=== PATIENT | female | born 1965 | race Caucasian/White ===

== ENCOUNTER → 2017-06-04 | Outpatient (POV) | payer OTHER, SELFPAY | PROVIDERS: Family Provider Internal Medicine; PCP Internal Medicine; Visit Provider Specialist | DX: R25.2 Cramp and spasm (principal) | CPT/HCPCS: 95886; 95909 ==

== ENCOUNTER → 2017-12-21 09:44 | Outpatient (CLI) | payer OTHER, SELFPAY ==
[2017-12-21 11:08] LABS: Alanine Aminotransferase 121 U/L (12-78); Albumin Level 3.6 gm/dL (3.4-5.0); Albumin/Globulin Ratio 0.9 (1.1-1.8); Alkaline Phosphatase 97 U/L (46-116); Anion Gap 15.5 mEq/L (5-15); Aspartate Amino Transferase 64 U/L (15-37); Bilirubin,Total 0.4 mg/dL (0.2-1.0); Blood Urea Nitrogen 17 mg/dL (7-18); Calcium 9.4 mg/dL (8.5-10.1); Carbon Dioxide 28 mmol/L (21.0-32.0); Chloride 102 mmol/L (98-107); Chol/HDL Ratio 4.1 (1-3.5); Cholesterol 203 mg/dL (140-200); Creatinine,Serum 0.91 mg/dL (0.55-1.02); Estimated Glomerular Filt Rate 65 ml/min (>60); GFR (African American) 79 ML/MIN (>60); Globulin 4.1 gm/dl (1.3-3.2); Glucose 107 mg/dL (74-106); HDL Cholesterol 50 mg/dL (29-89); LDL Cholesterol 108 mg/dL (0-130); Potassium 4.5 mmoL/L (3.5-5.1); Sodium 141 mmol/L (136-145); Total Protein,Serum 7.7 gm/dL (6.4-8.2); Triglycerides 227 mg/dL (30-200); VLDL Cholesterol 45 mg/dL (0-40)
[2017-12-22 19:40] LABS: Hep B Core Ab, Total Positive (Negative); Hep B Surface Ab, Qual Non Reactive (.); Hepatitis C Antibody <0.1 s/co ratio (0.0-0.9)
[2017-12-22 19:42] LABS: Microalbumin, Urine 99.4 ug/mL (Not Estab.)
== END ==
PROVIDERS: Visit Provider Internal Medicine
DX: E78.5 Hyperlipidemia, unspecified (principal); I10 Essential (primary) hypertension; R76.8 Other specified abnormal immunological findings in serum
CPT/HCPCS: 36415; 80053; 80061; 82043; 86704; 86706; 87380

== ENCOUNTER → 2018-01-14 10:58 | Outpatient (POV) | payer OTHER, SELFPAY ==
[2018-01-14 12:21] LABS: Basophils # 0.1 K/mm3 (0-0.2); Basophils % 0.7 % (0.1-2.0); Eosinophils # 0.2 K/mm3 (0.0-0.4); Eosinophils % 2.9 % (0.1-12.0); Hematocrit 45.6 % (37.0-47.0); Hemoglobin 14.9 g/dL (12.2-16.2); Lymphocytes # 3.2 K/mm3 (0.7-4.5); Lymphocytes % 40.1 K/mm3 (10-50); Mean Corpuscular HGB Conc 32.8 g/dL (31.8-35.4); Mean Corpuscular Hemoglobin 31.3 pg (27.0-31.2); Mean Corpuscular Volume 95.4 fl (81-99); Mean Platelet Volume 7.8 fl (7.4-10.4); Monocytes # 0.3 K/mm3 (0.1-1.0); Monocytes % 3.1 % (1.7-9.3); Neutrophils # 4.2 K/mm3 (1.8-7.8); Neutrophils % 53.1 % (37.0-80.0); Platelet Count 233 K/mm3 (142-424); Red Blood Count 4.77 M/mm3 (4.20-5.40); Red Cell Distribution Width 13.2 % (11.5-17.5)
[2018-01-14 12:22] LABS: INR 0.93 (0.9-1.1); Prothrombin Time 9.6 seconds (9.4-11.8)
[2018-01-14 17:23] LABS: Alanine Aminotransferase 147 U/L (12-78); Albumin Level 3.5 gm/dL (3.4-5.0); Albumin/Globulin Ratio 0.9 (1.1-1.8); Alkaline Phosphatase 94 U/L (46-116); Anion Gap 14.7 mEq/L (5-15); Aspartate Amino Transferase 97 U/L (15-37); Bilirubin,Total 0.4 mg/dL (0.2-1.0); Blood Urea Nitrogen 14 mg/dL (7-18); Calcium 9.4 mg/dL (8.5-10.1); Carbon Dioxide 28 mmol/L (21.0-32.0); Chloride 104 mmol/L (98-107); Creatinine,Serum 0.81 mg/dL (0.55-1.02); Estimated Glomerular Filt Rate 75 ml/min (>60); GFR (African American) 91 ML/MIN (>60); Globulin 4.1 gm/dl (1.3-3.2); Glucose 104 mg/dL (74-106); Potassium 4.7 mmoL/L (3.5-5.1); Sodium 142 mmol/L (136-145); Total Protein,Serum 7.6 gm/dL (6.4-8.2)
[2018-01-14 17:47] LABS: Ferritin 261 ng/mL (8-388)
[2018-01-15 09:27] LABS: Iron 72 ug/dL (27-159); UIBC 252 ug/dL (131-425)
[2018-01-15 10:14] LABS: Alpha-1-Antitrypsin 141 mg/dL (90-200); Immunoglobulin A, Qn 230 mg/dL (87-352); Immunoglobulin G, Qn 1031 mg/dL (700-1600)
[2018-01-15 11:19] LABS: Hep Be Ag Negative (Negative); Hepatitis B Surface Antigen Negative (Negative)
[2018-01-15 12:50] LABS: Hep B Core Ab, Total Positive (Negative); Hep B Surface Ab, Qual Non Reactive (.); Hepatitis B Core Antibody IgM Negative (Negative); Immunoglobulin M, Qn 383 mg/dL (26-217); Iron Saturation 22 % (15-55)
[2018-01-15 14:15] LABS: Angiotensin Converting Enzyme 42 U/L (14-82); Endomysial IgA Antibody Negative (Negative)
[2018-01-16 06:53] LABS: Deamidated Gliadin Abs, IgA 4 units (0-19); Tissue Transglutaminase IgA Ab <2 U/mL (0-3); Tissue Transglutaminase IgG Ab <2 U/mL (0-5)
[2018-01-16 06:54] LABS: Actin (Smooth Muscle) Antibody 29 Units (0-19); Deamidated Gliadin Abs, IgG 2 units (0-19); Mitochondrial (M2) Antibody <20.0 Units (0.0-20.0)
[2018-01-17 06:13] LABS: Liver-Kidney Microsomal Ab <1.0 Units (0.0-20.0)
[2018-01-17 06:16] LABS: Antinuclear Antibodies, IFA Positive (.)
[2018-01-22 09:32] LABS: Reticulin IgA Antibody Negative
[2018-01-22 09:34] LABS: Fibrosis Stage NO FIBROSIS
[2018-01-22 09:35] LABS: Necroinflammat Activity Score 0.59
[2018-01-22 10:07] LABS: HBV IU/mL HBV DNA NOT DETECTED
[2018-01-22 10:09] LABS: Fibrosis Score 0.06
[2018-01-22 10:10] LABS: Alpha 2-Macroglobulins, Qn 197
[2018-01-22 10:11] LABS: Apolipoprotein A-1 161; Bilirubin, Total 0.2; Haptoglobin 247
[2018-01-22 10:12] LABS: ALT (SGPT) P5P 132; GGT 30
== END ==
PROVIDERS: Visit Provider Nurse Practitioner Acute Care
DX: R94.5 Abnormal results of liver function studies (principal)
CPT/HCPCS: 36415; 80053; 82104; 82164; 82728; 82784; 83516; 83550; 85025; 85610; 86038; 86255; 86256; 86376; 86704; 86706; 87340; 87350; 87517

== ENCOUNTER → 2018-01-17 07:51 | Outpatient (CLI) | payer OTHER, SELFPAY ==
--- NOTE | 2018-01-17 07:54 | US_ITS ---
US abdomen limited Ordering Physician: Suyapa Muse Patient Age: 52 years: Female HISTORY: ITS.REASON: ELEVATED LIVER ENZYMES TECHNIQUE: Ultrasound abdomen right upper quadrant COMPARISON :CT abdomen and pelvis March 2015 FINDINGS Liver. Diffuse fatty changes of the liver. Increased echogenicity throughout. No focal lesion... Portal vein appears normal direction flow. . Common duct appears normal diameter measuring less than 2.5 mm at hilum of liver. No intrahepatic ductal dilatation. Pancreas. Suspect diffuse fatty changes. Not optimally seen with ultrasound but grossly unremarkable. Gallbladder. No echogenic stone. No significant sludge with scant debris. Barely evident. Gallbladder wall appears normal to upper normal thickness. The gallbladder normal size. Right kidney. Cortex well-maintained. No hydronephrosis nor mass. Right kidney measured 15 cm in length. The small stone lower pole seen on previous 2014 CT is not evident with ultrasound but may not be appreciated given its small size IMPRESSION: . Liver. Diffuse fatty changes with upper normal size liver. No focal liver lesions. No biliary ductal dilatation.. Gallbladder. No gallstones. No significant findings gallbladder.
== END ==
PROVIDERS: Family Provider Internal Medicine; PCP Internal Medicine; Visit Provider Nurse Practitioner Acute Care
DX: R94.5 Abnormal results of liver function studies (principal)
CPT/HCPCS: 76705

== ENCOUNTER → 2018-02-14 07:23 | Outpatient (CLI) | payer OTHER, SELFPAY ==
[2018-02-14 08:34] LABS: Basophils # 0.1 K/mm3 (0-0.2); Basophils % 0.6 % (0.1-2.0); Eosinophils # 0.2 K/mm3 (0.0-0.4); Eosinophils % 1.8 % (0.1-12.0); Hematocrit 44.7 % (37.0-47.0); Hemoglobin 14.5 g/dL (12.2-16.2); Lymphocytes # 3.1 K/mm3 (0.7-4.5); Lymphocytes % 35.2 K/mm3 (10-50); Mean Corpuscular HGB Conc 32.5 g/dL (31.8-35.4); Mean Corpuscular Hemoglobin 31.1 pg (27.0-31.2); Mean Corpuscular Volume 95.6 fl (81-99); Mean Platelet Volume 8.2 fl (7.4-10.4); Monocytes # 0.3 K/mm3 (0.1-1.0); Monocytes % 2.9 % (1.7-9.3); Neutrophils # 5.3 K/mm3 (1.8-7.8); Neutrophils % 59.7 % (37.0-80.0); Platelet Count 274 K/mm3 (142-424); Red Blood Count 4.68 M/mm3 (4.20-5.40); Red Cell Distribution Width 12.7 % (11.5-17.5); White Blood Count 8.9 K/mm3 (4.8-10.8)
[2018-02-14 09:40] LABS: Alanine Aminotransferase 92 U/L (12-78); Albumin Level 3.5 gm/dL (3.4-5.0); Albumin/Globulin Ratio 0.9 (1.1-1.8); Alkaline Phosphatase 84 U/L (46-116); Anion Gap 9.3 mEq/L (5-15); Aspartate Amino Transferase 33 U/L (15-37); Bilirubin,Total 0.3 mg/dL (0.2-1.0); Blood Urea Nitrogen 18 mg/dL (7-18); Calcium 9.4 mg/dL (8.5-10.1); Carbon Dioxide 30 mmol/L (21.0-32.0); Chloride 105 mmol/L (98-107); Creatinine,Serum 0.85 mg/dL (0.55-1.02); Estimated Glomerular Filt Rate 71 ml/min (>60); GFR (African American) 86 ML/MIN (>60); Globulin 3.9 gm/dl (1.3-3.2); Glucose 101 mg/dL (74-106); Potassium 4.3 mmoL/L (3.5-5.1); Sodium 140 mmol/L (136-145); Total Protein,Serum 7.4 gm/dL (6.4-8.2)
== END ==
PROVIDERS: Visit Provider Nurse Practitioner Acute Care
DX: R94.5 Abnormal results of liver function studies (principal)
CPT/HCPCS: 36415; 80053; 85025

== ENCOUNTER → 2018-02-18 09:04 | Outpatient (POV) | payer OTHER, SELFPAY | PROVIDERS: Family Provider Internal Medicine; PCP Internal Medicine; Visit Provider Nurse Practitioner Acute Care | DX: Z00.00 Encounter for general adult medical examination without abnormal findings (principal) ==

== ENCOUNTER → 2018-03-01 09:19 | Outpatient (CLI) | payer OTHER, SELFPAY ==
--- NOTE | 2018-03-01 09:22 | NM_ITS ---
NM hepatobiliary w pharm HISTORY: Right upper quadrant pain ITS.REASON: RUQ PAIN ORDERING PHYSICIAN: Suyapa Muse PATIENT AGE: 52 years COMPARISON: None DOSE: 8.15 MCI TC Choletec Fatty Meal: Ensure. No pain reported with fatty meal FINDINGS: Homogeneous activity is present within the hepatic parenchyma. Activity is present in the gallbladder by 10 minutes. Activity is present in the small bowel by 15 minutes. The gallbladder ejection fraction is calculated to be 68% The patient did not report pain or other symptoms with the fatty meal. IMPRESSION: Unremarkable hepatobiliary scan and gallbladder ejection fraction. No evidence of common or cystic duct obstruction with normal gallbladder ejection fraction
== END ==
PROVIDERS: Family Provider Internal Medicine; PCP Internal Medicine; Visit Provider Nurse Practitioner Acute Care
DX: R10.11 Right upper quadrant pain (principal)
CPT/HCPCS: 78227; A9537

== ENCOUNTER → 2018-04-05 15:30 | Outpatient (CLI) | payer OTHER, SELFPAY ==
[2018-04-05 17:12] LABS: Basophils # 0.1 K/mm3 (0-0.2); Basophils % 0.7 % (0.1-2.0); Eosinophils # 0.2 K/mm3 (0.0-0.4); Eosinophils % 1.5 % (0.1-12.0); Hematocrit 47.6 % (37.0-47.0); Hemoglobin 15.5 g/dL (12.2-16.2); Lymphocytes # 3.5 K/mm3 (0.7-4.5); Lymphocytes % 27.9 K/mm3 (10-50); Mean Corpuscular HGB Conc 32.5 g/dL (31.8-35.4); Mean Corpuscular Hemoglobin 31.2 pg (27.0-31.2); Mean Platelet Volume 7.7 fl (7.4-10.4); Monocytes # 0.4 K/mm3 (0.1-1.0); Neutrophils # 8.3 K/mm3 (1.8-7.8); Neutrophils % 66.9 % (37.0-80.0); Platelet Count 303 K/mm3 (142-424); Red Blood Count 4.96 M/mm3 (4.20-5.40); Red Cell Distribution Width 13.1 % (11.5-17.5); White Blood Count 12.4 K/mm3 (4.8-10.8)
[2018-04-05 18:30] LABS: Alanine Aminotransferase 64 U/L (12-78); Albumin Level 3.9 gm/dL (3.4-5.0); Albumin/Globulin Ratio 0.9 (1.1-1.8); Alkaline Phosphatase 96 U/L (46-116); Anion Gap 12.8 mEq/L (5-15); Aspartate Amino Transferase 27 U/L (15-37); Bilirubin,Total 0.4 mg/dL (0.2-1.0); Blood Urea Nitrogen 14 mg/dL (7-18); Calcium 9.2 mg/dL (8.5-10.1); Carbon Dioxide 28 mmol/L (21.0-32.0); Chloride 101 mmol/L (98-107); Creatinine,Serum 0.86 mg/dL (0.55-1.02); Estimated Glomerular Filt Rate 70 ml/min (>60); GFR (African American) 84 ML/MIN (>60); Globulin 4.3 gm/dl (1.3-3.2); Glucose 98 mg/dL (74-106); Potassium 4.8 mmoL/L (3.5-5.1); Sodium 137 mmol/L (136-145); Total Protein,Serum 8.2 gm/dL (6.4-8.2)
== END ==
PROVIDERS: PCP Internal Medicine; Visit Provider Nurse Practitioner Acute Care
DX: R94.5 Abnormal results of liver function studies (principal)
CPT/HCPCS: 36415; 80053; 85025

== ENCOUNTER → 2018-04-08 15:14 | Outpatient (POV) | payer OTHER, SELFPAY | PROVIDERS: Family Provider Internal Medicine; PCP Internal Medicine; Visit Provider Nurse Practitioner Acute Care | DX: Z00.00 Encounter for general adult medical examination without abnormal findings (principal) ==

== ENCOUNTER → 2018-05-03 11:53 | Outpatient (CLI) | payer OTHER, SELFPAY ==
[2018-05-03 12:19] LABS: Basophils # 0.1 K/mm3 (0-0.2); Basophils % 0.5 % (0.1-2.0); Eosinophils # 0.1 K/mm3 (0.0-0.4); Eosinophils % 1.3 % (0.1-12.0); Hematocrit 45.6 % (37.0-47.0); Hemoglobin 14.5 g/dL (12.2-16.2); Lymphocytes # 2.7 K/mm3 (0.7-4.5); Lymphocytes % 25.8 K/mm3 (10-50); Mean Corpuscular HGB Conc 31.8 g/dL (31.8-35.4); Mean Corpuscular Hemoglobin 30.2 pg (27.0-31.2); Mean Platelet Volume 7.4 fl (7.4-10.4); Monocytes # 0.4 K/mm3 (0.1-1.0); Monocytes % 3.8 % (1.7-9.3); Neutrophils # 7.2 K/mm3 (1.8-7.8); Neutrophils % 68.7 % (37.0-80.0); Platelet Count 292 K/mm3 (142-424); Red Cell Distribution Width 13.6 % (11.5-17.5); White Blood Count 10.5 K/mm3 (4.8-10.8)
[2018-05-03 15:56] LABS: Alanine Aminotransferase 47 U/L (12-78); Albumin Level 3.5 gm/dL (3.4-5.0); Albumin/Globulin Ratio 0.9 (1.1-1.8); Alkaline Phosphatase 72 U/L (46-116); Anion Gap 14.5 mEq/L (5-15); Aspartate Amino Transferase 15 U/L (15-37); Bilirubin,Total 0.3 mg/dL (0.2-1.0); Blood Urea Nitrogen 15 mg/dL (7-18); Calcium 9.2 mg/dL (8.5-10.1); Carbon Dioxide 30 mmol/L (21.0-32.0); Chloride 104 mmol/L (98-107); Creatinine,Serum 0.66 mg/dL (0.55-1.02); Estimated Glomerular Filt Rate 94 ml/min (>60); GFR (African American) 114 ML/MIN (>60); Globulin 3.7 gm/dl (1.3-3.2); Potassium 4.5 mmoL/L (3.5-5.1); Sodium 144 mmol/L (136-145); Total Protein,Serum 7.2 gm/dL (6.4-8.2)
[2018-05-03 16:15] LABS: Glucose 75 mg/dL (74-106)
== END ==
PROVIDERS: PCP Internal Medicine; Visit Provider Internal Medicine
DX: R94.5 Abnormal results of liver function studies (principal)
CPT/HCPCS: 36415; 80053; 85025

== ENCOUNTER → 2018-05-20 14:23 | Outpatient (POV) | payer OTHER, SELFPAY | PROVIDERS: Family Provider Internal Medicine; PCP Internal Medicine; Visit Provider Nurse Practitioner Acute Care | DX: Z00.00 Encounter for general adult medical examination without abnormal findings (principal) ==

== ENCOUNTER → 2018-06-18 10:29 | Outpatient (CLI) | payer OTHER, SELFPAY ==
[2018-06-18 12:53] LABS: Alanine Aminotransferase 43 U/L (12-78); Albumin Level 3.5 gm/dL (3.4-5.0); Albumin/Globulin Ratio 0.9 (1.1-1.8); Alkaline Phosphatase 81 U/L (46-116); Anion Gap 17.2 mEq/L (5-15); Aspartate Amino Transferase 17 U/L (15-37); Bilirubin,Total 0.4 mg/dL (0.2-1.0); Blood Urea Nitrogen 17 mg/dL (7-18); Calcium 9.3 mg/dL (8.5-10.1); Carbon Dioxide 28 mmol/L (21.0-32.0); Chloride 102 mmol/L (98-107); Cholesterol 202 mg/dL (140-200); Creatinine,Serum 0.77 mg/dL (0.55-1.02); Estimated Glomerular Filt Rate 79 ml/min (>60); GFR (African American) 96 ML/MIN (>60); Glucose 101 mg/dL (74-106); HDL Cholesterol 68 mg/dL (29-89); LDL Cholesterol 110 mg/dL (0-130); Potassium 5.2 mmoL/L (3.5-5.1); Sodium 142 mmol/L (136-145); Total Protein,Serum 7.5 gm/dL (6.4-8.2); Triglycerides 121 mg/dL (30-200); VLDL Cholesterol 24 mg/dL (0-40)
== END ==
PROVIDERS: Visit Provider Internal Medicine
DX: E11.9 Type 2 diabetes mellitus without complications (principal); I10 Essential (primary) hypertension; E78.5 Hyperlipidemia, unspecified; E66.01 Morbid (severe) obesity due to excess calories; K21.0 Gastro-esophageal reflux disease with esophagitis; G47.33 Obstructive sleep apnea (adult) (pediatric)
CPT/HCPCS: 80053; 80061; 83036

== ENCOUNTER → 2018-06-28 17:18 | Outpatient (CLI) | payer OTHER, SELFPAY ==
[2018-06-28 18:03] LABS: Eosinophils % 2.1 % (0.1-12.0); Hematocrit 43.6 % (37.0-47.0); Hemoglobin 14.3 g/dL (12.2-16.2); Lymphocytes % 33.1 % (10-50); Mean Corpuscular HGB Conc 32.7 g/dL (31.8-35.4); Mean Corpuscular Hemoglobin 31.1 pg (27.0-31.2); Mean Corpuscular Volume 95.1 fl (81-99); Mean Platelet Volume 7.7 fl (7.4-10.4); Monocytes % 2.8 % (1.7-9.3); Neutrophils % 61.4 % (37.0-80.0); Platelet Count 267 K/mm3 (142-424); Red Blood Count 4.59 M/mm3 (4.20-5.40)
[2018-06-28 18:04] LABS: Basophils # 0.1 K/mm3 (0-0.2); Basophils % 0.7 % (0.1-2.0); Eosinophils # 0.2 K/mm3 (0.0-0.4); Lymphocytes # 3.7 K/mm3 (0.7-4.5); Monocytes # 0.3 K/mm3 (0.1-1.0); Neutrophils # 6.8 K/mm3 (1.8-7.8)
[2018-06-28 20:34] LABS: Alanine Aminotransferase 40 U/L (12-78); Albumin Level 3.5 gm/dL (3.4-5.0); Albumin/Globulin Ratio 0.9 (1.1-1.8); Alkaline Phosphatase 82 U/L (46-116); Anion Gap 16.5 mEq/L (5-15); Aspartate Amino Transferase 18 U/L (15-37); Bilirubin,Total 0.2 mg/dL (0.2-1.0); Blood Urea Nitrogen 12 mg/dL (7-18); Calcium 9.5 mg/dL (8.5-10.1); Carbon Dioxide 29 mmol/L (21.0-32.0); Chloride 102 mmol/L (98-107); Creatinine,Serum 0.82 mg/dL (0.55-1.02); Estimated Glomerular Filt Rate 73 ml/min (>60); GFR (African American) 89 ML/MIN (>60); Potassium 4.5 mmoL/L (3.5-5.1); Sodium 143 mmol/L (136-145); Total Protein,Serum 7.5 gm/dL (6.4-8.2)
[2018-06-28 20:56] LABS: Glucose 118 mg/dL (74-106)
[2018-07-02 10:28] LABS: H. pylori Breath Test Negative (Negative)
== END ==
PROVIDERS: Visit Provider Nurse Practitioner Acute Care
DX: R10.11 Right upper quadrant pain (principal); R94.5 Abnormal results of liver function studies
CPT/HCPCS: 36415; 80053; 83013; 85025

== ENCOUNTER → 2018-08-26 13:31 | Outpatient (POV) | payer OTHER, SELFPAY | PROVIDERS: Visit Provider Nurse Practitioner Acute Care | DX: Z00.00 Encounter for general adult medical examination without abnormal findings (principal) ==

== ENCOUNTER → 2019-01-20 10:18 | Outpatient (POV) | payer OTHER, SELFPAY | PROVIDERS: PCP Internal Medicine; Visit Provider Nurse Practitioner Family | DX: Z00.00 Encounter for general adult medical examination without abnormal findings (principal) ==

== ENCOUNTER → 2019-02-05 14:54 | Outpatient (CLI) | payer OTHER, SELFPAY | PROVIDERS: PCP Internal Medicine; Visit Provider Nurse Practitioner Family | DX: Z71.3 Dietary counseling and surveillance (principal); K75.4 Autoimmune hepatitis; K76.0 Fatty (change of) liver, not elsewhere classified; K30 Functional dyspepsia; R10.11 Right upper quadrant pain | CPT/HCPCS: 97802 ==

== ENCOUNTER → 2019-02-28 10:49 | Outpatient (CLI) | payer OTHER, SELFPAY ==
[2019-02-28 11:21] LABS: Basophils # 0.1 K/mm3 (0-0.2); Basophils % 0.6 % (0.1-2.0); Eosinophils # 0.2 K/mm3 (0.0-0.4); Eosinophils % 2.4 % (0.1-12.0); Hemoglobin 15.3 g/dL (12.2-16.2); Lymphocytes # 2.7 K/mm3 (0.7-4.5); Lymphocytes % 33.7 % (10-50); Mean Corpuscular HGB Conc 31.1 g/dL (31.8-35.4); Mean Corpuscular Hemoglobin 30.5 pg (27.0-31.2); Mean Corpuscular Volume 97.8 fl (81-99); Mean Platelet Volume 8.2 fl (7.4-10.4); Monocytes # 0.2 K/mm3 (0.1-1.0); Monocytes % 2.6 % (1.7-9.3); Neutrophils # 4.9 K/mm3 (1.8-7.8); Neutrophils % 60.7 % (37.0-80.0); Platelet Count 281 K/mm3 (142-424); Red Cell Distribution Width 13.1 % (11.5-17.5); White Blood Count 8.1 K/mm3 (4.8-10.8)
[2019-02-28 15:45] LABS: Alanine Aminotransferase 65 U/L (12-78); Albumin Level 3.5 gm/dL (3.4-5.0); Albumin/Globulin Ratio 0.8 (1.1-1.8); Alkaline Phosphatase 89 U/L (46-116); Anion Gap 13.4 mEq/L (5-15); Aspartate Amino Transferase 30 U/L (15-37); Bilirubin,Total 0.4 mg/dL (0.2-1.0); Blood Urea Nitrogen 14 mg/dL (7-18); Calcium 9.6 mg/dL (8.5-10.1); Carbon Dioxide 30 mmol/L (21.0-32.0); Chloride 101 mmol/L (98-107); Creatinine,Serum 0.79 mg/dL (0.55-1.02); Estimated Glomerular Filt Rate 77 ml/min (>60); GFR (African American) 93 ML/MIN (>60); Globulin 4.2 gm/dl (1.3-3.2); Glucose 94 mg/dL (74-106); Potassium 4.4 mmoL/L (3.5-5.1); Sodium 140 mmol/L (136-145); Total Protein,Serum 7.7 gm/dL (6.4-8.2)
== END ==
PROVIDERS: Visit Provider Nurse Practitioner Family
DX: K75.4 Autoimmune hepatitis (principal)
CPT/HCPCS: 36415; 80053; 85025

== ENCOUNTER → 2019-03-03 08:52 | Outpatient (POV) | payer OTHER, SELFPAY | PROVIDERS: PCP Nurse Practitioner Family; Visit Provider Nurse Practitioner Family | DX: Z00.00 Encounter for general adult medical examination without abnormal findings (principal) ==

== ENCOUNTER → 2019-10-06 16:54 | Outpatient (CLI) | payer BC, SELFPAY ==
[2019-10-06 17:29] LABS: Basophils # 0.1 K/mm3 (0-0.2); Basophils % 0.5 % (0.1-2.0); Eosinophils # 0.5 K/mm3 (0.0-0.4); Eosinophils % 5.3 % (0.1-12.0); Hematocrit 45.1 % (37.0-47.0); Lymphocytes # 3.5 K/mm3 (0.7-4.5); Lymphocytes % 40.9 % (10-50); Mean Corpuscular HGB Conc 33.2 g/dL (31.8-35.4); Mean Corpuscular Hemoglobin 31.3 pg (27.0-31.2); Mean Corpuscular Volume 94.2 fl (81-99); Mean Platelet Volume 8.1 fl (7.4-10.4); Monocytes # 0.3 K/mm3 (0.1-1.0); Monocytes % 3.1 % (1.7-9.3); Neutrophils # 4.2 K/mm3 (1.8-7.8); Neutrophils % 50.1 % (37.0-80.0); Platelet Count 275 K/mm3 (142-424); Red Blood Count 4.79 M/mm3 (4.20-5.40); Red Cell Distribution Width 13.1 % (11.5-17.5); White Blood Count 8.4 K/mm3 (4.8-10.8)
[2019-10-06 17:47] LABS: Chloride 99 mmol/L (98-107); Potassium 4.6 mmoL/L (3.5-5.1); Sodium 140 mmol/L (136-145)
[2019-10-06 17:50] LABS: Alanine Aminotransferase 139 U/L (12-78); Albumin Level 4.6 g/dl (3.5-5.0); Albumin/Globulin Ratio 1.4 (1.1-1.8); Alkaline Phosphatase 91 U/L (38-126); Anion Gap 17.6 mEq/L (5-15); Aspartate Amino Transferase 120 U/L (14-36); Bilirubin,Total 0.4 mg/dl (0.2-1.3); Blood Urea Nitrogen 13 mg/dl (7-17); Carbon Dioxide 28 mmol/L (22.0-30.0); Estimated Glomerular Filt Rate 88 ml/min (>60); GFR (African American) 106 ML/MIN (>60); Globulin 3.3 g/dL (1.3-3.2); Glucose 122 mg/dl (74-100); Total Protein,Serum 7.9 g/dl (6.3-8.2)
== END ==
PROVIDERS: Visit Provider Nurse Practitioner Family
DX: R10.11 Right upper quadrant pain (principal); R94.5 Abnormal results of liver function studies; K75.4 Autoimmune hepatitis; K76.0 Fatty (change of) liver, not elsewhere classified
CPT/HCPCS: 36415; 80053; 85025

== ENCOUNTER → 2019-11-11 17:22 | Outpatient (CLI) | payer BC, SELFPAY ==
[2019-11-11 17:48] LABS: Basophils # 0.1 K/mm3 (0-0.2); Basophils % 0.9 % (0.1-2.0); Eosinophils # 0.2 K/mm3 (0.0-0.4); Eosinophils % 2.2 % (0.1-12.0); Hematocrit 44.6 % (37.0-47.0); Hemoglobin 14.5 g/dL (12.2-16.2); Lymphocytes # 3.2 K/mm3 (0.7-4.5); Mean Corpuscular HGB Conc 32.4 g/dL (31.8-35.4); Mean Corpuscular Hemoglobin 30.8 pg (27.0-31.2); Mean Corpuscular Volume 94.9 fl (81-99); Mean Platelet Volume 8.1 fl (7.4-10.4); Monocytes # 0.2 K/mm3 (0.1-1.0); Neutrophils # 3.9 K/mm3 (1.8-7.8); Neutrophils % 51.9 % (37.0-80.0); Platelet Count 262 K/mm3 (142-424); Red Cell Distribution Width 12.9 % (11.5-17.5); White Blood Count 7.5 K/mm3 (4.8-10.8)
[2019-11-11 20:27] LABS: Chloride 102 mmol/L (98-107); Sodium 139 mmol/L (136-145)
[2019-11-11 20:28] LABS: Potassium 4.9 mmoL/L (3.5-5.1)
[2019-11-11 20:30] LABS: Alanine Aminotransferase 105 U/L (12-78); Alkaline Phosphatase 82 U/L (38-126); Anion Gap 12.9 mEq/L (5-15); Aspartate Amino Transferase 61 U/L (14-36); Bilirubin,Total 0.3 mg/dl (0.2-1.3); Blood Urea Nitrogen 15 mg/dl (7-17); Carbon Dioxide 29 mmol/L (22.0-30.0); Estimated Glomerular Filt Rate 88 ml/min (>60); GFR (African American) 106 ML/MIN (>60)
[2019-11-11 20:31] LABS: Albumin Level 4.4 g/dl (3.5-5.0); Albumin/Globulin Ratio 1.5 (1.1-1.8); Glucose 148 mg/dl (74-100); Total Protein,Serum 7.4 g/dl (6.3-8.2)
== END ==
PROVIDERS: Visit Provider Nurse Practitioner Family
DX: K75.4 Autoimmune hepatitis (principal); K76.0 Fatty (change of) liver, not elsewhere classified; R94.5 Abnormal results of liver function studies
CPT/HCPCS: 36415; 80053; 85025

== ENCOUNTER → 2019-12-19 08:19 | Outpatient (CLI) | payer BC, SELFPAY ==
--- NOTE | 2019-12-19 08:30 | MM_ITS ---
PROCEDURE: MM DIG MAMM BI DX W/CAD Digital Breast Tomosynthesis Included CLINICAL INDICATION: LT BREAST LUMP COMPARISON: MM MOBILE MAMMO DIGITAL SCREEN W CAD KVNG from 09/18/2012 DMDXUAVL DIG MAMM-DX UNI ADD VIEWS-LT from 10/08/2012 TECHNIQUE: Standard CC and MLO images and 3D Tomosynthesis was obtained. R2 CAD reviewed. FINDINGS: Moderate diffuse fibroglandular densities are seen in both breast. There is an asymmetric density with irregular borders upper-outer quadrant left breast. There is a markedly enlarged lobulated abnormal appearing node or conglomeration of nodes left axilla. Janusz images confirm markedly irregular border of the breast lesion. There are few scattered benign-appearing microcalcifications in each breast. Ultrasound exam was performed prior to the mammogram showing a suspicious solid lesion corresponding to the asymmetric irregular density on the mammogram and confirming a markedly enlarged abnormal appearing node or nodes left axilla. IMPRESSION: Suspicious asymmetric density left breast with markedly enlarged axillary nodes BI-RAD Category: 5 Highly Suggestive Of Malignancy FOLLOW-UP: BIO Biopsy Recommended (A letter has been sent to the patient regarding results of the study.) Dictated by: Dr. Rene Persaud MD 12/19/2019 11:[address] Rene Persaud MD in [place] 12/19/2019 11:08
--- NOTE | 2019-12-19 08:30 | US_ITS ---
PROCEDURE: US BREAST LT COMPLETE CLINICAL INDICATION: LT BREAST LUMP COMPARISON: BL US BREAST-LT from 10/08/2012 FINDINGS: There is a markedly suspicious hypoechoic lobulated lesion 1 o'clock position outer breast measuring 1.5 x 1.4 by 1.8 cm. Is a tiny benign-appearing cystic lesion at the 2 o'clock position measuring 0.4 x 0.4 cm. There is another hypoechoic cystic-appearing lesion at the 6 o'clock position outer breast measuring 0.9 x 0.5 by 0.6 cm. Scanning in the axilla shows a markedly enlarged solid abnormal appearing node measuring 4.1 by 3.1 x 2.6 cm. IMPRESSION: Markedly suspicious solid lesion upper outer quadrant with lobulated borders and markedly abnormal appearing axillary adenopathy and this is carcinoma until proven otherwise. Dictated by: Dr. Rene Persaud MD 12/19/2019 11:[address] Rene Persaud MD in [place] 12/19/2019 11:11
== END ==
PROVIDERS: PCP Internal Medicine; Visit Provider Internal Medicine
DX: R92.8 Other abnormal and inconclusive findings on diagnostic imaging of breast (principal)
CPT/HCPCS: 76641; 77062; 77066; G0279

== ENCOUNTER → 2019-12-25 17:34 | Outpatient (CLI) | payer BC, SELFPAY ==
[2019-12-25 17:55] LABS: Basophils # 0.2 K/mm3 (0-0.2); Basophils % 1.8 % (0.1-2.0); Eosinophils # 0.2 K/mm3 (0.0-0.4); Eosinophils % 1.8 % (0.1-12.0); Hematocrit 43.9 % (37.0-47.0); Hemoglobin 14.7 g/dL (12.2-16.2); Lymphocytes # 3.8 K/mm3 (0.7-4.5); Lymphocytes % 43.4 % (10-50); Mean Corpuscular HGB Conc 33.4 g/dL (31.8-35.4); Mean Corpuscular Hemoglobin 31.8 pg (27.0-31.2); Mean Corpuscular Volume 95.3 fl (81-99); Mean Platelet Volume 8.3 fl (7.4-10.4); Monocytes # 0.3 K/mm3 (0.1-1.0); Monocytes % 3.6 % (1.7-9.3); Neutrophils # 4.4 K/mm3 (1.8-7.8); Neutrophils % 49.3 % (37.0-80.0); Platelet Count 267 K/mm3 (142-424); Red Blood Count 4.61 M/mm3 (4.20-5.40); Red Cell Distribution Width 12.9 % (11.5-17.5); White Blood Count 8.8 K/mm3 (4.8-10.8)
[2019-12-25 20:06] LABS: Chloride 103 mmol/L (98-107); Sodium 141 mmol/L (136-145)
[2019-12-25 20:07] LABS: Potassium 3.7 mmoL/L (3.5-5.1)
[2019-12-25 20:09] LABS: Albumin Level 3.9 g/dl (3.5-5.0); Albumin/Globulin Ratio 1.3 (1.1-1.8); Alkaline Phosphatase 88 U/L (38-126); Anion Gap 10.7 mEq/L (5-15); Bilirubin,Total 0.4 mg/dl (0.2-1.3); Blood Urea Nitrogen 11 mg/dl (7-17); Calcium 9.2 mg/dl (8.4-10.2); Carbon Dioxide 31 mmol/L (22.0-30.0); Estimated Glomerular Filt Rate 75 ml/min (>60); GFR (African American) 91 ML/MIN (>60); Glucose 129 mg/dl (74-100); Total Protein,Serum 6.9 g/dl (6.3-8.2)
[2019-12-25 20:10] LABS: Alanine Aminotransferase 71 U/L (12-78); Aspartate Amino Transferase 39 U/L (14-36)
== END ==
PROVIDERS: Visit Provider Internal Medicine Gastroenterology
DX: K75.4 Autoimmune hepatitis (principal); R94.5 Abnormal results of liver function studies; R10.11 Right upper quadrant pain; R14.0 Abdominal distension (gaseous); R11.0 Nausea; K58.9 Irritable bowel syndrome, unspecified; K83.8 Other specified diseases of biliary tract; K76.0 Fatty (change of) liver, not elsewhere classified
CPT/HCPCS: 36415; 80053; 85025

== ENCOUNTER → 2020-01-08 09:45 | Outpatient (CLI) | payer BC, MEDICAID, SELFPAY ==
--- NOTE | 2020-01-08 | MM_ITS ---
PROCEDURE: US MAMMOTOME BX LT CLINICAL INDICATION: breast mass, suspicious left breast mass COMPARISON: MM MOBILE MAMMO DIGITAL SCREEN W CAD KVNG from 09/18/2012 DMDXUAVL DIG MAMM-DX UNI ADD VIEWS-LT from 10/08/2012 US BREAST LT COMPLETE from 12/19/2019 MM DIG MAMM BI DX W/CAD from 12/19/2019 MM CLIP PLACEMENT LT from 01/08/2020 FINDINGS: Technique: Following obtaining informed consent and time-out procedure under aseptic conditions and local anesthesia with 1 percent buffered lidocaine fine needle aspiration was performed of enlarged lymph node in the left axillary region. The patient tolerated procedure well without evidence of immediate complication. Cytology: Malignant adenocarcinoma. In the same setting, mammotome biopsy was performed of a suspicious nodule in the 1 o'clock region of the left breast. Under aseptic conditions and local anesthesia with 1 percent buffered lidocaine and deeper anesthesia with lidocaine mixed with epinephrine, mammotome needle was inserted and multiple mammotome biopsies were obtained. The patient tolerated the procedure well and left radiology suite in stable condition. There were no immediate complications. Pathology is pending Left mammogram, clip placement colon post biopsy changes and mammotome clip noted along the anterior aspect of the ill-defined lesion in the upper outer left breast. A benign-appearing nodular opacity is noted in the central aspect of the left breast at approximately 6 mm. Suggest continued follow-up of this nodule. A 6 mm cyst is noted on the ultrasound 12/19/2019 and may correspond to this nodular density. IMPRESSION: Fine needle aspiration of the left axillary region shows malignant adenocarcinoma. Uneventful mammotome biopsy of the left breast. Pathology is pending. Dictated by: Evin Castro MD 01/14/2020 15:16 Electronically signed by Evin Castro MD in [place] 01/14/2020 15:16
== END ==
PROVIDERS: PCP Internal Medicine; Visit Provider Surgery
DX: N63.21 Unspecified lump in the left breast, upper outer quadrant (principal)
CPT/HCPCS: 19083; 76942; 77065; C2618

== ENCOUNTER → 2020-01-19 14:31 | Outpatient (CLI) | payer BC, MEDICAID, SELFPAY ==
--- NOTE | 2020-01-19 14:38 | CA_ITS ---
APPROVED REPORT EXAM: Comprehensive 2D, Doppler, and color-flow Echocardiogram Construction Accountant: Mandi Candelaria RDCS Ht: 5 ft 5 in Wt: 205lbs BSA: 2.00 BP: 178/88 mmHg Indications: BREAST CA PRE CHEMO LV FXN 2D Dimensions LVOT 2.09 cm (M/F) 1.5-2.5 M-Mode Dimensions RVDd 3.14 cm (0.9-2.6) LVDd 5.13 cm (3.5-5.7) LVDs 3.77 cm (3.5-5.7) IVSd 0.76 cm (0.6-1.1) PWd 0.81 cm (0.6-1.1) EF (Teich) 51.60% FS 26.50% EDV (Teich) 125.50 mL ESV (Teich) 60.80 mL LV Diastology E/A Ratio 1.03 Mitral Valve MV A Velocity 81.00 (40-130 cm/s) Left Ventricle Left atrium is normal size, left ventricle is normal size, there is no concentric left ventricular hypertrophy, visually estimated ejection fraction of 55% with no regional wall motion abnormalities. Diastolic parameters are within normal range. Right Ventricle Right atrium is normal size, right ventricle is mildly enlarged with normal contractility. Aortic Valve Aortic valve is minimally thickened and fibrosed. There is no aortic stenosis or aortic insufficiency. Mitral Valve Mitral valve is grossly normal, there is mild mitral regurgitation. Tricuspid Valve Tricuspid valve is grossly normal, there is mild tricuspid regurgitation. Tricuspid regurgitation jet velocity is inadequate for calculation of the right ventricular systolic pressure. Pulmonic Valve Pulmonic valve is poorly visualized. Great Vessels Aortic root is normal size. Pericardium No significant pericardial effusion noted. Conclusion 1. Normal left ventricular size, visually estimated ejection fraction 55% with no regional wall motion abnormality, diastolic parameters are within normal range. 2. Mildly enlarged right ventricle with normal contractility. 3. Mild mitral and tricuspid regurgitation. 4. No significant pericardial effusion noted. Electronically signed by : Moe Hernández, 01/19/2020 19:07:18
== END ==
PROVIDERS: PCP Internal Medicine; Visit Provider Internal Medicine Medical Oncology
DX: C50.912 Malignant neoplasm of unspecified site of left female breast (principal); D48.61 Neoplasm of uncertain behavior of right breast
CPT/HCPCS: 93306

== ENCOUNTER 2020-01-22 16:49 | Outpatient (CLI) | payer BC, MEDICAID, SELFPAY ==
--- NOTE | 2020-01-22 12:45 | PC.NURSE ---
Addendum entered by Alejandra Stringer RN 01/26/20 14:59: PT WAS TAKEN INTO ROOM AT 1250. CONSENT SIGNED THEN. PT LAYING ON STRETCHER. PROCEDURE START TIME WAS AT 1255 AND COMPLETE TIME WAS 1311. I CONTINUED TO MONITOR PT IN THE ROOM FOR ADDITIONAL 15 MINS AND NO ISSUES NOTED MD NOTIFIED AND OK FOR PT TO BE SENT HOME AT THE TIME. PT LEFT AT 1330. Original Note: PT CAME INTO TO SEE MD TODAY TO FOLLOW UP FOR BREAST CANCER AND GET RESULTS OF PET SCAN AND MRI. ON THE PET REPORT THERE WAS A CONCERN FOR BONE MARROW METASTASIS. MD WANTED TO HAVE PATEINT HAVE A BONE MARROW BIOPSY NOW. CALLED LAB AND VERIFIED THEY COULD DO IT. PT WAS THEN BROUGHT TO OUTPT AND INTO THE PROCEEDURE ROOM AND THE BONE MARROW WAS DONE. MD WAS AT THE BEDSIDE TO PREFORM THE PROCEEDURE. BIOPSY WAS DONE UNDER STERILE CONDITIONS. MARROW AND BX WAS OBTAINED. NO COMPLICATIONS WERE NOTED.
[2020-01-22 12:55] VITALS: BP 123/74; PULSE 68; RESP 20
[2020-01-22 13:30] VITALS: BP 122/74; PULSE 68; RESP 20; TEMP 36.9; O2SAT 95
--- NOTE | 2020-01-22 16:57 | PC.NURSE ---
Addendum entered by Alejandra Stringer RN 01/22/20 17:04: Original Note: PT WAS SEEN IN THE CLINIC DAY TO DISCUSS THE RESULTS OF THE RECENT MRI AND PET SCAN. ON THE PET SCAN THERE WAS SOME CONCERN ABOUT THE MARROW IN THE INVOLVEMENT SO WANTED TO DO BONE MARROW NOW. LAB WAS CALLED AND PATIENT WAS TAKEN UP TO PROCEEDURE ROOM. NO ISSUES TO REPORT.
== END 2020-01-22 17:07 | disposition home or self-care (01) ==
LOC: INF 16:49
PROVIDERS: PCP Internal Medicine; Visit Provider Internal Medicine Medical Oncology
DX: C50.412 Malignant neoplasm of upper-outer quadrant of left female breast; Z17.0 Estrogen receptor positive status [ER+]
CPT/HCPCS: 38221

== ENCOUNTER → 2020-02-03 07:58 | Outpatient (CLI) | payer BC, MEDICAID, SELFPAY ==
[2020-02-03 09:25] LABS: Coronavirus 19 IgG Antibody Negative (Negative); Coronavirus 19 IgM Antibody Negative (Negative)
== END ==
PROVIDERS: Visit Provider Surgery
DX: Z01.818 Encounter for other preprocedural examination (principal)
CPT/HCPCS: 36415; 86328

== ENCOUNTER 2020-02-04 11:20 | Day surgery (SDC) | payer BC, MEDICAID, SELFPAY ==
[2020-02-03 11:00] VITALS: BMI 33.3
[2020-02-04] VITALS (12 sets, daily range): BP systolic 112–148; BP diastolic 67–87; PULSE 60–94; RESP 12–18; TEMP 36.3–36.7; O2SAT 92–96
[2020-02-04 12:03] LABS: POC Glucose,Bedside 91 (70-110)
--- NOTE | 2020-02-04 12:15 | FL_ITS ---
PROCEDURE: FL GUIDED CENTRAL LINE PLACEMT CLINICAL INDICATION: PORTACATH COMPARISON: No exams were available for comparison FINDINGS: Fluoroscopy time: 8.2 seconds Right subclavian MediPort catheter was placed with tip in the region the SVC with fluoro guidance. IMPRESSION: Port-A-Cath placement with fluoro guidance Dictated by: Evin Castro MD 02/05/2020 10:54 Electronically signed by Evin Castro MD in [place] 02/05/2020 10:54
--- NOTE | 2020-02-04 12:54 | P.PN_ITS ---
[facility] Anesthesia Checklist - Structural Data Admitted From: Home Planned Operative Procedure/s: portacath Consent for Planned Operative Procedure(s) Verified: Yes - Additional verifications Anesthesia Reactions: No Hx Blood Transfusions: No Blood Transfusion Reaction: No - Airway Assessment C-Spine Mobility Assessed: Yes TMJ Mobility Assessed: Yes Dentition: Good Dentition - Neurological Assessment Level of Consciousness: Alert, Appropriate - Anesthesia Plan Anesthesia Risk discussed: Yes Anesthesia Plan: Verified ASA Class: III Anesthesia Type: General [facility] History I have reviewed the patient's past medical history: Yes Medical History: Reports:: Anxiety, Cancer (breast), Diabetes Mellitus Type 2, Gastroesophageal Reflux Disease(GERD), Hepatitis (autoimmune), Hyperlipidemia, Hypertension, Lung Disease (sleep apnea) Denies:: Diabetes Mellitus Type 1, Internal Pacemaker, MRSA, Seizures *Have you ever received a pneumonia vaccine?: Yes *Have you received a flu vaccine this season?: Yes Other Medical History: Reports: Other (obesity, MELVIN). Denies: Blood Transfusion Reaction Anesthesia experience/problems:: none Laterality Cases: Bilateral: Tonsillectomy Other Surgeries: Yes: Colonoscopy, , Hysterectomy-Total, Hysterectomy- Partial. No: Pacemaker Amputation: No Fractures: No - *Social History Smoking Status: Never smoker Alcohol Intake: never Substance Use Type: denies use *Occupational Status:: employed Housing: house Household Members: spouse *Travel in the last 8 weeks: None - Psychiatric History Pschychiatric History:: Reports:: Anxiety Family Hx:: No significant family history
--- NOTE | 2020-02-04 13:19 | HMH.OPNOTE ---
Date of procedure: 02/04/20 Pre-op Diagnosis:: Breast cancer Post-op Diagnosis:: Same Procedure performed:: Placement of venous access device in right subclavian vein with tunneled subcutaneous reservoir port (PowerPort) Surgeon:: Noah Hill MD MANAGER ENVIRONMENTAL HEALTH AND SAFETY:: Gilberto Michael Anesthesia: GETA Estimated blood loss (mL): 10 Clinical Note:: Patient presents for port placement. She has known node positive biopsy-proven left breast cancer. She did see Dr. Arellano. She had PET CT scan which revealed possible bone marrow disease. She did undergo bone marrow biopsy. She underwent recent breast MRI. She had seen Dr. Arellano and plan is for neoadjuvant therapy. Operative findings:: Normal vascular anatomy Operative note:: Patient was taken to the operating room. She was given preoperative intravenous antibiotics. In the operating room she was placed in a supine position. General anesthesia was induced. Right neck and upper chest were prepped and draped in the standard surgical fashion. Patient was positioned in Trendelenburg position. Local anesthetic was infiltrated near the right deltopectoral groove and the plane near the clavicle. 18-gauge needle was inserted manipulating the needle posterior to the clavicle. Right subclavian vein was cannulated with good return of blood flow. Guidewire was inserted. Fluoroscopy was used to confirm appropriate placement of the guidewire. Small incision was made at the guidewire insertion site. Subcutaneous tissues were dilated with the dilator and breakaway sheath. Guidewire and dilator were removed. Single-lumen catheter was placed through the breakaway sheath which was then removed. Fluoroscopy was used once again to confirm appropriate positioning of the catheter with the tip near the atrial caval junction. Skin was marked with a skin marker for planned subcutaneous titling and for subcutaneous pocket. Incision was made for subcutaneous pocket and electrocautery was used to create subcutaneous pocket inferiorly. Catheter was tunneled subcutaneously and cut to the appropriate length. The subcutaneous reservoir port was then secured to the catheter. Catheter was secured into the subcutaneous pocket with 2-0 Vicryl suture. Catheter aspirated and flushed without difficulty with saline. Fluoroscopy was used to confirm appropriate positioning once again without obvious pneumothorax. The subdermal tissues were closed with running 2-0 Vicryl. Skin incisions were closed with 4-0 Monocryl in a subcuticular fashion. Dressings were applied. At the completion of the procedure the port was accessed with the Centeno needle infusion tubing. It flushed and aspirated without difficulty with saline and then was flushed with heparinized saline. Dressing was applied over the access tubing. Condition: stable Disposition: PACU Complications:: None immediately apparent
--- NOTE | 2020-02-04 13:27 | XR_ITS ---
PROCEDURE: XR CHEST PORTABLE CLINICAL HISTORY: port-a-cath placement, right side COMPARISON: CXR CHEST(2 VIEWS-NOT PORTABLE) from 06/27/2016 FINDINGS: Mild cardiomegaly without failure. Right subclavian MediPort catheter is present. Tip is in the region of the SVC. No evidence of pneumothorax. No acute bony abnormalities. IMPRESSION: Right subclavian MediPort catheter tip in good position without evidence of pneumothorax Dictated by: Evin Castro MD 02/04/2020 13:46 Electronically signed by Evin Castro MD in [place] 02/04/2020 13:46
--- NOTE | 2020-02-04 14:26 | SUR.PHASEII ---
Care of patient passed to Lopez Armenta RN, report given.
--- NOTE | 2020-02-04 15:43 | HMH.ANESI ---
[facility] Anesthesia Record Part I Intake, IV Amount: 1,315 Estimated blood loss (mL): 5 Urine output (mL): 0 Blood Pressure: 121/70 SaO2: 96 Pulse Rate: 94 Respiratory Rate: 16 Temperature: 97.9 F Patient is:: Drowsy, Stable Stable to PACU at:: 13:15
--- NOTE | 2020-02-04 15:45 | P.PN_ITS ---
[facility] Anesthesia Record Part II Discharge Time: 14:03 Destination: Surgical Day Care (OP Surgery) PACU nurse assessment reviewed?: Yes Patient Condition:: Good Anesthesia Complications:: None Swallowing reflex intact?: Yes Cyanosis?: No Blood Pressure: 119/71 Pulse Rate: 61 Temperature: 98 F Mental Status: Alert & Oriented Pain level:: 3 Nausea and/or vomitting:: None Intake, IV Amount: 0
== END 2020-02-04 14:34 | disposition home or self-care (01) ==
LOC: OR 11:21
PROVIDERS: PCP Internal Medicine; Visit Provider Surgery
PROC: (CPT 36561; principal; 2020-02-04 12:45)
DX: C50.912 Malignant neoplasm of unspecified site of left female breast (principal); F41.9 Anxiety disorder, unspecified; E11.9 Type 2 diabetes mellitus without complications; K21.9 Gastro-esophageal reflux disease without esophagitis; K75.4 Autoimmune hepatitis; E78.5 Hyperlipidemia, unspecified; I10 Essential (primary) hypertension; G47.33 Obstructive sleep apnea (adult) (pediatric); E66.9 Obesity, unspecified; Z79.84 Long term (current) use of oral hypoglycemic drugs; Z79.899 Other long term (current) drug therapy; Z88.0 Allergy status to penicillin; Z88.1 Allergy status to other antibiotic agents
CPT/HCPCS: 36561; 71045; 77001; 82962; 96374; C1788; J1642; J2405

== ENCOUNTER 2020-02-05 11:06 | Outpatient (CLI) | payer BC, MEDICAID, SELFPAY ==
[2020-02-05 11:10] VITALS: BMI 33.7
[2020-02-05 11:29] LABS: Basophils # 0.1 K/mm3 (0-0.2); Basophils % 0.7 % (0.1-2.0); Eosinophils # 0.1 K/mm3 (0.0-0.4); Eosinophils % 0.8 % (0.1-12.0); Hemoglobin 14.1 g/dL (12.2-16.2); Lymphocytes # 3.2 K/mm3 (0.7-4.5); Mean Corpuscular HGB Conc 33.5 g/dL (31.8-35.4); Mean Corpuscular Hemoglobin 32.5 pg (27.0-31.2); Mean Corpuscular Volume 96.9 fl (81-99); Mean Platelet Volume 8.7 fl (7.4-10.4); Monocytes # 0.5 K/mm3 (0.1-1.0); Monocytes % 3.2 % (1.7-9.3); Neutrophils # 10.1 K/mm3 (1.8-7.8); Neutrophils % 72.3 % (37.0-80.0); Platelet Count 259 K/mm3 (142-424); Red Blood Count 4.33 M/mm3 (4.20-5.40); Red Cell Distribution Width 13.7 % (11.5-17.5)
[2020-02-05 12:45] VITALS: BP 144/79; PULSE 77; RESP 18; TEMP 36.5; O2SAT 96
[2020-02-05 13:00] VITALS: BP 120/68; PULSE 70; RESP 18
[2020-02-05 13:15] VITALS: BP 120/84; PULSE 81; RESP 18
[2020-02-05 13:30] VITALS: BP 111/57; PULSE 67; RESP 18
[2020-02-05 13:40] VITALS: BP 113/60; PULSE 60; RESP 20
--- NOTE | 2020-02-05 16:39 | PC.NURSE ---
1400 - NEULASTA ONPRO DEVICE CONTAINING 6MG NEULASTA APPLIED TO RIGHT UPPER ARM AT THIS TIME. EXPLAINED HOW IT WORKS AND HOW TO REMOVE DEVICE ONCE MED DOSE DELIVERED.
== END 2020-02-05 14:10 | disposition home or self-care (01) ==
LOC: INF 11:06
PROVIDERS: Visit Provider Internal Medicine Medical Oncology
DX: Z51.11 Encounter for antineoplastic chemotherapy (principal); C50.412 Malignant neoplasm of upper-outer quadrant of left female breast; Z17.0 Estrogen receptor positive status [ER+]
CPT/HCPCS: 85025; 96411; 96413; J1642; J2505; J8501; J9000; J9070; Q0166

== ENCOUNTER → 2020-02-17 17:08 | Outpatient (CLI) | payer BC, MEDICAID, SELFPAY ==
[2020-02-17 17:38] LABS: Basophils # 0.1 K/mm3 (0-0.2); Basophils % 0.4 % (0.1-2.0); Eosinophils # 0.1 K/mm3 (0.0-0.4); Eosinophils % 0.5 % (0.1-12.0); Hematocrit 41.7 % (37.0-47.0); Lymphocytes # 2.6 K/mm3 (0.7-4.5); Lymphocytes % 16.6 % (10-50); Mean Corpuscular HGB Conc 33.7 g/dL (31.8-35.4); Mean Corpuscular Hemoglobin 31.9 pg (27.0-31.2); Mean Corpuscular Volume 94.8 fl (81-99); Mean Platelet Volume 8.5 fl (7.4-10.4); Monocytes # 0.6 K/mm3 (0.1-1.0); Monocytes % 3.6 % (1.7-9.3); Neutrophils # 12.3 K/mm3 (1.8-7.8); Platelet Count 236 K/mm3 (142-424); Red Cell Distribution Width 13.5 % (11.5-17.5); White Blood Count 15.6 K/mm3 (4.8-10.8)
[2020-02-17 17:42] LABS: MANUAL DIFFERENTIAL MANUAL DIFFERENTIAL (MANUAL DIFF)
[2020-02-17 18:11] LABS: Chloride 98 mmol/L (98-107)
[2020-02-17 18:12] LABS: Potassium 3.7 mmoL/L (3.5-5.1); Sodium 140 mmol/L (136-145)
[2020-02-17 18:14] LABS: Alanine Aminotransferase 51 U/L (12-78); Alkaline Phosphatase 127 U/L (38-126); Aspartate Amino Transferase 36 U/L (14-36); Bilirubin,Total 0.4 mg/dl (0.2-1.3); Blood Urea Nitrogen 11 mg/dl (7-17); Estimated Glomerular Filt Rate 105 ml/min (>60); GFR (African American) 127 ML/MIN (>60)
[2020-02-17 18:15] LABS: Albumin Level 4.1 g/dl (3.5-5.0); Albumin/Globulin Ratio 1.4 (1.1-1.8); Anion Gap 13.7 mEq/L (5-15); Calcium 9.4 mg/dl (8.4-10.2); Carbon Dioxide 32 mmol/L (22.0-30.0); Globulin 2.9 g/dL (1.3-3.2); Glucose 108 mg/dl (74-100)
[2020-02-17 20:13] LABS: Lymphocytes % 17 % (10-50); Monocytes % 4 % (2-9); Neutrophils % 79 % (42-76); Platelet Estimate Normal; RBC Morphology Normal; Total Cells Counted 100
== END ==
PROVIDERS: Visit Provider Internal Medicine Gastroenterology
DX: K75.4 Autoimmune hepatitis (principal); R94.5 Abnormal results of liver function studies; R10.11 Right upper quadrant pain; R14.0 Abdominal distension (gaseous); R11.0 Nausea; K58.9 Irritable bowel syndrome, unspecified; K83.8 Other specified diseases of biliary tract; K76.0 Fatty (change of) liver, not elsewhere classified
CPT/HCPCS: 36415; 80053; 85007; 85025

== ENCOUNTER 2020-02-19 08:34 | Outpatient (CLI) | payer BC, MEDICAID, SELFPAY ==
[2020-02-19 08:35] VITALS: BMI 33.3
[2020-02-19 08:52] LABS: Chloride 99 mmol/L (98-107); Potassium 3.3 mmoL/L (3.5-5.1); Sodium 139 mmol/L (136-145)
[2020-02-19 08:55] LABS: Alanine Aminotransferase 47 U/L (12-78); Albumin Level 3.8 g/dl (3.5-5.0); Albumin/Globulin Ratio 1.1 (1.1-1.8); Alkaline Phosphatase 120 U/L (38-126); Anion Gap 14.3 mEq/L (5-15); Aspartate Amino Transferase 32 U/L (14-36); Bilirubin,Total 0.5 mg/dl (0.2-1.3); Blood Urea Nitrogen 7 mg/dl (7-17); Carbon Dioxide 29 mmol/L (22.0-30.0); Creatinine Clearance Estimated 157 mL/min (50-200); Estimated Glomerular Filt Rate 105 ml/min (>60); GFR (African American) 127 ML/MIN (>60); Globulin 3.4 g/dL (1.3-3.2); Total Protein,Serum 7.2 g/dl (6.3-8.2)
[2020-02-19 08:56] LABS: Calcium 8.9 mg/dl (8.4-10.2); Glucose 128 mg/dl (74-100)
[2020-02-19 09:04] LABS: Basophils % 0.2 % (0.1-2.0); Eosinophils # 0.1 K/mm3 (0.0-0.4); Eosinophils % 0.5 % (0.1-12.0); Hematocrit 38.8 % (37.0-47.0); Hemoglobin 13.3 g/dL (12.2-16.2); Lymphocytes # 1.9 K/mm3 (0.7-4.5); Lymphocytes % 13.4 % (10-50); Mean Corpuscular HGB Conc 34.2 g/dL (31.8-35.4); Mean Corpuscular Hemoglobin 32.4 pg (27.0-31.2); Mean Corpuscular Volume 94.8 fl (81-99); Mean Platelet Volume 8.4 fl (7.4-10.4); Monocytes # 0.6 K/mm3 (0.1-1.0); Monocytes % 4.3 % (1.7-9.3); Neutrophils # 11.4 K/mm3 (1.8-7.8); Neutrophils % 81.5 % (37.0-80.0); Platelet Count 268 K/mm3 (142-424); Red Blood Count 4.09 M/mm3 (4.20-5.40); Red Cell Distribution Width 13.5 % (11.5-17.5)
[2020-02-19 09:45] VITALS: BP 135/58; PULSE 81; RESP 18; TEMP 36.6; O2SAT 99
[2020-02-19 10:18] VITALS: BP 114/58; PULSE 81; RESP 18; O2SAT 98
[2020-02-19 10:53] VITALS: BP 124/56; PULSE 80; RESP 18; O2SAT 98
[2020-02-19 11:25] VITALS: BP 121/59; PULSE 78; RESP 18; O2SAT 98
== END 2020-02-19 11:35 | disposition home or self-care (01) ==
LOC: INF 08:34
PROVIDERS: Visit Provider Internal Medicine Medical Oncology
DX: Z51.11 Encounter for antineoplastic chemotherapy (principal); C50.912 Malignant neoplasm of unspecified site of left female breast
CPT/HCPCS: 80053; 85025; 96372; 96411; 96413; J1642; J2505; J8501; J9000; J9070; Q0166

== ENCOUNTER → 2020-02-23 08:24 | Outpatient (POV) | payer BC, MEDICAID, SELFPAY | PROVIDERS: PCP Internal Medicine; Visit Provider Nurse Practitioner Family | DX: Z00.00 Encounter for general adult medical examination without abnormal findings (principal) ==

== ENCOUNTER 2020-03-04 08:36 | Outpatient (CLI) | payer BC, MEDICAID, SELFPAY ==
[2020-03-04] VITALS (7 sets, daily range): BP systolic 106–129; BP diastolic 60–74; PULSE 71–95; RESP 18; TEMP 36.6; BMI 32.3
[2020-03-04 08:54] LABS: Basophils % 0.2 % (0.1-2.0); Eosinophils # 0.1 K/mm3 (0.0-0.4); Eosinophils % 0.3 % (0.1-12.0); Hematocrit 36.1 % (37.0-47.0); Hemoglobin 12.3 g/dL (12.2-16.2); Lymphocytes # 1.6 K/mm3 (0.7-4.5); Mean Corpuscular HGB Conc 34.2 g/dL (31.8-35.4); Mean Corpuscular Hemoglobin 32.5 pg (27.0-31.2); Mean Corpuscular Volume 94.9 fl (81-99); Mean Platelet Volume 8.7 fl (7.4-10.4); Monocytes # 0.6 K/mm3 (0.1-1.0); Monocytes % 3.4 % (1.7-9.3); Neutrophils # 15.7 K/mm3 (1.8-7.8); Platelet Count 213 K/mm3 (142-424); Red Cell Distribution Width 14.2 % (11.5-17.5); White Blood Count 18.1 K/mm3 (4.8-10.8)
[2020-03-04 08:59] LABS: Alanine Aminotransferase 42 U/L (12-78); Albumin Level 3.9 g/dl (3.5-5.0); Albumin/Globulin Ratio 1.2 (1.1-1.8); Alkaline Phosphatase 136 U/L (38-126); Anion Gap 14.4 mEq/L (5-15); Aspartate Amino Transferase 28 U/L (14-36); Bilirubin,Total 0.5 mg/dl (0.2-1.3); Blood Urea Nitrogen 11 mg/dl (7-17); Calcium 9.1 mg/dl (8.4-10.2); Carbon Dioxide 29 mmol/L (22.0-30.0); Chloride 98 mmol/L (98-107); Creatinine Clearance Estimated 183 mL/min (50-200); Estimated Glomerular Filt Rate 130 ml/min (>60); GFR (African American) 157 ML/MIN (>60); Globulin 3.2 g/dL (1.3-3.2); Glucose 138 mg/dl (74-100); Potassium 3.4 mmoL/L (3.5-5.1); Sodium 138 mmol/L (136-145); Total Protein,Serum 7.1 g/dl (6.3-8.2)
[2020-03-04 09:00] LABS: MANUAL DIFFERENTIAL MANUAL DIFFERENTIAL (MANUAL DIFF)
[2020-03-04 09:09] LABS: Lymphocytes % 17 % (10-50); Monocytes % 1 % (2-9); Neutrophils % 82 % (42-76); Platelet Estimate Normal; RBC Morphology Normal; Total Cells Counted 100
--- NOTE | 2020-03-04 12:08 | PC.NURSE ---
1208- neulasta on pro applied to right upper arm sq.
== END 2020-03-04 12:12 | disposition home or self-care (01) ==
LOC: INF 08:37
PROVIDERS: Visit Provider Internal Medicine Medical Oncology
DX: C50.912 Malignant neoplasm of unspecified site of left female breast (principal)
CPT/HCPCS: 80053; 85007; 85025; 96413; 96417; J1642; J2505; J8501; J9000; Q0166

== ENCOUNTER 2020-03-18 08:46 | Outpatient (CLI) | payer BC, MEDICAID, SELFPAY ==
[2020-03-18 08:50] VITALS: BMI 30.8
[2020-03-18 09:08] LABS: Basophils # 0.1 K/mm3 (0-0.2); Basophils % 0.4 % (0.1-2.0); Chloride 102 mmol/L (98-107); Eosinophils # 0.1 K/mm3 (0.0-0.4); Eosinophils % 0.4 % (0.1-12.0); Hematocrit 33.2 % (37.0-47.0); Hemoglobin 11.4 g/dL (12.2-16.2); Lymphocytes # 2.2 K/mm3 (0.7-4.5); Lymphocytes % 15.4 % (10-50); Mean Corpuscular HGB Conc 34.3 g/dL (31.8-35.4); Mean Corpuscular Hemoglobin 32.8 pg (27.0-31.2); Mean Corpuscular Volume 95.6 fl (81-99); Mean Platelet Volume 8.7 fl (7.4-10.4); Monocytes # 0.6 K/mm3 (0.1-1.0); Monocytes % 4.3 % (1.7-9.3); Neutrophils # 11.4 K/mm3 (1.8-7.8); Neutrophils % 79.5 % (37.0-80.0); Platelet Count 319 K/mm3 (142-424); Red Blood Count 3.48 M/mm3 (4.20-5.40); Red Cell Distribution Width 16.2 % (11.5-17.5); White Blood Count 14.3 K/mm3 (4.8-10.8)
[2020-03-18 09:09] LABS: Potassium 3.9 mmoL/L (3.5-5.1); Sodium 138 mmol/L (136-145)
[2020-03-18 09:11] LABS: Alanine Aminotransferase 29 U/L (12-78); Albumin Level 3.8 g/dl (3.5-5.0); Albumin/Globulin Ratio 1.2 (1.1-1.8); Alkaline Phosphatase 97 U/L (38-126); Anion Gap 10.9 mEq/L (5-15); Aspartate Amino Transferase 24 U/L (14-36); Bilirubin,Total 0.5 mg/dl (0.2-1.3); Blood Urea Nitrogen 10 mg/dl (7-17); Carbon Dioxide 29 mmol/L (22.0-30.0); Creatinine Clearance Estimated 144 mL/min (50-200); Estimated Glomerular Filt Rate 105 ml/min (>60); GFR (African American) 127 ML/MIN (>60); Globulin 3.3 g/dL (1.3-3.2); Total Protein,Serum 7.1 g/dl (6.3-8.2)
[2020-03-18 09:12] LABS: Calcium 9.5 mg/dl (8.4-10.2); Glucose 121 mg/dl (74-100)
[2020-03-18 09:44] VITALS: BP 121/65; PULSE 84; RESP 20; TEMP 36.7; O2SAT 98
[2020-03-18 10:14] VITALS: BP 120/61; PULSE 81; RESP 20; O2SAT 97
[2020-03-18 10:45] VITALS: BP 127/61; PULSE 83; RESP 20; O2SAT 98
== END 2020-03-18 10:50 | disposition home or self-care (01) ==
LOC: INF 08:46
PROVIDERS: Visit Provider Internal Medicine Medical Oncology
DX: C50.912 Malignant neoplasm of unspecified site of left female breast (principal)
CPT/HCPCS: 80053; 85025; 96360; 96375; J1642; J2405

== ENCOUNTER 2020-03-25 09:38 | Outpatient (CLI) | payer BC, MEDICAID, SELFPAY ==
[2020-03-25 09:41] VITALS: BMI 30.4
[2020-03-25 10:00] LABS: Basophils # 0.1 K/mm3 (0-0.2); Basophils % 0.8 % (0.1-2.0); Eosinophils # 0.1 K/mm3 (0.0-0.4); Eosinophils % 1.3 % (0.1-12.0); Hematocrit 36.6 % (37.0-47.0); Hemoglobin 12.4 g/dL (12.2-16.2); Lymphocytes # 1.5 K/mm3 (0.7-4.5); Lymphocytes % 21.4 % (10-50); Mean Corpuscular HGB Conc 33.9 g/dL (31.8-35.4); Mean Corpuscular Hemoglobin 33.1 pg (27.0-31.2); Mean Corpuscular Volume 97.6 fl (81-99); Mean Platelet Volume 8.1 fl (7.4-10.4); Monocytes # 0.4 K/mm3 (0.1-1.0); Monocytes % 4.9 % (1.7-9.3); Neutrophils # 5.2 K/mm3 (1.8-7.8); Neutrophils % 71.7 % (37.0-80.0); Platelet Count 442 K/mm3 (142-424); Red Blood Count 3.75 M/mm3 (4.20-5.40); Red Cell Distribution Width 16.4 % (11.5-17.5); White Blood Count 7.2 K/mm3 (4.8-10.8)
[2020-03-25 10:07] LABS: Alanine Aminotransferase 50 U/L (12-78); Albumin Level 4.1 g/dl (3.5-5.0); Albumin/Globulin Ratio 1.2 (1.1-1.8); Alkaline Phosphatase 84 U/L (38-126); Anion Gap 14.8 mEq/L (5-15); Aspartate Amino Transferase 42 U/L (14-36); Bilirubin,Total 0.4 mg/dl (0.2-1.3); Blood Urea Nitrogen 11 mg/dl (7-17); Calcium 9.4 mg/dl (8.4-10.2); Carbon Dioxide 28 mmol/L (22.0-30.0); Chloride 99 mmol/L (98-107); Creatinine Clearance Estimated 171 mL/min (50-200); Estimated Glomerular Filt Rate 129 ml/min (>60); GFR (African American) 156 ML/MIN (>60); Globulin 3.3 g/dL (1.3-3.2); Glucose 164 mg/dl (74-100); Potassium 3.8 mmoL/L (3.5-5.1); Sodium 138 mmol/L (136-145); Total Protein,Serum 7.4 g/dl (6.3-8.2)
[2020-03-25 11:30] VITALS: BP 132/77; PULSE 93; RESP 18; O2SAT 95
[2020-03-25 11:45] VITALS: BP 135/76; PULSE 85; RESP 18; O2SAT 97
[2020-03-25 12:00] VITALS: BP 135/80; PULSE 93; RESP 18; O2SAT 97
[2020-03-25 12:15] VITALS: BP 134/73; PULSE 86; RESP 18
--- NOTE | 2020-03-25 12:45 | PC.NURSE ---
1245-applied neulasta on pro 6mg sq to right upper arm;pt will remove after 27 hours and medication has been instilled into arm
[2020-03-25 12:52] VITALS: BP 122/77; PULSE 72; RESP 18; O2SAT 97
== END 2020-03-25 12:52 | disposition home or self-care (01) ==
LOC: INF 09:39
PROVIDERS: Visit Provider Internal Medicine Medical Oncology
DX: Z51.11 Encounter for antineoplastic chemotherapy (principal); C50.912 Malignant neoplasm of unspecified site of left female breast
CPT/HCPCS: 80053; 85025; 96413; 96417; J1642; J2505; J8501; J9000; J9070; Q0166

== ENCOUNTER 2020-04-08 08:22 | Outpatient (CLI) | payer BC, MEDICAID, SELFPAY ==
[2020-04-08 08:24] VITALS: BMI 30.7
[2020-04-08 08:42] LABS: Basophils # 0.1 K/mm3 (0-0.2); Basophils % 0.6 % (0.1-2.0); Eosinophils # 0.2 K/mm3 (0.0-0.4); Eosinophils % 1.5 % (0.1-12.0); Hematocrit 33.6 % (37.0-47.0); Hemoglobin 11.5 g/dL (12.2-16.2); Lymphocytes # 1.7 K/mm3 (0.7-4.5); Lymphocytes % 16.9 % (10-50); Mean Corpuscular HGB Conc 34.2 g/dL (31.8-35.4); Mean Corpuscular Hemoglobin 33.5 pg (27.0-31.2); Mean Platelet Volume 9.7 fl (7.4-10.4); Monocytes # 0.4 K/mm3 (0.1-1.0); Monocytes % 3.8 % (1.7-9.3); Neutrophils # 7.6 K/mm3 (1.8-7.8); Neutrophils % 77.1 % (37.0-80.0); Platelet Count 254 K/mm3 (142-424); Red Blood Count 3.43 M/mm3 (4.20-5.40); Red Cell Distribution Width 17.7 % (11.5-17.5); White Blood Count 9.9 K/mm3 (4.8-10.8)
[2020-04-08 09:00] LABS: Alanine Aminotransferase 37 U/L (12-78); Albumin Level 4.1 g/dl (3.5-5.0); Albumin/Globulin Ratio 1.4 (1.1-1.8); Alkaline Phosphatase 84 U/L (38-126); Anion Gap 16.6 mEq/L (5-15); Aspartate Amino Transferase 28 U/L (14-36); Bilirubin,Total 0.3 mg/dl (0.2-1.3); Blood Urea Nitrogen 11 mg/dl (7-17); Calcium 9.6 mg/dl (8.4-10.2); Carbon Dioxide 27 mmol/L (22.0-30.0); Chloride 100 mmol/L (98-107); Creatinine Clearance Estimated 172 mL/min (50-200); Estimated Glomerular Filt Rate 129 ml/min (>60); GFR (African American) 156 ML/MIN (>60); Globulin 2.9 g/dL (1.3-3.2); Glucose 152 mg/dl (74-100); Potassium 3.6 mmoL/L (3.5-5.1); Sodium 140 mmol/L (136-145)
[2020-04-08 09:50] VITALS: BP 135/72; PULSE 79; RESP 18; TEMP 36.4; O2SAT 98
[2020-04-08 09:57] LABS: Microscopic, Urine URINE MICROSCOPIC (MICROSCOPIC)
[2020-04-08 10:00] LABS: Appearance,Urine SL CLOUDY (Clear); Bilirubin,Urine Negative (Negative); Blood, Urine Negative (Negative); Color,Urine YELLOW (Yellow); Glucose,Urine (UA) 3+ (Negative); Ketones,Urine Negative (Negative); Leukocyte Esterase,Urine Negative (Negative); Nitrate,Urine Negative (Negative); PH,Urine 5.5 (5.0-8.5); Protein,Urine Negative (Negative); Specific Gravity, Urine 1.025 (1.005-1.030); Urobilinogen,Urine 0.2 EU/dl (0.2)
[2020-04-08 10:17] LABS: Bacteria,Urine 1+ /lpf; Mucus,Urine Trace /lpf; RBC,Urine Occasional #/hpf (0-3); WBC,Urine 20-50 #/hpf (0-3)
[2020-04-08 10:47] VITALS: BP 118/71; PULSE 75; RESP 18; O2SAT 99
[2020-04-08 11:17] VITALS: BP 128/76; PULSE 81; RESP 18; O2SAT 98
[2020-04-08 11:55] VITALS: BP 124/73; PULSE 77; RESP 18; O2SAT 99
== END 2020-04-08 12:05 | disposition home or self-care (01) ==
LOC: INF 08:22
PROVIDERS: Visit Provider Internal Medicine Medical Oncology
DX: Z51.11 Encounter for antineoplastic chemotherapy (principal); C50.912 Malignant neoplasm of unspecified site of left female breast
CPT/HCPCS: 80053; 81001; 85025; 87086; 87088; 87186; 96413; J1642; J9267; Q0166

== ENCOUNTER → 2020-04-13 11:06 | Outpatient (CLI) | payer BC, MEDICAID, SELFPAY ==
[2020-04-14 15:29] LABS: Covid-19 Nasal PCR Sendout Lex Not Detected
== END ==
PROVIDERS: PCP Internal Medicine; Visit Provider Internal Medicine
DX: Z03.818 Encounter for observation for suspected exposure to other biological agents ruled out (principal)
CPT/HCPCS: U0004

== ENCOUNTER 2020-04-15 11:25 | Outpatient (CLI) | payer BC, MEDICAID, SELFPAY ==
[2020-04-15 11:35] VITALS: BMI 30.7
[2020-04-15 12:02] LABS: Basophils # 0.1 K/mm3 (0-0.2); Basophils % 0.9 % (0.1-2.0); Eosinophils # 0.1 K/mm3 (0.0-0.4); Eosinophils % 1.2 % (0.1-12.0); Hemoglobin 11.4 g/dL (12.2-16.2); Lymphocytes # 1.8 K/mm3 (0.7-4.5); Lymphocytes % 24.2 % (10-50); Mean Corpuscular HGB Conc 33.6 g/dL (31.8-35.4); Mean Corpuscular Hemoglobin 33.3 pg (27.0-31.2); Mean Corpuscular Volume 99.1 fl (81-99); Mean Platelet Volume 7.7 fl (7.4-10.4); Monocytes # 0.4 K/mm3 (0.1-1.0); Monocytes % 5.2 % (1.7-9.3); Neutrophils % 68.5 % (37.0-80.0); Platelet Count 383 K/mm3 (142-424); Red Blood Count 3.43 M/mm3 (4.20-5.40); Red Cell Distribution Width 17.7 % (11.5-17.5); White Blood Count 7.3 K/mm3 (4.8-10.8)
[2020-04-15 12:12] LABS: Chloride 104 mmol/L (98-107); Sodium 140 mmol/L (136-145)
[2020-04-15 12:13] LABS: Potassium 3.8 mmoL/L (3.5-5.1)
[2020-04-15 12:15] LABS: Alanine Aminotransferase 35 U/L (12-78); Albumin Level 3.8 g/dl (3.5-5.0); Albumin/Globulin Ratio 1.3 (1.1-1.8); Alkaline Phosphatase 70 U/L (38-126); Anion Gap 13.8 mEq/L (5-15); Aspartate Amino Transferase 30 U/L (14-36); Bilirubin,Total 0.4 mg/dl (0.2-1.3); Blood Urea Nitrogen 12 mg/dl (7-17); Carbon Dioxide 26 mmol/L (22.0-30.0); Creatinine Clearance Estimated 172 mL/min (50-200); Estimated Glomerular Filt Rate 129 ml/min (>60); GFR (African American) 156 ML/MIN (>60); Globulin 2.9 g/dL (1.3-3.2); Total Protein,Serum 6.7 g/dl (6.3-8.2)
[2020-04-15 12:16] LABS: Calcium 9.5 mg/dl (8.4-10.2); Glucose 115 mg/dl (74-100)
[2020-04-15 13:45] VITALS: BP 107/63; PULSE 89; RESP 18; TEMP 36.3
[2020-04-15 14:00] VITALS: BP 128/76; PULSE 81; RESP 18
[2020-04-15 14:15] VITALS: BP 121/62; PULSE 72; RESP 18
[2020-04-15 14:30] VITALS: BP 116/59; PULSE 68; RESP 18
[2020-04-15 14:45] VITALS: BP 130/75; PULSE 84; RESP 18
== END 2020-04-15 15:00 | disposition home or self-care (01) ==
LOC: INF 11:31
PROVIDERS: Visit Provider Internal Medicine Medical Oncology
DX: Z51.11 Encounter for antineoplastic chemotherapy (principal); C50.912 Malignant neoplasm of unspecified site of left female breast
CPT/HCPCS: 80053; 85025; 96413; J1642; J9267; Q0166

== ENCOUNTER 2020-04-21 10:30 | Outpatient (CLI) | payer BC, MEDICAID, SELFPAY ==
[2020-04-21 10:30] VITALS: BMI 30.6
[2020-04-21 10:49] LABS: Basophils % 0.7 % (0.1-2.0); Eosinophils # 0.1 K/mm3 (0.0-0.4); Eosinophils % 1.9 % (0.1-12.0); Hematocrit 33.8 % (37.0-47.0); Hemoglobin 11.3 g/dL (12.2-16.2); Lymphocytes # 1.4 K/mm3 (0.7-4.5); Lymphocytes % 22.9 % (10-50); Mean Corpuscular HGB Conc 33.6 g/dL (31.8-35.4); Mean Corpuscular Hemoglobin 34.4 pg (27.0-31.2); Mean Corpuscular Volume 102.3 fl (81-99); Mean Platelet Volume 7.8 fl (7.4-10.4); Monocytes # 0.2 K/mm3 (0.1-1.0); Monocytes % 3.2 % (1.7-9.3); Neutrophils # 4.4 K/mm3 (1.8-7.8); Neutrophils % 71.3 % (37.0-80.0); Platelet Count 289 K/mm3 (142-424); Red Cell Distribution Width 17.5 % (11.5-17.5); White Blood Count 6.2 K/mm3 (4.8-10.8)
[2020-04-21 10:53] LABS: Chloride 102 mmol/L (98-107); Sodium 138 mmol/L (136-145)
[2020-04-21 10:56] LABS: Alanine Aminotransferase 41 U/L (12-78); Albumin Level 3.9 g/dl (3.5-5.0); Albumin/Globulin Ratio 1.3 (1.1-1.8); Alkaline Phosphatase 61 U/L (38-126); Aspartate Amino Transferase 31 U/L (14-36); Bilirubin,Total 0.5 mg/dl (0.2-1.3); Blood Urea Nitrogen 10 mg/dl (7-17); Calcium 9.7 mg/dl (8.4-10.2); Carbon Dioxide 26 mmol/L (22.0-30.0); Creatinine Clearance Estimated 171 mL/min (50-200); Estimated Glomerular Filt Rate 129 ml/min (>60); GFR (African American) 156 ML/MIN (>60); Globulin 2.9 g/dL (1.3-3.2); Glucose 114 mg/dl (74-100); Total Protein,Serum 6.8 g/dl (6.3-8.2)
[2020-04-21 11:45] VITALS: BP 145/85; PULSE 81; RESP 18
[2020-04-21 12:00] VITALS: BP 142/81; PULSE 84; RESP 18
[2020-04-21 12:20] VITALS: BP 165/66; PULSE 75; RESP 18
[2020-04-21 12:40] VITALS: BP 134/66; PULSE 79; RESP 18
[2020-04-21 13:05] VITALS: BP 141/75; PULSE 75; RESP 18; O2SAT 96
== END 2020-04-21 13:05 | disposition home or self-care (01) ==
LOC: INF 10:30
PROVIDERS: PCP Internal Medicine; Visit Provider Internal Medicine Medical Oncology
DX: Z51.11 Encounter for antineoplastic chemotherapy (principal); C50.912 Malignant neoplasm of unspecified site of left female breast
CPT/HCPCS: 80053; 85025; 96413; J1642; J9267; Q0166

== ENCOUNTER 2020-04-29 11:20 | Outpatient (CLI) | payer BC, MEDICAID, SELFPAY ==
[2020-04-29 11:28] VITALS: BMI 29.9
[2020-04-29 11:47] LABS: Basophils # 0.1 K/mm3 (0-0.2); Basophils % 0.7 % (0.1-2.0); Eosinophils # 0.1 K/mm3 (0.0-0.4); Eosinophils % 1.8 % (0.1-12.0); Hemoglobin 11.1 g/dL (12.2-16.2); Lymphocytes # 1.6 K/mm3 (0.7-4.5); Lymphocytes % 23.9 % (10-50); Mean Corpuscular HGB Conc 34.8 g/dL (31.8-35.4); Mean Corpuscular Hemoglobin 34.7 pg (27.0-31.2); Mean Corpuscular Volume 99.7 fl (81-99); Monocytes # 0.3 K/mm3 (0.1-1.0); Neutrophils # 4.5 K/mm3 (1.8-7.8); Neutrophils % 69.5 % (37.0-80.0); Platelet Count 285 K/mm3 (142-424); Red Blood Count 3.21 M/mm3 (4.20-5.40); Red Cell Distribution Width 17.8 % (11.5-17.5); White Blood Count 6.5 K/mm3 (4.8-10.8)
[2020-04-29 11:59] LABS: Chloride 104 mmol/L (98-107); Potassium 3.3 mmoL/L (3.5-5.1); Sodium 141 mmol/L (136-145)
[2020-04-29 12:02] LABS: Alanine Aminotransferase 38 U/L (12-78); Albumin Level 3.8 g/dl (3.5-5.0); Albumin/Globulin Ratio 1.3 (1.1-1.8); Alkaline Phosphatase 59 U/L (38-126); Anion Gap 14.3 mEq/L (5-15); Aspartate Amino Transferase 29 U/L (14-36); Bilirubin,Total 0.5 mg/dl (0.2-1.3); Blood Urea Nitrogen 8 mg/dl (7-17); Calcium 9.5 mg/dl (8.4-10.2); Carbon Dioxide 26 mmol/L (22.0-30.0); Creatinine Clearance Estimated 140 mL/min (50-200); Estimated Glomerular Filt Rate 105 ml/min (>60); GFR (African American) 127 ML/MIN (>60); Glucose 109 mg/dl (74-100); Total Protein,Serum 6.8 g/dl (6.3-8.2)
[2020-04-29 13:30] VITALS: BP 139/77; PULSE 79; RESP 18; TEMP 37.2
[2020-04-29 13:45] VITALS: BP 145/87; PULSE 78; RESP 18
[2020-04-29 14:00] VITALS: BP 138/86; PULSE 80; RESP 18
[2020-04-29 14:15] VITALS: BP 137/78; PULSE 80; RESP 18
[2020-04-29 14:45] VITALS: BP 141/76; PULSE 83; RESP 18
[2020-04-29 15:31] VITALS: RESP 18
== END 2020-04-29 14:45 | disposition home or self-care (01) ==
LOC: INF 11:25
PROVIDERS: Visit Provider Internal Medicine Medical Oncology
DX: Z51.11 Encounter for antineoplastic chemotherapy (principal); C50.912 Malignant neoplasm of unspecified site of left female breast
CPT/HCPCS: 80053; 85025; 96413; J1642; J9267; Q0166

== ENCOUNTER 2020-05-06 11:01 | Outpatient (CLI) | payer BC, MEDICAID, SELFPAY ==
[2020-05-06 11:04] VITALS: BMI 30.6
[2020-05-06 11:21] LABS: Basophils # 0.1 K/mm3 (0-0.2); Basophils % 0.8 % (0.1-2.0); Eosinophils # 0.3 K/mm3 (0.0-0.4); Eosinophils % 3.9 % (0.1-12.0); Hematocrit 33.4 % (37.0-47.0); Hemoglobin 10.6 g/dL (12.2-16.2); Lymphocytes # 1.6 K/mm3 (0.7-4.5); Lymphocytes % 25.1 % (10-50); Mean Corpuscular HGB Conc 31.7 g/dL (31.8-35.4); Mean Corpuscular Hemoglobin 32.8 pg (27.0-31.2); Mean Corpuscular Volume 103.5 fl (81-99); Monocytes # 0.2 K/mm3 (0.1-1.0); Monocytes % 3.3 % (1.7-9.3); Neutrophils # 4.2 K/mm3 (1.8-7.8); Neutrophils % 66.9 % (37.0-80.0); Platelet Count 304 K/mm3 (142-424); Red Blood Count 3.23 M/mm3 (4.20-5.40); Red Cell Distribution Width 16.9 % (11.5-17.5); White Blood Count 6.3 K/mm3 (4.8-10.8)
[2020-05-06 11:26] LABS: Chloride 105 mmol/L (98-107); Potassium 3.5 mmoL/L (3.5-5.1); Sodium 140 mmol/L (136-145)
[2020-05-06 11:29] LABS: Alanine Aminotransferase 33 U/L (12-78); Albumin Level 3.7 g/dl (3.5-5.0); Albumin/Globulin Ratio 1.3 (1.1-1.8); Alkaline Phosphatase 54 U/L (38-126); Anion Gap 9.5 mEq/L (5-15); Aspartate Amino Transferase 28 U/L (14-36); Bilirubin,Total 0.3 mg/dl (0.2-1.3); Blood Urea Nitrogen 13 mg/dl (7-17); Carbon Dioxide 29 mmol/L (22.0-30.0); Creatinine Clearance Estimated 171 mL/min (50-200); Estimated Glomerular Filt Rate 129 ml/min (>60); GFR (African American) 156 ML/MIN (>60); Globulin 2.9 g/dL (1.3-3.2); Total Protein,Serum 6.6 g/dl (6.3-8.2)
[2020-05-06 11:30] LABS: Calcium 9.4 mg/dl (8.4-10.2); Glucose 98 mg/dl (74-100)
[2020-05-06 12:15] VITALS: BP 160/92; PULSE 84; RESP 18; TEMP 36.4; O2SAT 96
[2020-05-06 12:30] VITALS: BP 120/64; PULSE 72; RESP 18
[2020-05-06 13:00] VITALS: BP 127/74; PULSE 85; RESP 18
[2020-05-06 13:25] VITALS: BP 110/71; PULSE 83; RESP 18
== END 2020-05-06 13:25 | disposition home or self-care (01) ==
LOC: INF 11:01
PROVIDERS: PCP Internal Medicine; Visit Provider Internal Medicine Medical Oncology
DX: Z51.11 Encounter for antineoplastic chemotherapy (principal); C50.912 Malignant neoplasm of unspecified site of left female breast
CPT/HCPCS: 80053; 85025; 96413; J1642; J9267; Q0166

== ENCOUNTER 2020-05-13 10:43 | Outpatient (CLI) | payer BC, MEDICAID, SELFPAY ==
[2020-05-13 10:44] VITALS: BMI 30.6
[2020-05-13 10:58] LABS: Basophils % 0.7 % (0.1-2.0); Eosinophils # 0.2 K/mm3 (0.0-0.4); Eosinophils % 3.6 % (0.1-12.0); Hematocrit 34.1 % (37.0-47.0); Hemoglobin 10.8 g/dL (12.2-16.2); Lymphocytes # 1.9 K/mm3 (0.7-4.5); Lymphocytes % 38.8 % (10-50); Mean Corpuscular HGB Conc 31.7 g/dL (31.8-35.4); Mean Corpuscular Hemoglobin 33.6 pg (27.0-31.2); Mean Corpuscular Volume 105.9 fl (81-99); Mean Platelet Volume 9.1 fl (7.4-10.4); Monocytes # 0.2 K/mm3 (0.1-1.0); Monocytes % 4.7 % (1.7-9.3); Neutrophils # 2.5 K/mm3 (1.8-7.8); Neutrophils % 52.2 % (37.0-80.0); Platelet Count 322 K/mm3 (142-424); Red Blood Count 3.22 M/mm3 (4.20-5.40); Red Cell Distribution Width 16.9 % (11.5-17.5); White Blood Count 4.8 K/mm3 (4.8-10.8)
[2020-05-13 11:06] LABS: Alanine Aminotransferase 33 U/L (12-78); Albumin/Globulin Ratio 1.4 (1.1-1.8); Alkaline Phosphatase 58 U/L (38-126); Anion Gap 11.5 mEq/L (5-15); Aspartate Amino Transferase 28 U/L (14-36); Bilirubin,Total 0.4 mg/dl (0.2-1.3); Blood Urea Nitrogen 10 mg/dl (7-17); Calcium 9.6 mg/dl (8.4-10.2); Carbon Dioxide 29 mmol/L (22.0-30.0); Chloride 104 mmol/L (98-107); Creatinine Clearance Estimated 171 mL/min (50-200); Estimated Glomerular Filt Rate 129 ml/min (>60); GFR (African American) 156 ML/MIN (>60); Globulin 2.8 g/dL (1.3-3.2); Glucose 109 mg/dl (74-100); Potassium 3.5 mmoL/L (3.5-5.1); Sodium 141 mmol/L (136-145); Total Protein,Serum 6.8 g/dl (6.3-8.2)
[2020-05-13 12:20] VITALS: BP 123/84; PULSE 83; RESP 18; TEMP 36.4; O2SAT 96
[2020-05-13 12:40] VITALS: BP 134/75; PULSE 76; RESP 18
[2020-05-13 12:55] VITALS: BP 122/66; PULSE 79; RESP 18
[2020-05-13 13:10] VITALS: BP 119/67; PULSE 80; RESP 18
[2020-05-13 13:25] VITALS: BP 136/55; PULSE 81; RESP 18
[2020-05-13 13:40] VITALS: BP 127/72; PULSE 87; RESP 18
== END 2020-05-13 13:40 | disposition home or self-care (01) ==
LOC: INF 10:43
PROVIDERS: Visit Provider Internal Medicine Medical Oncology
DX: Z51.11 Encounter for antineoplastic chemotherapy (principal); C50.912 Malignant neoplasm of unspecified site of left female breast
CPT/HCPCS: 80053; 85025; 96413; J1642; J9267; Q0166

== ENCOUNTER 2020-05-21 09:20 | Outpatient (CLI) | payer BC, MEDICAID, SELFPAY ==
[2020-05-21 09:25] VITALS: BMI 29.9
[2020-05-21 09:41] LABS: Basophils % 0.6 % (0.1-2.0); Eosinophils # 0.2 K/mm3 (0.0-0.4); Eosinophils % 2.6 % (0.1-12.0); Hematocrit 37.1 % (37.0-47.0); Hemoglobin 11.5 g/dL (12.2-16.2); Lymphocytes # 1.8 K/mm3 (0.7-4.5); Lymphocytes % 30.8 % (10-50); Mean Corpuscular Hemoglobin 33.6 pg (27.0-31.2); Mean Corpuscular Volume 108.3 fl (81-99); Mean Platelet Volume 7.9 fl (7.4-10.4); Monocytes # 0.3 K/mm3 (0.1-1.0); Monocytes % 4.3 % (1.7-9.3); Neutrophils # 3.6 K/mm3 (1.8-7.8); Neutrophils % 61.7 % (37.0-80.0); Platelet Count 329 K/mm3 (142-424); Red Blood Count 3.43 M/mm3 (4.20-5.40); Red Cell Distribution Width 17.4 % (11.5-17.5); White Blood Count 5.8 K/mm3 (4.8-10.8)
[2020-05-21 09:48] LABS: Chloride 103 mmol/L (98-107)
[2020-05-21 09:49] LABS: Potassium 3.4 mmoL/L (3.5-5.1); Sodium 140 mmol/L (136-145)
[2020-05-21 09:51] LABS: Alanine Aminotransferase 32 U/L (12-78); Alkaline Phosphatase 55 U/L (38-126); Aspartate Amino Transferase 27 U/L (14-36); Bilirubin,Total 0.4 mg/dl (0.2-1.3); Blood Urea Nitrogen 11 mg/dl (7-17); Creatinine Clearance Estimated 168 mL/min (50-200); Estimated Glomerular Filt Rate 129 ml/min (>60); GFR (African American) 156 ML/MIN (>60)
[2020-05-21 09:52] LABS: Albumin Level 4.1 g/dl (3.5-5.0); Albumin/Globulin Ratio 1.5 (1.1-1.8); Anion Gap 14.4 mEq/L (5-15); Calcium 9.5 mg/dl (8.4-10.2); Carbon Dioxide 26 mmol/L (22.0-30.0); Globulin 2.8 g/dL (1.3-3.2); Glucose 100 mg/dl (74-100); Total Protein,Serum 6.9 g/dl (6.3-8.2)
[2020-05-21 11:40] VITALS: BP 118/67; PULSE 83; RESP 18; TEMP 36.1
[2020-05-21 11:55] VITALS: BP 113/69; PULSE 86; RESP 18
[2020-05-21 12:10] VITALS: BP 108/64; PULSE 81; RESP 18
[2020-05-21 12:25] VITALS: BP 105/60; PULSE 92; RESP 18
[2020-05-21 12:40] VITALS: BP 122/53; PULSE 101; RESP 18
== END 2020-05-21 13:00 | disposition home or self-care (01) ==
LOC: INF 09:23
PROVIDERS: Visit Provider Internal Medicine Medical Oncology
DX: Z51.11 Encounter for antineoplastic chemotherapy (principal); C50.912 Malignant neoplasm of unspecified site of left female breast
CPT/HCPCS: 80053; 85025; 96413; J1642; J9267; Q0166

== ENCOUNTER → 2020-05-24 09:10 | Outpatient (POV) | payer SELFPAY | PROVIDERS: Visit Provider Nurse Practitioner Family | DX: Z00.00 Encounter for general adult medical examination without abnormal findings (principal) ==

== ENCOUNTER 2020-05-27 10:11 | Outpatient (CLI) | payer BC, MEDICAID, SELFPAY ==
[2020-05-27 10:13] VITALS: BMI 29.9
[2020-05-27 10:34] LABS: Basophils % 0.4 % (0.1-2.0); Eosinophils # 0.1 K/mm3 (0.0-0.4); Eosinophils % 1.6 % (0.1-12.0); Hematocrit 35.7 % (37.0-47.0); Lymphocytes # 1.5 K/mm3 (0.7-4.5); Mean Corpuscular HGB Conc 33.5 g/dL (31.8-35.4); Mean Corpuscular Hemoglobin 34.6 pg (27.0-31.2); Mean Corpuscular Volume 103.5 fl (81-99); Mean Platelet Volume 8.6 fl (7.4-10.4); Monocytes # 0.2 K/mm3 (0.1-1.0); Monocytes % 4.5 % (1.7-9.3); Neutrophils # 2.3 K/mm3 (1.8-7.8); Neutrophils % 56.5 % (37.0-80.0); Platelet Count 289 K/mm3 (142-424); Red Blood Count 3.45 M/mm3 (4.20-5.40); Red Cell Distribution Width 16.2 % (11.5-17.5); White Blood Count 4.1 K/mm3 (4.8-10.8)
[2020-05-27 10:44] LABS: Chloride 100 mmol/L (98-107); Potassium 3.3 mmoL/L (3.5-5.1); Sodium 137 mmol/L (136-145)
[2020-05-27 10:47] VITALS: BP 141/79; PULSE 87; RESP 18; TEMP 36.7; O2SAT 100
[2020-05-27 10:47] LABS: Alanine Aminotransferase 28 U/L (12-78); Albumin Level 3.9 g/dl (3.5-5.0); Albumin/Globulin Ratio 1.3 (1.1-1.8); Alkaline Phosphatase 52 U/L (38-126); Anion Gap 11.3 mEq/L (5-15); Aspartate Amino Transferase 29 U/L (14-36); Bilirubin,Total 0.5 mg/dl (0.2-1.3); Blood Urea Nitrogen 8 mg/dl (7-17); Carbon Dioxide 29 mmol/L (22.0-30.0); Creatinine Clearance Estimated 168 mL/min (50-200); Estimated Glomerular Filt Rate 129 ml/min (>60); GFR (African American) 156 ML/MIN (>60); Globulin 2.9 g/dL (1.3-3.2); Total Protein,Serum 6.8 g/dl (6.3-8.2)
[2020-05-27 10:48] LABS: Calcium 9.3 mg/dl (8.4-10.2); Glucose 124 mg/dl (74-100)
[2020-05-27 14:07] VITALS: BP 122/73; PULSE 97; RESP 18; O2SAT 99
[2020-05-27 14:37] VITALS: BP 127/79; PULSE 92; RESP 18; O2SAT 99
[2020-05-27 15:07] VITALS: BP 142/75; PULSE 89; RESP 18; O2SAT 99
[2020-05-27 15:31] VITALS: BP 153/79; PULSE 92; RESP 18; O2SAT 98
== END 2020-05-27 15:32 | disposition home or self-care (01) ==
LOC: INF 10:11
PROVIDERS: Visit Provider Internal Medicine Medical Oncology
DX: Z51.11 Encounter for antineoplastic chemotherapy (principal); C50.912 Malignant neoplasm of unspecified site of left female breast
CPT/HCPCS: 80053; 85025; 96413; J1642; J9267; Q0166

== ENCOUNTER 2020-06-03 08:30 | Outpatient (CLI) | payer BC, MEDICAID, SELFPAY ==
[2020-06-03 08:39] VITALS: BMI 29.9
[2020-06-03 09:20] LABS: Chloride 104 mmol/L (98-107); Potassium 3.7 mmoL/L (3.5-5.1); Sodium 138 mmol/L (136-145)
[2020-06-03 09:23] LABS: Alanine Aminotransferase 30 U/L (12-78); Albumin/Globulin Ratio 1.5 (1.1-1.8); Alkaline Phosphatase 52 U/L (38-126); Anion Gap 10.7 mEq/L (5-15); Aspartate Amino Transferase 29 U/L (14-36); Bilirubin,Total 0.4 mg/dl (0.2-1.3); Blood Urea Nitrogen 9 mg/dl (7-17); Carbon Dioxide 27 mmol/L (22.0-30.0); Creatinine Clearance Estimated 168 mL/min (50-200); Estimated Glomerular Filt Rate 129 ml/min (>60); GFR (African American) 156 ML/MIN (>60); Globulin 2.6 g/dL (1.3-3.2); Total Protein,Serum 6.6 g/dl (6.3-8.2)
[2020-06-03 09:24] LABS: Calcium 9.3 mg/dl (8.4-10.2); Glucose 120 mg/dl (74-100)
[2020-06-03 09:29] LABS: Eosinophils # 0.1 K/mm3 (0.0-0.4); Eosinophils % 2.1 % (0.1-12.0); Hematocrit 34.8 % (37.0-47.0); Hemoglobin 10.9 g/dL (12.2-16.2); Lymphocytes # 1.1 K/mm3 (0.7-4.5); Lymphocytes % 27.4 % (10-50); Mean Corpuscular HGB Conc 31.3 g/dL (31.8-35.4); Mean Corpuscular Hemoglobin 33.5 pg (27.0-31.2); Mean Corpuscular Volume 107.2 fl (81-99); Mean Platelet Volume 7.8 fl (7.4-10.4); Monocytes # 0.1 K/mm3 (0.1-1.0); Monocytes % 2.7 % (1.7-9.3); Neutrophils # 2.6 K/mm3 (1.8-7.8); Neutrophils % 66.9 % (37.0-80.0); Platelet Count 309 K/mm3 (142-424); Red Blood Count 3.25 M/mm3 (4.20-5.40); Red Cell Distribution Width 15.7 % (11.5-17.5); White Blood Count 3.9 K/mm3 (4.8-10.8)
[2020-06-03 10:42] VITALS: BP 161/80; PULSE 91; RESP 18; TEMP 36.6; O2SAT 98
[2020-06-03 11:00] VITALS: BP 152/86; PULSE 77; RESP 18
[2020-06-03 11:15] VITALS: BP 140/90; PULSE 86; RESP 18
[2020-06-03 11:40] VITALS: BP 135/76; PULSE 74; RESP 18
[2020-06-03 12:03] VITALS: BP 137/79; PULSE 86; RESP 18
== END 2020-06-03 12:03 | disposition home or self-care (01) ==
LOC: INF 08:37
PROVIDERS: Visit Provider Internal Medicine Medical Oncology
DX: Z51.11 Encounter for antineoplastic chemotherapy (principal); C50.912 Malignant neoplasm of unspecified site of left female breast
CPT/HCPCS: 80053; 85025; 96413; J1642; J9267; Q0166

== ENCOUNTER 2020-06-11 10:00 | Outpatient (CLI) | payer BC, MEDICAID, SELFPAY ==
[2020-06-11 10:10] VITALS: BMI 30.3
[2020-06-11 10:31] LABS: Basophils % 0.7 % (0.1-2.0); Eosinophils # 0.1 K/mm3 (0.0-0.4); Hematocrit 36.1 % (37.0-47.0); Hemoglobin 11.9 g/dL (12.2-16.2); Lymphocytes # 1.2 K/mm3 (0.7-4.5); Mean Corpuscular HGB Conc 32.9 g/dL (31.8-35.4); Mean Corpuscular Hemoglobin 34.9 pg (27.0-31.2); Mean Corpuscular Volume 106.1 fl (81-99); Mean Platelet Volume 8.9 fl (7.4-10.4); Monocytes # 0.2 K/mm3 (0.1-1.0); Monocytes % 3.8 % (1.7-9.3); Neutrophils # 3.6 K/mm3 (1.8-7.8); Neutrophils % 70.3 % (37.0-80.0); Platelet Count 336 K/mm3 (142-424); White Blood Count 5.2 K/mm3 (4.8-10.8)
[2020-06-11 10:35] LABS: Chloride 103 mmol/L (98-107); Sodium 138 mmol/L (136-145)
[2020-06-11 10:36] LABS: Potassium 3.6 mmoL/L (3.5-5.1)
[2020-06-11 10:38] LABS: Alanine Aminotransferase 32 U/L (12-78); Albumin Level 3.9 g/dl (3.5-5.0); Albumin/Globulin Ratio 1.4 (1.1-1.8); Alkaline Phosphatase 55 U/L (38-126); Anion Gap 12.6 mEq/L (5-15); Aspartate Amino Transferase 27 U/L (14-36); Bilirubin,Total 0.5 mg/dl (0.2-1.3); Blood Urea Nitrogen 10 mg/dl (7-17); Carbon Dioxide 26 mmol/L (22.0-30.0); Creatinine Clearance Estimated 142 mL/min (50-200); Estimated Glomerular Filt Rate 105 ml/min (>60); GFR (African American) 127 ML/MIN (>60); Globulin 2.8 g/dL (1.3-3.2); Total Protein,Serum 6.7 g/dl (6.3-8.2)
[2020-06-11 10:39] LABS: Calcium 9.4 mg/dl (8.4-10.2); Glucose 137 mg/dl (74-100)
[2020-06-11 11:50] VITALS: BP 136/72; PULSE 86; RESP 18; TEMP 36.7
[2020-06-11 12:05] VITALS: BP 151/81; PULSE 83; RESP 18
[2020-06-11 12:20] VITALS: BP 121/66; PULSE 86; RESP 18
[2020-06-11 12:35] VITALS: BP 112/69; PULSE 81; RESP 18
[2020-06-11 12:50] VITALS: BP 126/71; PULSE 89; RESP 18
== END 2020-06-11 13:15 | disposition home or self-care (01) ==
LOC: INF 10:08
PROVIDERS: Visit Provider Internal Medicine Medical Oncology
DX: Z51.11 Encounter for antineoplastic chemotherapy (principal); C50.912 Malignant neoplasm of unspecified site of left female breast
CPT/HCPCS: 80053; 85025; 96413; J1642; J9267; Q0166

== ENCOUNTER 2020-06-17 09:33 | Outpatient (CLI) | payer BC, MEDICAID, SELFPAY ==
[2020-06-17 09:35] VITALS: BMI 30.6
[2020-06-17 10:03] LABS: Basophils % 0.6 % (0.1-2.0); Eosinophils # 0.1 K/mm3 (0.0-0.4); Eosinophils % 1.6 % (0.1-12.0); Hematocrit 38.1 % (37.0-47.0); Lymphocytes # 1.4 K/mm3 (0.7-4.5); Lymphocytes % 31.2 % (10-50); Mean Corpuscular HGB Conc 31.6 g/dL (31.8-35.4); Mean Corpuscular Hemoglobin 34.4 pg (27.0-31.2); Mean Corpuscular Volume 108.9 fl (81-99); Mean Platelet Volume 8.1 fl (7.4-10.4); Monocytes # 0.1 K/mm3 (0.1-1.0); Monocytes % 2.6 % (1.7-9.3); Neutrophils # 2.9 K/mm3 (1.8-7.8); Neutrophils % 63.9 % (37.0-80.0); Platelet Count 323 K/mm3 (142-424); Red Blood Count 3.49 M/mm3 (4.20-5.40); Red Cell Distribution Width 15.5 % (11.5-17.5); White Blood Count 4.6 K/mm3 (4.8-10.8)
[2020-06-17 10:10] LABS: Chloride 100 mmol/L (98-107); Potassium 3.7 mmoL/L (3.5-5.1); Sodium 139 mmol/L (136-145)
[2020-06-17 10:12] LABS: Blood Urea Nitrogen 10 mg/dl (7-17); Creatinine Clearance Estimated 143 mL/min (50-200); Estimated Glomerular Filt Rate 105 ml/min (>60); GFR (African American) 127 ML/MIN (>60)
[2020-06-17 10:13] LABS: Alanine Aminotransferase 30 U/L (12-78); Albumin Level 4.1 g/dl (3.5-5.0); Albumin/Globulin Ratio 1.5 (1.1-1.8); Alkaline Phosphatase 54 U/L (38-126); Anion Gap 14.7 mEq/L (5-15); Aspartate Amino Transferase 25 U/L (14-36); Bilirubin,Total 0.4 mg/dl (0.2-1.3); Calcium 9.3 mg/dl (8.4-10.2); Carbon Dioxide 28 mmol/L (22.0-30.0); Globulin 2.8 g/dL (1.3-3.2); Glucose 123 mg/dl (74-100); Total Protein,Serum 6.9 g/dl (6.3-8.2)
[2020-06-17 11:40] VITALS: BP 127/97; PULSE 99; RESP 18; TEMP 36; O2SAT 97
[2020-06-17 11:55] VITALS: BP 139/77; PULSE 90; RESP 18
[2020-06-17 12:10] VITALS: BP 131/79; PULSE 83; RESP 18
[2020-06-17 12:25] VITALS: BP 115/72; PULSE 86; RESP 18
[2020-06-17 12:55] VITALS: BP 119/80; PULSE 91; RESP 18
== END 2020-06-17 12:55 | disposition home or self-care (01) ==
LOC: INF 09:33
PROVIDERS: Visit Provider Internal Medicine Medical Oncology
DX: Z51.11 Encounter for antineoplastic chemotherapy (principal); C50.912 Malignant neoplasm of unspecified site of left female breast; Z17.0 Estrogen receptor positive status [ER+]
CPT/HCPCS: 80053; 85025; 96413; J1642; J9267; Q0166

== ENCOUNTER 2020-06-23 10:15 | Outpatient (CLI) | payer BC, MEDICAID, SELFPAY ==
[2020-06-23] VITALS (8 sets, daily range): BP systolic 103–126; BP diastolic 53–78; PULSE 77–101; RESP 18; TEMP 36.2; O2SAT 96; BMI 30.2
[2020-06-23 10:59] LABS: Basophils # 0.1 K/mm3 (0-0.2); Basophils % 1.1 % (0.1-2.0); Eosinophils # 0.1 K/mm3 (0.0-0.4); Hematocrit 35.6 % (37.0-47.0); Hemoglobin 11.8 g/dL (12.2-16.2); Lymphocytes # 1.3 K/mm3 (0.7-4.5); Lymphocytes % 27.2 % (10-50); Mean Corpuscular HGB Conc 33.1 g/dL (31.8-35.4); Mean Corpuscular Hemoglobin 34.8 pg (27.0-31.2); Mean Corpuscular Volume 105.2 fl (81-99); Mean Platelet Volume 9.9 fl (7.4-10.4); Monocytes # 0.2 K/mm3 (0.1-1.0); Monocytes % 3.6 % (1.7-9.3); Neutrophils # 3.2 K/mm3 (1.8-7.8); Neutrophils % 67.2 % (37.0-80.0); Platelet Count 317 K/mm3 (142-424); Red Blood Count 3.38 M/mm3 (4.20-5.40); Red Cell Distribution Width 16.8 % (11.5-17.5); White Blood Count 4.7 K/mm3 (4.8-10.8)
[2020-06-23 11:01] LABS: Chloride 101 mmol/L (98-107); Potassium 3.5 mmoL/L (3.5-5.1); Sodium 138 mmol/L (136-145)
[2020-06-23 11:03] LABS: Blood Urea Nitrogen 13 mg/dl (7-17); Creatinine Clearance Estimated 141 mL/min (50-200); Estimated Glomerular Filt Rate 105 ml/min (>60); GFR (African American) 127 ML/MIN (>60)
[2020-06-23 11:04] LABS: Alanine Aminotransferase 34 U/L (12-78); Albumin Level 4.2 g/dl (3.5-5.0); Albumin/Globulin Ratio 1.4 (1.1-1.8); Alkaline Phosphatase 56 U/L (38-126); Anion Gap 14.5 mEq/L (5-15); Aspartate Amino Transferase 29 U/L (14-36); Bilirubin,Total 0.5 mg/dl (0.2-1.3); Calcium 9.8 mg/dl (8.4-10.2); Carbon Dioxide 26 mmol/L (22.0-30.0); Globulin 2.9 g/dL (1.3-3.2); Glucose 118 mg/dl (74-100); Total Protein,Serum 7.1 g/dl (6.3-8.2)
== END 2020-06-23 14:10 | disposition home or self-care (01) ==
LOC: INF 10:22
PROVIDERS: Visit Provider Internal Medicine Medical Oncology
DX: Z51.11 Encounter for antineoplastic chemotherapy (principal); C50.912 Malignant neoplasm of unspecified site of left female breast
CPT/HCPCS: 80053; 85025; 96360; 96415; J1642; J9267; Q0166

== ENCOUNTER 2020-07-08 08:47 | Outpatient (CLI) | payer BC, MEDICAID, SELFPAY ==
[2020-07-08 08:48] VITALS: BMI 30.2
[2020-07-08 09:12] LABS: Basophils % 0.4 % (0.1-2.0); Eosinophils # 0.2 K/mm3 (0.0-0.4); Eosinophils % 2.3 % (0.1-12.0); Hematocrit 45.3 % (37.0-47.0); Lymphocytes # 1.9 K/mm3 (0.7-4.5); Lymphocytes % 23.3 % (10-50); Mean Corpuscular HGB Conc 28.6 g/dL (31.8-35.4); Mean Corpuscular Hemoglobin 34.5 pg (27.0-31.2); Mean Corpuscular Volume 120.6 fl (81-99); Mean Platelet Volume 13.3 fl (7.4-10.4); Monocytes # 0.3 K/mm3 (0.1-1.0); Neutrophils # 5.6 K/mm3 (1.8-7.8); Platelet Count 310 K/mm3 (142-424); Red Blood Count 3.75 M/mm3 (4.20-5.40); Red Cell Distribution Width 16.8 % (11.5-17.5)
[2020-07-08 09:28] LABS: Chloride 102 mmol/L (98-107); Potassium 3.7 mmoL/L (3.5-5.1); Sodium 139 mmol/L (136-145)
[2020-07-08 09:31] LABS: Alanine Aminotransferase 29 U/L (12-78); Albumin Level 3.9 g/dl (3.5-5.0); Albumin/Globulin Ratio 1.3 (1.1-1.8); Alkaline Phosphatase 63 U/L (38-126); Anion Gap 12.7 mEq/L (5-15); Aspartate Amino Transferase 37 U/L (14-36); Bilirubin,Total 0.4 mg/dl (0.2-1.3); Blood Urea Nitrogen 13 mg/dl (7-17); Calcium 9.6 mg/dl (8.4-10.2); Carbon Dioxide 28 mmol/L (22.0-30.0); Creatinine Clearance Estimated 141 mL/min (50-200); Estimated Glomerular Filt Rate 105 ml/min (>60); GFR (African American) 127 ML/MIN (>60); Globulin 2.9 g/dL (1.3-3.2); Glucose 102 mg/dl (74-100); Total Protein,Serum 6.8 g/dl (6.3-8.2)
== END 2020-07-08 09:20 | disposition home or self-care (01) ==
LOC: INF 08:47
PROVIDERS: Visit Provider Internal Medicine Medical Oncology
DX: C50.912 Malignant neoplasm of unspecified site of left female breast (principal)
CPT/HCPCS: 80053; 85025; J1642

== ENCOUNTER 2020-07-12 10:19 | Outpatient (CLI) | payer BC, MEDICAID, SELFPAY ==
[2020-07-12 10:24] VITALS: BMI 29.9
[2020-07-12 11:12] LABS: Coronavirus 19 IgG Antibody Negative (Negative); Coronavirus 19 IgM Antibody Negative (Negative)
== END 2020-07-12 10:31 | disposition home or self-care (01) ==
LOC: INF 10:19
PROVIDERS: Visit Provider Surgery
DX: Z01.818 Encounter for other preprocedural examination (principal); Z03.818 Encounter for observation for suspected exposure to other biological agents ruled out
CPT/HCPCS: 86328; J1642

== ENCOUNTER 2020-07-14 09:23 | Observation (INO) | payer BC, MEDICAID, SELFPAY ==
[2020-07-12 14:44] VITALS: BMI 29.9
[2020-07-13 20:35] VITALS: BP 106/70; PULSE 96; RESP 18; TEMP 36.8; O2SAT 95
[2020-07-14] VITALS (24 sets, daily range): BP systolic 92–131; BP diastolic 47–80; PULSE 80–111; RESP 16–20; TEMP 36.3–38; O2SAT 90–98; BMI 29.9
[2020-07-14 09:12] LABS: POC Glucose,Bedside 91 (70-110)
--- NOTE | 2020-07-14 10:06 | P.PN_ITS ---
[facility] Anesthesia Checklist - Patient Identification Patient Identification: Arm Band, Verbal (Name & ) - Structural Data Admitted From: Home Planned Operative Procedure/s: mastectomy Consent for Planned Operative Procedure(s) Verified: Yes Verified Documents: History and Physical - NPO Status Verified Time NPO: 00:00 - Chart Verification Results Verified: CBC, BMP - Additional verifications Patient : No Anesthesia Reactions: No Hx Blood Transfusions: No Blood Transfusion Reaction: No Cephalosporin Allergy: No Previous Colonoscopy: No - Cardiovascular Assessment Heart Sounds: S1 & S2 Pulse Strength: Baseline Pulse Rhythm: Regular Peripheral Edema: No - Airway Assessment C-Spine Mobility Assessed: Yes TMJ Mobility Assessed: Yes Dentition: Good Dentition - Neurological Assessment Level of Consciousness: Awake, Alert, Appropriate Hx Seizures: No Numbness or tingling in extremities: No - Anesthesia Plan Anesthesia Risk discussed: Yes ASA Class: III Anesthesia Type: General w/block [facility] History I have reviewed the patient's past medical history: Yes Medical History: Reports:: Anxiety, Cancer, Diabetes Mellitus Type 2, Gastroesophageal Reflux Disease(GERD), Hepatitis (autoimmune), Hyperlipidemia, Hypertension, Lung Disease (sleep apnea) Denies:: Diabetes Mellitus Type 1, Internal Pacemaker, MRSA, Seizures *Have you ever received a pneumonia vaccine?: No *Have you received a flu vaccine this season?: No Other Medical History: Reports: Chemotherapy, Hormone Therapy, Hypothyroidism, Liver Disease, Other (obesity, MELVIN). Denies: Blood Transfusion Reaction Anesthesia experience/problems:: none Laterality Cases: Left: Breast Biopsy, Bilateral: Tonsillectomy Other Surgeries: Yes: Cancer Surgery, Colonoscopy, , EGD, Hysterectomy- Total, Hysterectomy-Partial, Plastic Surgery (facial), Tubal Ligation, Other (bone marrow bx). No: Pacemaker Amputation: No Fractures: No - *Social History Last grade of school completed: High school graduate Smoking Status: Never smoker Alcohol Intake: never Alcohol Intake Frequency:: holidays/special occasions only Substance Use Type: denies use *Occupational Status:: employed Housing: house Household Members: spouse *Travel in the last 8 weeks: None - Psychiatric History Pschychiatric History:: Reports:: Anxiety Family Hx:: No significant family history
--- NOTE | 2020-07-14 10:17 | HMH.PHAINT ---
Medication reconciliation completed using pharmacy claims data.
--- NOTE | 2020-07-14 11:32 | HMH.PHAVTE ---
[facility] Pharmacy VTE Monitoring - Patient Demographics Admission date: 07/14/20 Report Date: 07/14/20 Time: 11:32 Allergies/Adverse Reactions: Patient Allergies Penicillins Allergy (Severe, Verified 07/12/20 14:50) ANAPHYLACTIC REACTION cephalexin [From Keflex] Allergy (Intermediate, Verified 07/12/20 14:50) I-HIVES amoxicillin [AMOXICILLIN] Allergy (Unknown, Verified 07/12/20 14:50) ANAPHYLAXIS ampicillin [AMPICILLIN] Allergy (Unknown, Verified 07/12/20 14:50) ANAPHYLAXIS Height: 1.65 m Weight: 81.647 kg - VTE Risk Clinical Trial Participant: No - Prophylaxis VTE Prophylaxis Ordered?: Yes Types of VTE Prophylaxis: TEDS Knee High Location of Applied Device: Bilateral Lower Extremeties
--- NOTE | 2020-07-14 13:56 | P.PN_ITS ---
[facility] Anesthesia Record Part I Intake, IV Amount: 1,450 Estimated blood loss (mL): 10 Urine output (mL): 0 Blood Products used (#): none Blood Pressure: 96/58 SaO2: 95 Pulse Rate: 106 Respiratory Rate: 18 Temperature: 97.8 F Patient is:: Drowsy, Stable Stable to PACU at:: 13:50
--- NOTE | 2020-07-14 14:09 | HMH.OPNOTE ---
Date of procedure: 07/14/20 Pre-op Diagnosis:: Left breast cancer Post-op Diagnosis:: Same Procedure performed:: Left modified radical mastectomy Surgeon:: Noah Hill MD NURSING OFFICER:: Rhett Mukherjee Anesthesia: GETFelipe Estimated blood loss (mL): 50 Clinical Note:: Patient presents for surgery for her left breast cancer. 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 She is under the care of Dr. Ricardo Rodriguez. She underwent traditional breast imaging including ultrasound as well as tomosynthesis mammogram. This revealed a asymmetric density in the left upper outer breast at the 1 o'clock position. She also has enlarged axillary lymph nodes including a lymph node as much as 4.1 cm. This is given a BI-RADS 5 classification. She had vacuum-assisted core biopsy of breast lesion which revealed invasive poorly differentiated ductal adenocarcinoma, grade 3. Biopsy of axillary lymph node reveals malignant adenocarcinoma cells. She had PowerPort placed she underwent neoadjuvant therapy with Dr. Arellano. Patient has done extensive research and contemplation and is quite adamant that she would prefer modified radical mastectomy as she strongly does not wish to undergo radiation therapy. She has been doing some research as well as about reconstructive surgery and at this time likely will not plan for breast reconstruction. Plan was made to proceed with traditional modified radical mastectomy. Operative findings:: She has some palpable fullness in the left axillary tail. Operative note:: Patient was taken to the operating room. She was given preoperative intravenous antibiotics. In the operating room she was placed in a supine position. General anesthesia was induced. Left upper extremity and left breast and chest were prepped and draped in the standard surgical fashion. Skin was marked with a skin marker for planned elliptical incision excising the nipple areolar complex with extension of the ellipse to the axilla. Skin incision was performed. Attention was first turned to raising superior skin flap. Electrocautery was used for dissection dissecting the subcutaneous tissues free from the underlying breast tissue. This was carried out down to the region of the clavicle. Dissection was carried out medially down to the sternal border incising the pectoralis fascia. Please note that it when raising the superior skin flap there was some palpable fullness near the axillary tail. For adequate resection of this dissection was carried out very close to the skin requiring counterincision approximately 2 cm in length. Next inferior skin flap was raised with dissection down to the inferior border of the breast. Dissection was carried out laterally and the clavicopectoral fascia was incised entering the axilla. Careful dissection was carried out in the axilla identifying the axillary vein. The axillary contents were swept inferiorly. Branching vessels and lymphatic vessels were clipped with hemoclips as needed. Dissection was carried out isolating and identifying the thoracodorsal and long thoracic nerves which were isolated, encircled with vessel loop, and preserved. Axillary contents were then dissected free and swept inferiorly. Remaining attachments of left breast tissue and axillary contents were dissected free from the region of the serratus anterior chest wall using electrocautery. The left breast with axillary contents was then sent off as a specimen. Upon inspection of the mastectomy bed there was some very thickened residual tissue at the inferior skin flap. Therefore electrocautery was used to dissected this free from the overlying subcutaneous tissues down to the chest wall. This was sent as extended inferior margin . There was some redundant skin and this was excised sharply with remainder of the attachments excised using electrocautery. This was sent from the original mast
--- NOTE | 2020-07-14 14:17 | PC.NURSE ---
RECEIVED REPORT FROM Keyur RAM RN. HR 107, BP 99/63, 95% ON 2L, 97.6 ORAL TEMP
--- NOTE | 2020-07-14 15:11 | P.PN_ITS ---
[facility] Anesthesia Record Part II Discharge Time: 14:20 Destination: Medical Surgical Department PACU nurse assessment reviewed?: Yes Patient Condition:: Good Anesthesia Complications:: None Swallowing reflex intact?: Yes Cyanosis?: No Blood Pressure: 123/58 Pulse Rate: 105 Temperature: 97.9 F Mental Status: Alert & Oriented Pain level:: 0 Nausea and/or vomitting:: None Intake, IV Amount: 50
--- NOTE | 2020-07-14 18:49 | PC.NURSE ---
PT AWARE OF VISITATION HOURS CHANGING TOMORROW.
[2020-07-15 03:31] VITALS: BP 92/54; PULSE 91; RESP 18; TEMP 36.8; O2SAT 93
--- NOTE | 2020-07-15 03:55 | PC.NURSE ---
L mastectomy site dsgs c/d/i with sanguineous drainage to both jamir drains. Pt. c/o pain at site x1, tx with norco per mar, effectiveness reported. No c/o n/v/d, soa, or dizziness. Pt. ambulates with standby assist; tolerates well.
[2020-07-15 05:01] VITALS: BMI 29.3
[2020-07-15 07:20] LABS: Basophils % 0.5 % (0.1-2.0); Eosinophils # 0.2 K/mm3 (0.0-0.4); Eosinophils % 2.5 % (0.1-12.0); Hematocrit 32.3 % (37.0-47.0); Hemoglobin 10.5 g/dL (12.2-16.2); Lymphocytes # 2.5 K/mm3 (0.7-4.5); Lymphocytes % 35.2 % (10-50); Mean Corpuscular HGB Conc 32.6 g/dL (31.8-35.4); Mean Corpuscular Hemoglobin 34.5 pg (27.0-31.2); Mean Corpuscular Volume 105.8 fl (81-99); Monocytes # 0.4 K/mm3 (0.1-1.0); Monocytes % 5.9 % (1.7-9.3); Neutrophils # 3.9 K/mm3 (1.8-7.8); Neutrophils % 55.8 % (37.0-80.0); Platelet Count 228 K/mm3 (142-424); Red Blood Count 3.06 M/mm3 (4.20-5.40); Red Cell Distribution Width 15.4 % (11.5-17.5); White Blood Count 7.1 K/mm3 (4.8-10.8)
[2020-07-15 07:27] LABS: Chloride 102 mmol/L (98-107); Potassium 3.7 mmoL/L (3.5-5.1); Sodium 136 mmol/L (136-145)
[2020-07-15 07:30] LABS: Anion Gap 6.7 mEq/L (5-15); Blood Urea Nitrogen 13 mg/dl (7-17); Carbon Dioxide 31 mmol/L (22.0-30.0); Creatinine Clearance Estimated 137 mL/min (50-200); Estimated Glomerular Filt Rate 105 ml/min (>60); GFR (African American) 127 ML/MIN (>60)
[2020-07-15 07:31] LABS: Calcium 9.1 mg/dl (8.4-10.2); Glucose 104 mg/dl (74-100)
[2020-07-15 08:00] VITALS: BP 90/70; PULSE 85; RESP 16; TEMP 36.6; O2SAT 95
--- NOTE | 2020-07-15 08:07 | P.PN_ITS ---
Subjective Narrative: Some soreness Progress Note: A&P Assessment and Plan for All Diagnoses:: Discharge. Exam Vital signs and Labs for Last 24 Hours: Temp Pulse Resp BP Pulse Ox 98.2 F 91 H 18 92/54 L 93 L 07/15/20 03:31 07/15/20 03:31 07/15/20 03:31 07/15/20 03:31 07/15/20 03:31 Laboratory Results - last 24 hr 07/14/20 09:06: POC Glucose 91 07/15/20 07:00: WBC 7.1, RBC 3.06 L, Hgb 10.5 L, Hct 32.3 L, MCV 105.8 H, MCH 34.5 H, MCHC 32.6, RDW 15.4, Plt Count 228, MPV 8.0, Neut % (Auto) 55.8, Lymph % (Auto) 35.2, [place] % (Auto) 5.9, Eos % (Auto) 2.5, Baso % (Auto) 0.5, Neut # (Auto) 3.9, Lymph # (Auto) 2.5, [place] # (Auto) 0.4, Eos # (Auto) 0.2, Baso # (Auto) 0.0 07/15/20 07:00: Sodium 136, Potassium 3.7, Chloride 102, Carbon Dioxide 31 H, Anion Gap 6.7, BUN 13, Creatinine 0.60, Estimated Creat Clear 137, Estimated GFR 105, Est GFR ( Amer) 127, Glucose 104 H, Calcium 9.1 I & O for Last 24 hours: Intake & Output 07/12/20 07/13/20 07/14/20 07/15/20 11:59 11:59 11:59 11:59 Intake Total 2612 / 2612 Output Total 1210 / 1210 Balance 1402 / 1402 Weight 180 lb 179 lb 9 oz 176 lb 6 oz - Routine Chest/Breast/Axilla Exam Comments: Some minor bruising.
--- NOTE | 2020-07-15 08:43 | HMH.DCSUM ---
General - General Admission date:: 07/14/20 Discharge date: 07/15/20 HPI HPI: Patient presents for surgery for her left breast cancer. 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 She is under the care of Dr. Ricardo Rodriguez. She underwent traditional breast imaging including ultrasound as well as tomosynthesis mammogram. This revealed a asymmetric density in the left upper outer breast at the 1 o'clock position. She also has enlarged axillary lymph nodes including a lymph node as much as 4.1 cm. This is given a BI-RADS 5 classification. She had vacuum-assisted core biopsy of breast lesion which revealed invasive poorly differentiated ductal adenocarcinoma, grade 3. Biopsy of axillary lymph node reveals malignant adenocarcinoma cells. She had PowerPort placed she underwent neoadjuvant therapy with Dr. Arellano. Patient has done extensive research and contemplation and is quite adamant that she would prefer modified radical mastectomy as she strongly does not wish to undergo radiation therapy. She has been doing some research as well as about reconstructive surgery and at this time likely will not plan for breast reconstruction. Plan was made to proceed with traditional modified radical mastectomy. Hospital Course Hospital Course: She was taken to the operating room at which time she underwent modified radical mastectomy. Please see operative dictation for complete details. She was admitted postoperatively for continuation of perioperative antibiotics and recovery. She was continued on clindamycin. Overnight she did well. The following morning she was feeling well. She had some soreness but no significant complaints. On examination there was some bruising but no definite ischemia near the upper outer flap. There is serosanguineous drainage from the drains. Arrangements were made for discharge home. Objective Vital signs: Temp Pulse Resp BP Pulse Ox 97.9 F 85 16 90/70 L 95 07/15/20 08:00 07/15/20 08:00 07/15/20 08:00 07/15/20 08:00 07/15/20 08:00 Results Labs on day of discharge: Labs from last 24 hours 07/15/20 07/15/20 07/14/20 07:00 07:00 09:06 WBC 7.1 RBC 3.06 L Hgb 10.5 L Hct 32.3 L MCV 105.8 H MCH 34.5 H MCHC 32.6 RDW 15.4 Plt Count 228 MPV 8.0 Neut % (Auto) 55.8 Lymph % (Auto) 35.2 [place] % (Auto) 5.9 Eos % (Auto) 2.5 Baso % (Auto) 0.5 Neut # (Auto) 3.9 Lymph # (Auto) 2.5 [place] # (Auto) 0.4 Eos # (Auto) 0.2 Baso # (Auto) 0.0 Sodium 136 Potassium 3.7 Chloride 102 Carbon Dioxide 31 H Anion Gap 6.7 BUN 13 Creatinine 0.60 Estimated Creat Clear 137 Estimated GFR 105 Est GFR ( Amer) 127 Glucose 104 H POC Glucose 91 Calcium 9.1 Discharge Plan - Patient Discharge Instructions ACTIVITY: Continue current activity DIET: advance to your usual diet Patient Instructions: Breast Cancer in Women, Mastectomy, DI for Surgical Site Infection - Follow up Plan Follow up with: Noah Hill MD [Staff Physician] - 07/21/20 1:00 pm Disposition: Home, Self-Retirement Medications: Home Medications Medication Instructions Recorded Confirmed Type Empagliflozin/Linagliptin 1 each PO DAILY 04/12/18 07/14/20 History [Glyxambi 25 mg-5 mg Tablet] Gabapentin [Gabapentin 300mg Cap] 300 mg PO BID 04/12/18 07/14/20 History Omeprazole [Omeprazole 40mg 40 mg PO DAILY 04/12/18 07/14/20 History Capsule] buspirone 10 mg tablet 10 mg PO BID 12/29/19 07/14/20 History valsartan 80 mg tablet 80 mg PO DAILY 01/22/20 07/14/20 History Vitamin E 400 unit PO DAILY 02/05/20 07/14/20 History Budesonide [Budesonide EC] 9 mg PO DAILY 07/14/20 07/14/20 History LORazepam [Lorazepam 0.5mg Tablet] 0.25 mg PO TID PRN 07/14/20 07/14/20 History Magnesium 250 mg PO DAILY 07/14/20 07/14/20 History Metformin HCl [Glucoph
== END 2020-07-15 12:11 | disposition home or self-care (01) ==
LOC: 2ND 09:24
PROVIDERS: Admitting Provider Surgery; PCP Internal Medicine; Visit Provider Surgery
PROC: (CPT 19307; principal; 2020-07-14 10:00)
DX: C50.412 Malignant neoplasm of upper-outer quadrant of left female breast (principal); C77.3 Secondary and unspecified malignant neoplasm of axilla and upper limb lymph nodes; E11.9 Type 2 diabetes mellitus without complications; E03.9 Hypothyroidism, unspecified; I10 Essential (primary) hypertension; Z79.899 Other long term (current) drug therapy; Z88.0 Allergy status to penicillin; Z88.1 Allergy status to other antibiotic agents; Z79.84 Long term (current) use of oral hypoglycemic drugs; Z17.0 Estrogen receptor positive status [ER+]
CPT/HCPCS: 19307; 80048; 82962; 85025; 96374; G0378; J1642; J2405

== ENCOUNTER 2020-08-19 09:10 | Outpatient (CLI) | payer BC, OTHER, SELFPAY ==
[2020-08-19 09:15] VITALS: BMI 29.1
[2020-08-19 09:41] LABS: Basophils # 0.1 K/mm3 (0-0.2); Basophils % 0.8 % (0.1-2.0); Eosinophils # 0.2 K/mm3 (0.0-0.4); Eosinophils % 2.8 % (0.1-12.0); Hematocrit 41.8 % (37.0-47.0); Hemoglobin 13.8 g/dL (12.2-16.2); Lymphocytes # 2.4 K/mm3 (0.7-4.5); Lymphocytes % 27.4 % (10-50); Mean Platelet Volume 7.9 fl (7.4-10.4); Monocytes # 0.3 K/mm3 (0.1-1.0); Monocytes % 3.6 % (1.7-9.3); Neutrophils # 5.7 K/mm3 (1.8-7.8); Neutrophils % 65.5 % (37.0-80.0); Platelet Count 284 K/mm3 (142-424); Red Blood Count 4.18 M/mm3 (4.20-5.40); Red Cell Distribution Width 14.2 % (11.5-17.5); White Blood Count 8.7 K/mm3 (4.8-10.8)
[2020-08-19 09:54] LABS: Chloride 101 mmol/L (98-107); Potassium 3.9 mmoL/L (3.5-5.1); Sodium 138 mmol/L (136-145)
[2020-08-19 09:57] LABS: Alanine Aminotransferase 21 U/L (12-78); Albumin Level 4.3 g/dl (3.5-5.0); Albumin/Globulin Ratio 1.3 (1.1-1.8); Alkaline Phosphatase 73 U/L (38-126); Anion Gap 14.9 mEq/L (5-15); Aspartate Amino Transferase 24 U/L (14-36); Bilirubin,Total 0.5 mg/dl (0.2-1.3); Blood Urea Nitrogen 15 mg/dl (7-17); Calcium 10.2 mg/dl (8.4-10.2); Carbon Dioxide 26 mmol/L (22.0-30.0); Creatinine Clearance Estimated 136 mL/min (50-200); Estimated Glomerular Filt Rate 105 ml/min (>60); GFR (African American) 127 ML/MIN (>60); Globulin 3.3 g/dL (1.3-3.2); Glucose 102 mg/dl (74-100); Total Protein,Serum 7.6 g/dl (6.3-8.2)
== END 2020-08-19 09:25 | disposition home or self-care (01) ==
LOC: INF 09:11
PROVIDERS: Visit Provider Internal Medicine Medical Oncology
DX: C50.912 Malignant neoplasm of unspecified site of left female breast (principal); Z45.2 Encounter for adjustment and management of vascular access device
CPT/HCPCS: 80053; 85025; J1642

== ENCOUNTER 2020-09-17 11:50 | Outpatient (CLI) | payer BC, OTHER, SELFPAY | END 2020-09-17 12:30 | disposition home or self-care (01) | LOC: INF 11:52 | PROVIDERS: Visit Provider Internal Medicine Medical Oncology | DX: Z45.2 Encounter for adjustment and management of vascular access device (principal) | CPT/HCPCS: 96523; J1642 ==

== ENCOUNTER → 2020-09-20 09:52 | Outpatient (CLI) | payer BC, OTHER, SELFPAY ==
--- NOTE | 2020-09-20 09:52 | US_ITS ---
PROCEDURE: US FNA BREAST CLINICAL INDICATION: Seroma post mastectomy COMPARISON: 12/19/2019 FINDINGS: Pre aspiration images demonstrates a 4 x 3 cm fluid collection in the left axilla. Following time-out procedure and obtaining informed consent under aseptic conditions with local anesthesia with 1 percent buffered lidocaine, 20 gauge needle was inserted into the fluid collection with sonographic guidance. 20 mL of serous fluid was aspirated. The cavity nearly completely resolved. The fluid was sent for cytology and negative for malignant cells. There is no immediate complication. IMPRESSION: Successful and uneventful sonographic guided aspiration of left axillary seroma as described above Dictated by: Evin Castro MD 10/05/2020 09:01 Evin Castro MD in [place] 10/05/2020 09:01
== END ==
PROVIDERS: PCP Internal Medicine; Visit Provider Surgery
DX: L76.34 Postprocedural seroma of skin and subcutaneous tissue following other procedure (principal)
CPT/HCPCS: 10005; 87070; 87205

== ENCOUNTER 2020-10-14 11:07 | Outpatient (CLI) | payer BC, OTHER, SELFPAY ==
[2020-10-14 11:08] VITALS: BMI 33.3
[2020-10-14 11:47] LABS: Alanine Aminotransferase 19 U/L (12-78); Albumin Level 4.2 g/dl (3.5-5.0); Albumin/Globulin Ratio 1.2 (1.1-1.8); Alkaline Phosphatase 77 U/L (38-126); Anion Gap 14.1 mEq/L (5-15); Aspartate Amino Transferase 21 U/L (14-36); Bilirubin,Total 0.3 mg/dl (0.2-1.3); Blood Urea Nitrogen 10 mg/dl (7-17); Calcium 9.8 mg/dl (8.4-10.2); Carbon Dioxide 27 mmol/L (22.0-30.0); Chloride 102 mmol/L (98-107); Creatinine Clearance Estimated 133 mL/min (50-200); Estimated Glomerular Filt Rate 88 ml/min (>60); GFR (African American) 106 ML/MIN (>60); Globulin 3.4 g/dL (1.3-3.2); Glucose 143 mg/dl (74-100); Potassium 4.1 mmoL/L (3.5-5.1); Sodium 139 mmol/L (136-145); Total Protein,Serum 7.6 g/dl (6.3-8.2)
[2020-10-14 12:14] LABS: Basophils # 0.1 K/mm3 (0-0.2); Basophils % 1.1 % (0.1-2.0); Eosinophils # 0.1 K/mm3 (0.0-0.4); Hematocrit 43.3 % (37.0-47.0); Hemoglobin 14.2 g/dL (12.2-16.2); Lymphocytes # 2.4 K/mm3 (0.7-4.5); Lymphocytes % 33.9 % (10-50); Mean Corpuscular HGB Conc 32.8 g/dL (31.8-35.4); Mean Corpuscular Hemoglobin 30.3 pg (27.0-31.2); Mean Corpuscular Volume 92.5 fl (81-99); Mean Platelet Volume 7.9 fl (7.4-10.4); Monocytes # 0.3 K/mm3 (0.1-1.0); Monocytes % 4.4 % (1.7-9.3); Neutrophils # 4.1 K/mm3 (1.8-7.8); Neutrophils % 58.6 % (37.0-80.0); Platelet Count 279 K/mm3 (142-424); Red Blood Count 4.68 M/mm3 (4.20-5.40); Red Cell Distribution Width 13.7 % (11.5-17.5)
== END 2020-10-14 11:30 | disposition home or self-care (01) ==
LOC: INF 11:07
PROVIDERS: Visit Provider Internal Medicine Medical Oncology
DX: C50.912 Malignant neoplasm of unspecified site of left female breast (principal); Z45.2 Encounter for adjustment and management of vascular access device
CPT/HCPCS: 80053; 85025; J1642

== ENCOUNTER 2020-11-10 11:59 | Outpatient (CLI) | payer BC, OTHER, SELFPAY | END 2020-11-10 12:10 | disposition home or self-care (01) | LOC: INF 12:04 | PROVIDERS: Visit Provider Internal Medicine Medical Oncology | DX: Z45.2 Encounter for adjustment and management of vascular access device (principal) | CPT/HCPCS: 96523; J1642 ==

== ENCOUNTER → 2020-11-22 09:16 | Outpatient (POV) | payer SELFPAY | PROVIDERS: Visit Provider Nurse Practitioner Family | DX: Z00.00 Encounter for general adult medical examination without abnormal findings (principal) ==

== ENCOUNTER 2020-12-16 10:58 | Outpatient (CLI) | payer BC, OTHER, SELFPAY ==
[2020-12-16 11:00] VITALS: BMI 30.7
[2020-12-16 11:10] VITALS: BP 165/70; PULSE 78; RESP 18; TEMP 36.4; O2SAT 97
[2020-12-16 11:15] VITALS: BP 165/70; PULSE 78; RESP 18; TEMP 36.4; O2SAT 97
[2020-12-16 11:24] LABS: Basophils # 0.1 K/mm3 (0-0.2); Basophils % 0.9 % (0.1-2.0); Eosinophils # 0.1 K/mm3 (0.0-0.4); Hematocrit 39.9 % (37.0-47.0); Hemoglobin 13.1 g/dL (12.2-16.2); Lymphocytes # 1.8 K/mm3 (0.7-4.5); Lymphocytes % 28.8 % (10-50); Mean Corpuscular HGB Conc 32.7 g/dL (31.8-35.4); Mean Corpuscular Hemoglobin 30.9 pg (27.0-31.2); Mean Corpuscular Volume 94.4 fl (81-99); Mean Platelet Volume 7.7 fl (7.4-10.4); Monocytes # 0.3 K/mm3 (0.1-1.0); Monocytes % 4.6 % (1.7-9.3); Neutrophils # 3.9 K/mm3 (1.8-7.8); Neutrophils % 63.7 % (37.0-80.0); Platelet Count 232 K/mm3 (142-424); Red Blood Count 4.23 M/mm3 (4.20-5.40); Red Cell Distribution Width 14.6 % (11.5-17.5); White Blood Count 6.1 K/mm3 (4.8-10.8)
[2020-12-16 11:33] LABS: Chloride 104 mmol/L (98-107)
[2020-12-16 11:34] LABS: Potassium 3.9 mmoL/L (3.5-5.1); Sodium 139 mmol/L (136-145)
[2020-12-16 11:36] LABS: Alanine Aminotransferase 25 U/L (12-78); Aspartate Amino Transferase 25 U/L (14-36); Blood Urea Nitrogen 11 mg/dl (7-17); Creatinine Clearance Estimated 144 mL/min (50-200); Estimated Glomerular Filt Rate 105 ml/min (>60); GFR (African American) 127 ML/MIN (>60)
[2020-12-16 11:37] LABS: Albumin Level 4.1 g/dl (3.5-5.0); Albumin/Globulin Ratio 1.5 (1.1-1.8); Alkaline Phosphatase 77 U/L (38-126); Anion Gap 13.9 mEq/L (5-15); Bilirubin,Total 0.4 mg/dl (0.2-1.3); Calcium 9.6 mg/dl (8.4-10.2); Carbon Dioxide 25 mmol/L (22.0-30.0); Globulin 2.8 g/dL (1.3-3.2); Glucose 106 mg/dl (74-100); Total Protein,Serum 6.9 g/dl (6.3-8.2)
== END 2020-12-16 11:17 | disposition home or self-care (01) ==
LOC: INF 10:58
PROVIDERS: Visit Provider Internal Medicine Medical Oncology
DX: Z45.2 Encounter for adjustment and management of vascular access device (principal); C50.912 Malignant neoplasm of unspecified site of left female breast
CPT/HCPCS: 80053; 85025; J1642

== ENCOUNTER 2021-01-20 10:21 | Outpatient (CLI) | payer OTHER, SELFPAY | END 2021-01-20 11:08 | disposition home or self-care (01) | LOC: INF 10:21 | PROVIDERS: PCP Internal Medicine; Visit Provider Internal Medicine Medical Oncology | DX: Z45.2 Encounter for adjustment and management of vascular access device (principal); C50.912 Malignant neoplasm of unspecified site of left female breast | CPT/HCPCS: 96523; J1642 ==

== ENCOUNTER 2021-02-21 10:00 | Outpatient (RCR) | payer BC, OTHER, SELFPAY ==
--- NOTE | 2020-08-23 14:14 | HMH.PTOPWND ---
Rehab Outpt Wound Evaluation Rehab OP Wound Evaluation Start: 08/23/20 13:14 Freq: Status: Active Protocol: Document 08/23/20 14:06 RENETTA (Rec: 08/23/20 14:14 PHORDYLAN [id number]) Electronically Signed By Tani Downey, PT 08/23/20 14:06 Subjective/History History History Pt is 55 yowf who presents ~ 1 mo S/P L modified radical mastectomy due to breast cancer. She reports 9 lymph nodes were removedand she has already undergone 16 chemo treatments. She is scheduled to begin radiation treatments this week. She reports No pain at rest, but pain with reaching or lifting her L UE. She also reports sensation of numbness, but also hypersensitivity along the anterior L upper arm. She reports hx of DM-II, HTN, and autoimmune hepatitis. Subjective Subjective Pain 5/10 at worse with raising the L UE. Lymphedema Eval Classification of Lymphedema Secondary Lymphedema Yes Post-Surgical Lymphedema Yes Stemmer's sign Stemmer's Sign no Stage of Lymphedema Lymphedema stages Stage I (Pitting edema, reduces w/ elevation, no fibrosis) Skin Changes Dry Skin Yes Redness Yes Other Changes Yes Pain Scale Pain Scale (0-10) 5 Radiation Therapy Has received radiation therapy no Chemo Therapy Has received chemo therapy yes Affected Extremities Areas Affected by Lymphedema/Edema Left Upper Extremity,Left Breast,Left Axilla Manual Lymphatic Drainage Treatment Area MLD Treatment Area Left Upper Extremity,Abdomen, Left Breast,Left Axilla,Sub Axiallary Region Wound Problems/Impairments Impairments Problems/Impairmments Palpation Tenderness,Impaired Range of Motion,Impaired Strength,Impaired Lifting, Impaired Household Care, Impaired Recreational Activities,Increased Edema, Lymphedema Present,Subjective C/O Pain,Impaired Self Care/ Self Management Prognosis R
--- NOTE | 2020-09-22 11:33 | HMH.RHREAS ---
Rehab Reassessment Rehab OP Re-assessment Start: 09/22/20 11:28 Freq: Status: Active Protocol: Document 09/22/20 11:30 RENETTA (Rec: 09/22/20 11:33 PHOAUBRIE [id number]) Electronically Signed By Tani Downey, PT 09/22/20 11:30 Rehab Re-assessment Subjective Subjective Pt reports she feels somewhat tired this date, but overall better with movement of her L UE. Sh reports she had 25 mL of fluid drained from a L axillary lymph node yesterday. Objective Objective Notes Circumferential measurements: L UE total = 209.8 cm which is -2.6 since initial eval. Assessment Progress Assessment Progressing as Expected Assessment Notes Pt has shown improvements in L shld AROM and pain with therapeutic exercise. She also has decreased edema overall in the L UE. 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 Patient goals met ST,2,3,4,5 Goals Not Met LT,2,3,4,5,6,7 Revised Goals none Plan Plan Continue per initial POC. Frequency of Therapy 2-3 days/wk Duration of therapy 8 wks Time and Billing Re-Eval Time 15 Re-Eval Billing Units 1 PHYSICIAN CERTIFICATION: I certify the specified therapy services for Jewell Salmeron are required, authorized, and reviewed every 30 days.
--- NOTE | 2020-10-22 10:48 | HMH.RHREAS ---
Rehab Reassessment Rehab OP Re-assessment Start: 09/22/20 11:28 Freq: Status: Active Protocol: Document 10/22/20 10:43 RENETTA (Rec: 10/22/20 10:48 RENETTA [id number]) Electronically Signed By Tani Downey, PT 10/22/20 10:43 Rehab Re-assessment Subjective Subjective Pt reports L axilla and L chest area feels almost like its bruised, but I know that's from the radiation treatments . Objective Objective Notes Circumferential measurements: L UE total 213.4 cm which is + 1.0 cm since initial eval. L UE shld AROM: Flex= 0-135 deg, ABD= 0-131 deg. PROM is WFL throughout. Assessment Progress Assessment Progressing as Expected Assessment Notes Pt with increased edema throughout the L UE, axilla, and breast over the past 2-3 treatments most assuredly related to undergoing radiation therapy at this time . She has undergone 8 radiation treatments with 17 remaining per her report. She is improving her ROM steadily and once radiation treatments are concluded, will likely make further improvements again. Patient goals met ST,2,3,4,5 Goals Not Met LT,2,3,4,5,6,7 Revised Goals none Plan Plan Continue per initial POC. Frequency of Therapy 2-3 days/wk Duration of therapy 8 wks Time and Billing Re-Eval Time 15 Re-Eval Billing Units 1 PHYSICIAN CERTIFICATION: I certify the specified therapy services for Jewell Salmeron are required, authorized, and reviewed every 30 days.
--- NOTE | 2020-11-18 08:10 | HMH.RHREAS ---
Rehab Reassessment Rehab OP Re-assessment Start: 09/22/20 11:28 Freq: Status: Active Protocol: Document 11/17/20 11:37 RENETTA (Rec: 11/17/20 11:42 RENETTA [id number]) Electronically Signed By Tani Downey, PT 11/17/20 11:37 Rehab Re-assessment Subjective Subjective Pt reports she feels some tenderness throughout the L upper arm, but she is finished with radiation treatments now . Objective Objective Notes Circumferential measurements: L UE total 217.4 cm which is + 5.0 cm since initial eval. Assessment Progress Assessment Progressing as Expected Assessment Notes Improving ROM in the L shld overall. Some tenderness to palpation and increased edema, but this is expected due to radiation treatments. Patient goals met ST,2,3,4,5 Goals Not Met LT,2,3,4,5,6,7 Revised Goals none Plan Plan Continue per initial POC. Frequency of Therapy 2-3 days/wk Duration of therapy 8 wks Time and Billing Re-Eval Time 15 Re-Eval Billing Units 1 PHYSICIAN CERTIFICATION: I certify the specified therapy services for Jewell Salmeron are required, authorized, and reviewed every 30 days.
--- NOTE | 2020-12-23 10:38 | HMH.RHREAS ---
Rehab Reassessment Rehab OP Re-assessment Start: 09/22/20 11:28 Freq: Status: Active Protocol: Document 12/23/20 10:31 RENETTA (Rec: 12/23/20 10:38 RENETTA [id number]) Electronically Signed By Tani Downey, PT 12/23/20 10:31 Rehab Re-assessment Subjective Subjective Pt reports she feels some brain fog from the chemo and is starting speech therapy to help with this. Mild pain in the L UE with activity. Objective Objective Notes L UE edema: Less fibrotic tissue quality in the L upper arm. Pt with mild to moderate symptoms of axillary web syndrome throughout the L UE. Assessment Progress Assessment Progressing as Expected Assessment Notes PROM this date is full ROM. Patient still limited with AROM tightness still noted in pecs. Less tightness form the axillary web syndrome with stretching. Increasing endurance overall. Patient goals met ST,2,3,4,5 Goals Not Met LT,2,3,4,5,6,7 Revised Goals none Plan Plan Continue per initial POC. Frequency of Therapy 2-3 days/wk Duration of therapy 8 wks Time and Billing Re-Eval Time 15 Re-Eval Billing Units 1 PHYSICIAN CERTIFICATION: I certify the specified therapy services for Jewell Salmeron are required, authorized, and reviewed every 30 days.
--- NOTE | 2021-01-25 09:38 | HMH.RHREAS ---
Rehab Reassessment Rehab OP Re-assessment Start: 09/22/20 11:28 Freq: Status: Active Protocol: Document 01/25/21 09:18 RENETTA (Rec: 01/25/21 09:38 PHORDYLAN [id number]) Electronically Signed By Tani Downey, PT 01/25/21 09:18 Rehab Re-assessment Subjective Subjective Pt recently had a full set of implants for teeth placed at the same time which has resulted in some heqad and neck edema and bruising. Objective Objective Notes Circumferential Measurements: L UE +11.5 cm since initial eval. Assessment Progress Assessment Slower Than Expected Assessment Notes Pt had carolyn steadily improving edema, but has shown less improvement this reassessment due to multiple extenuating circumstances. She reports no c/o pain in the L UE, but some increased edema noted in the wrist and hand. Patient goals met ST,2,3,4,5 Goals Not Met LT,2,3,4,5,6,7 Revised Goals none Plan Plan Continue per initial POC. Frequency of Therapy 2-3 days/wk Duration of therapy 8 wks Time and Billing Re-Eval Time 15 Re-Eval Billing Units 1 PHYSICIAN CERTIFICATION: I certify the specified therapy services for Jewell Salmeron are required, authorized, and reviewed every 30 days.
== END 2021-02-21 10:05 | disposition home or self-care (01) ==
LOC: PT 10:00
PROVIDERS: PCP Internal Medicine; Visit Provider Internal Medicine Medical Oncology
DX: C50.912 Malignant neoplasm of unspecified site of left female breast (principal); R60.0 Localized edema; M79.602 Pain in left arm
CPT/HCPCS: 97110; 97140; 97162; 97164; 97760

== ENCOUNTER 2021-02-24 10:51 | Outpatient (CLI) | payer OTHER, SELFPAY ==
[2021-02-24 10:55] VITALS: BMI 29.9
[2021-02-24 11:11] LABS: Basophils % 0.7 % (0.1-2.0); Eosinophils # 0.2 K/mm3 (0.0-0.4); Eosinophils % 2.6 % (0.1-12.0); Hematocrit 40.9 % (37.0-47.0); Hemoglobin 13.4 g/dL (12.2-16.2); Lymphocytes # 1.9 K/mm3 (0.7-4.5); Mean Corpuscular HGB Conc 32.9 g/dL (31.8-35.4); Mean Corpuscular Hemoglobin 31.2 pg (27.0-31.2); Mean Corpuscular Volume 94.9 fl (81-99); Mean Platelet Volume 8.3 fl (7.4-10.4); Monocytes # 0.3 K/mm3 (0.1-1.0); Monocytes % 4.6 % (1.7-9.3); Neutrophils # 3.3 K/mm3 (1.8-7.8); Neutrophils % 59.2 % (37.0-80.0); Platelet Count 237 K/mm3 (142-424); Red Blood Count 4.31 M/mm3 (4.20-5.40); White Blood Count 5.6 K/mm3 (4.8-10.8)
[2021-02-24 11:19] LABS: Alanine Aminotransferase 17 U/L (12-78); Albumin/Globulin Ratio 1.3 (1.1-1.8); Alkaline Phosphatase 85 U/L (38-126); Aspartate Amino Transferase 20 U/L (14-36); Bilirubin,Total 0.5 mg/dl (0.2-1.3); Blood Urea Nitrogen 10 mg/dl (7-17); Calcium 9.2 mg/dl (8.4-10.2); Carbon Dioxide 30 mmol/L (22.0-30.0); Chloride 103 mmol/L (98-107); Creatinine Clearance Estimated 168 mL/min (50-200); Estimated Glomerular Filt Rate 129 ml/min (>60); GFR (African American) 156 ML/MIN (>60); Globulin 3.1 g/dL (1.3-3.2); Glucose 92 mg/dl (74-100); Sodium 141 mmol/L (136-145); Total Protein,Serum 7.1 g/dl (6.3-8.2)
== END 2021-02-24 10:57 | disposition home or self-care (01) ==
LOC: INF 10:51
PROVIDERS: Visit Provider Internal Medicine Medical Oncology
DX: Z45.2 Encounter for adjustment and management of vascular access device (principal); C50.912 Malignant neoplasm of unspecified site of left female breast
CPT/HCPCS: 80053; 85025; 96523; J1642

== ENCOUNTER → 2021-03-01 10:04 | Outpatient (CLI) | payer OTHER, SELFPAY ==
--- NOTE | 2021-03-01 10:13 | MM_ITS ---
PROCEDURE INFORMATION: Exam: MG Screening 3D Mammography Exam date and time: 03/01/2021 10:13 AM Age: 55 years old Clinical indication: Encounter for screening mammogram for malignant neoplasm of breast TECHNIQUE: Imaging protocol: Screening tomosynthesis and 2D mammography including computer-aided detection (CAD) when performed. COMPARISON: 1. MG MM DIG MAMM BI DX W/CAD 12/19/2019 9:08 AM 2. SD US FNA BREAST 09/20/2020 10:11 AM FINDINGS: MAMMOGRAPHY: Breast composition: The breast tissue is composed of scattered areas of fibroglandular density. Mass: None. Architectural distortion: None. Calcifications: No suspicious calcifications. Asymmetric density: None. Skin thickening: None. Axillary adenopathy: None. Other findings: The patient is status post left mastectomy IMPRESSION: No mammographic evidence of malignancy. Annual screening is recommended unless otherwise clinically indicated. ASSESSMENT: BI-RADS Category 1: Negative
== END ==
PROVIDERS: PCP Internal Medicine; Visit Provider Internal Medicine Medical Oncology
DX: Z12.31 Encounter for screening mammogram for malignant neoplasm of breast (principal); Z85.3 Personal history of malignant neoplasm of breast
CPT/HCPCS: 77063; 77067

== ENCOUNTER → 2021-03-22 17:08 | Outpatient (CLI) | payer OTHER, SELFPAY ==
[2021-03-22 17:11] LABS: MANUAL DIFFERENTIAL MANUAL DIFFERENTIAL (MANUAL DIFF)
[2021-03-22 17:39] LABS: Basophils # 0.1 K/mm3 (0-0.2); Basophils % 1.7 % (0.1-2.0); Eosinophils # 0.2 K/mm3 (0.0-0.4); Eosinophils % 2.4 % (0.1-12.0); Hematocrit 41.4 % (37.0-47.0); Hemoglobin 13.5 g/dL (12.2-16.2); Lymphocytes # 2.1 K/mm3 (0.7-4.5); Lymphocytes % 29.4 % (10-50); Mean Corpuscular HGB Conc 32.7 g/dL (31.8-35.4); Mean Corpuscular Hemoglobin 31.5 pg (27.0-31.2); Mean Corpuscular Volume 96.3 fl (81-99); Mean Platelet Volume 7.9 fl (7.4-10.4); Monocytes # 0.3 K/mm3 (0.1-1.0); Monocytes % 4.1 % (1.7-9.3); Neutrophils # 4.5 K/mm3 (1.8-7.8); Neutrophils % 62.5 % (37.0-80.0); Platelet Count 267 K/mm3 (142-424); Red Cell Distribution Width 13.6 % (11.5-17.5); White Blood Count 7.3 K/mm3 (4.8-10.8)
[2021-03-22 19:04] LABS: Alanine Aminotransferase 14 U/L (12-78); Albumin/Globulin Ratio 1.4 (1.1-1.8); Alkaline Phosphatase 83 U/L (38-126); Anion Gap 15.1 mEq/L (5-15); Aspartate Amino Transferase 19 U/L (14-36); Bilirubin,Total 0.4 mg/dl (0.2-1.3); Blood Urea Nitrogen 11 mg/dl (7-17); Calcium 9.3 mg/dl (8.4-10.2); Carbon Dioxide 30 mmol/L (22.0-30.0); Chloride 100 mmol/L (98-107); Estimated Glomerular Filt Rate 75 ml/min (>60); GFR (African American) 90 ML/MIN (>60); Globulin 2.9 g/dL (1.3-3.2); Glucose 90 mg/dl (74-100); Potassium 4.1 mmoL/L (3.5-5.1); Sodium 141 mmol/L (136-145); Total Protein,Serum 6.9 g/dl (6.3-8.2)
[2021-03-22 21:31] LABS: Eosinophils % 3 % (0-3); Lymphocytes % 32 % (10-50); Monocytes % 4 % (2-9); Neutrophils % 61 % (42-76); Total Cells Counted 100
[2021-03-22 21:33] LABS: Platelet Estimate Normal
== END ==
PROVIDERS: Visit Provider Nurse Practitioner Family
DX: K75.4 Autoimmune hepatitis (principal); K75.0 Abscess of liver; K58.9 Irritable bowel syndrome, unspecified; K30 Functional dyspepsia
CPT/HCPCS: 36415; 80053; 85007; 85014; 85018; 85048; 85049

== ENCOUNTER 2021-03-24 15:41 | Outpatient (CLI) | payer OTHER, SELFPAY | END 2021-03-24 16:00 | disposition home or self-care (01) | LOC: INF 15:42 | PROVIDERS: PCP Internal Medicine; Visit Provider Internal Medicine Medical Oncology | DX: Z45.2 Encounter for adjustment and management of vascular access device (principal) | CPT/HCPCS: 96523; J1642 ==

== ENCOUNTER → 2021-04-11 16:18 | Outpatient (CLI) | payer OTHER, SELFPAY ==
[2021-04-11 17:43] LABS: Anion Gap 14.2 mEq/L (5-15); Blood Urea Nitrogen 12 mg/dl (7-17); Calcium 9.5 mg/dl (8.4-10.2); Carbon Dioxide 30 mmol/L (22.0-30.0); Chloride 100 mmol/L (98-107); Estimated Glomerular Filt Rate 87 ml/min (>60); GFR (African American) 106 ML/MIN (>60); Glucose 87 mg/dl (74-100); Potassium 4.2 mmoL/L (3.5-5.1); Sodium 140 mmol/L (136-145)
[2021-04-11 17:45] LABS: Basophils # 0.1 K/mm3 (0-0.2); Basophils % 0.8 % (0.1-2.0); Eosinophils # 0.2 K/mm3 (0.0-0.4); Eosinophils % 3.2 % (0.1-12.0); Hematocrit 44.1 % (37.0-47.0); Hemoglobin 14.1 g/dL (12.2-16.2); Lymphocytes % 32.3 % (10-50); Mean Corpuscular Hemoglobin 31.3 pg (27.0-31.2); Mean Corpuscular Volume 97.8 fl (81-99); Mean Platelet Volume 7.7 fl (7.4-10.4); Monocytes # 0.3 K/mm3 (0.1-1.0); Monocytes % 4.8 % (1.7-9.3); Neutrophils # 3.6 K/mm3 (1.8-7.8); Neutrophils % 58.9 % (37.0-80.0); Platelet Count 309 K/mm3 (142-424); Red Blood Count 4.51 M/mm3 (4.20-5.40); Red Cell Distribution Width 13.2 % (11.5-17.5); White Blood Count 6.2 K/mm3 (4.8-10.8)
== END ==
PROVIDERS: Visit Provider Surgery
DX: Z01.812 Encounter for preprocedural laboratory examination (principal); Z11.52 Encounter for screening for COVID-19; C44.601 Unspecified malignant neoplasm of skin of unspecified upper limb, including shoulder
CPT/HCPCS: 36415; 80048; 85025; C9803; U0003; U0005

== ENCOUNTER 2021-04-11 17:00 | Outpatient (RCR) | payer OTHER, SELFPAY ==
--- NOTE | 2020-12-23 10:53 | HMH.SLAPHASI ---
Speech & Language Evaluation Speech/Language Aphasia Evaluation Start: 12/23/20 10:47 Freq: once Status: Complete Protocol: Document 12/23/20 10:47 PETER (Rec: 12/23/20 10:53 PETER [id number]) Aphasia Assessment/Goals/Plan Assessment Date of Evaluation: 12/23/20 Evaluation Type Initial Certification Assessment/Problems Cognitive issues Does Patient Qualify for Service Yes Qualify/Failure Comment Patient exhibits mild cognitive disorder characterized by decreased problem solving, word finding, and short term memory. Plan Pt will be seen # times/week 2 for # weeks 12 Anticipate reaching STG in # weeks 8 Anticipate reaching LTG in # weeks 12 Pt/Guardian verbally ack understanding Yes of dx/prognosis/goals G -code Required No STG-Attending/Orientation/Memory Delayed Recall 90 Memory Recall 90 STG-Comparative/Linguistic Skills Categorization Ability 90 STG-Divergent Thinking Deductive Reasoning 90 Inductive Reasoning 90 Vice President Of Brand Management Goals Increase cognitive skills to communicate Yes w/family & friends Speech & Language HPI Language Primary Language Polish Education/Learning/Family Last School Grade Completed 12th Therapy History Seen by other [facility] therapists No Aphasia Evaluations Communication Speech Intelligibility WNL Auditory Comprehension Yes: Word Level Sentences Following Directions Paragraph Conversation Reading Comprehension Yes: Letter Naming Word Naming Sentences Paragraphs Verbal Expressive Language Yes: Automatic Speech Completing Sentences Repetition Abilities Word Level Naming Naming Actions/Objects Sentence Level Defining Words Written Language Yes: Signature Copy Shapes Copy Words Check Writing Attending/Orientation/Memory Yes: Orientation No: Delayed Recall W/ Interference Attention/Concentration
== END 2021-04-11 17:05 | disposition home or self-care (01) ==
LOC: ST 17:00
PROVIDERS: PCP Internal Medicine; Visit Provider Internal Medicine Medical Oncology
DX: R41.3 Other amnesia (principal); Z85.3 Personal history of malignant neoplasm of breast
CPT/HCPCS: 92507; 92523; 97129; 97130

== ENCOUNTER → 2021-04-19 15:37 | Outpatient (CLI) | payer OTHER, SELFPAY ==
[2021-04-19] VITALS (8 sets, daily range): BP systolic 129–163; BP diastolic 63–85; PULSE 69–79; RESP 16; TEMP 36.3–36.8; O2SAT 94–97
== END ==
PROVIDERS: PCP Internal Medicine; Visit Provider Internal Medicine
DX: U07.1 COVID-19 (principal)
CPT/HCPCS: 96365

== ENCOUNTER 2021-05-03 08:35 | Day surgery (SDC) | payer OTHER, SELFPAY ==
[2021-04-07 11:01] VITALS: BMI 30.7
[2021-04-29 10:51] VITALS: BMI 30.7
[2021-05-03 09:01] VITALS: BP 133/79; PULSE 71; RESP 16; TEMP 36.6; O2SAT 71
[2021-05-03 09:27] LABS: POC Glucose,Bedside 91 (70-110)
--- NOTE | 2021-05-03 09:29 | HMH.GSHP ---
HPI HPI: Patient is a 56-year-old female well-known to me as I have treated her for left breast cancer. She underwent left modified radical mastectomy in June 2020. She has undergone radiation including axillary radiation and is ultimately planning a left breast reconstruction at in June of this year. She does have some mild lymphedema of the left upper extremity. Recently several weeks ago she had developed a lesion on the left forearm. Initially she thought this may be a bug bites. However it had increased somewhat in size and was somewhat irritating. She underwent shave biopsy by Dr. 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 She was sent for surgical consultation for definitive excision. [facility] History I have reviewed the patient's past medical history: Yes Medical History: Reports:: Anxiety, Cancer (BREAST CA), Diabetes Mellitus Type 2, Gastroesophageal Reflux Disease(GERD), Hepatitis (autoimmune), Hyperlipidemia, Hypertension, Lung Disease (sleep apnea) Denies:: Diabetes Mellitus Type 1, Internal Pacemaker, MRSA, Seizures *Have you ever received a pneumonia vaccine?: No *Have you received a flu vaccine this season?: No Other Medical History: Reports: Chemotherapy, Hormone Therapy, Hypothyroidism, Liver Disease, Other (obesity, MELVIN). Denies: Blood Transfusion Reaction Laterality Cases: Left: Breast Biopsy, Mastectomy, Bilateral: Tonsillectomy Other Surgeries: Yes: Cancer Surgery, Colonoscopy, , EGD, Hysterectomy-Total, Hysterectomy-Partial, Plastic Surgery (facial), Tubal Ligation, Other (oral surgery/teeth extracted). No: Pacemaker Amputation: No Fractures: No - *Social History Last grade of school completed: Some college Smoking Status: Never smoker Alcohol Intake: never Alcohol Intake Frequency:: holidays/special occasions only Substance Use Type: denies use *Occupational Status:: employed Housing: house Household Members: spouse *Travel in the last 8 weeks: None - Psychiatric History Pschychiatric History:: Reports:: Anxiety Family Hx:: Cancer, Diabetes, Stroke Meds Home Medications Medication Instructions Recorded Confirmed Type Gabapentin [Gabapentin 300mg Cap] 300 mg PO BID 04/12/18 05/03/21 History Omeprazole [Omeprazole 40mg 40 mg PO DAILY 04/12/18 05/03/21 History Capsule] buspirone 10 mg tablet 10 mg PO BID 12/29/19 05/03/21 History valsartan 80 mg tablet 80 mg PO DAILY 01/22/20 04/19/21 History Vitamin E 400 unit PO DAILY 02/05/20 05/03/21 History Budesonide [Budesonide EC] 9 mg PO DAILY 07/14/20 05/03/21 History LORazepam [Lorazepam 0.5mg Tablet] 0.25 mg PO TID PRN 07/14/20 05/03/21 History Magnesium 250 mg PO DAILY 07/14/20 05/03/21 History Metformin HCl [Glucophage] 1,000 mg PO BID 07/14/20 05/03/21 History ondansetron HCL [Ondansetron 8mg 8 mg PO Q8H PRN 07/14/20 05/03/21 History tab*] Anastrozole 1 mg PO DAILY 04/07/21 05/03/21 History Cholecalciferol (Vitamin D3) 400 unit PO DAILY 04/07/21 05/03/21 History [Vitamin D3] Escitalopram Oxalate 10 mg PO DAILY 04/07/21 05/03/21 History Rosuvastatin Calcium 40 mg PO WEEKLY 04/07/21 05/03/21 History Allergies Allergy/AdvReac Type Severity Reaction Status Date / Time Penicillins Allergy Severe ANAPHYLACTIC Verified 05/03/21 08:52 REACTION cephalexin [From Keflex] Allergy Intermediate I-HIVES Verified 05/03/21 08:52 amoxicillin [AMOXICILLIN] Allergy Unknown ANAPHYLAXIS Verified 05/03/21 08:52 ampicillin [AMPICILLIN] Allergy Unknown ANAPHYLAXIS Verified 05/03/21 08:52 Exam Vital signs and Labs for Last 24 Hours: Temp Pulse Resp BP Pulse Ox 97.9 F 71 16 133/79 71 L 05/03/21 09:01 05/03/21 09:01 05/03/21 09:01 05/03/21 09:01 05/03/21 09:01 Laboratory Results - last 24 hr 05/03/21 09:20: POC Glucose 91 - *Routine HEENT Exam Head: Present: normocephalic Eye: Present: PERRL ENT: Present: other - *Routine Respiratory Exam Prese
--- NOTE | 2021-05-03 10:00 | P.PN_ITS ---
[facility] Anesthesia Checklist - Structural Data Admitted From: Home Planned Operative Procedure/s: excision lesion l arm Consent for Planned Operative Procedure(s) Verified: Yes - Additional verifications Anesthesia Reactions: No Hx Blood Transfusions: No Blood Transfusion Reaction: No - Airway Assessment C-Spine Mobility Assessed: Yes TMJ Mobility Assessed: Yes Dentition: Edentulous - Neurological Assessment Level of Consciousness: Awake, Alert, Appropriate - Anesthesia Plan Anesthesia Risk discussed: Yes Anesthesia Plan: Verified ASA Class: III Anesthesia Type: Local & MAC [facility] History I have reviewed the patient's past medical history: Yes Medical History: Reports:: Anxiety, Cancer (BREAST CA), Diabetes Mellitus Type 2, Gastroesophageal Reflux Disease(GERD), Hepatitis (autoimmune), Hyperlipidemia, Hypertension, Lung Disease (sleep apnea) Denies:: Diabetes Mellitus Type 1, Internal Pacemaker, MRSA, Seizures *Have you ever received a pneumonia vaccine?: No *Have you received a flu vaccine this season?: No Other Medical History: Reports: Chemotherapy, Hormone Therapy, Hypothyroidism, Liver Disease, Other (obesity, MELVIN). Denies: Blood Transfusion Reaction Anesthesia experience/problems:: none Laterality Cases: Left: Breast Biopsy, Mastectomy, Bilateral: Tonsillectomy Other Surgeries: Yes: Cancer Surgery, Colonoscopy, , EGD, Hysterectomy- Total, Hysterectomy-Partial, Plastic Surgery (facial), Tubal Ligation, Other (oral surgery/teeth extracted). No: Pacemaker Amputation: No Fractures: No - *Social History Last grade of school completed: Some college Smoking Status: Never smoker Alcohol Intake: never Alcohol Intake Frequency:: holidays/special occasions only Substance Use Type: denies use *Occupational Status:: employed Housing: house Household Members: spouse *Travel in the last 8 weeks: None - Psychiatric History Pschychiatric History:: Reports:: Anxiety Family Hx:: Cancer, Diabetes, Stroke
--- NOTE | 2021-05-03 10:18 | HMH.OPNOTE ---
Date of procedure: 05/03/21 Pre-op Diagnosis:: Skin cancer, Left forearm Post-op Diagnosis:: Same Procedure performed:: Excision of skin cancer, left forearm, excisional length 4.5 cm with intermediate complexity closure Surgeon:: Noah Hill MD WOOD SETTER:: Gilberto Michael Anesthesia: MAC, local Estimated blood loss (mL): 10 Clinical Note:: Patient is a 56-year-old female well-known to me as I have treated her for left breast cancer. She underwent left modified radical mastectomy in June 2020. She has undergone radiation including axillary radiation and is ultimately planning a left breast reconstruction at in June of this year. She does have some mild lymphedema of the left upper extremity. Recently several weeks ago she had developed a lesion on the left forearm. Initially she thought this may be a bug bites. However it had increased somewhat in size and was somewhat irritating. She underwent shave biopsy by Dr. 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 She was sent for surgical consultation for definitive excision. Operative findings:: She had a minimal small well-healed dermal scar residual after the shave biopsy Operative note:: Patient was taken to the operating room. She was positioned supine position. She underwent adequate intravenous sedation. The area was prepped and draped. Lesion was marked the skin marker for planned transverse incision with approximately 5 mm grossly negative margins. Local anesthetic was infiltrated. Full-thickness skin incision was made. Overlying skin was dissected free from the underlying subcutaneous tissue with Metzenbaum dissection. Skin specimen was oriented with a short suture at the superior margin and a long suture at the lateral margin. Hemostasis was achieved with electrocautery. Deep dermal tissues were reapproximated with interrupted 3-0 Vicryl. Skin was closed with interrupted 4-0 nylon. Clean dry sterile dressing was applied. Condition: stable Disposition: PACU Specimens:: Skin lesion left forearm Complications:: None immediately apparent
[2021-05-03 10:20] VITALS: BP 86/53; PULSE 69; RESP 16; TEMP 36.7; O2SAT 93
[2021-05-03 10:35] VITALS: BP 93/54; PULSE 68; RESP 16; O2SAT 95
[2021-05-03 10:50] VITALS: BP 109/59; PULSE 64; RESP 16; O2SAT 100
== END 2021-05-03 10:50 | disposition home or self-care (01) ==
LOC: OR 08:36
PROVIDERS: PCP Internal Medicine; Visit Provider Surgery
PROC: (CPT 11606; principal; 2021-05-03 10:00)
DX: C44.629 Squamous cell carcinoma of skin of left upper limb, including shoulder (principal); Z85.3 Personal history of malignant neoplasm of breast; F41.9 Anxiety disorder, unspecified; E11.9 Type 2 diabetes mellitus without complications; K21.9 Gastro-esophageal reflux disease without esophagitis; K75.4 Autoimmune hepatitis; E78.5 Hyperlipidemia, unspecified; I10 Essential (primary) hypertension; G47.33 Obstructive sleep apnea (adult) (pediatric); E03.9 Hypothyroidism, unspecified; E66.9 Obesity, unspecified; Z80.9 Family history of malignant neoplasm, unspecified
CPT/HCPCS: 11606; 12031; 82962; 96374

== ENCOUNTER 2021-05-13 14:43 | Outpatient (CLI) | payer OTHER, SELFPAY | END 2021-05-13 15:10 | disposition home or self-care (01) | LOC: INF 14:44 | PROVIDERS: PCP Internal Medicine; Visit Provider Internal Medicine Medical Oncology | DX: Z45.2 Encounter for adjustment and management of vascular access device (principal) | CPT/HCPCS: 96523; J1642 ==

== ENCOUNTER → 2021-06-17 12:38 | Outpatient (CLI) | payer OTHER, SELFPAY ==
[2021-06-17 12:48] VITALS: BMI 31.6
[2021-06-17 13:14] LABS: Basophils # 0.1 K/mm3 (0-0.2); Basophils % 0.9 % (0.1-2.0); Eosinophils # 0.1 K/mm3 (0.0-0.4); Eosinophils % 2.2 % (0.1-12.0); Hematocrit 38.1 % (37.0-47.0); Hemoglobin 13.1 g/dL (12.2-16.2); Lymphocytes # 2.3 K/mm3 (0.7-4.5); Lymphocytes % 39.6 % (10-50); Mean Corpuscular HGB Conc 34.3 g/dL (31.8-35.4); Mean Corpuscular Hemoglobin 31.9 pg (27.0-31.2); Mean Corpuscular Volume 92.8 fl (81-99); Mean Platelet Volume 8.2 fl (7.4-10.4); Monocytes # 0.3 K/mm3 (0.1-1.0); Monocytes % 4.6 % (1.7-9.3); Neutrophils # 3.1 K/mm3 (1.8-7.8); Neutrophils % 52.7 % (37.0-80.0); Platelet Count 260 K/mm3 (142-424); Red Blood Count 4.11 M/mm3 (4.20-5.40); Red Cell Distribution Width 13.5 % (11.5-17.5); White Blood Count 5.8 K/mm3 (4.8-10.8)
[2021-06-17 13:26] LABS: Alanine Aminotransferase 19 U/L (12-78); Albumin/Globulin Ratio 1.3 (1.1-1.8); Alkaline Phosphatase 78 U/L (38-126); Anion Gap 7.8 mEq/L (5-15); Aspartate Amino Transferase 24 U/L (14-36); Bilirubin,Total 0.2 mg/dl (0.2-1.3); Blood Urea Nitrogen 13 mg/dl (7-17); Calcium 9.4 mg/dl (8.4-10.2); Carbon Dioxide 34 mmol/L (22.0-30.0); Chloride 101 mmol/L (98-107); Creatinine Clearance Estimated 125 mL/min (50-200); Estimated Glomerular Filt Rate 87 ml/min (>60); GFR (African American) 106 ML/MIN (>60); Glucose 117 mg/dl (74-100); Potassium 3.8 mmoL/L (3.5-5.1); Sodium 139 mmol/L (136-145)
== END ==
PROVIDERS: PCP Internal Medicine; Visit Provider Internal Medicine Medical Oncology
DX: C50.912 Malignant neoplasm of unspecified site of left female breast (principal); Z45.2 Encounter for adjustment and management of vascular access device
CPT/HCPCS: 80053; 85025; J1642

== ENCOUNTER 2021-07-20 14:58 | Outpatient (CLI) | payer OTHER, SELFPAY | END 2021-07-20 15:05 | disposition home or self-care (01) | PROVIDERS: PCP Internal Medicine; Visit Provider Internal Medicine Medical Oncology | DX: Z45.2 Encounter for adjustment and management of vascular access device (principal); C50.912 Malignant neoplasm of unspecified site of left female breast | CPT/HCPCS: 96523; J1642 ==

== ENCOUNTER 2021-08-25 16:17 | Outpatient (CLI) | payer OTHER, SELFPAY | END 2021-08-25 16:45 | disposition home or self-care (01) | PROVIDERS: PCP Internal Medicine; Visit Provider Internal Medicine Medical Oncology | DX: Z45.2 Encounter for adjustment and management of vascular access device (principal) | CPT/HCPCS: 96523; J1642 ==

== ENCOUNTER → 2021-09-14 12:01 | Outpatient (CLI) | payer OTHER, SELFPAY ==
[2021-09-14 13:21] LABS: Basophils % 0.6 % (0.1-2.0); Eosinophils # 0.1 K/mm3 (0.0-0.4); Eosinophils % 0.8 % (0.1-12.0); Hematocrit 41.5 % (37.0-47.0); Hemoglobin 13.8 g/dL (12.2-16.2); Lymphocytes # 2.1 K/mm3 (0.7-4.5); Lymphocytes % 28.1 % (10-50); Mean Corpuscular HGB Conc 33.2 g/dL (31.8-35.4); Mean Corpuscular Hemoglobin 31.8 pg (27.0-31.2); Mean Corpuscular Volume 95.9 fl (81-99); Mean Platelet Volume 8.3 fl (7.4-10.4); Monocytes # 0.4 K/mm3 (0.1-1.0); Neutrophils # 4.9 K/mm3 (1.8-7.8); Neutrophils % 65.5 % (37.0-80.0); Platelet Count 284 K/mm3 (142-424); Red Blood Count 4.33 M/mm3 (4.20-5.40); Red Cell Distribution Width 13.5 % (11.5-17.5); White Blood Count 7.4 K/mm3 (4.8-10.8)
[2021-09-14 14:46] LABS: Hemoglobin A1C 6.3 % (4.0-6.0)
[2021-09-14 15:09] LABS: Chloride 102 mmol/L (98-107); Sodium 134 mmol/L (136-145)
[2021-09-14 15:10] LABS: Potassium 4.8 mmoL/L (3.5-5.1)
[2021-09-14 15:12] LABS: Alanine Aminotransferase 20 U/L (12-78); Albumin Level 4.3 g/dl (3.5-5.0); Albumin/Globulin Ratio 1.5 (1.1-1.8); Alkaline Phosphatase 84 U/L (38-126); Anion Gap 12.8 mEq/L (5-15); Aspartate Amino Transferase 33 U/L (14-36); Bilirubin,Total 0.6 mg/dl (0.2-1.3); Blood Urea Nitrogen 11 mg/dl (7-17); Calcium 8.9 mg/dl (8.4-10.2); Carbon Dioxide 24 mmol/L (22.0-30.0); Cholesterol 197 mg/dl (140-200); Estimated Glomerular Filt Rate 104 ml/min (>60); GFR (African American) 126 ML/MIN (>60); Globulin 2.9 g/dL (1.3-3.2); Glucose 88 mg/dl (74-100); Total Protein,Serum 7.2 g/dl (6.3-8.2); Triglycerides 113 mg/dl (30-150); VLDL Cholesterol 23 mg/dL (0-40)
[2021-09-14 15:13] LABS: Chol/HDL Ratio 2.9 (1-3.5); HDL Cholesterol 69 mg/dl (40-60)
== END ==
PROVIDERS: Visit Provider Internal Medicine
DX: E11.9 Type 2 diabetes mellitus without complications (principal); I10 Essential (primary) hypertension; E78.5 Hyperlipidemia, unspecified; K75.4 Autoimmune hepatitis; Z85.3 Personal history of malignant neoplasm of breast; Z79.84 Long term (current) use of oral hypoglycemic drugs
CPT/HCPCS: 80053; 80061; 82043; 83036; 85025

== ENCOUNTER 2021-09-28 15:03 | Outpatient (CLI) | payer OTHER, SELFPAY | END 2021-09-28 15:50 | disposition home or self-care (01) | LOC: INF 15:04 | PROVIDERS: PCP Internal Medicine; Visit Provider Internal Medicine Medical Oncology | DX: Z45.2 Encounter for adjustment and management of vascular access device (principal) | CPT/HCPCS: 96523; J1642 ==

== ENCOUNTER 2021-11-02 09:52 | Outpatient (CLI) | payer OTHER, SELFPAY | END 2021-11-02 15:18 | disposition home or self-care (01) | LOC: INF 09:53 | PROVIDERS: PCP Internal Medicine; Visit Provider Internal Medicine Medical Oncology | DX: Z45.2 Encounter for adjustment and management of vascular access device (principal); M79.662 Pain in left lower leg; R60.0 Localized edema | CPT/HCPCS: 93971; 96523; J1642 ==

== ENCOUNTER → 2021-11-02 17:19 | Outpatient (CLI) | payer OTHER, SELFPAY ==
--- NOTE | 2021-11-02 | CA_ITS ---
FINAL REPORT TECHNIQUE: Color Doppler, duplex Doppler and compression sonography of the left lower extremity deep venous systems was performed. CLINICAL HISTORY: S/P Breast CA, mastectomy, L reconstruction Breast surgery 10/03/21 FINDINGS: There is deep venous thrombosis in the common femoral, superficial femoral, popliteal, posterior tibial and peroneal veins. There is superficial venous thrombosis in the lesser saphenous vein. IMPRESSION: Deep venous thrombosis as detailed above. Superficial venous thrombosis in the lesser saphenous vein. Reviewed, Interpreted and Dictated by Noah Zhao III, MD Transcribed by Yessi Feliz Authenticated by Noah Zhao III, MD on 11/02/2021 04:39:40 PM [facility]
== END ==
PROVIDERS: PCP Internal Medicine; Visit Provider Internal Medicine
DX: M79.662 Pain in left lower leg (principal); R60.0 Localized edema
CPT/HCPCS: 87070; 87077; 87186; 87205; 93971

== ENCOUNTER 2021-12-09 09:27 | Outpatient (CLI) | payer OTHER, SELFPAY ==
[2021-12-09 09:32] VITALS: BMI 32.4
[2021-12-09 10:03] LABS: Basophils # 0.1 K/mm3 (0-0.2); Basophils % 1.8 % (0.1-2.0); Eosinophils # 0.2 K/mm3 (0.0-0.4); Eosinophils % 3.5 % (0.1-12.0); Hematocrit 40.4 % (37.0-47.0); Hemoglobin 12.9 g/dL (12.2-16.2); Lymphocytes # 2.4 K/mm3 (0.7-4.5); Lymphocytes % 40.3 % (10-50); Mean Corpuscular HGB Conc 32.1 g/dL (31.8-35.4); Mean Corpuscular Hemoglobin 30.1 pg (27.0-31.2); Mean Platelet Volume 8.5 fl (7.4-10.4); Monocytes # 0.3 K/mm3 (0.1-1.0); Monocytes % 4.4 % (1.7-9.3); Neutrophils % 50.1 % (37.0-80.0); Platelet Count 242 K/mm3 (142-424); Red Blood Count 4.29 M/mm3 (4.20-5.40); Red Cell Distribution Width 14.4 % (11.5-17.5); White Blood Count 6.1 K/mm3 (4.8-10.8)
[2021-12-09 10:10] LABS: Alanine Aminotransferase 41 U/L (12-78); Albumin/Globulin Ratio 1.4 (1.1-1.8); Alkaline Phosphatase 117 U/L (38-126); Anion Gap 10.9 mEq/L (5-15); Aspartate Amino Transferase 46 U/L (14-36); Blood Urea Nitrogen 8 mg/dl (7-17); Calcium 9.3 mg/dl (8.4-10.2); Carbon Dioxide 28 mmol/L (22.0-30.0); Chloride 102 mmol/L (98-107); Creatinine Clearance Estimated 128 mL/min (50-200); Estimated Glomerular Filt Rate 87 ml/min (>60); GFR (African American) 106 ML/MIN (>60); Globulin 2.8 g/dL (1.3-3.2); Glucose 155 mg/dl (74-100); Potassium 3.9 mmoL/L (3.5-5.1); Sodium 137 mmol/L (136-145); Total Protein,Serum 6.8 g/dl (6.3-8.2)
[2021-12-09 10:14] LABS: Bilirubin,Total < 0.1 mg/dl (0.2-1.3)
== END 2021-12-09 09:55 | disposition home or self-care (01) ==
LOC: INF 09:28
PROVIDERS: PCP Internal Medicine; Visit Provider Internal Medicine Medical Oncology
DX: C50.912 Malignant neoplasm of unspecified site of left female breast (principal); Z45.2 Encounter for adjustment and management of vascular access device
CPT/HCPCS: 36591; 80053; 85025; J1642

== ENCOUNTER → 2021-12-15 09:27 | Outpatient (CLI) | payer OTHER, SELFPAY ==
--- NOTE | 2021-12-15 09:30 | US_ITS ---
FINAL REPORT TECHNIQUE: Limited ultrasound images through the abdomen were obtained. CLINICAL HISTORY: ATT. ABD WALL / LFT SUBQUE LESION-- hx of stage 3 breat ca FINDINGS: There are 4 isoechoic and hyperechoic nodules with a solid appearance which are nonspecific. Findings could represent lipomas or other masses. IMPRESSION: Four nonspecific nodules which could represent lipomas or other masses. If indicated, consider MRI for further evaluation. Reviewed, Interpreted and Dictated by Noah Zhao III, MD Transcribed by Anette Cantor Authenticated by Noah Zhao III, MD on 12/15/2021 10:58:31 AM [facility]
== END ==
PROVIDERS: PCP Internal Medicine; Visit Provider Internal Medicine Medical Oncology
DX: C50.912 Malignant neoplasm of unspecified site of left female breast (principal)
CPT/HCPCS: 76700

== ENCOUNTER → 2021-12-29 08:05 | Outpatient (CLI) | payer BC, SELFPAY ==
--- NOTE | 2021-12-29 08:25 | MR_ITS ---
FINAL REPORT CLINICAL HISTORY: BREAST CANCER. ABNORMAL US. HX BREAST CANCER. NODULES FOUND IN ABDOMEN. PUT MARKER ON SPOT. 18ML PROHANCE GIVEN. COMPARISON: Ultrasound of the abdomen dated 12/15/2021 FINDINGS: Multiplanar MR imaging of the abdomen was performed without and with contrast. Images of the liver reveal no evidence of mass. There is no evidence of biliary ductal dilatation. The gallbladder has an unremarkable appearance. There is a 16 mm right adrenal nodule which is nonspecific and favored to represent an adenoma. A marker was placed on the left anterior abdominal wall at the site of the abnormality. Three subcutaneous masses are seen in the left anterior abdominal wall. The largest measures 14 mm and shows mild contrast enhancement. There is a 2nd smaller nodule just lateral to it, measuring 7 mm. A 3rd nodule is seen inferiorly and also measures 7 mm. None of these have the appearance of a lipoma and could represent localized inflammation/granulation tissue or neoplasm. IMPRESSION: Three subcutaneous masses in the left anterior abdominal wall which do not have the appearance of lipomas and could represent localized inflammation/granulation tissue or neoplasm. 16 mm right adrenal nodule, nonspecific, favor adenoma. Reviewed, Interpreted and Dictated by Noah Zhao III, MD Transcribed by Patricia Tuttle Authenticated and [facility]
== END ==
PROVIDERS: PCP Internal Medicine; Visit Provider Internal Medicine Medical Oncology
DX: Z85.3 Personal history of malignant neoplasm of breast (principal)
CPT/HCPCS: 74183; A9576

== ENCOUNTER 2022-01-17 13:26 | Outpatient (CLI) | payer BC, SELFPAY | END 2022-01-17 13:55 | disposition home or self-care (01) | LOC: INF 13:30 | PROVIDERS: PCP Internal Medicine; Visit Provider Internal Medicine Medical Oncology | DX: Z45.2 Encounter for adjustment and management of vascular access device (principal) | CPT/HCPCS: 96523; J1642 ==

== ENCOUNTER 2022-03-10 12:41 | Outpatient (CLI) | payer BC, SELFPAY | END 2022-03-10 13:00 | disposition home or self-care (01) | LOC: INF 12:42 | PROVIDERS: PCP Internal Medicine; Visit Provider Internal Medicine Medical Oncology | DX: Z45.2 Encounter for adjustment and management of vascular access device (principal) | CPT/HCPCS: 96523; J1642 ==

== ENCOUNTER → 2022-04-28 14:13 | Outpatient (CLI) | payer BC, SELFPAY | PROVIDERS: PCP Internal Medicine; Visit Provider Internal Medicine Medical Oncology | DX: Z45.2 Encounter for adjustment and management of vascular access device (principal) | CPT/HCPCS: 96523; J1642 ==

== ENCOUNTER → 2022-05-10 10:04 | Outpatient (CLI) | payer BC, SELFPAY | PROVIDERS: PCP Internal Medicine; Visit Provider Internal Medicine | DX: Z20.822 Contact with and (suspected) exposure to COVID-19 (principal) | CPT/HCPCS: 87275; 87276; C9803; U0003; U0005 ==

== ENCOUNTER 2022-05-11 13:45 | Emergency (ER) | payer BC, SELFPAY ==
[2022-05-11] VITALS (7 sets, daily range): BP systolic 132–141; BP diastolic 68–79; PULSE 94–107; RESP 16–20; TEMP 36.9–39.4; O2SAT 97–100; BMI 37.0
--- NOTE | 2022-05-11 14:11 | XR_ITS ---
FINAL REPORT CLINICAL HISTORY: fever, SX 1 WK AGO COMPARISON: January 2020 FINDINGS: Right-sided chest port terminates in the SVC. The heart is mildly enlarged. The mediastinum is within normal limits. There are chronic changes in the lung bases. There is no acute cardiopulmonary process. There is no pleural effusion. There is no pneumothorax. The bony thorax is intact. There are surgical clips in the left axilla. IMPRESSION: No acute cardiopulmonary process. Reviewed, Interpreted and Dictated by Nain Xiao MD Transcribed by Sanya Mullen Authenticated and [facility]
--- NOTE | 2022-05-11 14:11 | CT_ITS ---
FINAL REPORT TECHNIQUE: Axial images were obtained from the iliac crest to the pubic symphysis by computed tomography after the administration of intravenous contrast. This study was performed with techniques to keep radiation doses as low as reasonably achievable,( ALARA). Individualized dose reduction techniques using automated exposure control or adjustment of mA and/or KV according to the patient's size were employed. CLINICAL HISTORY: post op fever, SX 1 WK AGO, BLISTER ON RIGHT SIDE OF BUTTOX FINDINGS: There is no acute fracture. There is mesenteric stranding in the upper images of the abdomen. There are multiple foci of extraluminal air in the superior field of view, greater than expected for 1 week postop. There is subcutaneous stranding in the left anterior pelvic wall. The urinary bladder is incompletely distended. No mass or fluid collection is identified. IMPRESSION: Mesenteric stranding with multiple foci of extraluminal air in the superior field of view. Findings are greater than expected for a patient 1 week postoperative. Subcutaneous stranding in the left anterior pelvic wall. Reviewed, Interpreted and Dictated by Nain Xiao MD Transcribed by Sanya Mullen Authenticated and [facility]
--- NOTE | 2022-05-11 14:13 | PC.NURSE ---
PT AMBULATING TO BR WITH FAMILY
--- NOTE | 2022-05-11 14:16 | HMH.EDGENADL ---
Discharge Plan Disposition Patient Disposition: Xfer Other Condition: Fair Prescriptions Prescriptions: No Action buspirone 10 mg tablet 10 mg PO BID Eliquis 5 mg tablet 5 mg PO ONCE rosuvastatin 10 mg tablet 10 mg PO DAILY losartan 100 mg tablet 100 mg PO DAILY omeprazole 40 capsule,delayed release(DR/EC) 40 mg PO DAILY gabapentin 300 capsule 300 mg PO BID vitamin E 400 UNIT capsule 400 unit PO DAILY ondansetron HCl 8 MG tablet 8 mg PO Q8H PRN (Reason: Nausea And Vomiting) metformin 1,000 MG tablet 1,000 mg PO BID magnesium 250 MG tablet 250 mg PO DAILY budesonide 3 MG capsule,delayed,extend.release 9 mg PO DAILY Rx Instructions: Take as directed lorazepam 0.5 MG tablet 0.25 mg PO TID PRN (Reason: Anxiety) Rx Instructions: Take 1/2 to 1 tablet by mouth three times daily as needed for anxiety anastrozole 1 MG tablet 1 mg PO DAILY cholecalciferol (vitamin D3) 400 UNIT capsule 400 unit PO DAILY escitalopram oxalate 10 MG tablet 10 mg PO DAILY Referrals Follow up/Referrals: Ricardo Rodriguez MD [Primary Care Provider] - See instructions Clinical Impressions Clinical Impression: Peritonitis Discharge ED Provider: Kike Alarcon General Adult HPI General Chief complaint: PAIN Stated complaint: sore on bottom, fever Time Seen by Provider: 05/11/22 14:04 Mode of Arrival: Wheelchair Source of Information: Patient Limitations: No Limitations Description of Symptoms (Recalled from ER Triage Doc. by RN): Pt advises that she had surgery performed on Sunday and has been running an intermittent fever since Sunday. C/O sore on buttocks as well. History of Present Illness HPI narrative: Patient presents complaining of fever. His revision surgery 6 days ago and has developed a fever since this past Sunday. She describes symptoms as moderate with a fever of 101 and 102. Is been no coughing no vomiting or diarrhea. She does note pain to the buttock area since the surgery. She was seen 2 days ago by the surgeon who evaluated her at that time and thought that the postsurgical findings related to the breast were reportedly normal. Related Data Home Medications Medication Instructions Recorded Confirmed gabapentin 300 mg capsule 300 mg PO BID Nerve pain 04/12/18 01/24/22 omeprazole 40 mg capsule,delayed 40 mg PO DAILY Acid reflux 04/12/18 01/24/22 release buspirone 10 mg tablet 10 mg PO BID Anxiety 12/29/19 01/24/22 vitamin E 268 mg (400 unit) capsule 400 unit PO DAILY Supplement 02/05/20 01/24/22 budesonide 3 mg 9 mg PO DAILY Bowels 07/14/20 01/24/22 capsule,delayed,extended release lorazepam 0.5 mg tablet 0.25 mg PO TID PRN Anxiety 07/14/20 01/24/22 magnesium 250 mg tablet 250 mg PO DAILY Supplement 07/14/20 01/24/22 metformin 1,000 mg tablet 1,000 mg PO BID Diabetes 07/14/20 01/24/22 ondansetron HCl 8 mg tablet 8 mg PO Q8H PRN Nausea And Vomiting 07/14/20 01/24/22 anastrozole 1 mg tablet 1 mg PO DAILY * 04/07/21 01/24/22 cholecalciferol (vitamin D3) 10 400 unit PO DAILY Supplement 04/07/21 01/24/22 mcg (400 unit) capsule escitalopram oxalate 10 mg tablet 10 mg PO DAILY Depression 04/07/21 01/24/22 apixaban 5 mg tablet (Eliquis) 5 mg PO ONCE 12/09/21 01/24/22 losartan 100 mg tablet 100 mg PO DAILY 12/09/21 01/24/22 rosuvastatin 10 mg tablet 10 mg PO DAILY 12/09/21 01/24/22 Allergies Allergy/AdvReac Type Severity Reaction Status Date / Time Penicillins Allergy Severe ANAPHYLACTIC Verified 05/11/22 13:06 REACTION cephalexin [From Keflex] Allergy Intermediate I-HIVES Verified 05/11/22 13:06 amoxicillin [AMOXICILLIN] Allergy Unknown ANAPHYLAXIS Verified 05/11/22 13:06 ampicillin [AMPICILLIN] Allergy Unknown ANAPHYLAXIS Verified 05/11/22 13:06 [facility] Social History Smoking Status: Never smoker second hand exposure: No alcohol intake: nev
[2022-05-11 14:23] LABS: Microscopic, Urine URINE MICROSCOPIC (MICROSCOPIC)
[2022-05-11 14:26] LABS: Appearance,Urine SL CLOUDY (Clear); Bilirubin,Urine Negative (Negative); Blood, Urine Negative (Negative); Color,Urine AMBER (Yellow); Glucose,Urine (UA) Negative (Negative); Ketones,Urine Negative (Negative); Leukocyte Esterase,Urine 1+ (Negative); Nitrate,Urine POSITIVE (Negative); Protein,Urine TRACE (Negative); Specific Gravity, Urine 1.025 (1.005-1.030)
[2022-05-11 14:44] LABS: Bacteria,Urine 2+ /lpf; Squamous Epithelial Cell,Urine Occasional #/hpf (0-5)
[2022-05-11 14:53] LABS: Chloride 93 mmol/L (98-107); Sodium 138 mmol/L (136-145)
[2022-05-11 14:56] LABS: Alanine Aminotransferase 23 U/L (12-78); Albumin Level 3.6 g/dl (3.5-5.0); Alkaline Phosphatase 125 U/L (38-126); Anion Gap 10.8 mEq/L (5-15); Aspartate Amino Transferase 30 U/L (14-36); Bilirubin,Total 0.3 mg/dl (0.2-1.3); Blood Urea Nitrogen 8 mg/dl (7-17); Carbon Dioxide 37 mmol/L (22.0-30.0); Creatinine Clearance Estimated 144 mL/min (50-200); Estimated Glomerular Filt Rate 104 ml/min (>60); GFR (African American) 126 ML/MIN (>60); Globulin 3.5 g/dL (1.3-3.2); Total Protein,Serum 7.1 g/dl (6.3-8.2)
[2022-05-11 14:57] LABS: Calcium 8.3 mg/dl (8.4-10.2); Glucose 146 mg/dl (74-100); Lactic Acid 1.7 mmol/L (0.7-2.1)
[2022-05-11 14:59] LABS: Potassium 2.8 mmoL/L (3.5-5.1)
[2022-05-11 15:03] LABS: Basophils # 0.1 K/mm3 (0-0.2); Eosinophils # 0.2 K/mm3 (0.0-0.4); Hematocrit 35.1 % (37.0-47.0); Hemoglobin 11.5 g/dL (12.2-16.2); Lymphocytes # 1.9 K/mm3 (0.7-4.5); Lymphocytes % 27.5 % (10-50); Mean Corpuscular HGB Conc 32.7 g/dL (31.8-35.4); Mean Corpuscular Hemoglobin 30.9 pg (27.0-31.2); Mean Corpuscular Volume 94.6 fl (81-99); Mean Platelet Volume 8.7 fl (7.4-10.4); Monocytes # 0.3 K/mm3 (0.1-1.0); Neutrophils # 4.3 K/mm3 (1.8-7.8); Neutrophils % 63.4 % (37.0-80.0); Platelet Count 351 K/mm3 (142-424); Red Blood Count 3.71 M/mm3 (4.20-5.40); Red Cell Distribution Width 13.5 % (11.5-17.5); White Blood Count 6.7 K/mm3 (4.8-10.8)
--- NOTE | 2022-05-11 15:11 | PC.NURSE ---
PT TO CT AT THIS TIME PER WC
--- NOTE | 2022-05-11 15:22 | PC.NURSE ---
PT RETURNED FROM CT AT THIS TIME
--- NOTE | 2022-05-11 15:36 | PC.NURSE ---
Arin. Guicho rounding on pt no needs at this time.
--- NOTE | 2022-05-11 17:20 | PC.NURSE ---
DR DIAZ HAS SOME QUESTIONS FOR RADIOLOGIST MESSAGE LEFT FOR HIM TO CALL BACK
--- NOTE | 2022-05-11 17:27 | PC.NURSE ---
placed call to [facility] to speak with pt DR. Lakeshia Conteh,they will return call.
--- NOTE | 2022-05-11 17:56 | CT_ITS ---
PROCEDURE INFORMATION: Exam: CT Abdomen With Contrast Exam date and time: 05/11/2022 6:15 PM Age: 57 years old Clinical indication: Abdominal pain; Prior surgery; Additional info: Post op abd pain TECHNIQUE: Imaging protocol: Computed tomography of the abdomen with contrast. Radiation optimization: All CT scans at this facility use at least one of these dose optimization techniques: automated exposure control; mA and/or kV adjustment per patient size (includes targeted exams where dose is matched to clinical indication); or iterative reconstruction. Contrast material: ISOVUE; Contrast volume: 75 ml; Contrast route: IV; COMPARISON: MR ABDOMEN WO/W CON 12/29/2021 8:36 AM FINDINGS: Lungs: Bibasal subsegmental atelectasis/scarring. Liver: Markedly fatty liver. Hepatomegaly, measuring 23.5 cm in craniocaudal axis. Gallbladder and bile ducts: Unremarkable. Pancreas: Unremarkable. Spleen: No splenomegaly. Adrenal glands: Stable 15 mm right adrenal nodule reported as benign adenoma on prior MRI. No other adrenal nodules. Kidneys and ureters: Symmetric early excretion of intravenous contrast material vs excretion of previously administered intravenous contrast into the bilateral renal collecting systems, limiting evaluation for renal stones. No hydronephrosis. No focal renal lesion. Stomach and bowel: Colonic diverticulosis with wall thickening in the inferior wall of the transverse colon where there a few prominent diverticula with air-fluid levels. Intraperitoneal space: Trace pneumoperitoneum, within normal limits in the reported context of recent abdominal surgery. No evidence of free fluid Vasculature: No abdominal aortic aneurysm. Lymph nodes: Unremarkable. Bones/joints: Multi-level bridging disc osteophytes in the spine, compatible with diffuse idiopathic skeletal hyperostosis (DISH). No acute osseous abnormality. Soft tissues: Subcutaneous emphysema and minor soft tissue edema in the anterior abdominal wall, within normal limits in the reported context of recent abdominal surgery. Soft tissue edema/phlegmonous changes and pneumatosis in the greater omentum along the inferior margin of the transverse colon. Round 11 mm subcutaneous soft tissue nodule in the left anterior abdominal wall, grossly unchanged from 12/29/2021 MRI accounting for differences in modality. IMPRESSION: 1. Findings of trace pneumoperitoneum, mesenteric pneumatosis and subcutaneous emphysema, within normal limits in the reported context of recent abdominal surgery. 2. Colonic diverticulosis with localized inflammatory changes along the inferior wall of the transverse colon immediately adjacent to presumed post-operative mesenteric inflammation, compatible with reactive colitis. Differential diagnosis would include infectious or inflammatory colitis vs diverticulitis. 3. Markedly fatty liver and hepatomegaly. Consider non-emergent referral to Hepatology. 4. Round 11 mm subcutaneous soft tissue nodule in the left anterior abdominal wall, grossly unchanged from 12/29/2021 MRI accounting for differences in modality. 5. Diffuse idiopathic skeletal hyperostosis (DISH).
--- NOTE | 2022-05-11 17:57 | PC.NURSE ---
Dr Alarcon spoke with Dr Rose at [facility] , images power shared to [facility]
--- NOTE | 2022-05-11 17:58 | PC.NURSE ---
ED MD AT BEDSIDE TO DISCUSS POC WITH PT AND FAMILY
--- NOTE | 2022-05-11 17:59 | PC.NURSE ---
RADIOLOGY NOTIFIED OF ADDED CT OF ABDOMEN
--- NOTE | 2022-05-11 18:02 | PC.NURSE ---
Dr Chamberlain speaking with radiologist
--- NOTE | 2022-05-11 18:14 | PC.NURSE ---
Pt transported to CT via wheelchair.
--- NOTE | 2022-05-11 18:41 | PC.NURSE ---
Dr Alarcon speaking to [facility] after ct scan obtained and images were power shared.
--- NOTE | 2022-05-11 18:54 | PC.NURSE ---
ED MD AT BEDSIDE TO UPDATE PT AND FAMILY ON POC, TRANSFER TO [facility] FOR FURTHER TREATMENT
--- NOTE | 2022-05-11 19:03 | HMH.EDGENADL ---
Discharge Plan Disposition Patient Disposition: Xfer Other Condition: Fair Prescriptions Prescriptions: No Action buspirone 10 mg tablet 10 mg PO BID Eliquis 5 mg tablet 5 mg PO ONCE rosuvastatin 10 mg tablet 10 mg PO DAILY losartan 100 mg tablet 100 mg PO DAILY omeprazole 40 capsule,delayed release(DR/EC) 40 mg PO DAILY gabapentin 300 capsule 300 mg PO BID vitamin E 400 UNIT capsule 400 unit PO DAILY ondansetron HCl 8 MG tablet 8 mg PO Q8H PRN (Reason: Nausea And Vomiting) metformin 1,000 MG tablet 1,000 mg PO BID magnesium 250 MG tablet 250 mg PO DAILY budesonide 3 MG capsule,delayed,extend.release 9 mg PO DAILY Rx Instructions: Take as directed lorazepam 0.5 MG tablet 0.25 mg PO TID PRN (Reason: Anxiety) Rx Instructions: Take 1/2 to 1 tablet by mouth three times daily as needed for anxiety anastrozole 1 MG tablet 1 mg PO DAILY cholecalciferol (vitamin D3) 400 UNIT capsule 400 unit PO DAILY escitalopram oxalate 10 MG tablet 10 mg PO DAILY Referrals Follow up/Referrals: Ricardo Rodriguez MD [Primary Care Provider] - See instructions Clinical Impressions Clinical Impression: Peritonitis Stand Alone Forms Stand Alone Forms: Transfer Record - ED Discharge ED Provider: Kike Alarcon General Adult HPI General Chief complaint: PAIN Stated complaint: sore on bottom, fever Time Seen by Provider: 05/11/22 14:04 Mode of Arrival: Wheelchair Source of Information: Patient Limitations: No Limitations Description of Symptoms (Recalled from ER Triage Doc. by RN): Pt advises that she had surgery performed on Sunday and has been running an intermittent fever since Sunday. C/O sore on buttocks as well. History of Present Illness HPI narrative: Patient presents complaining of fever as well as pain to the buttock after having undergone breast revision surgery with abdominal wall fat harvest approximately 6 days ago. Fever began approximate 3 to 4 days ago. She also notes some abdominal discomfort. She describes symptoms as moderate and waxing and waning in severity. Related Data Home Medications Medication Instructions Recorded Confirmed gabapentin 300 mg capsule 300 mg PO BID Nerve pain 04/12/18 01/24/22 omeprazole 40 mg capsule,delayed 40 mg PO DAILY Acid reflux 04/12/18 01/24/22 release buspirone 10 mg tablet 10 mg PO BID Anxiety 12/29/19 01/24/22 vitamin E 268 mg (400 unit) capsule 400 unit PO DAILY Supplement 02/05/20 01/24/22 budesonide 3 mg 9 mg PO DAILY Bowels 07/14/20 01/24/22 capsule,delayed,extended release lorazepam 0.5 mg tablet 0.25 mg PO TID PRN Anxiety 07/14/20 01/24/22 magnesium 250 mg tablet 250 mg PO DAILY Supplement 07/14/20 01/24/22 metformin 1,000 mg tablet 1,000 mg PO BID Diabetes 07/14/20 01/24/22 ondansetron HCl 8 mg tablet 8 mg PO Q8H PRN Nausea And Vomiting 07/14/20 01/24/22 anastrozole 1 mg tablet 1 mg PO DAILY * 04/07/21 01/24/22 cholecalciferol (vitamin D3) 10 400 unit PO DAILY Supplement 04/07/21 01/24/22 mcg (400 unit) capsule escitalopram oxalate 10 mg tablet 10 mg PO DAILY Depression 04/07/21 01/24/22 apixaban 5 mg tablet (Eliquis) 5 mg PO ONCE 12/09/21 01/24/22 losartan 100 mg tablet 100 mg PO DAILY 12/09/21 01/24/22 rosuvastatin 10 mg tablet 10 mg PO DAILY 12/09/21 01/24/22 Allergies Allergy/AdvReac Type Severity Reaction Status Date / Time Penicillins Allergy Severe ANAPHYLACTIC Verified 05/11/22 13:06 REACTION cephalexin [From Keflex] Allergy Intermediate I-HIVES Verified 05/11/22 13:06 amoxicillin [AMOXICILLIN] Allergy Unknown ANAPHYLAXIS Verified 05/11/22 13:06 ampicillin [AMPICILLIN] Allergy Unknown ANAPHYLAXIS Verified 05/11/22 13:06 [facility] Social History Smoking Status: Never smoker second hand exposure: No alcohol intake: never substance use type: denies use current occupational s
== END 2022-05-11 19:44 | disposition other institution (70) ==
PROVIDERS: Emergency Provider Emergency Medicine; PCP Internal Medicine
DX: K65.9 Peritonitis, unspecified (principal); N39.0 Urinary tract infection, site not specified; B96.89 Other specified bacterial agents as the cause of diseases classified elsewhere; Z16.11 Resistance to penicillins; Z88.0 Allergy status to penicillin; Z88.1 Allergy status to other antibiotic agents
CPT/HCPCS: 71045; 72193; 74160; 80053; 81001; 83605; 85025; 87040; 87086; 87088; 87186; 96365; 96366; 96367; 99285; 99291; Q9967

== ENCOUNTER → 2022-05-26 14:26 | Outpatient (CLI) | payer BC, SELFPAY ==
--- NOTE | 2022-05-26 14:33 | XR_ITS ---
FINAL REPORT CLINICAL HISTORY: FEVER, COUGH COMPARISON: 05/11/2022 FINDINGS: TWO-VIEW CHEST There is cardiomegaly. Right subclavian chest port is present. The mediastinum is normal. There are worsening bibasilar opacities, may represent atelectasis or pneumonia. Postoperative changes seen in the left chest wall. There is no pneumothorax. IMPRESSION: Worsening bibasilar opacities, may represent atelectasis or pneumonia. Reviewed, Interpreted and Dictated by Noah Zhao III, MD Transcribed by Yessi Feliz Authenticated and [facility]
== END ==
PROVIDERS: PCP Internal Medicine; Visit Provider Internal Medicine
DX: R50.9 Fever, unspecified (principal); R05.9 Cough, unspecified; Z98.890 Other specified postprocedural states
CPT/HCPCS: 71046

== ENCOUNTER 2022-05-26 15:30 | Emergency (ER) | payer BC, SELFPAY ==
[2022-05-26 15:32] VITALS: BP 128/63; PULSE 105; RESP 18; TEMP 39.4; O2SAT 96; BMI 31.6
--- NOTE | 2022-05-26 15:49 | PC.NURSE ---
DR. GERMAIN AT BEDSIDE FOR EVALUATION
--- NOTE | 2022-05-26 15:54 | HMH.EDGENADL ---
Discharge Plan Disposition Patient Disposition: Xfer Short-Term Hosp Condition: Serious Chief Complaint: Fever Clinical Impressions Clinical Impression: Abdominal abscess, Influenza A Discharge ED Provider: Silvestre Littlejohn General Adult HPI General Chief complaint: Fever Stated complaint: ? pneumonia Time Seen by Provider: 05/26/22 15:54 History of Present Illness HPI narrative: Patient is a 57-year-old female with past medical history of left-sided breast cancer status postmastectomy with resultant lymphedema of the left upper extremity, subsequent reconstruction of the left breast with well-healing. Operative course was complicated by bruising of the colon with resultant bowel perforation status post surgical intervention with ileostomy left in discontinuity. Patient has 2 peritoneal drains that were placed by surgery at that have been draining appropriately. Over the last few days since she was discharged on Sunday from the [facility] she has developed worsening cough and high fevers T-max 104 degrees taken at home. Patient also has a past medical history of [id number] diabetes mellitus. Cough is moderate to severe in intensity, productive. Patient has adequate oral intake, adequate ileostomy output, adequate urine output, denies dysuria. Patient presented to clinic today for evaluation of her fevers and cough or chest x-ray shows bibasilar opacities consistent with atelectasis versus pneumonia and she presents here for continued evaluation. Patient denies abdominal pain, chest pain. Of note patient is anaphylactic to all penicillins. Related Data Home Medications Medication Instructions Recorded Confirmed gabapentin 300 mg capsule 300 mg PO BID Nerve pain 04/12/18 01/24/22 omeprazole 40 mg capsule,delayed 40 mg PO DAILY Acid reflux 04/12/18 01/24/22 release buspirone 10 mg tablet 10 mg PO BID Anxiety 12/29/19 01/24/22 vitamin E 268 mg (400 unit) capsule 400 unit PO DAILY Supplement 02/05/20 01/24/22 budesonide 3 mg 9 mg PO DAILY Bowels 07/14/20 01/24/22 capsule,delayed,extended release lorazepam 0.5 mg tablet 0.25 mg PO TID PRN Anxiety 07/14/20 01/24/22 magnesium 250 mg tablet 250 mg PO DAILY Supplement 07/14/20 01/24/22 metformin 1,000 mg tablet 1,000 mg PO BID Diabetes 07/14/20 01/24/22 ondansetron HCl 8 mg tablet 8 mg PO Q8H PRN Nausea And Vomiting 07/14/20 01/24/22 anastrozole 1 mg tablet 1 mg PO DAILY * 04/07/21 01/24/22 cholecalciferol (vitamin D3) 10 400 unit PO DAILY Supplement 04/07/21 01/24/22 mcg (400 unit) capsule escitalopram oxalate 10 mg tablet 10 mg PO DAILY Depression 04/07/21 01/24/22 apixaban 5 mg tablet (Eliquis) 5 mg PO ONCE 12/09/21 01/24/22 losartan 100 mg tablet 100 mg PO DAILY 12/09/21 01/24/22 rosuvastatin 10 mg tablet 10 mg PO DAILY 12/09/21 01/24/22 Allergies Allergy/AdvReac Type Severity Reaction Status Date / Time Penicillins Allergy Severe ANAPHYLACTIC Verified 05/11/22 13:06 REACTION cephalexin [From Keflex] Allergy Intermediate I-HIVES Verified 05/11/22 13:06 amoxicillin [AMOXICILLIN] Allergy Unknown ANAPHYLAXIS Verified 05/11/22 13:06 ampicillin [AMPICILLIN] Allergy Unknown ANAPHYLAXIS Verified 05/11/22 13:06 [facility] Social History Smoking Status: Never smoker second hand exposure: No alcohol intake: never substance use type: denies use current occupational status: employed Travel in the last 8 weeks: None household members: spouse housing: house current occupational exposures/hazards: No caffeine: Yes ROS Obtained: Yes Systems reviewed as appropriate & no additional complaints except as documented Physical Exam General General appearance: alert and in no apparent distress Head Head exam: atraumatic and normocephalic Eye Eye exam: Present PERRL and EOMI ENT ENT exam: Present mucous membranes moist Neck Neck exam: Present normal inspection Chest Chest
--- NOTE | 2022-05-26 15:58 | CT_ITS ---
PROCEDURE INFORMATION: Exam: CT Abdomen And Pelvis With Contrast Exam date and time: 05/26/2022 5:03 PM Age: 57 years old Clinical indication: Fever; Abdominal pain; Generalized; Additional info: Recent loop ileostomy, high fever. TECHNIQUE: Imaging protocol: Computed tomography of the abdomen and pelvis with contrast. Radiation optimization: All CT scans at this facility use at least one of these dose optimization techniques: automated exposure control; mA and/or kV adjustment per patient size (includes targeted exams where dose is matched to clinical indication); or iterative reconstruction. Contrast material: ISOVUE; Contrast volume: 75 ml; Contrast route: IV; COMPARISON: CT ABDOMEN W CON 05/11/2022 6:15 PM FINDINGS: Tubes, catheters and devices: None noted. Lungs: Lung bases appear clear. Heart: No significant coronary calcifications. No cardiomegaly. No significant pericardial effusion. Liver: Normal. No mass. Gallbladder and bile ducts: Normal. No calcified stones. No ductal dilation. Pancreas: Normal. No ductal dilation. Spleen: Normal. No splenomegaly. Adrenal glands: Stable 15 mm right adrenal adenoma. Kidneys and ureters: Normal. No hydronephrosis. Stomach and bowel: Diverticulitis of the transverse colon. Focal mucosal thickening. Free peritoneal perforation suspected. Appendix: No evidence of appendicitis. Intraperitoneal space: Continued free air. More than expected for surgery 2 weeks ago. Right lobe perihepatic fluid collection 8 x 2 cm. Pigtail drain bilateral pericolic gutters. Retroperitoneal space: No significant retroperitoneal inflammatory changes are noted. Vasculature: Unremarkable. No abdominal aortic aneurysm. Lymph nodes: Unremarkable. No enlarged lymph nodes. Urinary bladder: Unremarkable as visualized. Reproductive: Hysterectomy. Bones/joints: Unremarkable. No acute fracture. Soft tissues: Unremarkable. IMPRESSION: 1. Perforated diverticulitis of the transverse colon. 2. Right lobe perihepatic fluid collection, bilateral pericolic gutter drains. 3. Free intraperitoneal air, more than expected this far postop.
[2022-05-26 16:11] LABS: Coronavirus 19, PCR Not Detected (NotDetected); Influenza B, PCR Not Detected (NotDetected)
--- NOTE | 2022-05-26 16:12 | EXP.PHA.CONS ---
Pharmacy Consult Date: 05/26/22 Time: 16:12 Referring provider: DR. GERMAIN Reason for Consult:: VANCOMYCIN DOSING Allergies Allergy/AdvReac Type Severity Reaction Status Date / Time Penicillins Allergy Severe ANAPHYLACTIC Verified 05/11/22 13:06 REACTION cephalexin [From Keflex] Allergy Intermediate I-HIVES Verified 05/11/22 13:06 amoxicillin [AMOXICILLIN] Allergy Unknown ANAPHYLAXIS Verified 05/11/22 13:06 ampicillin [AMPICILLIN] Allergy Unknown ANAPHYLAXIS Verified 05/11/22 13:06 Home Medications Medication Instructions Recorded Confirmed Type gabapentin 300 mg capsule 300 mg PO BID Nerve pain 04/12/18 01/24/22 History omeprazole 40 mg capsule,delayed 40 mg PO DAILY Acid reflux 04/12/18 01/24/22 History release buspirone 10 mg tablet 10 mg PO BID Anxiety 12/29/19 01/24/22 History vitamin E 268 mg (400 unit) capsule 400 unit PO DAILY Supplement 02/05/20 01/24/22 History budesonide 3 mg 9 mg PO DAILY Bowels 07/14/20 01/24/22 History capsule,delayed,extended release lorazepam 0.5 mg tablet 0.25 mg PO TID PRN Anxiety 07/14/20 01/24/22 History magnesium 250 mg tablet 250 mg PO DAILY Supplement 07/14/20 01/24/22 History metformin 1,000 mg tablet 1,000 mg PO BID Diabetes 07/14/20 01/24/22 History ondansetron HCl 8 mg tablet 8 mg PO Q8H PRN Nausea And Vomiting 07/14/20 01/24/22 History anastrozole 1 mg tablet 1 mg PO DAILY * 04/07/21 01/24/22 History cholecalciferol (vitamin D3) 10 400 unit PO DAILY Supplement 04/07/21 01/24/22 History mcg (400 unit) capsule escitalopram oxalate 10 mg tablet 10 mg PO DAILY Depression 04/07/21 01/24/22 History apixaban 5 mg tablet (Eliquis) 5 mg PO ONCE 12/09/21 01/24/22 History losartan 100 mg tablet 100 mg PO DAILY 12/09/21 01/24/22 History rosuvastatin 10 mg tablet 10 mg PO DAILY 12/09/21 01/24/22 History New Prescriptions to Start Prescriptions: Height: 1.65 m Weight: 86 kg Laboratory Results:: D Assessment and Plan Assessment and plan all Dx Assessment and Plan for all problems:: Pharmacokinetic dosing service Age: 57 yo Serum creatinine: 0.8 mg/dL Height: 65.0 Inches Weight (kg): 86 Assessment: IBW (kg): 57.00 Dosing wt(kg): 86 Estimated Creatinine clearance (ml/min): 71.5 CRCL method: Cockcroft and Gault using ibw(default). Drug selected: Vancomycin Loading dose (mg): 0 Vd (liters): 68.8 (factor used: 0.8 L/kg) Cesario (hr-1): 0.064 Half life (hrs): 10.83 Recommended dose: 1250 mg Interval: 12 hrs Infusion time (hrs): 2.0 Predicted peak (mcg/mL): 31.8 Predicted trough (mcg/mL): 16.77 Total body weight is being used for vancomycin dosing. Recommendations: Give Vancomycin 1250 mg q 12 hrs with an expected Cpeak of 31.8 mcg/ml and an expected Ctrough of 16.77 mcg/ml ----Vanco only - ignore for aminoglycosides----- CLvanco= 4.40 L/hr AUC 0-24 /RAY Data: RAY 0.5 mcg/mL: AUC/RAY: 1136.4 RAY 1.0 mcg/mL: AUC/RAY: 568.2 --------- RAY 1.5 mcg/mL: AUC/RAY: 378.8 RAY 2.0 mcg/mL: AUC/RAY: 284.1
[2022-05-26 16:17] LABS: Basophils # 0.1 K/mm3 (0-0.2); Basophils % 1.1 % (0.1-2.0); Eosinophils # 0.1 K/mm3 (0.0-0.4); Eosinophils % 0.7 % (0.1-12.0); Hematocrit 28.1 % (37.0-47.0); Lymphocytes # 0.8 K/mm3 (0.7-4.5); Lymphocytes % 10.7 % (10-50); Mean Corpuscular HGB Conc 32.2 g/dL (31.8-35.4); Mean Corpuscular Hemoglobin 30.4 pg (27.0-31.2); Mean Corpuscular Volume 94.4 fl (81-99); Mean Platelet Volume 8.4 fl (7.4-10.4); Monocytes # 0.3 K/mm3 (0.1-1.0); Monocytes % 4.1 % (1.7-9.3); Neutrophils # 6.5 K/mm3 (1.8-7.8); Neutrophils % 83.4 % (37.0-80.0); Platelet Count 645 K/mm3 (142-424); Red Blood Count 2.98 M/mm3 (4.20-5.40); Red Cell Distribution Width 15.2 % (11.5-17.5); White Blood Count 7.8 K/mm3 (4.8-10.8)
[2022-05-26 16:18] LABS: Chloride 98 mmol/L (98-107); Sodium 136 mmol/L (136-145)
[2022-05-26 16:19] LABS: Potassium 3.9 mmoL/L (3.5-5.1)
[2022-05-26 16:21] LABS: Alanine Aminotransferase 20 U/L (12-78); Alkaline Phosphatase 138 U/L (38-126); Anion Gap 11.9 mEq/L (5-15); Aspartate Amino Transferase 52 U/L (14-36); Blood Urea Nitrogen 16 mg/dl (7-17); Calcium 7.3 mg/dl (8.4-10.2); Carbon Dioxide 30 mmol/L (22.0-30.0); Creatinine Clearance Estimated 96 mL/min (50-200); Estimated Glomerular Filt Rate 65 ml/min (>60); GFR (African American) 79 ML/MIN (>60); Glucose 103 mg/dl (74-100); Lactic Acid 1.2 mmol/L (0.7-2.1); Lipase 51 U/L (23-300)
[2022-05-26 16:22] LABS: Albumin Level 2.7 g/dl (3.5-5.0); Albumin/Globulin Ratio 0.8 (1.1-1.8); Globulin 3.4 g/dL (1.3-3.2); Total Protein,Serum 6.1 g/dl (6.3-8.2)
[2022-05-26 16:23] LABS: Bilirubin,Total < 0.1 mg/dl (0.2-1.3)
[2022-05-26 16:30] VITALS: BP 142/71; PULSE 94; RESP 20; O2SAT 94
[2022-05-26 16:31] LABS: C-Reactive Protein 52.8 mg/L (0-4)
--- NOTE | 2022-05-26 16:51 | PC.NURSE ---
faxed request for past surgical info from [facility]
--- NOTE | 2022-05-26 17:05 | PC.NURSE ---
PT TO CT AT THIS TIME
[2022-05-26 17:20] LABS: Influenza A, PCR Detected (NotDetected)
--- NOTE | 2022-05-26 17:20 | PC.NURSE ---
PT RETURNED FROM CT
--- NOTE | 2022-05-26 18:04 | PC.NURSE ---
JANETH MISHRA SPEAKING WITH [facility]
--- NOTE | 2022-05-26 18:11 | PC.NURSE ---
placed call to [facility] for transfer for surgery
--- NOTE | 2022-05-26 18:12 | PC.NURSE ---
ED MD AT BEDSIDE TO DISCUSS POC WITH PT AND FAMILY
--- NOTE | 2022-05-26 18:30 | PC.NURSE ---
pt to [facility] per wheelchair
--- NOTE | 2022-05-26 19:23 | PC.NURSE ---
JANETH MISHRA SPEAKING WITH [facility]
--- NOTE | 2022-05-26 20:11 | PC.NURSE ---
pt sister at bedside she is medical POA
--- NOTE | 2022-05-27 00:53 | PC.NURSE ---
yvette verbal order for 4mg morphine and 4 mg zofran
[2022-05-27 01:38] VITALS: BP 137/69; PULSE 98; RESP 22; TEMP 37.3; O2SAT 94
== END 2022-05-27 01:42 | disposition short-term general hospital (02) ==
LOC: ER 15:40 → 2ND 20:31 → ER 20:40
PROVIDERS: Emergency Provider Emergency Medicine; PCP Internal Medicine
DX: J10.1 Influenza due to other identified influenza virus with other respiratory manifestations (principal); L02.211 Cutaneous abscess of abdominal wall; Z97.8 Presence of other specified devices; Z87.19 Personal history of other diseases of the digestive system
CPT/HCPCS: 74177; 80053; 83605; 83690; 85025; 86140; 87040; 96365; 96366; 96367; 96375; 99284; C9803; J1956; J2405; Q9967; U0003; U0005

== ENCOUNTER 2022-06-05 10:42 | Outpatient (CLI) | payer BC, SELFPAY ==
[2022-06-05 10:49] VITALS: BMI 28.5
[2022-06-05 11:19] LABS: Basophils # 0.1 K/mm3 (0-0.2); Basophils % 0.7 % (0.1-2.0); Eosinophils # 0.3 K/mm3 (0.0-0.4); Eosinophils % 3.1 % (0.1-12.0); Hematocrit 32.4 % (37.0-47.0); Hemoglobin 9.9 g/dL (12.2-16.2); Lymphocytes # 2.8 K/mm3 (0.7-4.5); Lymphocytes % 28.7 % (10-50); Mean Corpuscular HGB Conc 30.7 g/dL (31.8-35.4); Mean Corpuscular Volume 94.4 fl (81-99); Mean Platelet Volume 7.9 fl (7.4-10.4); Monocytes # 0.3 K/mm3 (0.1-1.0); Monocytes % 3.1 % (1.7-9.3); Neutrophils # 6.3 K/mm3 (1.8-7.8); Neutrophils % 64.4 % (37.0-80.0); Platelet Count 642 K/mm3 (142-424); Red Blood Count 3.43 M/mm3 (4.20-5.40); Red Cell Distribution Width 15.7 % (11.5-17.5); White Blood Count 9.8 K/mm3 (4.8-10.8)
[2022-06-05 11:26] LABS: Alanine Aminotransferase 33 U/L (12-78); Albumin Level 3.9 g/dl (3.5-5.0); Albumin/Globulin Ratio 0.9 (1.1-1.8); Alkaline Phosphatase 202 U/L (38-126); Anion Gap 19.9 mEq/L (5-15); Aspartate Amino Transferase 48 U/L (14-36); Bilirubin,Total 0.3 mg/dl (0.2-1.3); Blood Urea Nitrogen 22 mg/dl (7-17); Calcium 9.8 mg/dl (8.4-10.2); Carbon Dioxide 22 mmol/L (22.0-30.0); Chloride 102 mmol/L (98-107); Creatinine Clearance Estimated 97 mL/min (50-200); Estimated Glomerular Filt Rate 74 ml/min (>60); GFR (African American) 90 ML/MIN (>60); Globulin 4.5 g/dL (1.3-3.2); Glucose 142 mg/dl (74-100); Potassium 3.9 mmoL/L (3.5-5.1); Sodium 140 mmol/L (136-145); Total Protein,Serum 8.4 g/dl (6.3-8.2)
== END 2022-06-05 11:05 | disposition home or self-care (01) ==
LOC: INF 10:42
PROVIDERS: PCP Internal Medicine; Visit Provider Internal Medicine Medical Oncology
DX: C50.912 Malignant neoplasm of unspecified site of left female breast (principal); Z45.2 Encounter for adjustment and management of vascular access device; Z17.0 Estrogen receptor positive status [ER+]
CPT/HCPCS: 36591; 80053; 85025; J1642

== ENCOUNTER 2022-07-29 10:26 | Observation (INO) | payer BC, SELFPAY ==
[2022-07-29] VITALS (9 sets, daily range): BP systolic 98–149; BP diastolic 57–96; PULSE 101–121; RESP 16–20; TEMP 36.6–36.9; O2SAT 97–100; BMI 39.4; BMI 39.3; BMI 27.0
--- NOTE | 2022-07-29 11:20 | EXP.UTC ---
Discharge Plan Disposition Patient Disposition: Admitted As Inpatient Condition: Good Clinical Impressions Clinical Impression: Acute dehydration, Acute renal failure, Gastroenteritis Discharge ED Provider: Romaine Novak [facility] HPI General Chief complaint: Weakness Stated complaint: Weakness,Fatigue,fever, ilesotomy bag Time Seen by Provider: 07/29/22 11:20 History of Present Illness Provider Complaint: She states that for the past 3 days she has had an excessive amount out of her illeostomy. she has had up to 2000 ml in a 24 hour period. She has also had abdominal pain and nausea. Related Data Home Medications Medication Instructions Recorded Confirmed omeprazole 40 mg capsule,delayed 40 mg PO HS GERD 04/12/18 07/29/22 release buspirone 10 mg tablet 10 mg PO BID Anxiety 12/29/19 07/29/22 budesonide 3 mg 9 mg PO DAILY Bowels 07/14/20 07/29/22 capsule,delayed,extended release magnesium 250 mg tablet 250 mg PO DAILY Supplement 07/14/20 07/29/22 metformin 1,000 mg tablet 1,000 mg PO BID Diabetes 07/14/20 07/29/22 anastrozole 1 mg tablet 1 mg PO DAILY Cancer medication 04/07/21 07/29/22 cholecalciferol (vitamin D3) 10 400 unit PO DAILY Supplement 04/07/21 07/29/22 mcg (400 unit) capsule escitalopram oxalate 10 mg tablet 10 mg PO DAILY Depression 04/07/21 07/29/22 rosuvastatin 10 mg tablet 10 mg PO DAILY High cholesterol 12/09/21 07/29/22 cyclobenzaprine 5 mg tablet 5 mg PO TID PRN Muscle Relaxer 06/05/22 07/29/22 hydroxyzine HCl 25 mg tablet 25 mg PO Q8HP PRN Anxiety 06/05/22 07/29/22 valsartan 80 mg tablet 80 mg PO DAILY High blood pressure 06/05/22 07/29/22 Previous Rx's Medication Instructions Recorded calcium polycarbophil 625 mg tablet 1,250 mg PO BID PRN increased 07/30/22 ostomy output 30 days #120 tabs loperamide 2 mg capsule 2 mg PO Q4HP PRN Diarrhea 5 days 07/30/22 #30 caps ondansetron 4 mg disintegrating 4 mg sublingual Q8HP PRN Nausea 5 07/30/22 tablet days #20 tabs Allergies Allergy/AdvReac Type Severity Reaction Status Date / Time Penicillins Allergy Severe ANAPHYLACTIC Verified 06/05/22 11:32 REACTION cephalexin [From Keflex] Allergy Intermediate I-HIVES Verified 06/05/22 11:32 amoxicillin [AMOXICILLIN] Allergy Unknown ANAPHYLAXIS Verified 06/05/22 11:32 ampicillin [AMPICILLIN] Allergy Unknown ANAPHYLAXIS Verified 06/05/22 11:32 [facility] Disclaimer: The information contained in this section may have been updated after the patient was seen, as this information can be updated by other users. Medical History Breast cancer Perforated bowel Skin cancer Surgical History H/O breast reconstruction Family History Other Family history of acute heart failure Family history of cancer Family history of myocardial infarction Social History Smoking Status: Never smoker second hand exposure: No alcohol intake: never substance use type: denies use current occupational status: employed Travel in the last 8 weeks: None household members: spouse housing: house current occupational exposures/hazards: No caffeine: Yes ROS Obtained: Yes All systems reviewed & no additional complaints except as documented Constitutional Constitutional: Denies chills, Denies fever(s) and Reports poor appetite ENT Ears, Nose, Mouth, and Throat: Denies dizziness and Denies sore throat Cardiovascular Cardiovascular: Denies dyspnea Respiratory Respiratory: Denies chest congestion, Denies cough and Denies dyspnea Gastrointestinal Gastrointestingal: Reports as per HPI Genitourinary Female Genitourinary: Denies difficulty voiding, Denies dysuria, Denies hematuria, Denies urinary frequency, Denies urinary incontinence, Denies urinary hesitancy and Denies urinary urgency Musculoskele
[2022-07-29 11:49] LABS: UTC Strep Screen (Rapid) Negative (Negative)
[2022-07-29 11:50] LABS: UTC Influenza A Antigen Negative (Negative); UTC Influenza B Antigen Negative (Negative)
[2022-07-29 13:15] LABS: Basophils # 0.2 K/mm3 (0-0.2); Basophils % 1.2 % (0.1-2.0); Eosinophils # 0.2 K/mm3 (0.0-0.4); Eosinophils % 1.2 % (0.1-12.0); Hematocrit 43.3 % (37.0-47.0); Hemoglobin 14.7 g/dL (12.2-16.2); Lymphocytes # 3.2 K/mm3 (0.7-4.5); Lymphocytes % 25.1 % (10-50); Mean Corpuscular HGB Conc 33.9 g/dL (31.8-35.4); Mean Corpuscular Hemoglobin 32.8 pg (27.0-31.2); Mean Corpuscular Volume 96.6 fl (81-99); Mean Platelet Volume 8.5 fl (7.4-10.4); Monocytes # 0.5 K/mm3 (0.1-1.0); Monocytes % 3.8 % (1.7-9.3); Neutrophils # 8.8 K/mm3 (1.8-7.8); Neutrophils % 68.7 % (37.0-80.0); Platelet Count 411 K/mm3 (142-424); Red Blood Count 4.48 M/mm3 (4.20-5.40); Red Cell Distribution Width 16.7 % (11.5-17.5); White Blood Count 12.8 K/mm3 (4.8-10.8)
[2022-07-29 13:19] LABS: Chloride 94 mmol/L (98-107); Potassium 4.6 mmoL/L (3.5-5.1); Sodium 133 mmol/L (136-145)
[2022-07-29 13:21] LABS: Blood Urea Nitrogen 54 mg/dl (7-17); Creatinine Clearance Estimated 23 mL/min (50-200); Estimated Glomerular Filt Rate 15 ml/min (>60); GFR (African American) 18 ML/MIN (>60)
[2022-07-29 13:22] LABS: Alanine Aminotransferase 78 U/L (12-78); Albumin Level 5.1 g/dl (3.5-5.0); Alkaline Phosphatase 135 U/L (38-126); Aspartate Amino Transferase 100 U/L (14-36); Bilirubin,Total 0.9 mg/dl (0.2-1.3); Calcium 10.4 mg/dl (8.4-10.2); Carbon Dioxide 15 mmol/L (22.0-30.0); Glucose 171 mg/dl (74-100); Magnesium 1.9 mg/dl (1.6-2.3)
[2022-07-29 13:23] LABS: Anion Gap 28.6 mEq/L (5-15)
[2022-07-29 13:32] LABS: Albumin/Globulin Ratio 0.8 (1.1-1.8); Globulin 6.2 g/dL (1.3-3.2); Total Protein,Serum 11.3 g/dl (6.3-8.2)
--- NOTE | 2022-07-29 14:56 | CT_ITS ---
PROCEDURE INFORMATION: Exam: CT Abdomen And Pelvis Without Contrast Exam date and time: 07/29/2022 3:28 PM Age: 57 years old Clinical indication: Abdominal pain; Acute; Prior surgery; Surgery date: 1-6 months; Surgery type: Had a recent ileostomy done in april-- had breast cancer and during breast recon they perforated her bowel and had to do ileostomy; Additional info: Abd pain, diarrhea, recent ileostomy TECHNIQUE: Imaging protocol: Computed tomography of the abdomen and pelvis without contrast. Radiation optimization: All CT scans at this facility use at least one of these dose optimization techniques: automated exposure control; mA and/or kV adjustment per patient size (includes targeted exams where dose is matched to clinical indication); or iterative reconstruction. COMPARISON: CT ABDOMEN PELVIS W CON 05/26/2022 5:03 PM FINDINGS: Tubes, catheters and devices: Previously demonstrated pigtail drainage catheter is no longer demonstrated. Lungs: Partially calcified granuloma right lung base. Findings stable. Liver: Hepatic steatosis. Gallbladder and bile ducts: Normal. No calcified stones. No ductal dilation. Pancreas: Normal. No ductal dilation. Spleen: Normal. No splenomegaly. Adrenal glands: Normal. No mass. Kidneys and ureters: Normal. No hydronephrosis. Stomach and bowel: Small amount of is in resolution of previously demonstrated changes of diverticulitis. Ileostomy. Appendix: No evidence of appendicitis. Intraperitoneal space: Resolution of previously demonstrated intraperitoneal free air. Resolution of previously demonstrated fluid in the right pericolic gutter. Vasculature: Unremarkable. No abdominal aortic aneurysm. Lymph nodes: Unremarkable. No enlarged lymph nodes. Urinary bladder: Unremarkable as visualized. Reproductive: Unremarkable as visualized. Bones/joints: Unremarkable. No acute fracture. Soft tissues: Resolution of previously demonstrated anasarca. IMPRESSION: 1. Resolution of previously demonstrated diverticulitis . Previously demonstrated intraperitoneal fluid and free air no longer demonstrated. 2. Hepatic steatosis
--- NOTE | 2022-07-29 14:57 | HMH.EDGENADL ---
Discharge Plan Disposition Patient Disposition: Admitted As Inpatient Condition: Fair Chief Complaint: Weakness Prescriptions Prescriptions: No Action buspirone 10 mg tablet 10 mg PO BID cyclobenzaprine 5 mg tablet 5 mg PO TID escitalopram oxalate 10 mg tablet 10 mg PO DAILY hydroxyzine HCl 25 mg tablet 25 mg PO Q8H PRN methocarbamol 500 mg tablet 1,000 mg PO TID nystatin 100,000 unit/mL suspension 1 ml PO DAILY valsartan 80 mg tablet 80 mg PO DAILY rosuvastatin 10 mg tablet 10 mg PO DAILY omeprazole 40 capsule,delayed release(DR/EC) 40 mg PO DAILY vitamin E 400 UNIT capsule 400 unit PO DAILY metformin 1,000 MG tablet 1,000 mg PO BID magnesium 250 MG tablet 250 mg PO DAILY budesonide 3 MG capsule,delayed,extend.release 9 mg PO DAILY Rx Instructions: Take as directed anastrozole 1 MG tablet 1 mg PO DAILY cholecalciferol (vitamin D3) 400 UNIT capsule 400 unit PO DAILY escitalopram oxalate 10 MG tablet 10 mg PO DAILY Referrals Follow up/Referrals: Ricardo Rodriguez MD [Primary Care Provider] - See instructions Clinical Impressions Clinical Impression: Acute dehydration, Acute renal failure, Gastroenteritis Discharge ED Provider: Romaine Novak General Adult HPI General Chief complaint: Weakness Stated complaint: Weakness,Fatigue,fever, ilesotomy bag Time Seen by Provider: 07/29/22 11:20 Mode of Arrival: Wheelchair Source of Information: Patient Limitations: No Limitations Description of Symptoms (Recalled from ER Triage Doc. by RN): pt comes in with c/o dehydration. pt has ilostomy bag and has been having copious amounts of liquid stool since sunday. muscle cramps and weakness. History of Present Illness HPI narrative: 57-year-old female history of breast cancer. She had located history in which she was having a breast reconstruction which involved a fat graft, during the process there was accidental perforation of the large bowel which ultimately necessitated colectomy and ileostomy. She presents today with copious liquid output of the ileostomy and concerned about dehydration. She has had symptoms of muscle cramps and generalized weakness, feeling foggy, states whenever she goes to stand she feels lightheaded. She spoke to her surgeon from who did the surgery a day or 2 ago and they advise trying to increase fiber and try Imodium to thicken output. Today she denies any abdominal pain, but is noted to have pretty significant SUBHASH with creatinine of 3.3. She was initially seen in the [facility], transferred here for further evaluation. 1 L of fluid was started, added an additional liter, and will anticipate admission Related Data Home Medications Medication Instructions Recorded Confirmed omeprazole 40 mg capsule,delayed 40 mg PO DAILY Acid reflux 04/12/18 06/05/22 release buspirone 10 mg tablet 10 mg PO BID Anxiety 12/29/19 06/05/22 vitamin E 268 mg (400 unit) capsule 400 unit PO DAILY Supplement 02/05/20 06/05/22 budesonide 3 mg 9 mg PO DAILY Bowels 07/14/20 06/05/22 capsule,delayed,extended release magnesium 250 mg tablet 250 mg PO DAILY Supplement 07/14/20 06/05/22 metformin 1,000 mg tablet 1,000 mg PO BID Diabetes 07/14/20 06/05/22 anastrozole 1 mg tablet 1 mg PO DAILY * 04/07/21 06/05/22 cholecalciferol (vitamin D3) 10 400 unit PO DAILY Supplement 04/07/21 06/05/22 mcg (400 unit) capsule escitalopram oxalate 10 mg tablet 10 mg PO DAILY Depression 04/07/21 06/05/22 rosuvastatin 10 mg tablet 10 mg PO DAILY 12/09/21 06/05/22 cyclobenzaprine 5 mg tablet 5 mg PO TID 06/05/22 06/05/22 escitalopram oxalate 10 mg tablet 10 mg PO DAILY 06/05/22 06/05/22 hydroxyzine HCl 25 mg tablet 25 mg PO Q8H PRN 06/05/22 06/05/22 methocarbamol 500 mg tablet 1,000 mg PO TID 06/05/22 06/05/22 nystatin 100,000 unit/mL oral 1 ml PO DAILY 06/05/22 06/05/22 suspension valsartan 80 mg tablet 80 mg PO DAILY 06/05
--- NOTE | 2022-07-29 15:35 | HMH.ITSTN ---
GFR [address] and decided to do scan without contrast
[2022-07-29 17:48] LABS: Hemoglobin A1C 5.8 % (4.0-6.0)
--- NOTE | 2022-07-29 17:50 | PC.NURSE ---
Answered call light patient stated she needed to use the bathroom unhooked patient from vitals machine; @ bedside
--- NOTE | 2022-07-29 18:04 | EXP.HP ---
History of Present Illness *Admission Date: 07/29/22 *Reason for visit:: fatigue, cramping, increased ostomy output *History of present illness: Ms. Salmeron is a pleasant 57-year-old female with history of breast cancer, status post left mastectomy. Recently went through 2 procedures for breast reconstruction. Most recent procedure in April with fat grafting resulted in perforation of her large bowel. This subsequently led to ileostomy. States that she has been in her normal state of health until 2 to 3 days ago when she started having nausea, 2-3 episodes of vomiting, and increased ostomy output. Has subsequently developed cramps, generalized weakness and fatigue. Normally has about 1000 cc of output from her ostomy. Output has at least doubled over the past 2 to 3 days. Having a hard time keeping fluids down and keeping up with fluid needs. She spoke to her surgeon from who advised her to increase fiber and try Imodium to slow her output. This has not been beneficial however. On presentation to the ER, labs remarkable for an SUBHASH with creatinine of 3.3. Otherwise electrolytes normal. Treated with 1 L of fluid in the ER. Medicine consulted for admission. On evaluation, patient is afebrile, alert and oriented. Denies any chest pain or shortness of breath. No known sick contacts with stomach bug. [facility] Disclaimer: The information contained in this section may have been updated after the patient was seen, as this information can be updated by other users. Medical History Breast cancer Perforated bowel Skin cancer Surgical History H/O breast reconstruction Social History Smoking Status: Never smoker second hand exposure: No alcohol intake: never substance use type: denies use current occupational status: employed Travel in the last 8 weeks: None household members: spouse housing: house current occupational exposures/hazards: No caffeine: Yes Review of Systems Review of Systems Review of systems (narrative): 14 point review of systems performed, pertinent positives and negatives as per HPI *Neurologic Neurologic: Reports system reviewed and no additional complaints, except as documented Meds Home Medications and Allergies Home Medications Medication Instructions Recorded Confirmed Type omeprazole 40 mg capsule,delayed 40 mg PO DAILY Acid reflux 04/12/18 06/05/22 History release buspirone 10 mg tablet 10 mg PO BID Anxiety 12/29/19 06/05/22 History vitamin E 268 mg (400 unit) capsule 400 unit PO DAILY Supplement 02/05/20 06/05/22 History budesonide 3 mg 9 mg PO DAILY Bowels 07/14/20 06/05/22 History capsule,delayed,extended release magnesium 250 mg tablet 250 mg PO DAILY Supplement 07/14/20 06/05/22 History metformin 1,000 mg tablet 1,000 mg PO BID Diabetes 07/14/20 06/05/22 History anastrozole 1 mg tablet 1 mg PO DAILY * 04/07/21 06/05/22 History cholecalciferol (vitamin D3) 10 400 unit PO DAILY Supplement 04/07/21 06/05/22 History mcg (400 unit) capsule escitalopram oxalate 10 mg tablet 10 mg PO DAILY Depression 04/07/21 06/05/22 History rosuvastatin 10 mg tablet 10 mg PO DAILY 12/09/21 06/05/22 History cyclobenzaprine 5 mg tablet 5 mg PO TID 06/05/22 06/05/22 History escitalopram oxalate 10 mg tablet 10 mg PO DAILY 06/05/22 06/05/22 History hydroxyzine HCl 25 mg tablet 25 mg PO Q8H PRN 06/05/22 06/05/22 History methocarbamol 500 mg tablet 1,000 mg PO TID 06/05/22 06/05/22 History nystatin 100,000 unit/mL oral 1 ml PO DAILY 06/05/22 06/05/22 History suspension valsartan 80 mg tablet 80 mg PO DAILY 06/05/22 06/05/22 History New Prescriptions to Start Prescriptions: Allergies Allergy/AdvReac Type Severity Reaction Status Date / Time Penicillins Allergy Severe ANAPHYLACTIC Verified 06/05/22 11:32 REACTION cephal
--- NOTE | 2022-07-29 19:05 | PC.NURSE ---
called report to irma muñoz rn
[2022-07-29 22:23] LABS: Coronavirus 19, PCR Not Detected (NotDetected); Influenza A, PCR Not Detected (NotDetected); Influenza B, PCR Not Detected (NotDetected)
[2022-07-29 22:25] LABS: Adenovirus F 40/41, stool Not Detected (NotDetected); Astrovirus Not Detected (NotDetected); Campylobacter Not Detected (NotDetected); Clostridium Difficile A/B, PCR Not Detected (NotDetected); Cryptosporidium Not Detected (NotDetected); Cyclospora Cayetanesis Not Detected (NotDetected); Entamoeba histolytica Not Detected (NotDetected); Enteroaggregative E coli Not Detected (NotDetected); Enteropathogenic E coli Not Detected (NotDetected); Enterotoxigenic E coli Not Detected (NotDetected); Giardia lamblia Not Detected (NotDetected); Norovirus Not Detected (NotDetected); Plesimonas Shigalloides, PCR Not Detected (NotDetected); Rotavirus A Not Detected (NotDetected); Salmonella, PCR Not Detected (NotDetected); Sapovirus Not Detected (NotDetected); Shiga-like toxin E coli Not Detected (NotDetected); Shigella Enterovasive E coli Not Detected (NotDetected); Vibrio Cholerae Not Detected (NotDetected); Vibrio, PCR Not Detected (NotDetected); Yersinia Entercolitica, PCR Not Detected (NotDetected)
[2022-07-30] VITALS: BP 117/62; PULSE 110; RESP 20; TEMP 37; O2SAT 100
[2022-07-30 04:00] VITALS: BP 118/66; PULSE 104; RESP 20; TEMP 36.6; O2SAT 98
[2022-07-30 04:57] VITALS: BMI 27.5
[2022-07-30 06:00] LABS: Basophils % 0.5 % (0.1-2.0); Monocytes # 0.4 K/mm3 (0.1-1.0)
[2022-07-30 06:06] LABS: Eosinophils # 0.4 K/mm3 (0.0-0.4); Eosinophils % 4.2 % (0.1-12.0); Hematocrit 33.5 % (37.0-47.0); Lymphocytes # 2.6 K/mm3 (0.7-4.5); Lymphocytes % 29.4 % (10-50); Mean Corpuscular HGB Conc 33.3 g/dL (31.8-35.4); Mean Corpuscular Hemoglobin 32.7 pg (27.0-31.2); Mean Corpuscular Volume 98.2 fl (81-99); Mean Platelet Volume 8.5 fl (7.4-10.4); Monocytes % 4.2 % (1.7-9.3); Neutrophils # 5.4 K/mm3 (1.8-7.8); Neutrophils % 61.8 % (37.0-80.0); Platelet Count 291 K/mm3 (142-424); Red Blood Count 3.41 M/mm3 (4.20-5.40); Red Cell Distribution Width 16.6 % (11.5-17.5); White Blood Count 8.8 K/mm3 (4.8-10.8)
[2022-07-30 06:10] LABS: Alanine Aminotransferase 47 U/L (12-78); Albumin Level 3.8 g/dl (3.5-5.0); Alkaline Phosphatase 84 U/L (38-126); Anion Gap 12.5 mEq/L (5-15); Aspartate Amino Transferase 47 U/L (14-36); Bilirubin,Total 0.8 mg/dl (0.2-1.3); Blood Urea Nitrogen 45 mg/dl (7-17); Calcium 8.6 mg/dl (8.4-10.2); Carbon Dioxide 21 mmol/L (22.0-30.0); Chloride 104 mmol/L (98-107); Creatinine Clearance Estimated 75 mL/min (50-200); Estimated Glomerular Filt Rate 58 ml/min (>60); GFR (African American) 70 ML/MIN (>60); Globulin 3.9 g/dL (1.3-3.2); Glucose 140 mg/dl (74-100); Potassium 3.5 mmoL/L (3.5-5.1); Sodium 134 mmol/L (136-145); Total Protein,Serum 7.7 g/dl (6.3-8.2)
[2022-07-30 06:20] LABS: Magnesium 1.7 mg/dl (1.6-2.3)
--- NOTE | 2022-07-30 06:31 | PC.NURSE ---
no changes from previous assessment, vss, pt is alert and oriented x4, pt with ostomy stoma in which pt cares for by self, right cw port accessed and flushed, pt complains of nausea x1, pt states ostomy drainage is more diarrhea type than normal, stool was sent as ordered. no acute distress.
[2022-07-30 06:38] LABS: Hemoglobin 11.2 g/dL (12.2-16.2)
[2022-07-30 08:12] VITALS: BP 125/69; PULSE 97; RESP 18; TEMP 36.6; O2SAT 100
[2022-07-30 10:01] LABS: POC Glucose,Bedside 132 (70-110)
[2022-07-30 10:01] LABS: POC Glucose,Bedside 124 (70-110)
--- NOTE | 2022-07-30 11:24 | EXP.DC.SUM ---
General Admission date:: 07/29/22 Discharge date: 07/30/22 HPI HPI HPI: Ms. Salmeron is a pleasant 57-year-old female with history of breast cancer, status post left mastectomy. Recently went through 2 procedures for breast reconstruction. Most recent procedure in April with fat grafting resulted in perforation of her large bowel. This subsequently led to ileostomy. States that she has been in her normal state of health until 2 to 3 days ago when she started having nausea, 2-3 episodes of vomiting, and increased ostomy output. Has subsequently developed cramps, generalized weakness and fatigue. Normally has about 1000 cc of output from her ostomy. Output has at least doubled over the past 2 to 3 days. Having a hard time keeping fluids down and keeping up with fluid needs. She spoke to her surgeon from who advised her to increase fiber and try Imodium to slow her output. This has not been beneficial however. On presentation to the ER, labs remarkable for an SUBHASH with creatinine of 3.3. Otherwise electrolytes normal. Treated with 1 L of fluid in the ER. Medicine consulted for admission. On evaluation, patient is afebrile, alert and oriented. Denies any chest pain or shortness of breath. No known sick contacts with stomach bug. Hospital Course Hospital Course Hospital Course: 57-year-old female with 2 to 3 days of nausea, vomiting, increased ostomy output.? Presented to the ER with SUBHASH and dehydration.? Fluid resuscitation in the ER.? Admitted to medicine for further management.? Problems addressed as follows: Dehydration SUBHASH Diarrhea/high output from ostomy -Baseline creatinine normal (0.8).? Elevated to 3.3 on admission. Administered bolus in the ER with continued maintenance fluids after admission. Repeat labs in the morning showed improvement to creatinine of 1.0. Tolerating oral intake with no further nausea or vomiting. Output from her ostomy decreased. Started on Imodium and fiber after obtaining diarrhea panel negative for analytes. Held her home blood pressure medication initially in the setting of SUBHASH. Okay to resume after discharge. Discharged home with prescription for fiber supplement and Imodium. Of note, CT of abdomen obtained showing no concerning intra-abdominal pathology on CT of abdomen Diabetes -Sliding scale insulin and fingersticks ACH S during admission. Resume home regimen at discharge given normalization of kidney function Hypertension -Permissive hypertension during admission, held ARB in setting of SUBHASH. Resume as above at Stable for discharge, she is tolerating oral intake and kidney function is normalized. Follow-up closely with PCP and surgeon if has further complications. Exam Data for Last 24 hours Vital signs and Labs for Last 24 Hours: Temp Pulse Resp BP Pulse Ox 97.9 F 97 H 18 125/69 100 07/30/22 08:12 07/30/22 08:12 07/30/22 08:12 07/30/22 08:12 07/30/22 08:12 Laboratory Results - last 24 hr 07/29/22 11:22: Influenza Type A Ag Negative, Influenza Type B Ag Negative 07/29/22 11:22: Strep Scn Rapid [facility] Negative 07/29/22 13:08: WBC 12.8 H, RBC 4.48, Hgb 14.7, Hct 43.3, MCV 96.6, MCH 32.8 H, MCHC 33.9, RDW 16.7, Plt Count 411, MPV 8.5, Neut % (Auto) 68.7, Lymph % (Auto) 25.1, Otoe % (Auto) 3.8, Eos % (Auto) 1.2, Baso % (Auto) 1.2, Neut # (Auto) 8.8 H, Lymph # (Auto) 3.2, Otoe # (Auto) 0.5, Eos # (Auto) 0.2, Baso # (Auto) 0.2 07/29/22 13:08: Sodium 133 L, Potassium 4.6, Chloride 94 L, Carbon Dioxide 15 L, Anion Gap 28.6 H, BUN 54 H, Creatinine 3.30 H, Estimated Creat Clear 23, Estimated GFR 15 L*, Est GFR ( Amer) 18 L*, Glucose 171 H, Calcium 10.4 H, Magnesium 1.9, Total Bilirubin 0.9, AST 100 H, ALT 78, Alkaline Phosphatase 135 H, Total Protein 11.3 H D, Albumin 5.1 H, Globulin 6.2 H, Albumin/Globulin Ratio 0.8 L 07/29/22 13:08: Hemoglobin A1c 5.8 07/29/22 21:34: POC Glucose 124 H 07/29/22 22:08: Stl Aeromonas (PCR) Not detected, Stl C. cayetanensis PCR Not detect
[2022-07-30 13:20] LABS: Chloride 103 mmol/L (98-107); Potassium 3.5 mmoL/L (3.5-5.1); Sodium 136 mmol/L (136-145)
[2022-07-30 13:23] LABS: Anion Gap 13.5 mEq/L (5-15); Blood Urea Nitrogen 32 mg/dl (7-17); Calcium 8.9 mg/dl (8.4-10.2); Carbon Dioxide 23 mmol/L (22.0-30.0); Creatinine Clearance Estimated 94 mL/min (50-200); Estimated Glomerular Filt Rate 74 ml/min (>60); GFR (African American) 90 ML/MIN (>60); Glucose 121 mg/dl (74-100)
--- NOTE | 2022-07-31 15:02 | CARE MANAGER ---
Left message for discharge phone interview.
== END 2022-07-30 14:56 | disposition home or self-care (01) ==
LOC: UTC 10:28 → ER 13:32 → ICU 19:45
PROVIDERS: Nurse Practitioner Family; Admitting Provider Internal Medicine Adolescent Medicine; Emergency Provider Emergency Medicine; PCP Internal Medicine; Visit Provider Internal Medicine Adolescent Medicine
DX: E86.0 Dehydration (principal); N17.9 Acute kidney failure, unspecified; K52.9 Noninfective gastroenteritis and colitis, unspecified; Z79.899 Other long term (current) drug therapy; Z79.811 Long term (current) use of aromatase inhibitors; Z79.84 Long term (current) use of oral hypoglycemic drugs; I10 Essential (primary) hypertension; E78.5 Hyperlipidemia, unspecified
CPT/HCPCS: 74176; 80048; 80053; 82962; 83036; 83735; 85025; 87507; 87804; 87880; 99285; C9803; G0378; J1642; U0003; U0005

== ENCOUNTER 2022-08-03 07:28 | Emergency (ER) | payer BC, SELFPAY ==
[2022-08-03] VITALS (15 sets, daily range): BP systolic 118–142; BP diastolic 60–107; PULSE 60–96; RESP 16–20; TEMP 36.7–37.3; O2SAT 94–100; BMI 28.3
--- NOTE | 2022-08-03 08:06 | CT_ITS ---
FINAL REPORT TECHNIQUE: Oral and IV contrast enhanced exam CLINICAL HISTORY: post-op pain, abd pain. n/v COMPARISON: 07/29/2022 FINDINGS: Abdomen: Lung bases are clear. There is fatty infiltration of the liver. The gallbladder is unremarkable. The spleen and pancreas are unremarkable. There is a right adrenal nodule which is stable and probably an adenoma. The left adrenal gland is unremarkable. New right hydronephrosis and hydroureter secondary to a distal right ureteral stone measuring 7 mm. This is well seen on image 97. The left kidney is unremarkable. There is a low-density cystic appearing mass adjacent to the hepatic flexure measuring 2.7 x 1.6 cm. This previously measured 2.0 x 0.8 cm. A small abscess is not excluded. A right ileostomy is noted. There is no bowel obstruction. Pelvis: The appendix is normal. There is mild sigmoid diverticulosis. The patient is status post hysterectomy. IMPRESSION: Interval development of high-grade right upper urinary tract obstruction secondary to a 7 mm right ureteral stone. Enlargement of right pericolic fluid collection which could represent a small abscess. This is not amenable to imaging guided drainage at this time. No bowel obstruction. Reviewed, Interpreted and Dictated by Ricky Duvall MD Transcribed by Patricia Tuttle Authenticated and [facility]
[2022-08-03 08:24] LABS: Basophils # 0.1 K/mm3 (0-0.2); Basophils % 0.8 % (0.1-2.0); Eosinophils # 0.3 K/mm3 (0.0-0.4); Eosinophils % 3.8 % (0.1-12.0); Hematocrit 35.1 % (37.0-47.0); Hemoglobin 11.5 g/dL (12.2-16.2); Lymphocytes # 3.3 K/mm3 (0.7-4.5); Lymphocytes % 39.6 % (10-50); Mean Corpuscular HGB Conc 32.8 g/dL (31.8-35.4); Mean Corpuscular Hemoglobin 32.1 pg (27.0-31.2); Mean Corpuscular Volume 97.8 fl (81-99); Mean Platelet Volume 8.8 fl (7.4-10.4); Monocytes # 0.3 K/mm3 (0.1-1.0); Monocytes % 4.2 % (1.7-9.3); Neutrophils # 4.3 K/mm3 (1.8-7.8); Neutrophils % 51.6 % (37.0-80.0); Platelet Count 332 K/mm3 (142-424); Red Blood Count 3.59 M/mm3 (4.20-5.40); Red Cell Distribution Width 16.2 % (11.5-17.5); White Blood Count 8.2 K/mm3 (4.8-10.8)
[2022-08-03 08:27] LABS: Chloride 106 mmol/L (98-107); Potassium 3.5 mmoL/L (3.5-5.1); Sodium 140 mmol/L (136-145)
[2022-08-03 08:29] LABS: Alanine Aminotransferase 62 U/L (12-78); Aspartate Amino Transferase 69 U/L (14-36); Blood Urea Nitrogen 12 mg/dl (7-17); Creatinine Clearance Estimated 97 mL/min (50-200); Estimated Glomerular Filt Rate 74 ml/min (>60); GFR (African American) 90 ML/MIN (>60)
[2022-08-03 08:30] LABS: Albumin/Globulin Ratio 0.9 (1.1-1.8); Alkaline Phosphatase 95 U/L (38-126); Anion Gap 16.5 mEq/L (5-15); Bilirubin,Total 0.4 mg/dl (0.2-1.3); Calcium 9.2 mg/dl (8.4-10.2); Carbon Dioxide 21 mmol/L (22.0-30.0); Globulin 4.3 g/dL (1.3-3.2); Glucose 147 mg/dl (74-100); Lipase 178 U/L (23-300); Total Protein,Serum 8.3 g/dl (6.3-8.2)
--- NOTE | 2022-08-03 08:34 | HMH.EDGENADL ---
Discharge Plan Disposition Patient Disposition: Xfer Other Condition: Good Clinical Impressions Clinical Impression: Intractable pain, Nephrolithiasis, Hydronephrosis, Intra-abdominal abscess Discharge ED Provider: Romaine Novak Adult HPI General Chief complaint: Abdominal Pain Stated complaint: Rt side abd/back pain Time Seen by Provider: 08/03/22 08:06 Mode of Arrival: Wheelchair Source of Information: Patient and Spouse Limitations: No Limitations Description of Symptoms (Recalled from ER Triage Doc. by RN): pt comes in with c/o nausea, vomittin, right flank pain, radiating from back around right side into the groin. pt was recently admitted to floor here. 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 She was recently admitted with profuse watery output from ileostomy with associated SUBHASH, given adequate hydration was ultimately able to be discharged with normal renal function. She presents back today with severe right-sided flank pain onset this morning, states pain is severe, has difficulty finding a comfortable position and radiates around into the groin on the right. Pain is associated with nausea and vomiting. She also reports difficulty with urination though denies any overt hematuria. Denies any fever, diarrhea, hematochezia or melena. No known history of kidney stones previously, denies shortness of breath, cough or other symptoms at this time she is received no treatments prior to evaluation here Related Data Home Medications Medication Instructions Recorded Confirmed omeprazole 40 mg capsule,delayed 40 mg PO HS GERD 04/12/18 07/29/22 release buspirone 10 mg tablet 10 mg PO BID Anxiety 12/29/19 07/29/22 budesonide 3 mg 9 mg PO DAILY Bowels 07/14/20 07/29/22 capsule,delayed,extended release magnesium 250 mg tablet 250 mg PO DAILY Supplement 07/14/20 07/29/22 metformin 1,000 mg tablet 1,000 mg PO BID Diabetes 07/14/20 07/29/22 anastrozole 1 mg tablet 1 mg PO DAILY Cancer medication 04/07/21 07/29/22 cholecalciferol (vitamin D3) 10 400 unit PO DAILY Supplement 04/07/21 07/29/22 mcg (400 unit) capsule escitalopram oxalate 10 mg tablet 10 mg PO DAILY Depression 04/07/21 07/29/22 rosuvastatin 10 mg tablet 10 mg PO DAILY High cholesterol 12/09/21 07/29/22 cyclobenzaprine 5 mg tablet 5 mg PO TID PRN Muscle Relaxer 06/05/22 07/29/22 hydroxyzine HCl 25 mg tablet 25 mg PO Q8HP PRN Anxiety 06/05/22 07/29/22 valsartan 80 mg tablet 80 mg PO DAILY High blood pressure 06/05/22 07/29/22 Previous Rx's Medication Instructions Recorded calcium polycarbophil 625 mg tablet 1,250 mg PO BID PRN increased 07/30/22 ostomy output 30 days #120 tabs loperamide 2 mg capsule 2 mg PO Q4HP PRN Diarrhea 5 days 07/30/22 #30 caps ondansetron 4 mg disintegrating 4 mg sublingual Q8HP PRN Nausea 5 07/30/22 tablet days #20 tabs Allergies Allergy/AdvReac Type Severity Reaction Status Date / Time Penicillins Allergy Severe ANAPHYLACTIC Verified 06/05/22 11:32 REACTION cephalexin [From Keflex] Allergy Intermediate I-HIVES Verified 06/05/22 11:32 amoxicillin [AMOXICILLIN] Allergy Unknown ANAPHYLAXIS Verified 06/05/22 11:32 ampicillin [AMPICILLIN] Allergy Unknown ANAPHYLAXIS Verified 06/05/22 11:32 PFSH PFS Disclaimer: The information contained in this section may have been updated after the patient was seen, as this information can be updated by other users. Medical History Breast cancer Perforated bowel Skin cancer Surgical History H/O breast reconstruction Family History Other Family history of acute heart failure Family history of cancer Family history of myocardial infarction
--- NOTE | 2022-08-03 08:37 | PC.NURSE ---
pt to rad
--- NOTE | 2022-08-03 09:30 | PC.NURSE ---
medicated for pain, pt reports that medication is helping her. pt able to lay on stretcher
--- NOTE | 2022-08-03 10:11 | PC.NURSE ---
placed call to [facility] for possible transfer
--- NOTE | 2022-08-03 10:14 | PC.NURSE ---
Dr Novak speaking with [facility]
--- NOTE | 2022-08-03 11:09 | PC.NURSE ---
Checked on patient and friend at [facility]. They report no needs at this time. Pt talking to someone on her cell phone at this time, laying on ed stretcher. Call light within reach
--- NOTE | 2022-08-03 11:40 | PC.NURSE ---
[facility] called advising they would be paging Dr Rich, awaiting call back.
[2022-08-03 11:42] LABS: Coronavirus 19, PCR Not Detected (NotDetected); Influenza A, PCR Not Detected (NotDetected); Influenza B, PCR Not Detected (NotDetected)
[2022-08-03 11:44] LABS: Microscopic, Urine URINE MICROSCOPIC (MICROSCOPIC)
--- NOTE | 2022-08-03 11:44 | PC.NURSE ---
ambulated pt to bathroom, urine collected, sent to lab. assessed pt pain, pt states that she is okay right now.
[2022-08-03 11:53] LABS: Appearance,Urine CLEAR (Clear); Bilirubin,Urine Negative (Negative); Blood, Urine 1+ (Negative); Color,Urine YELLOW (Yellow); Glucose,Urine (UA) TRACE (Negative); Ketones,Urine Negative (Negative); Leukocyte Esterase,Urine Negative (Negative); Nitrate,Urine Negative (Negative); Protein,Urine Negative (Negative); Urobilinogen,Urine 0.2 EU/dl (0.2)
--- NOTE | 2022-08-03 11:53 | PC.NURSE ---
Addendum entered by Stacy Devine, EMT 08/03/22 11:54: at 1021 am Original Note: placed call to [facility], they are waiting to hear from [facility] about bed availability.
--- NOTE | 2022-08-03 12:08 | PC.NURSE ---
Dr Novak speaking with Dr Rich
--- NOTE | 2022-08-03 12:13 | PC.NURSE ---
[facility] called for transfer they have no beds available and 10-12 on wait list
--- NOTE | 2022-08-03 12:15 | PC.NURSE ---
Family at [facility], pt reports no needs at this time. Call light within reach
--- NOTE | 2022-08-03 12:17 | PC.NURSE ---
[facility] called for transfer both facilities have a waiting list.
--- NOTE | 2022-08-03 12:23 | PC.NURSE ---
called [facility] they advised no beds available today or tomorrow probably
[2022-08-03 12:28] LABS: Bacteria,Urine Trace /lpf
--- NOTE | 2022-08-03 12:28 | PC.NURSE ---
placed call to [facility] they do not have specialty services we require today or all week.
--- NOTE | 2022-08-03 12:35 | PC.NURSE ---
placed call to Dr Novak speaking with campaign coordinator
--- NOTE | 2022-08-03 12:41 | PC.NURSE ---
Called [facility] to have Dr. Hill call ER MD for consult
--- NOTE | 2022-08-03 12:44 | PC.NURSE ---
ROSALEE MISHRA speaking with Dr. Hill at this time
--- NOTE | 2022-08-03 12:50 | PC.NURSE ---
ROSALEE MISHRA speaking with Dr. Byrne, hospitalist
--- NOTE | 2022-08-03 13:02 | PC.NURSE ---
spoke to care management about needing a bed
--- NOTE | 2022-08-03 13:09 | PC.NURSE ---
hospitalist requests md speak with [facility] again. calling [facility] at this time
--- NOTE | 2022-08-03 14:09 | PC.NURSE ---
ER MD at to update patient on POC with acceptance to [facility]
--- NOTE | 2022-08-03 15:30 | PC.NURSE ---
placed call to [facility] for update, they are about to call with bed assignment
--- NOTE | 2022-08-03 15:45 | PC.NURSE ---
attempted to call [facility] for report, was told receiving nurse will return phone call
--- NOTE | 2022-08-03 16:06 | PC.NURSE ---
attempted to call [facility] med surg unit, was told nurse will call back. this is second time attempting to call
== END 2022-08-03 17:04 | disposition other institution (70) ==
LOC: ER 13:07 → 2ND 14:08 → ER 16:11
PROVIDERS: Emergency Provider Emergency Medicine; PCP Internal Medicine
DX: K65.1 Peritoneal abscess (principal); N20.0 Calculus of kidney; N13.30 Unspecified hydronephrosis; Z85.3 Personal history of malignant neoplasm of breast; Z85.828 Personal history of other malignant neoplasm of skin; Z87.19 Personal history of other diseases of the digestive system; Z82.49 Family history of ischemic heart disease and other diseases of the circulatory system; Z20.822 Contact with and (suspected) exposure to COVID-19
CPT/HCPCS: 74177; 80053; 81001; 83690; 85025; 96361; 96365; 96375; 99285; C9803; J1956; J2405; Q9967; U0003; U0005

== ENCOUNTER 2022-08-31 11:55 | Emergency (ER) | payer BC, SELFPAY ==
[2022-08-31 12:48] VITALS: BP 180/95; PULSE 97; RESP 20; TEMP 36.8; O2SAT 94; BMI 28.3
--- NOTE | 2022-08-31 12:50 | EXP.UTC ---
Discharge Plan Disposition Patient Disposition: Home, Self-Care Condition: Good Prescriptions Prescriptions: No Action buspirone 10 mg tablet 10 mg PO BID cyclobenzaprine 5 mg tablet 5 mg PO TID PRN (Reason: Muscle Relaxer) hydroxyzine HCl 25 mg tablet 25 mg PO Q8HP PRN (Reason: Anxiety) valsartan 80 mg tablet 80 mg PO DAILY rosuvastatin 10 mg tablet 10 mg PO DAILY omeprazole 40 capsule,delayed release(DR/EC) 40 mg PO HS metformin 1,000 MG tablet 1,000 mg PO BID magnesium 250 MG tablet 250 mg PO DAILY budesonide 3 MG capsule,delayed,extend.release 9 mg PO DAILY Label Comments: Patient reports medication is on hold. Rx Instructions: Take as directed anastrozole 1 MG tablet 1 mg PO DAILY Label Comments: Patient reports medication is on hold. cholecalciferol (vitamin D3) 400 UNIT capsule 400 unit PO DAILY escitalopram oxalate 10 MG tablet 10 mg PO DAILY loperamide 2 mg Capsule 2 mg PO Q4HP PRN (Reason: Diarrhea) 5 Days Qty: 30 0RF ondansetron 4 mg Tablet,Disintegrating 4 mg sublingual Q8HP PRN (Reason: Nausea) 5 Days Qty: 20 0RF calcium polycarbophil 625 mg tablet 1,250 mg PO BID PRN (Reason: increased ostomy output) 30 Days Qty: 120 0RF Referrals Follow up/Referrals: Ricardo Rodriguez MD [Primary Care Provider] - See instructions Activity Restrictions/Add. Instructions Additional Instructions/Restrictions: Follow up with your regular doctor. GO TO THE ER FOR ANY WORSENING SYMPTOMS Clinical Impressions Clinical Impression: Encounter for laboratory testing for COVID-19 virus Instructions Patient Instructions: Coronavirus Disease 2019, Preventing the Spread of Coronavirus Discharge Instructions Discharge ED Provider: Javed Ramirez [facility] General Stated complaint: Covid test for surgery, no order Time Seen by Provider: 08/31/22 12:50 History of Present Illness Provider Complaint: She is here to have a covid-19 test. She has a surgical procedure in 3 days. She denies any symptoms of covid-19 or any other illness. Related Data Home Medications Medication Instructions Recorded Confirmed omeprazole 40 mg capsule,delayed 40 mg PO HS GERD 04/12/18 07/29/22 release buspirone 10 mg tablet 10 mg PO BID Anxiety 12/29/19 07/29/22 budesonide 3 mg 9 mg PO DAILY Bowels 07/14/20 07/29/22 capsule,delayed,extended release magnesium 250 mg tablet 250 mg PO DAILY Supplement 07/14/20 07/29/22 metformin 1,000 mg tablet 1,000 mg PO BID Diabetes 07/14/20 07/29/22 anastrozole 1 mg tablet 1 mg PO DAILY Cancer medication 04/07/21 07/29/22 cholecalciferol (vitamin D3) 10 400 unit PO DAILY Supplement 04/07/21 07/29/22 mcg (400 unit) capsule escitalopram oxalate 10 mg tablet 10 mg PO DAILY Depression 04/07/21 07/29/22 rosuvastatin 10 mg tablet 10 mg PO DAILY High cholesterol 12/09/21 07/29/22 cyclobenzaprine 5 mg tablet 5 mg PO TID PRN Muscle Relaxer 06/05/22 07/29/22 hydroxyzine HCl 25 mg tablet 25 mg PO Q8HP PRN Anxiety 06/05/22 07/29/22 valsartan 80 mg tablet 80 mg PO DAILY High blood pressure 06/05/22 07/29/22 Previous Rx's Medication Instructions Recorded calcium polycarbophil 625 mg tablet 1,250 mg PO BID PRN increased 07/30/22 ostomy output 30 days #120 tabs loperamide 2 mg capsule 2 mg PO Q4HP PRN Diarrhea 5 days 07/30/22 #30 caps ondansetron 4 mg disintegrating 4 mg sublingual Q8HP PRN Nausea 5 07/30/22 tablet days #20 tabs Allergies Allergy/AdvReac Type Severity Reaction Status Date / Time Penicillins Allergy Severe ANAPHYLACTIC Verified 08/31/22 12:52 REACTION cephalexin [From Keflex] Allergy Intermediate I-HIVES Verified 08/31/22 12:52 amoxicillin [AMOXICILLIN] Allergy Unknown ANAPHYLAXIS Verified 08/31/22 12:52 ampicillin [AMPICILLIN] Allergy Unknown ANAPHYLAXIS Verified 08/31/22 12:52 [facility] Disclaimer: The information contained in this section may randall
[2022-08-31 12:55] VITALS: BP 180/95; PULSE 97; RESP 20; TEMP 36.7; O2SAT 94
== END 2022-08-31 12:55 | disposition home or self-care (01) ==
PROVIDERS: Emergency Provider Nurse Practitioner Family; PCP Internal Medicine
DX: Z20.822 Contact with and (suspected) exposure to COVID-19 (principal)
CPT/HCPCS: 99212; C9803; G0463; U0003; U0005

== ENCOUNTER 2022-10-13 11:24 | Outpatient (CLI) | payer BC, SELFPAY ==
[2022-10-13 11:33] VITALS: BMI 29.1
[2022-10-13 12:18] LABS: Basophils # 0.1 K/mm3 (0-0.2); Basophils % 1.4 % (0.1-2.0); Eosinophils # 0.4 K/mm3 (0.0-0.4); Eosinophils % 5.6 % (0.1-12.0); Hematocrit 40.9 % (37.0-47.0); Hemoglobin 13.1 g/dL (12.2-16.2); Lymphocytes # 2.4 K/mm3 (0.7-4.5); Lymphocytes % 38.5 % (10-50); Mean Corpuscular HGB Conc 32.1 g/dL (31.8-35.4); Mean Corpuscular Hemoglobin 30.1 pg (27.0-31.2); Mean Corpuscular Volume 93.8 fl (81-99); Mean Platelet Volume 8.3 fl (7.4-10.4); Monocytes # 0.3 K/mm3 (0.1-1.0); Monocytes % 3.9 % (1.7-9.3); Neutrophils # 3.2 K/mm3 (1.8-7.8); Neutrophils % 50.5 % (37.0-80.0); Platelet Count 285 K/mm3 (142-424); Red Blood Count 4.36 M/mm3 (4.20-5.40); Red Cell Distribution Width 14.3 % (11.5-17.5); White Blood Count 6.3 K/mm3 (4.8-10.8)
[2022-10-13 12:21] LABS: Alanine Aminotransferase 52 U/L (12-78); Albumin Level 4.1 g/dl (3.5-5.0); Albumin/Globulin Ratio 1.2 (1.1-1.8); Alkaline Phosphatase 101 U/L (38-126); Anion Gap 7.9 mEq/L (5-15); Aspartate Amino Transferase 61 U/L (14-36); Bilirubin,Total 0.6 mg/dl (0.2-1.3); Blood Urea Nitrogen 14 mg/dl (7-17); Calcium 9.1 mg/dl (8.4-10.2); Carbon Dioxide 26 mmol/L (22.0-30.0); Chloride 103 mmol/L (98-107); Chol/HDL Ratio 6.7 (1-3.5); Cholesterol 320 mg/dl (140-200); Creatinine Clearance Estimated 114 mL/min (50-200); Estimated Glomerular Filt Rate 87 ml/min (>60); GFR (African American) 105 ML/MIN (>60); Globulin 3.5 g/dL (1.3-3.2); Glucose 145 mg/dl (74-100); HDL Cholesterol 48 mg/dl (40-60); Potassium 3.9 mmoL/L (3.5-5.1); Sodium 133 mmol/L (136-145); Total Protein,Serum 7.6 g/dl (6.3-8.2); Triglycerides 311 mg/dl (30-150); VLDL Cholesterol 62 mg/dL (0-40)
[2022-10-13 12:33] LABS: Direct LDL Cholesterol 174.79 mg/dL (100-129)
[2022-10-13 13:06] LABS: Creatinine,Urine Random 120 mg/dL (Not Estab.)
[2022-10-13 13:33] LABS: Hemoglobin A1C 6.6 % (4.0-6.0)
[2022-10-13 13:44] LABS: Microalbumin/Creatinine Ratio 459.3
== END 2022-10-13 12:09 | disposition home or self-care (01) ==
LOC: INF 11:25
PROVIDERS: PCP Internal Medicine; Visit Provider Internal Medicine Medical Oncology
DX: Z45.2 Encounter for adjustment and management of vascular access device (principal); E11.9 Type 2 diabetes mellitus without complications; E78.5 Hyperlipidemia, unspecified; I10 Essential (primary) hypertension; K75.4 Autoimmune hepatitis; Z85.3 Personal history of malignant neoplasm of breast; Z09 Encounter for follow-up examination after completed treatment for conditions other than malignant neoplasm
CPT/HCPCS: 36415; 80053; 80061; 82043; 82570; 83036; 85025; 96523; J1642

== ENCOUNTER 2022-11-30 10:13 | Outpatient (CLI) | payer BC, SELFPAY ==
[2022-11-30 10:18] VITALS: BMI 32.9
[2022-11-30 10:58] LABS: Basophils % 0.6 % (0.1-2.0); Eosinophils # 0.2 K/mm3 (0.0-0.4); Eosinophils % 3.5 % (0.1-12.0); Hematocrit 39.2 % (37.0-47.0); Hemoglobin 12.7 g/dL (12.2-16.2); Lymphocytes % 46.1 % (10-50); Mean Corpuscular HGB Conc 32.5 g/dL (31.8-35.4); Mean Corpuscular Hemoglobin 30.4 pg (27.0-31.2); Mean Corpuscular Volume 93.7 fl (81-99); Mean Platelet Volume 7.5 fl (7.4-10.4); Monocytes # 0.3 K/mm3 (0.1-1.0); Monocytes % 3.8 % (1.7-9.3); Platelet Count 225 K/mm3 (142-424); Red Blood Count 4.18 M/mm3 (4.20-5.40); White Blood Count 6.4 K/mm3 (4.8-10.8)
[2022-11-30 11:02] LABS: Chloride 98 mmol/L (98-107); Potassium 3.9 mmoL/L (3.5-5.1); Sodium 138 mmol/L (136-145)
[2022-11-30 11:05] LABS: Alanine Aminotransferase 45 U/L (12-78); Albumin Level 3.9 g/dl (3.5-5.0); Albumin/Globulin Ratio 1.1 (1.1-1.8); Alkaline Phosphatase 97 U/L (38-126); Anion Gap 16.9 mEq/L (5-15); Aspartate Amino Transferase 52 U/L (14-36); Bilirubin,Total 0.4 mg/dl (0.2-1.3); Blood Urea Nitrogen 17 mg/dl (7-17); Calcium 9.2 mg/dl (8.4-10.2); Carbon Dioxide 27 mmol/L (22.0-30.0); Creatinine Clearance Estimated 129 mL/min (50-200); Estimated Glomerular Filt Rate 87 ml/min (>60); GFR (African American) 105 ML/MIN (>60); Globulin 3.5 g/dL (1.3-3.2); Glucose 143 mg/dl (74-100); Total Protein,Serum 7.4 g/dl (6.3-8.2)
== END 2022-11-30 10:55 | disposition home or self-care (01) ==
LOC: INF 10:15
PROVIDERS: PCP Internal Medicine; Visit Provider Internal Medicine Medical Oncology
DX: Z45.2 Encounter for adjustment and management of vascular access device (principal); C50.912 Malignant neoplasm of unspecified site of left female breast; Z17.0 Estrogen receptor positive status [ER+]
CPT/HCPCS: 36591; 80053; 85025; J1642

== ENCOUNTER 2022-12-05 09:53 | Outpatient (CLI) | payer BC, SELFPAY ==
[2022-12-05 09:57] VITALS: BMI 29.9
== END 2022-12-05 10:15 | disposition home or self-care (01) ==
LOC: INF 09:54
PROVIDERS: PCP Internal Medicine; Visit Provider Nurse Practitioner Family
DX: K75.4 Autoimmune hepatitis (principal)

== ENCOUNTER → 2022-12-27 13:48 | Outpatient (CLI) | payer BC, SELFPAY ==
--- NOTE | 2022-12-27 13:52 | MM_ITS ---
PROCEDURE INFORMATION: Exam: MG Right Diagnostic Breast Tomosynthesis Exam date and time: 12/27/2022 1:53 PM Age: 57 years old Clinical indication: Right breast pain; Personal history of left breast cancer; Mastectomy; reconstruction of RT breast TECHNIQUE: Imaging protocol: Right Diagnostic tomosynthesis and 2D mammography including computer-aided detection (CAD) when performed. Unilateral or bilateral exam. COMPARISON: 1. MG MM DIG SC MAMM UNILAT RT CAD 03/01/2021 10:20 AM 2. MG MM DIG MAMM BI DX W/CAD 12/19/2019 9:08 AM FINDINGS: MAMMOGRAPHY: The breast tissue is composed of scattered areas of fibroglandular density. There is no stellate mass, architectural distortion or suspicious microcalcifications to suggest malignancy. An additional spot compression view of the right central breast does not demonstrate any suspicious findings . No skin thickening or axillary adenopathy. The patient is status post left mastectomy IMPRESSION: Patient to return for right breast ultrasound for full evaluation of the patient's complaint of right breast pain ASSESSMENT: BI-RADS Category 0: Incomplete- Need Additional Imaging Evaluation and/or Prior Mammograms for Comparison
== END ==
PROVIDERS: PCP Internal Medicine; Visit Provider Internal Medicine Medical Oncology
DX: N64.4 Mastodynia (principal); Z85.3 Personal history of malignant neoplasm of breast
CPT/HCPCS: 77061; 77065; G0279

== ENCOUNTER 2022-12-29 12:35 | Outpatient (CLI) | payer BC, SELFPAY | END 2022-12-29 12:50 | disposition home or self-care (01) | LOC: INF 12:35 | PROVIDERS: PCP Internal Medicine; Visit Provider Internal Medicine Medical Oncology | DX: Z45.2 Encounter for adjustment and management of vascular access device (principal); C50.912 Malignant neoplasm of unspecified site of left female breast; Z17.0 Estrogen receptor positive status [ER+] | CPT/HCPCS: 96523; J1642 ==

== ENCOUNTER 2023-01-26 12:54 | Outpatient (CLI) | payer BC, SELFPAY | END 2023-01-26 13:08 | disposition home or self-care (01) | LOC: INF 12:54 | PROVIDERS: PCP Internal Medicine; Visit Provider Internal Medicine Medical Oncology | DX: C50.912 Malignant neoplasm of unspecified site of left female breast (principal); Z45.2 Encounter for adjustment and management of vascular access device | CPT/HCPCS: 96523; J1642 ==

== ENCOUNTER → 2023-02-07 14:08 | Outpatient (CLI) | payer BC, SELFPAY ==
--- NOTE | 2023-02-07 14:13 | US_ITS ---
PROCEDURE INFORMATION: Exam: US Right Breast, Complete Exam date and time: 02/07/2023 2:39 PM Age: 57 years old Clinical indication: Breast pain; Right; Patient has HX of breast cancer in left breast. S/P left mastectomy. TECHNIQUE: Imaging protocol: Complete ultrasound of all four quadrants of the right breast and the retroareolar regions, including ultrasound of the axilla when performed. COMPARISON: US FNA BREAST 09/20/2020 10:11 AM FINDINGS: Breast: Sonographic images of the right breast including the retroareolar region, all 4 quadrants and the axilla do not demonstrate any solid or cystic masses. No architectural distortion or acoustical shadowing. No skin thickening or axillary adenopathy. IMPRESSION: No sonographic evidence of malignancy. Annual mammographic screening is recommended unless otherwise clinically indicated. ASSESSMENT: BI-RADS Category 1: Negative
== END ==
LOC: RAD 14:08
PROVIDERS: PCP Internal Medicine; Visit Provider Internal Medicine Medical Oncology
DX: R92.8 Other abnormal and inconclusive findings on diagnostic imaging of breast (principal); N64.4 Mastodynia; Z85.3 Personal history of malignant neoplasm of breast
CPT/HCPCS: 76641

== ENCOUNTER 2023-04-13 13:22 | Outpatient (CLI) | payer BC, SELFPAY | END 2023-04-13 13:55 | disposition home or self-care (01) | LOC: INF 13:23 | PROVIDERS: PCP Internal Medicine; Visit Provider Internal Medicine Medical Oncology | DX: Z45.2 Encounter for adjustment and management of vascular access device (principal); C50.912 Malignant neoplasm of unspecified site of left female breast | CPT/HCPCS: 96523; J1642 ==

== ENCOUNTER 2023-04-27 12:52 | Outpatient (CLI) | payer BC, SELFPAY ==
[2023-04-27 12:54] VITALS: BMI 31.8
[2023-04-27 13:15] LABS: Basophils # 0.1 K/mm3 (0-0.2); Basophils % 0.8 % (0.1-2.0); Eosinophils # 0.2 K/mm3 (0.0-0.4); Eosinophils % 2.8 % (0.1-12.0); Hematocrit 45.3 % (37.0-47.0); Hemoglobin 14.9 g/dL (12.2-16.2); Lymphocytes # 2.9 K/mm3 (0.7-4.5); Lymphocytes % 43.1 % (10-50); Mean Corpuscular Hemoglobin 31.6 pg (27.0-31.2); Mean Corpuscular Volume 95.8 fl (81-99); Mean Platelet Volume 8.4 fl (7.4-10.4); Monocytes # 0.3 K/mm3 (0.1-1.0); Monocytes % 3.9 % (1.7-9.3); Neutrophils # 3.3 K/mm3 (1.8-7.8); Neutrophils % 49.5 % (37.0-80.0); Platelet Count 228 K/mm3 (142-424); Red Blood Count 4.73 M/mm3 (4.20-5.40); Red Cell Distribution Width 13.3 % (11.5-17.5); White Blood Count 6.6 K/mm3 (4.8-10.8)
[2023-04-27 13:22] LABS: Alanine Aminotransferase 52 U/L (12-78); Albumin Level 4.3 g/dl (3.5-5.0); Albumin/Globulin Ratio 1.1 (1.1-1.8); Alkaline Phosphatase 112 U/L (38-126); Anion Gap 13.1 mEq/L (5-15); Aspartate Amino Transferase 51 U/L (14-36); Bilirubin,Total 0.4 mg/dl (0.2-1.3); Blood Urea Nitrogen 14 mg/dl (7-17); Calcium 9.4 mg/dl (8.4-10.2); Carbon Dioxide 28 mmol/L (22.0-30.0); Chloride 101 mmol/L (98-107); Creatinine Clearance Estimated 143 mL/min (50-200); Estimated Glomerular Filt Rate 103 ml/min (>60); GFR (African American) 125 ML/MIN (>60); Globulin 3.9 g/dL (1.3-3.2); Glucose 264 mg/dl (74-100); Potassium 4.1 mmoL/L (3.5-5.1); Sodium 138 mmol/L (136-145); Total Protein,Serum 8.2 g/dl (6.3-8.2)
== END 2023-04-27 13:15 | disposition home or self-care (01) ==
LOC: INF 12:53
PROVIDERS: PCP Internal Medicine; Visit Provider Internal Medicine Medical Oncology
DX: C50.912 Malignant neoplasm of unspecified site of left female breast (principal); Z45.2 Encounter for adjustment and management of vascular access device
CPT/HCPCS: 36591; 80053; 85025; J1642

== ENCOUNTER → 2023-05-08 09:33 | Outpatient (CLI) | payer BC, SELFPAY ==
--- NOTE | 2023-05-08 09:52 | XR_ITS ---
FINAL REPORT CLINICAL HISTORY: BREAST CANCER,POST MENOPAUSAL FINDINGS: Using L1-4, the bone mineral density of the spine is 0.930 g/cm2, corresponding to T-score of -1.1. Using the left hip, the bone mineral density of the femoral neck is 0.679 g/cm2, corresponding to a T-score of -1.5. Using the right hip: The bone mineral density of the femoral neck is 0.666 g/cm2, corresponding to a T-score of -1.6. IMPRESSION: Low bone mineral density of the lumbar spine and hips. NOTE: T-score: Standard deviation compared with peak bone mass of young adult mean. *Following the recommendations of the International Society of Bone densitometry, classification of hip BMD is based on the lower of two T-scores; total hip or femoral neck. Reviewed, Interpreted and Dictated by Noah Zhao III, MD Transcribed by Patricia Tuttle Authenticated and . [facility]
== END ==
LOC: LAB 09:33
PROVIDERS: PCP Internal Medicine; Visit Provider Internal Medicine Medical Oncology
DX: C50.912 Malignant neoplasm of unspecified site of left female breast (principal); Z17.0 Estrogen receptor positive status [ER+]
CPT/HCPCS: 77080

== ENCOUNTER 2023-06-01 14:00 | Outpatient (RCR) | payer BC, SELFPAY ==
--- NOTE | 2023-05-10 14:32 | HMH.PTOPEV ---
PT Outpatient Evaluation Rehab PT Outpatient Evaluation Start: 05/10/23 14:10 Freq: Status: Active Protocol: Document 05/10/23 14:10 DORI (Rec: 05/10/23 14:32 DORI [id number]) E-signed By Rik Zuñiga, PT Outpatient Therapy Subjective History Subjective History Patient is a 58 year old female presenting to outpatient PT with reports of R shoulder pain/stiffness. Patient has previously been diagnosed with L breast cancer . She has previously underwent L mastectomy with breast reconstruction involving latissimus dorsi musculature. Patient also complains of pain/discomfort secondary to LUE swelling. No specific L shoulder AMANUEL to report. Comorbidities include bowel perforation sx and autoimmune hepatitis. New diagnosis of cancer in past 12 No months? Chief Complaint Pain,Stiff,Weakness Symptom Type Throb,Numbness Symptoms Relieved By Rest/Positioning Symptoms Aggravated By Physical Activity,Lifting Prior Functional Limitations None Current Functional Limitations Reaching,Lifting,Housework, Sleeping Symptom Description Constant but Variable Level of pain today (0-10) 5 Pain scale - at its best (0-10) 3 Pain scale - at its worst (0-10) 8 Shoulder/Elbow Eval Shoulder Objective Measurements Palpation Tenderness tenderness shoulder exam standard left tenderness over the bicipital tendon left shoulder exam standard tenderness over the SA bursa shoulder left exam standard Posture Shoulder Posture Sitting Position (L) Forward,(R) Forward Shoulder Posture Standing Position (L) Forward,(R) Forward Scapula Posture Sitting Position (L) Protracted,(R) Protracted Scapular Posture Standing Position (L) Protracted,(R) Protracted Shoulder ROM Left Shoulder ROM Limitations Soft Tissue Tightness, Contracture Shoulder Abduction Active Range of 78 Motion (degrees) Shoulder Flexion Active Range of Motion 85 (degrees) Query Text: Shoulder External Rotation Active Range 63 of Motion (degrees) Shoulder Internal Rotation Active Range 52 of Motion (degrees) Shoulder Extension Active Range of 12 Motion (degrees) Shoulder MMT Shoulder Abduction Strength Grade 3+ Fair+ Shoulder Extension Strength Grade 4- Good- Shoulder Flexion Strength Grade 3+ Fair+ Shoulder Horizontal Adduction Strength 3+ Fair+ Grade Shoulder External Rotation Strength 4- Good- Grade Shoulder Internal Rotation Strength 4- Good- Grade Shoulder Special Tests impingement sign present shoulder exam left standard Shoulder Drop Arm Test Negative Left Shoulder Empty Can (Supraspinatus) Test Negative Left Shoulder Fuentes-Kvng Impingement Positive Left Test Shoulder Eran Relocation Test Negative Left Shoulder Neer Impingement Test Positive Left Shoulder Speed's Sign Test Negative Left Elbow Objective Measurements QuickDASH Activities Please rate your ability to do the following activities in the last week by selecting the number below the appropriate response. 1. Open a tight or new jar. Moderate difficulty 2. Do heavy pet training instructor (e.g., wash Severe difficulty liang, floors). 3. Carry a shopping bag or briefcase. Severe difficulty 4. Wash your back. Unable 5. Use a knife to cut food. Mild difficulty 6. Recreational activities in which you Severe difficulty take some force or impact through your arm, shoulder, or hand (e.g., golf, hammering, tennis, etc.). 7. During the past week, to what extent Moderately has your arm, shoulder or hand problem interfered with your normal social activities with family, friends, neighbors or groups? 8. During the past week, were you Moderately limited limited in your work or other regular daily activites as a result of your arm, shoulder or hand problem? 9. Arm, shoulder or hand pain. Moderate 10. Tingling (pins and needles) in your Moderate arm, shoulder or hand. 11. During the past week, how much So much difficulty that I can' difficulty have you had sleeping because t sleep of the pain in your arm, shoulder or hand? Quick DASH 39 Outpatient Therapy Assessment Impairments Problems/Impairmments Palpation Tenderness,Impaired Range of Motion,Impaired Strength,Impaired Driving, Impaired Lifting,Impaired Dressing,Impaired Household Care,Subjective C/O Pain Prognosis Rehab Potential Good Clinical Impression Consistent with Diagnosis Yes Short Term Goals Number of Weeks 2 Decrease Subjective C/O Pain Yes: 5/10 at worst Patient to be Ind w/ HEP Yes Skilled Nursing Goals Number of Weeks 2 Decreased Palpation Tenderness Yes: 1/4 Increase Range of Motion Yes: 75% WNL Increase Strength Yes: 4+/5 R shoulder grossly Restore Ability to Lift Objects to Yes: 10 lb without difficulty Shoulder Level Restore Ability to Lift Objects Overhead Yes: Improve Ability For Household Care Yes Decrease Subjective C/O Pain Yes: 2/10 at worst Outpatient Therapy Plan of Care Treatment Plan May Include Therapeutic Exercise Including Home Yes Exercise Program Manual Therapy Techniques Yes Neuromuscular Re-education Yes Therapeutic Activities to Return to Yes Previous Functional/Work Level ADL/Self Care Education Yes Mechanical Traction Yes Dry Needling Yes Thermal Modalities Yes Electrical Stimulation Yes Iontophoresis Yes Massage Yes Eval/Re-Eval Yes Frequency Times per week 2 Duration Number of Weeks 4-6 Addendums This patient is a candidate for social No or vocational rehab? Patient/Guardian verbally acknowledges Yes understanding of treatment program and consents to further treatment? Patient/Guardian verbally acknowledges Yes understanding of diagnosis, prognosis and goals for treatment? Eval Complexity PT Charges 16418 - Moderate Complexity PHYSICIAN CERTIFICATION: I certify the specified therapy services for Jewell Salmeron are required, authorized, and reviewed every 30 days.
== END 2023-06-01 15:20 | disposition home or self-care (01) ==
LOC: PT 14:00
PROVIDERS: PCP Internal Medicine; Visit Provider Internal Medicine Medical Oncology
DX: C50.912 Malignant neoplasm of unspecified site of left female breast (principal); M25.512 Pain in left shoulder
CPT/HCPCS: 97010; 97014; 97016; 97110; 97140; 97163; 97530; G0283

== ENCOUNTER 2023-08-03 14:15 | Outpatient (CLI) | payer BC, SELFPAY ==
[2023-08-03] MEDS: SODIUM CHLORIDE 0.9% 10ML FLUSH SYRINGE 10 ML IV (14:30)
== END 2023-08-03 14:45 | disposition home or self-care (01) ==
LOC: INF 14:17
PROVIDERS: PCP Internal Medicine; Visit Provider Internal Medicine Medical Oncology
DX: Z45.2 Encounter for adjustment and management of vascular access device (principal); C50.912 Malignant neoplasm of unspecified site of left female breast; Z17.1 Estrogen receptor negative status [ER-]
CPT/HCPCS: 96523; J1642

== ENCOUNTER 2023-08-10 13:00 | Outpatient (RCR) | payer BC, SELFPAY ==
--- NOTE | 2023-07-13 17:56 | HMH.PTOPEV ---
PT Outpatient Evaluation Rehab PT Outpatient Evaluation Start: 07/13/23 17:30 Freq: Status: Active Protocol: Document 07/13/23 17:36 DORI (Rec: 07/13/23 17:55 DORI [id number]) E-signed By Rik Zuñiga, PT Outpatient Therapy Subjective History Subjective History Patient is a 58 year old female presenting to outpatient PT with reports of R shoulder pain/stiffness and generalized BUE/BLE weakness. Patient has previously been diagnosed with L breast cancer . She has previously underwent L mastectomy with breast reconstruction involving latissimus dorsi musculature. Patient also complains of pain/discomfort secondary to LUE swelling. No specific L shoulder AMANUEL to report. BUE and BLE weakness has progressively gotten worse . Comorbidities include bowel perforation sx and autoimmune hepatitis. New diagnosis of cancer in past 12 No months? Chief Complaint Pain,Stiff,Weakness Symptom Type Ache,Throb Symptoms Relieved By Rest/Positioning Symptoms Aggravated By Standing,Physical Activity, Walking,Lifting Prior Functional Limitations Reaching,Lifting,Housework Current Functional Limitations Reaching,Lifting,Housework, Standing,Recreation Activity, Walking,Stairs,Balance Symptom Description Intermittent Level of pain today (0-10) 4 Pain scale - at its best (0-10) 0 Pain scale - at its worst (0-10) 7 Shoulder/Elbow Eval Shoulder Objective Measurements Palpation Tenderness tenderness shoulder exam standard left tenderness over the bicipital tendon left shoulder exam standard tenderness over the SA bursa shoulder left exam standard Shoulder Palpation Findings Tenderness Shoulder Palpation Overall Comment L prox bicep, pec minor, posterior cuff 3/4 Posture Shoulder Posture Sitting Position (L) Forward,(R) Forward Scapula Posture Sitting Position (L) Protracted,(R) Protracted Scapular Posture Standing Position (L) Protracted,(R) Protracted Shoulder ROM Left Shoulder Abduction Passive Range of 84 Motion (degrees) Shoulder Flexion Passive Range of Motion 86 (degrees) Shoulder External Rotation Passive Range 48 of Motion (degrees) Shoulder Internal Rotation Passive Range WNL of Motion (degrees) Shoulder MMT Shoulder Abduction Strength Grade 4- Good- Shoulder Extension Strength Grade 4- Good- Shoulder Flexion Strength Grade 4- Good- Shoulder External Rotation Strength 3+ Fair+ Grade Middle Deltoid Strength Strength Grade 4- Good- Elbow Objective Measurements Hip/Knee Eval MMT bilateral Hip Flexion Strength Grade 4- Good- Hip Abduction Strength Grade 4- Good- Hip Adduction Strength Grade 4- Good- Hip Extension Strength Grade 4- Good- Hip External Rotation Strength Grade 4- Good- Hip Internal Rotation Strength Grade 4- Good- Knee Extension Strength Grade 4- Good- Knee Flexion Strength Grade 4- Good- ROM Hip ROM Reason Not Measured Within Functional Limits Knee ROM Reason Not Measured Within Functional Limits QuickDASH Activities Please rate your ability to do the following activities in the last week by selecting the number below the appropriate response. 1. Open a tight or new jar. Mild difficulty 2. Do heavy creel operator (e.g., wash Severe difficulty liang, floors). 3. Carry a shopping bag or briefcase. Moderate difficulty 4. Wash your back. Severe difficulty 5. Use a knife to cut food. Mild difficulty 6. Recreational activities in which you Severe difficulty take some force or impact through your arm, shoulder, or hand (e.g., golf, hammering, tennis, etc.). 7. During the past week, to what extent Moderately has your arm, shoulder or hand problem interfered with your normal social activities with family, friends, neighbors or groups? 8. During the past week, were you Very limited limited in your work or other regular daily activites as a result of your arm, shoulder or hand problem? 9. Arm, shoulder or hand pain. Moderate 10. Tingling (pins and needles) in your Moderate arm, shoulder or hand. 11. During the past week, how much Moderate difficulty difficulty have you had sleeping because of the pain in your arm, shoulder or hand? Quick DASH 35 Outpatient Therapy Assessment Impairments Problems/Impairmments Palpation Tenderness,Impaired Range of Motion,Impaired Strength,Impaired Endurance, Impaired Walking,Impaired Standing,Impaired Lifting, Impaired Shower/Bathing, Impaired Household Care, Impaired Stair Climbing, Impaired Incline Stepping, Impaired Stepping on Uneven Surface,Impaired Squatting, Impaired Bending,Impaired Recreational Activities, Impaired Work Activities, Increased Edema,Subjective C/O Pain Prognosis Rehab Potential Good Clinical Impression Consistent with Diagnosis Yes Consistent with BUE/BLE deconditioning L shoulder p Short Term Goals Number of Weeks 2 Decrease Subjective C/O Pain Yes: 5/10 at worst Patient to be Ind w/ HEP Yes Correction Goals Number of Weeks 4-6 Decreased Palpation Tenderness Yes: 1/4 Increase Range of Motion Yes: L shoulder WNL Increase Strength Yes: BUE/BLE 5/5 Increase Ability to Walk Yes: 30 min without difficulty Increase Ability to Stand Yes: Improve Ability For Household Care Yes Return to Recreational Activities Yes: swimming Decrease Subjective C/O Pain Yes: 2/10 at worst Outpatient Therapy Plan of Care Treatment Plan May Include Therapeutic Exercise Including Home Yes Exercise Program Manual Therapy Techniques Yes Neuromuscular Re-education Yes Therapeutic Activities to Return to Yes Previous Functional/Work Level Gait Training Yes ADL/Self Care Education Yes Mechanical Traction Yes Dry Needling Yes Thermal Modalities Yes Electrical Stimulation Yes Ultrasound/Phonophoresis Yes Iontophoresis Yes Orthotics/Bracing/Splinting Yes Vasopneumatic Compression Pump Yes Massage Yes Manual Lymphatic Drainage Yes Eval/Re-Eval Yes Frequency Times per week 2 Duration Number of Weeks 4-6 Addendums This patient is a candidate for social No or vocational rehab? Patient/Guardian verbally acknowledges Yes understanding of treatment program and consents to further treatment? Patient/Guardian verbally acknowledges Yes understanding of diagnosis, prognosis and goals for treatment? Eval Complexity PT Charges 41483 - Moderate Complexity PHYSICIAN CERTIFICATION: I certify the specified therapy services for Jewell Salmeron are required, authorized, and reviewed every 30 days.
== END 2023-08-10 14:00 | disposition home or self-care (01) ==
LOC: PT 13:00
PROVIDERS: PCP Internal Medicine; Visit Provider Internal Medicine Medical Oncology
DX: C50.912 Malignant neoplasm of unspecified site of left female breast (principal); R53.83 Other fatigue
CPT/HCPCS: 97010; 97110; 97163

== ENCOUNTER 2023-11-02 12:28 | Outpatient (CLI) | payer BC, SELFPAY ==
[2023-11-02] MEDS: SODIUM CHLORIDE 0.9% 10ML FLUSH SYRINGE 10 ML IV (12:40)
== END 2023-11-02 12:50 | disposition home or self-care (01) ==
LOC: INF 12:28
PROVIDERS: PCP Internal Medicine; Visit Provider Internal Medicine Medical Oncology
DX: C50.912 Malignant neoplasm of unspecified site of left female breast (principal); Z45.2 Encounter for adjustment and management of vascular access device
CPT/HCPCS: 96523; J1642

== ENCOUNTER 2023-12-05 15:46 | Outpatient (CLI) | payer BC, SELFPAY ==
[2023-12-05 15:51] VITALS: BMI 31.8
[2023-12-05] MEDS: SODIUM CHLORIDE 0.9% 10ML FLUSH SYRINGE 10 ML IV (16:05)
[2023-12-05 16:33] LABS: Alanine Aminotransferase 100 U/L (12-78); Alkaline Phosphatase 95 U/L (38-126); Aspartate Amino Transferase 66 U/L (14-36); Bilirubin,Direct 0.3 mg/dl (0.0-0.4); Bilirubin,Indirect 0.2 mg/dL (0.0-0.9); Bilirubin,Total 0.5 mg/dl (0.2-1.3); Bilirubin,Unconjugated 0.2 mg/dL (0.0-1.1)
[2023-12-05 16:34] LABS: Albumin Level 4.1 g/dl (3.5-5.0); Total Protein,Serum 7.4 g/dl (6.3-8.2)
== END 2023-12-05 16:06 | disposition home or self-care (01) ==
LOC: INF 15:49
PROVIDERS: PCP Internal Medicine; Visit Provider Nurse Practitioner Family
DX: R94.5 Abnormal results of liver function studies (principal); K75.4 Autoimmune hepatitis; K76.0 Fatty (change of) liver, not elsewhere classified; K58.9 Irritable bowel syndrome, unspecified; R14.0 Abdominal distension (gaseous)
CPT/HCPCS: 36591; 80076; J1642

== ENCOUNTER 2023-12-27 13:57 | Outpatient (CLI) | payer BC, SELFPAY ==
[2023-12-27 14:01] VITALS: BMI 29.9
[2023-12-27] MEDS: SODIUM CHLORIDE 0.9% 10ML FLUSH SYRINGE 10 ML IV (14:27)
== END 2023-12-27 14:27 | disposition home or self-care (01) ==
LOC: INF 13:58
PROVIDERS: PCP Internal Medicine; Visit Provider Surgery
DX: Z45.2 Encounter for adjustment and management of vascular access device (principal); Z79.899 Other long term (current) drug therapy
CPT/HCPCS: 36591; J1642

== ENCOUNTER 2023-12-31 10:36 | Outpatient (CLI) | payer BC, SELFPAY ==
--- NOTE | 2023-12-31 10:40 | MM_ITS ---
PROCEDURE INFORMATION: Exam: MG Right Screening 3D Mammography Exam date and time: 12/31/2023 10:36 AM Age: 58 years old Clinical indication: Screening examination; Personal history of left breast cancer; Mastectomy and radiation therapy TECHNIQUE: Imaging protocol: Right Screening tomosynthesis and 2D mammography including computer-aided detection (CAD) when performed. COMPARISON: 1. MG MM DIG MAMM DX UNILAT RT CAD 12/27/2022 1:53 PM 2. MG MM DIG SC MAMM UNILAT RT CAD 03/01/2021 10:20 AM FINDINGS: MAMMOGRAPHY: Breast composition: There are scattered areas of fibroglandular density. Mass: None. Architectural distortion: None. Calcifications: No suspicious calcifications. Asymmetric density: None. Skin thickening: None. Axillary adenopathy: None. Other findings: The patient is status post left mastectomy IMPRESSION: No mammographic evidence of malignancy. Annual screening is recommended unless otherwise clinically indicated. ASSESSMENT: BI-RADS Category 1: Negative
== END 2023-12-31 23:59 | disposition home or self-care (01) ==
LOC: RAD 10:37
PROVIDERS: PCP Internal Medicine; Visit Provider Internal Medicine Medical Oncology
DX: Z12.31 Encounter for screening mammogram for malignant neoplasm of breast (principal); C50.911 Malignant neoplasm of unspecified site of right female breast; Z98.890 Other specified postprocedural states; Z17.0 Estrogen receptor positive status [ER+]
CPT/HCPCS: 77063; 77067

== ENCOUNTER 2024-01-07 07:16 | Day surgery (SDC) | payer BC, SELFPAY ==
[2024-01-02 13:05] VITALS: BMI 30.9
[2024-01-07] VITALS (9 sets, daily range): BP systolic 112–146; BP diastolic 49–75; PULSE 84–101; RESP 14–18; TEMP 36.2–36.4; O2SAT 93–97
[2024-01-07 08:05] LABS: POC Glucose,Bedside 145 (70-110)
--- NOTE | 2024-01-07 08:13 | EXP.ANES.CKL ---
[facility] Disclaimer: The information contained in this section may have been updated after the patient was seen, as this information can be updated by other users. Medical History Perforated bowel Breast cancer Skin cancer Surgical History H/O breast reconstruction Family History Other Family history of acute heart failure Family history of cancer Family history of myocardial infarction Social History Smoking Status: Never smoker second hand exposure: No alcohol intake: never substance use type: denies use current occupational status: employed Travel in the last 8 weeks: None household members: spouse housing: house current occupational exposures/hazards: No caffeine: Yes [facility] Anesthesia Checklist Patient Identification Patient Identification: Arm Band Structural Data Admitted From: Home Planned Operative Procedure/s: Port-a-cath removal Consent for Planned Operative Procedure(s) Verified: Yes Verified Documents: Surgical Consent and History and Physical NPO Status Verified Time NPO: 00:00 Additional verifications Anesthesia Reactions: No Hx Blood Transfusions: No Blood Transfusion Reaction: No Airway Assessment Mallampati Score:: Class II C-Spine Mobility Assessed: Yes TMJ Mobility Assessed: Yes Dentition: Edentulous Neurological Assessment Level of Consciousness: Awake, Alert and Appropriate Anesthesia Plan Anesthesia Risk discussed: Yes Anesthesia Plan: Verified ASA Class: III Anesthesia Type: General
[2024-01-07] MEDS: LACTATED RINGERS 1000ML 1,000 ML 25 ML IV (08:14)
[2024-01-07 08:29] LABS: Chloride 103 mmol/L (98-107); Sodium 140 mmol/L (136-145)
[2024-01-07 08:30] LABS: Basophils # 0.1 K/mm3 (0-0.2); Basophils % 1.2 % (0.1-2.0); Eosinophils # 0.2 K/mm3 (0.0-0.4); Eosinophils % 2.4 % (0.1-12.0); Hematocrit 42.6 % (37.0-47.0); Hemoglobin 14.1 g/dL (12.2-16.2); Lymphocytes # 2.7 K/mm3 (0.7-4.5); Lymphocytes % 40.7 % (10-50); Mean Corpuscular HGB Conc 33.1 g/dL (31.8-35.4); Mean Corpuscular Hemoglobin 32.2 pg (27.0-31.2); Mean Corpuscular Volume 97.3 fl (81-99); Mean Platelet Volume 8.7 fl (7.4-10.4); Monocytes # 0.3 K/mm3 (0.1-1.0); Monocytes % 4.4 % (1.7-9.3); Neutrophils # 3.4 K/mm3 (1.8-7.8); Neutrophils % 51.3 % (37.0-80.0); Platelet Count 220 K/mm3 (142-424); Red Blood Count 4.38 M/mm3 (4.20-5.40); Red Cell Distribution Width 13.5 % (11.5-17.5); White Blood Count 6.5 K/mm3 (4.8-10.8)
[2024-01-07 08:32] LABS: Blood Urea Nitrogen 17 mg/dl (7-17); Calcium 9.5 mg/dl (8.4-10.2); Carbon Dioxide 28 mmol/L (22.0-30.0); Creatinine Clearance Estimated 116 mL/min (50-200); Estimated Glomerular Filt Rate 87 ml/min (>60); GFR (African American) 105 ML/MIN (>60); Glucose 144 mg/dl (74-100)
[2024-01-07] MEDS: LIDOCAINE 1% 20ML MDV 20 ML (08:40)
[2024-01-07] MEDS: ROPIVACAINE 0.5% 30ML VIAL 150 MG (08:40)
[2024-01-07] MEDS: CLINDAMYCIN PHOSPHATE/D5W 900 MG/50 ML PIGGYBACK 100 MG IV (08:41)
--- NOTE | 2024-01-07 08:56 | P.OP_ITS ---
Date of procedure: 01/07/24 Pre-op Diagnosis:: Obsolete venous access port Post-op Diagnosis:: Same Procedure performed:: Removal of right subclavian implantable venous access device Surgeon:: Noah Hill MD ASSEMBLER PRODUCTION LINE:: Aida Blackmon Anesthesia: LMA Estimated blood loss (mL): 3 Operative findings:: Intact noninfected venous access port Operative note:: Right neck and chest were prepped and draped in the standard surgical fashion. Limited local anesthetic was infiltrated in her previous scar. Incision was made. Careful dissection was carried down through subcutaneous tissues to the site of the venous access catheter. Traction was placed on the catheter and the venous access port was freed from its subcutaneous capsule. Gentle traction was placed removing the catheter with attached port in its entirety. Hemostasis was achieved electrocautery. The fibrous capsule was excised using electrocautery. Limited irrigation was performed. Additional local anesthetic was infiltrated. Subdermal tissues were closed with interrupted 2-0 Vicryl. Skin was closed with 4-0 Monocryl in a subcuticular fashion. Condition: stable Disposition: PACU Complications:: None immediately apparent
--- NOTE | 2024-01-07 09:02 | P.PNANES_ITS ---
[facility] Anesthesia Record Part I Anesthesia Record I Intake, IV Amount: 300 Hydration: Adequate Estimated blood loss (mL): 5 Urine output (mL): 0 Blood Pressure: 112/49 SaO2: 93 Pulse Rate: 101 Airway Patency: Patent Respiratory Rate: 14 Temperature: 97.2 F Patient is:: Drowsy Stable to PACU at:: 09:00
[2024-01-07 09:09] LABS: POC Glucose,Bedside 148 (70-110)
[2024-01-08 08:08] VITALS: BP 125/69; PULSE 89; RESP 17; TEMP 36.2; O2SAT 94
--- NOTE | 2024-01-08 08:08 | P.PNANES_ITS ---
[facility] Anesthesia Record Part II Anesthesia Record Part II Discharge Time: 09:30 Destination: Surgical Day Care (OP Surgery) PACU nurse assessment reviewed?: Yes Patient Condition:: Good Anesthesia Complications:: None Swallowing reflex intact?: Yes Airway Patency: Patent Cyanosis?: No Blood Pressure: 125/69 SaO2: 94 Respiratory Rate: 17 Pulse Rate: 89 Temperature: 97.2 F Mental Status: Alert & Oriented Pain level:: 0 Nausea and/or vomitting:: None Intake, IV Amount: 0 Hydration: Adequate
== END 2024-01-07 10:01 | disposition home or self-care (01) ==
PROVIDERS: PCP Internal Medicine; Visit Provider Surgery
PROC: (CPT 36590; principal; 2024-01-07 09:00)
DX: Z45.2 Encounter for adjustment and management of vascular access device (principal)
CPT/HCPCS: 36590; 80048; 82962; 85025; 96374; J1100; J2250; J2405; J3010; J7120

== ENCOUNTER 2024-12-04 11:10 | Outpatient (CLI) | payer BC, SELFPAY ==
[2024-12-04 14:48] LABS: Basophils # 0.1 K/mm3 (0-0.2); Eosinophils # 0.1 Kmm3 (0.0-0.4); Eosinophils % 2.3 % (0.1-12.0); Hemoglobin 15.2 g/dL (12.2-16.2); Immature Granulocytes # 0.01 10^3uL; Immature Granulocytes % 0.2 %; Lymphocytes # 2.4 K/mm3 (0.7-4.5); Lymphocytes % 39.3 % (10-50); Mean Corpuscular Hemoglobin 31.3 pg (27.0-31.2); Mean Corpuscular Volume 94.7 fl (81-99); Mean Platelet Volume 11.3 fl (7.4-10.4); Monocytes # 0.4 K/mm3 (0.1-1.0); Monocytes % 6.8 % (1.7-9.3); Neutrophils # 3.1 K/mm3 (1.8-7.8); Neutrophils % 50.4 % (37.0-80.0); Nucleated Red Blood Cells # 0 10^3/uL; Nucleated Red Blood Cells % 0 %; Platelet Count 224 K/mm3 (142-424); Red Blood Count 4.86 M/mm3 (4.20-5.40); Red Cell Distribution Width 12.1 % (11.5-17.5); Red Cell Distribution Width-SD 42.4 fL; White Blood Count 6.2 K/mm3 (4.8-10.8)
[2024-12-04 15:18] LABS: Alanine Aminotransferase 43 U/L (12-78); Albumin Level 4.3 g/dl (3.5-5.0); Albumin/Globulin Ratio 1.6 (1.1-1.8); Alkaline Phosphatase 102 U/L (38-126); Aspartate Amino Transferase 40 U/L (14-36); Bilirubin,Total 0.7 mg/dl (0.2-1.3); Blood Urea Nitrogen 16 mg/dl (7-17); Calcium 9.6 mg/dl (8.4-10.2); Carbon Dioxide 28 mmol/L (22.0-30.0); Chloride 102 mmol/L (98-107); Cholesterol 251 mg/dl (140-200); Estimated Glomerular Filt Rate 103 ml/min (>60); GFR (African American) 125 ML/MIN (>60); Globulin 2.7 g/dL (1.3-3.2); Glucose 279 mg/dl (74-100); HDL Cholesterol 50 mg/dl (40-60); Sodium 136 mmol/L (136-145); Triglycerides 274 mg/dl (30-150); VLDL Cholesterol 55 mg/dL (0-40)
[2024-12-04 15:20] LABS: Anion Gap 10.5 mEq/L (5-15); Potassium 4.5 mmoL/L (3.5-5.1)
[2024-12-04 16:05] LABS: Vitamin B12 463 pg/mL (239-931)
[2024-12-04 19:30] LABS: Microalbumin/Creatinine Ratio 77.4
[2024-12-04 19:48] LABS: Creatinine,Urine Random 101 mg/dL (Not Estab.)
[2024-12-04 22:01] LABS: Hemoglobin A1C 11.1 % (4.0-6.0)
--- OUTSIDE RECORDS SUMMARY | 2024-12-05 12:41 | XMS_ITS | Data Portability ---
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 Plan of Treatment Reminders Order Date Submit Date Provider Last Modified By Organization Details Last Modified Time Details Appointments None recorded. Lab None recorded. Referral None recorded. Procedures None recorded. Surgeries None recorded. Imaging None recorded. Medication Orders hydrocodone 5 mg-acetamin ophen 325 mg tablet 2022 023 [facility] 591, [address] [place], [address], 3 16:01:43 Patient TargetsNo targets recorded. Patient InstructionsNo instructions recorded. Reason for Referral None Reported. Results Created Date Observation Date Name Description Value Unit Range Abnormal Flag Note LastModifiedBy Organization Detail LastModifiedTime 08/04/19 23 08/04/2022 STONE JAJA SIS(R ENAL CALCU SHARIF) note Unles s other sanon noted testi ng perfo rmed at: [facility] [address] [place] [address] Mati gaines MD Not Available [facility] ([facility]Op [facility]) [address] [place] [address] [place], [address], 08/08/2022 21:08:42 08/04/19 23 08/08/2022 STONE JAJA SIS(R ENAL CALCU SHARIF) source Joya Patiño Urete r Not Available [facility] ([facility]) [address] [place] [address] [place], [address], 08/08/2022 21:08:42 08/04/19 23 08/08/2022 STONE JAJA SIS(R ENAL CALCU SHARIF) color Brown Not Available [facility] ([facility]Op [facility]) [address] [facility] [place], [address], 08/08/2022 21:08:42 08/04/19 23 08/08/2022 STONE JAJA SIS(R ENAL CALCU SHARIF) size 2x3 mm Multi ple piece s recei chelsey. Dimen sions of the large st piece repor meghan. Not Available [facility] (Pre-Op Clinic) [address] [place] [address] [place], [address], 08/08/2022 21:08:42 08/04/19 23 08/08/2022 STONE JAJA SIS(R ENAL CALCU SHARIF) weight 21 mg Not Available [facility] ([facility]) [address] [place] [address] [place], [address], 08/08/2022 21:08:42 08/04/19 23 08/08/2022 STONE JAJA SIS(R ENAL CALCU SHARIF) composition Commen t . Perce ntage (Repr esent s the % compo sitio n) Not Available [facility] ([facility]Op [facility]) [address] [place] [address] [place], [address], 08/08/2022 21:08:42 08/04/19 23 08/08/2022 STONE JAJA SIS(R ENAL CALCU SHARIF) Ca oxalate monohydrate 60 % Not Available [facility] ([facility]Op [facility]) [address] [place] [address] [place], [address], 08/08/2022 21:08:42 08/04/19 23 08/08/2022 STONE JAJA SIS(R ENAL CALCU SHARIF) uric acid 40 % Not Available [facility] ([facility]) [address] [place] [address] [place], [address], 08/08/2022 21:08:42 08/04/19 23 08/08/2022 STONE JAJA SIS(R ENAL CALCU SHARIF) photo Joya Sheppard Photo graph will follo w under a separ ate cover Not Available [facility] ([facility]Op [facility]) [address] [place] [address] [place], [address], 08/08/2022 21:08:42 08/04/19 23 08/08/2022 STONE JAJA SIS(R ENAL CALCU SHARIF) comment: Joya Sheppard Physi jess quest ions regar ding Calcu li Jaja sis conta ct [facility] at: [phone]. Not Available [facility] ([facility]Op [facility]) [address] [place] [address] [place], [address], 08/08/2022 21:08:42 08/04/19 23 08/08/2022 STONE JAJA SIS(R ENAL CALCU SHARIF) please note: Joya Sheppard Calcu li repor t will follo w via compu ter, mail or couri er dariela jerez. Not Available [facility] ([facility]) [address] [place] [address] [place], [address], 08/08/2022 21:08:42 08/04/19 23 08/08/2022 STONE JAJA SIS(R ENAL CALCU SHARIF) disclaimer: Joya Sheppard This test was devel oped and its perfo rmanc e pia cteri stics deter mined by [facility]. It has not been clear ed or appro chelsey by the Food and Drug Admin istra tion. Not Available [facility] (Pre-Op [facility]) [address] [place] [address] [place], [address], 08/08/2022 21:08:42 08/04/19 23 08/08/2022 STONE JAJA SIS(R ENAL CALCU SHARIF) pdf . Perfo rmed at: [facility] Stone Jaja sis [address], [place] [address] Lab Direc tor: Chandrakant Soto PhD, Phone : [phone] Not Available [facility] (Pre-Op [facility]) [address] [place] [address] [place], [address], 08/08/2022 21:08:42 Result Notes None recorded. Problems Name Problem SNOMED Code Status Onset Date Resolution Date Notes Provider Name and Address Organization Details Recorded Time Hypertensive disorder 16536494 Active 2022 Sarah self, [place] - [facility] - [place] & [place] 3 13:56:32 Diabetes mellitus 87093956 Active 2022 Sarah self, [place] - [facility] [place] & [place] 3 13:56:32 Environmental allergy 717661834 Active 2022 Sarah self, [place] - [facility] [place] & [place] 3 13:56:32 Acute hepatitis 12724097 Active 2022 Sarah self, [place] - [facility] [place] & [place] 3 13:56:32 Sleep apnea 90073349 Active 2022 Sarah self, [place] - [facility] - [place] & [place] 3 13:56:32 Disease of liver 652156756 Active 2022 Sarah self, [place] - [facility] - [place] & [place] 3 13:56:32 Kidney stone 66463766 Active 2022 Priti Magana null, [place] - [facility] - [place] & [place] 3 13:53:15 Radiation therapy care Active 2022 Sarah self, [place] - [facility] [place] 3 13:56:32 Hydronephrosi s due to calculus of kidney and ureter 423325160 Active Sarah self, [place] - [facility] - [place] & [place] 3 13:56:32 Problem Notes None recorded. Procedures Surgical History Date Name Laterality Status Provider Name and Address Organization Details Recorded Time Tubal Ligation completed Priti Magana [place] - [facility] [place] & [place] 08/10/2022 13:55:27 section completed Adalid ALLAN [facility] & [place] 08/10/2022 13:56:06 Total Hysterectomy completed Priti ALLAN [facility] & [place] 08/10/2022 13:56:18 Plastic surgery ss completed Priti ALLAN [facility] & [place] 08/10/2022 13:56:55 Imaging Results None recorded. Procedure Notes None recorded. Medical Equipment None Reported. Allergies Allergen ID Allergen Name Allergen Category Reaction Reaction Severity Criticality Documentation Date Start Date Code Code System Note Provider Name and Address Organization Details Recorded Time 58399 penicilli n G Not available anaphylax is Not available Not available 08/10/2022 7980 [facility] [place] Marie [facility] & [place] 13:46:30 08930 cephalexi n medicatio n hives Not available Not available 08/10/2022 2231 [facility] [place] Marie [facility] & [place] 13:47:15 Medications Name Sig Start Date Stop Date Status Note LastModified by Organization Details LastModified Time vitamin a 8000iu cap TAKE 2 CAPSULES BY MOUTH ONCE DAILY active Not Available Not Available No t Available cyclobenzap rine 10 mg tablet 5 mg by oral route. 2022 active Not Available Not Available Not Avai lable Flomax 0.4 mg capsule 0.4 mg by oral route. 08/04 completed Not Available Not Available Not Available methocarbam ol 500 mg tablet active Not Available Not Available Not Available anastrozole 1 mg tablet 1 mg by oral route. 2022 active Not Available Not Available Not Avai lable Xylocaine-M PF 20 mg/mL (2 %) injection solution 5 mL by injection route. 08/04 completed Not Available Not Available Not Available nystatin 100,000 unit/mL oral suspension active Not Available Not Available N ot Available doxycycline hyclate 100 mg capsule TAKE 1 CAPSULE BY MOUTH TWICE DAILY UNTIL GONE active Not Available Not Available No t Available loperamide 2 mg capsule 2 mg by oral route. 2022 active Not Available Not Available Not Avai lable fluconazole 150 mg tablet TAKE 1 TABLET BY MOUTH NOW AND REPEAT IN 2 DAYS active Not Available Not Available No t Available hydrocodone 5 mg-acetamin ophen 325 mg tablet Take 1 tablet every 6 hours by oral route. active Not Available Not Available No t Available Diprivan 10 mg/mL intravenous emulsion 200 mg by intraven. route. 08/04 completed Not Available Not Available Not Available valsartan 80 mg tablet 80 mg by oral route. active Not Available Not Available No t Available metronidazo le 500 mg tablet active Not Available Not Available Not Available omeprazole 40 mg capsule,del ayed release 40 mg by oral route. 2022 active Not Available Not Available Not Avai lable ketorolac 30 mg/mL (1 mL) injection solution 30 mg by injection route. 08/04 completed Not Available Not Available Not Available ceftriaxone 1 gram solution for injection 1 g by injection route. 08/04 completed Not Available Not Available Not Available lorazepam 0.5 mg tablet TAKE 1 TABLET BY MOUTH 3 TIMES A DAY NEEDED active Not Available Not Available No t Available metformin 1,000 mg tablet TAKE 1 TABLET BY MOUTH TWICE A WITH FOOD FOR DIABETES 90 active Not Available Not Available No t Available buspirone 10 mg tablet 10 mg by oral route. 2022 active Not Available Not Available Not Avai lable lidocaine 5 % topical patch active Not Available Not Available Not Available fentanyl (PF) 50 mcg/mL injection solution 100 microgram s by injection route. 08/04 completed Not Available Not Available Not Available Mapap (acetaminop hen) 325 mg tablet 650 mg by oral route. 08/04 completed Not Available Not Available Not Available gabapentin 300 mg capsule TAKE 1 CAPSULE BY MOUTH TWICE DAILY FOR 90 DAYS active Not Available Not Available No t Available hydroxyzine HCl 25 mg tablet 25 mg by oral route. active Not Available Not Available No t Available sodium chloride 0.9 % intravenous solution 1000 mL by intraven. route. 08/04 completed Not Available Not Available Not Available dexamethaso ne sodium phosphate 4 mg/mL injection solution 4 mg by injection route. 08/04 completed Not Available Not Available Not Available budesonide DR - ER 3 mg capsule,del ayed,extend ed release TAKE 3 CAPSULES DAILY DIRECTED active Not Available Not Available No t Available levofloxaci n 750 mg tablet active Not Available Not Available Not Available ondansetron 4 mg disintegrat ing tablet DISSOLVE 1 TABLET IN MOUTH EVERY 8 HOURS NEEDED active Not Available Not Available No t Available cefdinir 300 mg capsule 1 capsule by oral route. 2022 active Not Available Not Available Not Avai lable losartan 100 mg tablet TAKE 1 TABLET BY MOUTH EVERY DAY active Not Available Not Available No t Available oxycodone 5 mg tablet active Not Available Not Available No t Available midazolam 1 mg/mL injection solution 2 mg by injection route. 08/04 completed Not Available Not Available Not Available sodium chloride 0.9 % (flush) injection syringe 10 mL by injection route. 08/04 completed Not Available Not Available Not Available hydromorpho ne 1 mg/mL injection syringe 1 mg by injection route. 08/04 completed Not Available Not Available Not Available escitalopra m 10 mg tablet TAKE 1 TABLET BY MOUTH EVERY DAY FOR 90 DAYS active Not Available Not Available No t Available escitalopra m 20 mg tablet 10 mg by oral route. 2022 active Not Available Not Available Not Avai lable cyclobenzap rine 5 mg tablet TAKE 1 TABLET BY MOUTH THREE TIMES A DAY active Not Available Not Available No t Available rosuvastati n 10 mg tablet 10 mg by oral route. active Not Available Not Available No t Available sodium chloride 0.9 % intravenous piggyback 100 mL by intraven. route. 08/04 completed Not Available Not Available Not Available Vitamin D3 10 mcg (400 unit) capsule 400 unts by oral route. 2022 active Not Available Not Available Not Avai lable ondansetron HCl (PF) 4 mg/2 mL injection solution 4 mg by injection route. 08/04 completed Not Available Not Available Not Available metformin ER 1,000 mg 24 hr tablet,exte nded release (gastric reten.) 1000 mg by oral route. 2022 active Not Available Not Available Not Avai lable lidocaine 2 % mucosal jelly in applicator 10 mL by mucous mem route. 08/04 completed Not Available Not Available Not Available Heparin Lock Flush (Porcine) (PF) 100 unit/mL intravenous syringe 500 unts by intraven. route. 08/04 completed Not Available Not Available Not Available phenylephri ne 1 mg/10 mL (100 mcg/mL) in 0.9 % sod.chlorid e IV syringe 1 mg by intraven. route. 08/04 completed Not Available Not Available Not Available Eliquis 5 mg tablet TAKE 1 TABLET BY MOUTH TWICE DAILY active Not Available Not Available No t Available budesonide DR-ER 9 mg tablet,larry yed and extended release 9 mg by oral route. 2022 active Not Available Not Available Not Avai lable naloxone 4 mg/actuatio n nasal spray active Not Available Not Available Not Available Vitals Date Recorded Body height Body mass index (BMI) Body weight Body temperature Provider Name and Address Organization Details Last Updated DateTime 08/10/2022 165.1 cm 28.3 kg/m2 56667.7 g 97.6 [degF] Priti Magana [facility] & [place] 08/10/2022 13:45:53 Social History Question Answer Notes LastModified by Organizat ion Details LastModified Time Tobacco Smoking Status Never Smoker Priti Magana [facility] & [place] 08/10/2022 13:55:05 What Is Your Level Of Alcohol Consumption? None [email or web address] Information not available 08/10/2022 What Is Your Level Of Caffeine Consumption? 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 Mental Status None recorded. Family History Relationship Description Onset Age of this Age Resolved Age Notes LastModified by Organization Details LastModified Time Mother Diabetes mellitus [email or web address] Not available 08/10 13:54:45 Medical History No medical history recorded. Gynecological HistoryNo gynecological history recorded. Obstetrics History GPAL:G 0 P 0 0 0 0 Past Encounters Encounter ID Performer Location Encounter Start Date Encounter Closed Date Diagnosis/Indication Diagnosis SNOMED-CT Code Diagnosis ICD10 Code Diagnosis Note [id number] Johnathon Rich Jr, MD [facility] Urology [address] [facility] [place] [address] 08/10/2022 13:05:36 08/10/2022 14:38:31 Ureteric stone 66860954 N20.1 patient status post right ureterosco py, laser lithotrips y, stone extraction right stent placement 4 days ago for 7 mm mid ureteral stone. She has been having some severe stent colic and her stent was removed today with use of indwelling string. Hopefully this relieves her discomfort . We discussed her stone analysis of 60% calcium oxalate 40% uric acid. It is typically the uric acid is the core the stone and we discussed drinking more fluids and low-protei n diet. Patient does have an ileostomy as a result of complicati on of recent surgery. This could be a risk factor for stone formation as well. She is to have the ileostomy reversed soon. She was released and is to return on an as-needed basis. Hydronephr osis due to calculus of kidney and ureter 608880581 N13.2 Health Concerns Section Related Observation LastModified by Organization Detai ls LastModified Time None Recorded Concern Status LastModified by Organization Details LastModified Time None Recorded Advance Directives Directive None Recorded Payers Insurance Date Sequence Insurance Name Policy Number Policy Weiss Covered Member ID Weiss Member ID Guarantor Name 08/10/[address] [facility] (PPO) [id number] Jewell Salmeron [id number] Jewell Salmeron Notes Date Note Type Note Provider Name and Address Organization Details Recorded Time 08/10/2022 text/html patient is a 57-year-old white female status post right ureteroscopy laser lithotripsy stone extraction right stent placement 4 days ago. She was discharged to home and follows up today. She has been having some severe stent colic and went to the emergency room over the weekend. A CT scan showed the stent in good position. No evidence of stones alongside the stent. The she returns today and still having some stent discomfort. Her stone analysis showed a 60% calcium oxalate stone in 40% uric acid stone. This is her 1st stone. Johnathon Rich Jr, MD [address] [place] [address], [address], [place], [address], [facility] - [facility] - [place] & [place] 08/10/2022 16:01:49 OBGyn Episode No OBEpisode recorded.
== END 2024-12-04 23:59 | disposition home or self-care (01) ==
LOC: LAB.DROPOF 12-05 12:40
PROVIDERS: PCP Internal Medicine; Visit Provider Internal Medicine
DX: E78.5 Hyperlipidemia, unspecified (principal); E11.9 Type 2 diabetes mellitus without complications; I10 Essential (primary) hypertension; K75.4 Autoimmune hepatitis; G62.9 Polyneuropathy, unspecified
CPT/HCPCS: 80053; 80061; 82043; 82570; 82607; 83036; 85025

== ENCOUNTER 2025-01-02 12:54 | Outpatient (CLI) | payer BC, SELFPAY ==
--- OUTSIDE RECORDS SUMMARY | 2025-01-02 12:56 | XMS_ITS | Data Portability ---
Author Organization [place] - NT [facility] Medicine and Peds [place] Address [address] [place] [address] Care Team Providers Care Food Service Specialist Name Role Phone CASEY MEDEL Primary Care Provider [phone] Assessment No assessment recorded. Plan of Treatment Reminders Order Date Submit Date Provider Last Modified By Organization Details Last Modified Time Details Appointments None recorded. Lab None recorded. Referral None recorded. Procedures None recorded. Surgeries None recorded. Imaging None recorded. Medication Orders hydrocodone 5 mg-acetamin ophen 325 mg tablet 2022 023 [facility] 591, [address] [place], [address], 3 16:01:43 Patient TargetsNo targets recorded. Patient InstructionsNo instructions recorded. Reason for Referral None Reported. Results Created Date Observation Date Name Description Value Unit Range Abnormal Flag Note LastModifiedBy Organization Detail LastModifiedTime 08/04/19 23 08/04/2022 STONE JAJA SIS(R ENAL CALCU SHARIF) note Unles s other sanon noted testi ng perfo rmed at: [facility] [address] [place] [address] Mati gaines MD Not Available [facility] (Pre-Op Clinic) [address] [place] [address] [place], [address], 08/08/2022 21:08:42 08/04/19 23 08/08/2022 STONE JAJA SIS(R ENAL CALCU SHARIF) source Joya Patiño Urete r Not Available [facility] (Pre-Op Clinic) [address] [place] [address] [place], [address], 08/08/2022 21:08:42 08/04/19 23 08/08/2022 STONE JAJA SIS(R ENAL CALCU SHARIF) color Brown Not Available [facility] (Pre-Op Clinic) [address] [facility] [place], [address], 08/08/2022 21:08:42 08/04/19 23 08/08/2022 STONE JAJA SIS(R ENAL CALCU SHARIF) size 2x3 mm Multi ple piece s recei chelsey. Dimen sions of the large st piece repor meghan. Not Available [facility] (Pre-Op Clinic) [address] [place] [address] [place], [address], 08/08/2022 21:08:42 08/04/19 23 08/08/2022 STONE JAJA SIS(R ENAL CALCU SHARIF) weight 21 mg Not Available [facility] (Pre-Op Clinic) [address] [place] [address] [place], [address], 08/08/2022 21:08:42 08/04/19 23 08/08/2022 STONE JAJA SIS(R ENAL CALCU SHARIF) composition Commen t . Perce ntage (Repr esent s the % compo sitio n) Not Available [facility] (Pre-Op Clinic) [address] [place] [address] [place], [address], 08/08/2022 21:08:42 08/04/19 23 08/08/2022 STONE JAJA SIS(R ENAL CALCU SHARIF) Ca oxalate monohydrate 60 % Not Available [facility] (Pre-Op Clinic) [address] [place] [address] [place], [address], 08/08/2022 21:08:42 08/04/19 23 08/08/2022 STONE JAJA SIS(R ENAL CALCU SHARIF) uric acid 40 % Not Available [facility] (Pre-Op Clinic) [address] [place] [address] [place], [address], 08/08/2022 21:08:42 08/04/19 23 08/08/2022 STONE JAJA SIS(R ENAL CALCU SHARIF) photo Joya Sheppard Photo graph will follo w under a separ ate cover Not Available [facility] (Pre-Op Clinic) [address] [place] [address] [place], [address], 08/08/2022 21:08:42 08/04/19 23 08/08/2022 STONE JAJA SIS(R ENAL CALCU SHARIF) comment: Joya Sheppard Physi jess quest ions regar ding Calcu li Jaja sis conta ct [facility] at: [phone]. Not Available [facility] (Pre-Op Clinic) [address] [place] [address] [place], [address], 08/08/2022 21:08:42 08/04/19 23 08/08/2022 STONE JAJA SIS(R ENAL CALCU SHARIF) please note: Joya Sheppard Calcu li repor t will follo w via compu ter, mail or couri er dariela jerez. Not Available [facility] (Pre-Op Clinic) [address] [place] [address] [place], [address], 08/08/2022 21:08:42 08/04/19 23 08/08/2022 STONE JAJA SIS(R ENAL CALCU SHARIF) disclaimer: Joya Sheppard This test was devel oped and its perfo rmanc e pia cteri stics deter mined by [facility]. It has not been clear ed or appro chelsey by the Food and Drug Admin istra tion. Not Available [facility] (Pre-Op Clinic) [address] [place] [address] [place], [address], 08/08/2022 21:08:42 08/04/19 23 08/08/2022 STONE JAJA SIS(R ENAL CALCU SHARIF) pdf . Perfo rmed at: [facility] Stone Jaja sis [address], [place] [address] Lab Direc tor: Chandrakant Soto PhD, Phone : [phone] Not Available [facility] (Pre-Op Clinic) [address] [place] [address] [place], [address], 08/08/2022 21:08:42 Result Notes None recorded. Problems Name Problem SNOMED Code Status Onset Date Resolution Date Notes Provider Name and Address Organization Details Recorded Time Hypertensive disorder 65164618 Active 2022 Sarah self, [place] - [facility] - [place] & [place] 3 13:56:32 Diabetes mellitus 58872684 Active 2022 Sarah self, [place] - [facility] - [place] & [place] 3 13:56:32 Environmental allergy 032204254 Active 2022 Sarah self, [place] - [facility] - [place] & [place] 3 13:56:32 Acute hepatitis 11575374 Active 2022 Sarah self, [place] - [facility] - [place] & [place] 3 13:56:32 Sleep apnea 77212163 Active 2022 Sarah self, [place] - [facility] - [place] & [place] 3 13:56:32 Disease of liver 706707010 Active 2022 Sarah self, [place] - [facility] - [place] & [place] 3 13:56:32 Kidney stone 40374812 Active 2022 Priti Magana null, [place] - [facility] - [place] & [place] 3 13:53:15 Radiation therapy care Active 2022 Sarah self, [place] - [facility] [place] 3 13:56:32 Hydronephrosi s due to calculus of kidney and ureter 150878771 Active Sarah self, [place] - [facility] - [place] & [place] 3 13:56:32 Problem Notes None recorded. Procedures Surgical History Date Name Laterality Status Provider Name and Address Organization Details Recorded Time Tubal Ligation completed Priti Magana [place] - [facility] - [place] & [place] 08/10/2022 13:55:27 section completed Adalid ALLAN [facility] & [place] 08/10/2022 13:56:06 Total Hysterectomy completed Priti ALLAN [facility] & [place] 08/10/2022 13:56:18 Plastic surgery ss completed Priti ALLAN [facility] & [place] 08/10/2022 13:56:55 Imaging Results None recorded. Procedure Notes None recorded. Medical Equipment None Reported. Allergies Allergen ID Allergen Name Allergen Category Reaction Reaction Severity Criticality Documentation Date Start Date Code Code System Note Provider Name and Address Organization Details Recorded Time 76670 penicilli n G Not available anaphylax is Not available Not available 08/10/2022 7980 RxNorm [place] Marie [facility] & [place] 13:46:30 88449 cephalexi n medicatio n hives Not available Not available 08/10/2022 2231 RxNorm [place] Marie [facility] & [place] 13:47:15 Medications Name Sig Start Date Stop [...] Updated DateTime 08/10/2022 165.1 cm 28.3 kg/m2 95699.7 g 97.6 [degF] Priti Magana [facility] & [place] 08/10/2022 13:45:53 Social History Question Answer Notes LastModified by [employer] Details LastModified Time Tobacco Smoking Status Never Smoker Priti Magana [facility], [facility] & [place] 08/10/2022 13:55:05 What Is Your Level Of Caffeine Consumption? None [email or web address] Information not available 08/10/2022 Sex: Unknown Functional Status Question Answer Note LastModified by [email or web address] Details LastModified Time What is your level of alcohol consumption? None [email or web address] Information not available 08/10/2022 What is your occupation? [employer] Information not available 08/10/2022 Mental Status None recorded. Family History Relationship Description Onset Age of this Age Resolved Age Notes LastModified by Organization Details LastModified Time Mother Diabetes mellitus [email or web address] Not available 08/10 13:54:45 Medical History No medical history recorded. Gynecological HistoryNo gynecological history recorded. Obstetrics History GPAL:G 0 P 0 0 0 0 Past Encounters Encounter ID Performer Location Encounter Start Date Encounter Closed Date Diagnosis/Indication Diagnosis SNOMED-CT Code Diagnosis ICD10 Code Diagnosis Note [id number] Johnathon Rich Jr, MD [facility] Urology [address] [place] [address] [place] [id number] 08/10/2022 13:05:36 08/10/2022 14:38:31 Ureteric stone 52222875 N20.1 patient status post right ureterosco py, [...] due to calculus of kidney and ureter 187525314 N13.2 Health Concerns Section Related Observation LastModified by Organization Detai ls LastModified Time None Recorded Concern Status LastModified by Organization Details LastModified Time None Recorded Advance Directives Directive None Recorded Payers Insurance Date Sequence Insurance Name Policy Number Policy Weiss Covered Member ID Weiss Member ID Guarantor Name 08/10/2022 1 [place] [id number] Jewell Salmeron [id number] Jewell Salmeron Notes Date Note Type [...] her 1st stone. Johnathon Rich Jr, MD [address] [place] [address], [address], [place], [address], [place] - [place] - [place] & [place] 08/10/2022 16:01:49 OBGyn Episode No OBEpisode recorded.
--- OUTSIDE RECORDS SUMMARY | 2025-01-02 12:56 | XMS_ITS | Clinical Summary ---
Author Organization [facility] Address [address] [place] [address] Phone Care Team Providers Care Blast Hole Driller Name Role Phone Ricardo Rodriguez MD Primary Care Provider [phone] Social History Tobacco Use Types Packs/Day Years Used Date Smoking Tobacco: Never Assessed Comments Unknown Sex and Gender Information Value Date Recorded Sex Assigned at Not on file Legal Sex Female 5:07 AM EDT Gender Identity Not on file Sexual Orientation Not on file Plan of Treatment Health Maintenance Due Date Last Done Comments Annual Wellness Exam 1970 DTaP/TDaP/Td (1 - Tdap) 1986 Hepatitis B Vaccine (1 of 3 - 19+ 3-dose series) 1986 Cervical Cancer Screening 1988 Pap Smear 1988 HPV/Pap Cotest 1997 Cologuard 2012 Colon Cancer Screening 2012 Colonoscopy 2012 FIT 2012 Sigmoidoscopy 2012 Virtual Colonography 2012 Breast Cancer Screening 09/18/2014 09/18/2012 Pneumococcal Vaccine 50+ (1 of 1 - PCV) 2017 Zoster (1 of 2) 2017 COVID-19 Vaccine (2023-2 5 season) 2024 Influenza Vaccine (Season Ended) 2025 Meningococcal B Vaccine Aged Out No l onger eligible based on patient's age to complete this topic Procedures Procedure Name Priority Date/Time Associated Diagnosis Comments MM MOBILE MAMMO DIGITAL SCREEN W CAD KVNG Routine 09/18/2012 2:11 PM EST Other screening mammogram from Last 3 Months or Most Recently Relevant to Health Maintenance Results * MM MOBILE MAMMO DIGITAL SCREEN W CAD KVNG (09/18/2012 2:11 PM EST) Anatomical Region Laterality Modality Breast Mammography 09/19/2012 12:3 5 PM EST Impressions 09/20/2012 7:08 AM EST : Incomplete-need additional imaging evaluation ([id number]-[id number]-6) ~ RECOMMENDATION: Special view mammogram of the left breast. ~ * The patient with a palpable abnormality, unexplained by breast imaging, should be managed on clinical basis by the attending physician. * Breast imaging has a false negative rate of 15%. * The patient was notified by mail of the results of this examination. *The patient's information was entered into a reminder system with a target due date for the next mammogram. The mammogram was reviewed by a Radiologist and CAD. Narrative 09/20/2012 7:08 AM EST Procedure:MM MOBILE MAMMO DIGITAL SCREEN W CAD KVNG ~ Reason for exam: screening (asymptomatic). ~ MM MOBILE MAMMO DIGITAL SCREEN W CAD KVNG Bilateral CC and MLO view(s) were taken. There are scattered fibroglandular densities. There are two oval densities in the posterior lateral position of the left breast, possibly asymmetric breast tissue. No suspicious calcifications. ~ Procedure Note Grgeor Walsh MD - 09/20/2012 Procedure:MM MOBILE MAMMO DIGITAL SCREEN W CAD KVNG ~ Reason for exam: screening (asymptomatic). ~ MM MOBILE MAMMO DIGITAL SCREEN W CAD KVNG Bilateral CC and MLO view(s) were taken. There are scattered fibroglandular densities. There are two ovaldensities in the posterior lateral position of the left breast, possiblyasymmetric breast tissue. No suspicious calcifications. ~ IMPRESSION: Incomplete-need additional imaging evaluation ([id number]-[id number]-5) ~ RECOMMENDATION: Special view mammogram of the left breast. ~ * The patient with a palpable abnormality, unexplained by breast imaging, should be managed on clinical basis by the attending physician. * Breast imaging has a false negative rate of 15%. * The patient was notified by mail of the results of this examination. *The patient's information was entered into a reminder system with atarget due date for the next mammogram. The mammogram was reviewed by a Radiologist and CAD. Ricardo Rodriguez MD IMG MAMMOGRAPHY ORDERABLES Fin al Result from Last 3 Months or Most Recently Relevant to Health Maintenance Insurance ANTH PPO Care Teams Blast Hole Driller Relationship Specialty Start Date End Date Ricardo Rodriguez MD [address] [place] [address] [facility] [address] PCP - General Internal Medicine 09/16/12
--- OUTSIDE RECORDS SUMMARY | 2025-01-02 12:56 | XMS_ITS | Clinical Summary ---
Author Organization [facility] Address [address] [place] [address] Care Team Providers Care Manager Collection Name Role Phone Ricardo Rodriguez MD Primary Care Provider [phone] Allergies Active Allergy Reactions Criticality Noted Date Comments Cephalexin Hives Medium 05/27/2022 Latex Rash Medium 06/21/2021 Penicillins Anaphylaxis High 08/26/2020 Medications anastrozole (Arimidex) 1 MG chemo tablet Take 1 mg by mouth 1 (one) time each day. 03/19/2021 Active escitalopram (Lexapro) 10 MG tablet Take 10 mg by mouth 1 (one) time each day. 06/17/2021 Active metFORMIN (Glucophage) 1000 MG tablet Take 1,000 mg by mouth 2 (two) times a day with meals. 06/17/2021 Active omeprazole (PriLOSEC) [address] capsule Take 40 mg by mouth 1 (one) time each day in the morning. 06/16/2021 Active valsartan (Diovan) 80 MG tablet Take 80 mg by mouth 1 (one) time each day. 04/05/2021 Active rosuvastatin (Crestor) 10 MG tablet Take 10 mg by mouth 1 (one) time per week. Take 1 tablet by mouth one time per week for 90 days Active busPIRone (Buspar) 10 MG tablet Take 10 mg by mouth 2 (two) times a day. Active budesonide EC (Entocort EC) 3 MG 24 hr capsule Take 9 mg by mouth 1 (one) time each day. Active gabapentin (Neurontin) 300 MG capsule Take 300 mg by mouth 2 (two) times a day. 06/16/2022 Active methocarbamol (Robaxin) 750 MG tablet Take 1 tablet (750 mg total) by mouth every 8 (eight) hours for 10 days. 30 tablet 09/07/2022 Active Active Problems Problem Noted Date Diagnosed Date Obesity (BMI 30-39.9) 05/11/2022 Overview (05/11/2022): Complicates all aspects of care MELVIN (obstructive sleep apnea) 09/27/2021 Overview (05/11/2022): Complicates care HTN (hypertension) 09/27/2021 Overview (05/11/2022): Resume home medications when appropriate Diabetes mellitus, type 2 09/27/2021 Overview (05/11/2022): Sliding scale insuline while inpatient Gastroesophageal reflux disease 09/27/2021 Overview (05/11/2022): PPI while inpatient Hx of breast cancer 09/27/2021 Overview (05/11/2022): S/p mastectomy with recon Recent liposuction with breast revision 05/05 Resolved Problems Problem Noted Date Diagnosed Date Resolved Date Ileostomy in place 09/04/2022 3 Colon perforation 08/09/2022 09/04/2022 Overview (08/09/2022): Added automatically from request for surgery [id number] Encounter for attention to ileostomy 08/09/2022 09/05/2022 Overview (09/05/2022): S/p robotic ileostomy reversal on 09/04/22 Flu 05/27/2022 09/04/2022 Overview (05/27/2022): Symptomatic relief Acute cough 05/27/2022 09/04/2022 Overview (05/27/2022): Likely secondary to flu dominguez Harding Intra-abdominal abscess 05/18/2022 02/0 12/2022 Overview (05/28/2022): Represented with fever and abdominal CT showed abscess, may be nothing new Will ask IR to take a look if she doesn't get better May be flu (likely) On antibiotics for now until she is better and until bcx are negative Drains are serous now Pneumoperitoneum 05/11/2022 05/23/2022 Overview (05/17/2022): Pneumoperitoneum tract with pockets of air in subcutaneous tissue and fascia in setting of recent liposuction Patient with one week fevers at home Hemodynamically stable, not peritonitic Trend abdominal exams, venous lactate Plan for repeat CT with PO and rectal contrast to evaluate/localize for microperf S/p laparoscopic loop ileostomy on 05/12 - awaiting return of bowel function via ostomy output, output still low on 05/17, patient still bloated - CT abd/pel to evaluate abdomen Malnourished 05/11/2022 09/04/2022 Overview (05/11/2022): Albumin 2.7 Complicates care Hypokalemia 05/11/2022 05/22/2022 Overview (05/15/2022): Monitor and Replace Electrolytes PRN Likely secondary to poor PO intake Hypomagnesemia 05/11/2022 05/22/2022 Overview (05/15/2022): Monitor and Replace Electrolytes PRN Likely secondary to poor PO intake UTI (urinary tract infection) 05/11/2022 05/23/2022 Overview (05/15/2022): On UA at OSH Empiric coverage Hypophosphatemia 05/11/2022 05/22/2022 Overview (05/11/2022): Monitor and Replace Electrolytes PRN Likely secondary to poor PO intake 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, left 10/03/2021 05/11/2022 History of recent steroid use 09/27/2021 09/04/2022 Overview (05/11/2022): Holding steroids for chronic autoimmune hepatitis in setting of recent breast recon Autoimmune hepatitis treated with steroids 09/27/2021 09/04/2022 Overview (05/11/2022): Patient has been holding steroids in setting of recent breast recon Acquired absence of left breast and nipple 06/21/2021 05/11/2022 Overview (10/05/2021): 10/03/21: left breast reconstruction with latissimus dorsi flap with autologous fat grafting and right breast reduction/mastopexy for symmetry Family History Medical History Relation Name Comments Heart disease Father Diabetes Mother Heart disease Mother Anesthesia problems Neg Hx Malig Hyperthermia Neg Hx Relation Name Status Comments Father Mother Social History Tobacco Use Types Packs/Day Years Used Date Smoking Tobacco: Never Smokeless Tobacco: Never Tobacco Cessation:Counseling Given: Not Answered Alcohol Use Standard Drinks/Week Comments Not Currently 0 (1 standard drink = 0.6 oz pur e alcohol) PHQ-2 Answer Date Recorded Patient Health Questionnaire-2 Score 1 10/05/2022 CAGE ASSESSMENT Answer Date Recorded Cage unable to access Not on file 05/27/2022 Cage max number of drinks Not on file 2021 Cage Beverages a week Not on file 05/27/2022 Have you ever felt you should CUT down on your d rinking? 0 05/27/2022 Have you been ANNOYED by people criticizing your drinking? 0 05/27/2022 Have you felt GUILTY about your drinking? 0 05/27/2022 Have you had a drink first t manuel in the morning ([employer]) to steady your nerves or to get rid of a hangover? 0 05/27/2022 CAGE Questionnaire Score 0 022 PHQ-2A Answer Date Recorded Patient Health Questionnaire-2 Score 1 10/05/2022 Comments No Sex and Gender Information Value Date Recorded Sex Assigned at Female 09/30/2021 4:15 PM EST Legal Sex Female 8:55 PM EDT Gender Identity Female 09/30/2021 4:15 PM EST Sexual Orientation Not on file Last Filed Vital Signs Vital Sign Reading Time Taken Comments Blood Pressure 170/91 10/05/2022 10:57 AM EST Pulse 86 10/05/2022 10:57 AM EST Temperature 36.5 C (97.7 F) 10/05/2022 10:52 AM EST Respiratory Rate 18 10/05/2022 10:52 AM EST Oxygen Saturation 95% 09/07/2022 11:27 AM EST Inhaled Oxygen Concentration - - Weight 80.4 kg (177 lb 3.2 oz) 10/05/2022 10:52 AM EST Height 165.1 cm (5' 5 ) 10/05/2022 10:52 AM EST Body Mass Index 29.49 10/05/2022 10:52 AM EST Plan of Treatment Health Maintenance Due Date Last Done Comments [facility]-Diabetes: Hemoglobin A1C 1967 [facility]-HIV Screening 1967 [facility]-Hepatitis C Screening 1967 [facility]-/Child/Adol SDOH Screenings 1967 Diabetes: Dental Exam 1977 [facility]- SDOH Screenings 1985 [facility]-Adult SDOH Screenings 1985 [facility]-DTaP,Tdap,and Td Vaccines (1 - Tdap) 1986 [facility]-Hepatitis B Vaccines (1 of 3 - 19+ 3-dose series) 1986 [facility]-Pneumococcal Vaccine: 50+ Years (1 of 2 - PCV) 1986 CT Colonography 2012 Colonoscopy 2012 FIT-DNA 2012 FIT 2012 FOBT 2012 Sigmoidoscopy 2012 [facility]-Colorectal Cancer Screening 2012 [facility]-Zoster Vaccines (1 of 2) 2017 [facility]-Depression Screening 10/06/2023 10/05/2022 EHD-ZOGHI-16 Vaccine (1 - season) 2024 [facility]-Influenza Vaccine (Season Ended) 2025 [facility]-Breast Cancer Screening Discontinued 09/18/2012 [facility]-Obesity Intervention Completed 023, 09/15/2022, 07/18/2022, Additional history exists HPV Vaccines Aged Out No longer eligi ble based on patient's age to complete this topic [facility]-HIB Vaccines Aged Out No longer e ligible based on patient's age to complete this topic [facility]-Hepatitis A Vaccines Aged Out No longer eligible based on patient's age to complete this topic [facility]-IPV Vaccines Aged Out No longer e ligible based on patient's age to complete this topic [facility]-Rotavirus Vaccines Aged Out No lo nger eligible based on patient's age to complete this topic Insurance DIMAS Advance Directives * Full Code (Latest Code Status on File) Date Activated Date Inactivated Comments 09/04/2022 11:00 AM 09/07/2022 5:21 PM Question Answer Comments Patient has decision-making capacity? Yes * Full Code Date Activated Date Inactivated Comments 05/27/2022 4:05 AM 05/29/2022 8:55 PM Question Answer Comments Patient has decision-making capacity? Yes * Full Code Date Activated Date Inactivated Comments 05/11/2022 11:10 PM 05/23/2022 7:39 PM Question Answer Comments Patient has decision-making capacity? Yes * Full Code Date Activated Date Inactivated Comments 10/03/2021 12:53 PM 10/05/2021 6:25 PM Question Answer Comments Patient has decision-making capacity? Yes Care Teams Manager Collection Relationship Specialty Start Date End Date Ricardo Rodriguez MD [address] [place] [address] [facility] - General 10/03/21
--- NOTE | 2025-01-02 13:00 | MM_ITS ---
PROCEDURE INFORMATION: Exam: MG Right Screening 3D Mammography Exam date and time: 01/02/2025 1:03 PM Age: 59 years old Clinical indication: Screening examination; Personal history of left breast cancer; Mastectomy TECHNIQUE: Imaging protocol: Right Screening tomosynthesis and 2D mammography including computer-aided detection (CAD) when performed. COMPARISON: 1. MG MM DIG SC MAMM UNILAT RT CAD 12/31/2023 10:36 AM 2. MG MM DIG MAMM DX UNILAT RT CAD 12/27/2022 1:53 PM FINDINGS: MAMMOGRAPHY: Breast composition: There are scattered areas of fibroglandular density. Mass: None. Architectural distortion: None. Calcifications: No suspicious calcifications. Asymmetric density: None. Skin thickening: None. Axillary adenopathy: None. Other findings: The patient is status post left mastectomy IMPRESSION: 1. No mammographic evidence of malignancy. Annual screening is recommended unless otherwise clinically indicated. 2. In women diagnosed with breast cancer before age 50 or with personal histories of breast cancer and dense breasts, the [employer] recommends annual supplemental MRI in addition to yearly mammography. Alternative supplemental studies may include breast sonography or contrast enhanced mammography. Please be aware that your insurance company will determine whether they will cover the cost of such screening, despite the recommendation of your doctors and the [employer]. It is your responsibility to determine your insurance benefits. ASSESSMENT: BI-RADS Category 1: Negative.
== END 2025-01-02 23:59 | disposition home or self-care (01) ==
LOC: RAD 12:54
PROVIDERS: PCP Internal Medicine; Visit Provider Internal Medicine Medical Oncology
DX: R92.321 Mammographic fibroglandular density, right breast (principal); Z85.3 Personal history of malignant neoplasm of breast; Z90.12 Acquired absence of left breast and nipple
CPT/HCPCS: 77063; 77067

== ENCOUNTER 2025-03-13 07:57 | Outpatient (CLI) | payer BC, SELFPAY ==
--- OUTSIDE RECORDS SUMMARY | 2025-03-13 07:59 | XMS_ITS | Clinical Summary ---
Author Organization [facility] Address [address] [place] [address] Care Team Providers Care Big 6 Dealer Name Role Phone Ricardo Rodriguez MD Primary Care Provider [phone] Allergies Active Allergy Reactions Criticality Noted Date [...] (08/09/2022): Added automatically from request for surgery [id number] Encounter for attention to ileostomy 08/09/2022 09/05/2022 [...] drink first t manuel in the morning (EYE-OPERATIONS BOARDMAN) to steady your nerves or to get [...] UKY-HIV Screening 1967 UKY-Hepatitis C Screening 1967 UKY-Infant/Child/Adol SDOH Screenings 1967 Diabetes: Dental Exam 1977 [...] of 2) 2017 UKY-Depression Screening 10/06/2023 10/05/2022 [id number] Vaccine (1 - season) 2024 UKY-Influenza Vaccine (#1) 2025 UKY-Breast Cancer Screening Discontinued 09/18/2012 UKY-Obesity [...] Patient has decision-making capacity? Yes Care Teams Big 6 Dealer Relationship Specialty Start Date End Date Ricardo Rodriguez MD [address] [place] [address] [facility] - General 10/03/21
--- OUTSIDE RECORDS SUMMARY | 2025-03-13 07:59 | XMS_ITS | Clinical Summary ---
Author Organization [facility] Address [address] [place] [address] Care Team Providers Care Merchandise Presentation Associate Name Role Phone Ricardo Rodriguez MD Primary Care Provider [phone] Allergies Active Allergy Reactions Criticality Noted Date Comments Cephalosporins Hives 08/26/2020 Penicillins Anaphylaxis High 08/26/2020 Medications busPIRone (BUSPAR) 10 MG tablet Take 10 mg by mouth 3 (Three) Times a Day. Active Empagliflozin-L inaglip-Metform 25-5-1000 MG tablet sustained-relea se 24 hour Take 1 each by mouth Daily. Active gabapentin (NEURONTIN) 300 MG capsule Take 300 mg by mouth 2 (Two) Times a Day. Active LORazepam (ATIVAN) 0.5 MG tablet Take 0.25 mg by mouth 3 (Three) Times a Day As Needed. Active Magnesium 250 MG tablet Take 250 mg by mouth Daily. Active metFORMIN (GLUCOPHAGE) 1000 MG tablet Take 1,000 mg by mouth 2 (Two) Times a Day With Meals. Active omeprazole (priLOSEC) 40 MG capsule Take 40 mg by mouth Daily. Active ondansetron (ZOFRAN) 8 MG tablet Take 8 mg by mouth Every 8 (Eight) Hours As Needed. Active prochlorperazin e (COMPAZINE) 10 MG tablet Take 10 mg by mouth Every 6 (Six) Hours As Needed. Active valsartan (DIOVAN) 80 MG tablet Take 80 mg by mouth Daily. Active vitamin E 400 UNIT capsule Take 400 Units by mouth Daily. Active Budesonide (ENTOCORT EC) 3 MG 24 hr capsule Take 3 mg by mouth Daily As Needed. 06/09/2020 Active Glyxambi 25-5 MG tablet Take 25 mg by mouth Daily. 06/14/2020 Active HYDROcodone-bhakti taminophen (NORCO) 5-325 MG per tablet Take 5 tablets by mouth Daily. 07/15/2020 Active anastrozole (ARIMIDEX) 1 MG tablet Take by mouth Daily. Active multivitamin with minerals (HAIR/SKIN/NAIL S/BIOTIN PO) Take 1 tablet by mouth Daily. Active Active Problems Problem Noted Date Diagnosed Date Breast cancer 08/26/2020 Cancer Staging:Clinical stage from 09/16/2019: cT1c, cN1, cM0, ER+, SD+, HER2- - Unsigned Pathologic stage from 07/14/2020:No Stage Recommended(ypT0, pN1, cM0, ER+, SD+, HER2-) - Unsigned Family History Medical History Relation Name Comments Lung cancer Brother Lung cancer Maternal Uncle Skin cancer Mother Relation Name Status Comments Brother Father Alive Maternal Uncle Mother Alive Paternal Grandmother Other bladder cancer Social History Tobacco Use Types Packs/Day Years Used Date Smoking Tobacco: Never Smokeless Tobacco: Never Alcohol Use Standard Drinks/Week Comments Never 0 (1 standard drink = 0.6 oz pur e alcohol) AUDIT-C Answer Date Recorded Q1: How often do you have a drink containing alc ohol? Never 09/21/2020 Average Number of Drinks Not on file 021 Frequency of Binge Drinking Not on file 08/31 Abuse Screen Answer Date Recorded Unsafe at Home or Work/School Not on file Feels Threatened by Someone? Not on file 06/2023 Does Anyone Keep You from Co ntacting Others or Doint Things Outside the Home? Not on file 05/10/2023 Physical Sign of Abuse Present Not on file 1 Housing Stability Answer Date Recorded Current Living Arrangements Not on file 04/29 Potentially Unsafe Housing Conditions Not on shena e 05/10/2023 Family and Community Support Answer Dionisio e Recorded Help with Day-to-Day Activities Not on file 05/10/2023 Lonely or Isolated Not on file 05/10/2023 Employment Answer Date Recorded Do you want help finding or keeping work or a mauricio b? Not on file 05/10/2023 Disabilities Answer Date Recorded Concentrating, Remembering, or Making Decisions Difficulty Not on file 05/10/2023 Doing Errands Independently Difficulty Not on fi le 05/10/2023 Education Answer Date Recorded Help with school or training? Not on file Preferred Language Not on file 05/10/2023 Comments Unknown Sex and Gender Information Value Date Recorded Sex Assigned at Not on file Legal Sex Female 2:27 PM EST Gender Identity Not on file Sexual Orientation Not on file Last Filed Vital Signs Vital Sign Reading Time Taken Comments Blood Pressure 141/66 09/21/2020 1:33 PM EST Pulse 96 09/21/2020 1:33 PM EST Temperature 36.5 C (97.7 F) 09/21/2020 1:33 PM EST Respiratory Rate 18 09/21/2020 1:33 PM EST Oxygen Saturation 97% 09/21/2020 1:33 PM EST Inhaled Oxygen Concentration - - Weight 84.3 kg (185 lb 12.8 oz) 11/16/2020 3:00 PM EDT Height 165.1 cm (5' 5 ) 08/26/2020 11:1 7 AM EST Body Mass Index 30.92 08/26/2020 11:17 AM EST Plan of Treatment Health Maintenance Due Date Last Done Comments Annual Gynecologic Pelvic an d Breast Exam 1967 TDAP/TD VACCINES (1 - Tdap) 1986 COLOGUARD 2012 COLON CANCER SCREENING [address] Y[address] SIGMO[address] COLONOGRAPHY 2012 FECAL OCCULT BLOOD TEST 2012 FIT Testing (1 year) 2012 Pneumococcal Vaccine 50+ (1 of 1 - PCV) 2017 ZOSTER VACCINE (1 of 2) 2017 ANNUAL PHYSICAL 08/25/2020 HEPATITIS C SCREENING 08/25/2020 MAMMOGRAM 01/20/2022 01/21/2020, 12/29, 01/21/2020, Additional history exists COVID-19 Vaccine (1 - 2023-2 5 season) 2024 INFLUENZA VACCINE 04/29/2025 COLONOSCOPY 04/12/2028 04/12/2018 COLORECTAL CANCER SCREENING 04/12/2028 Procedures Procedure Name Priority Date/Time Associated Diagnosis Comments MAMMO OUTSIDE FILMS Routine 01/21/2020 1 1:53 AM EDT H/O mammogram from Last 3 Months or Most Recently Relevant to Health Maintenance Results * MAMMO Outside Films (01/21/2020 11:53 AM EDT) Narrative SYSTEMGENERATED, DOCUMENTATION - 01/21/2020 11:53 AM EDT This procedure was auto-finalized with no dictation required. Noah Hill MD IMG MAMMOGRAPHY ORDERABLES F inal Result from Last 3 Months or Most Recently Relevant to Health Maintenance Insurance [place] [id number] [facility] Member Subscriber Plan / Payer (Ef fective 2019-Present) Name:Jewell Salmeron Relation to Subscriber:Self Name:Jewell Salmeron Payer ID:[id number] (NAIC) Type:Not on file Address: [address] Care Teams Merchandise Presentation Associate Relationship Specialty Start Date End Date Ricardo Rodriguez MD [address] [facility] [address] [place] [address] PCP - General Internal Medicine 01/15/20
--- OUTSIDE RECORDS SUMMARY | 2025-03-13 07:59 | XMS_ITS | Clinical Summary ---
Author Organization [facility] Address [address] [place] [address] Phone Care Team Providers Care Home Health Care Provider Name Role Phone Ricardo Rodriguez MD Primary Care Provider [phone] Social History Tobacco Use Types Packs/Day Years [...] Vaccine (2023-2 5 season) 2024 Influenza Vaccine (#1) 2025 Meningococcal B Vaccine Aged Out No [...] AM EST : Incomplete-need additional imaging evaluation (VSZ-[id number]-8) ~ RECOMMENDATION: Special view mammogram of the [...] tissue. No suspicious calcifications. ~ Procedure Note Gregor Walsh MD - 09/20/2012 Procedure:MM MOBILE MAMMO [...] calcifications. ~ IMPRESSION: Incomplete-need additional imaging evaluation (DIV-Rmyplclv-1) ~ RECOMMENDATION: Special view mammogram of the [...] Health Maintenance Insurance ANTH PPO Care Teams Home Health Care Provider Relationship Specialty Start Date End Date Ricardo Rodriguez MD [address] [place] [address] [facility] [address] PCP - General Internal Medicine 09/16/12
--- NOTE | 2025-03-13 08:00 | US_ITS ---
FINAL REPORT TECHNIQUE: Multiple transverse and longitudinal images CLINICAL HISTORY: elevated LFTs/autoimmun hepatitis COMPARISON: None FINDINGS: RUQ ULTRASOUND: Fatty infiltration of the liver. No focal mass or biliary ductal dilatation is identified. There are multiple polyps in the gallbladder, benign appearing, measuring up to 5 mm in size. No evidence of ascites is seen. The portions of the right kidney visualized are unremarkable. The portions of the pancreas visualized are unremarkable. IMPRESSION: 1. Fatty infiltration of the liver. 2. Multiple gallbladder polyps are present, benign appearing and measuring up to 5 mm in size. 3. No evidence of biliary obstruction. Reviewed, Interpreted and Dictated by Ricky Duvall MD Transcribed by Parvin Pedro Authenticated and [facility]
== END 2025-03-13 23:59 | disposition home or self-care (01) ==
PROVIDERS: PCP Internal Medicine; Visit Provider Nurse Practitioner Family
DX: K75.4 Autoimmune hepatitis (principal); K82.4 Cholesterolosis of gallbladder; K76.0 Fatty (change of) liver, not elsewhere classified
CPT/HCPCS: 76705

== ENCOUNTER 2025-05-04 16:25 | Outpatient (CLI) | payer BC, SELFPAY ==
--- NOTE | 2025-05-04 16:27 | XR_ITS ---
PROCEDURE INFORMATION: Exam: XR Chest Exam date and time: 05/04/2025 4:28 PM Age: 60 years old Clinical indication: Cough; Prior surgery; Surgery date: 6+ months; Surgery type: Double mastectomy; Additional info: Cough, congestion, wheeziness TECHNIQUE: Imaging protocol: Radiologic exam of the chest. Views: 2 views. COMPARISON: CR XR CHEST 2V 05/26/2022 2:42 PM FINDINGS: Lungs: Patchy right upper lobe and right lower lobe infiltrates. Pleural spaces: Unremarkable. No pleural effusion. No pneumothorax. Heart/Mediastinum: Unremarkable. No cardiomegaly. Bones/joints: Unremarkable. IMPRESSION: Patchy right upper lobe and right lower lobe infiltrates.
--- OUTSIDE RECORDS SUMMARY | 2025-05-04 16:28 | XMS_ITS | Clinical Summary ---
Author Organization [facility] Address [address] [place] [address] Care Team Providers Care Web Methods Developer Name Role Phone Ricardo Rodriguez MD Primary Care Provider [phone] Allergies Active Allergy Reactions Criticality Noted Date [...] stage from 09/16/2019: cT1c, cN1, cM0, ER+, KS+, HER2- - Unsigned Pathologic stage from 07/14/2020:No Stage Recommended(ypT0, pN1, cM0, ER+, KS+, HER2-) - Unsigned Family History Medical History [...] 01/20/2022 01/21/2020, 12/29, 01/21/2020, Additional history exists INFLUENZA VACCINE 02/27/2025 COLONOSCOPY 04/12/2028 04/12/2018 COLORECTAL CANCER SCREENING 04/12/2028 [...] with no dictation required. Noah Hill MD IM MAMMOGRAPHY ORDERABLES F inal Result from Last 3 Months or Most Recently Relevant to Health Maintenance Insurance [place] [id number] [facility] Member Subscriber Plan / Payer (Ef fective 2019-Present) Name:Jewell Salmeron Relation to Subscriber:Self Name:Jewell Salmeron Payer ID:[id number] (NAIC) Type:Not on file Address: [address] [facility] Care Teams Web Methods Developer Relationship Specialty Start Date End Date Ricardo Rodriguez MD [address] [facility] [address] [place] [address] PCP - General Internal Medicine 01/15/20
--- OUTSIDE RECORDS SUMMARY | 2025-05-04 16:28 | XMS_ITS | Clinical Summary ---
Author Organization [facility] Address [address] [place] [address] Care Team Providers Care Atomic Physics Teacher Name Role Phone Ricardo Rodriguez MD Primary Care Provider [phone] Allergies Active Allergy Reactions Criticality Noted Date [...] (08/09/2022): Added automatically from request for surgery [id number] Encounter for attention to ileostomy 08/09/2022 09/05/2022 [...] drink first t manuel in the morning (EYE-COMPUTER SYSTEMS DESIGN ANALYST) to steady your nerves or to get [...] of 2) 2017 UKY-Depression Screening 10/06/2023 10/05/2022 [id number] Vaccine (1 - season) 2025 UKY-Influenza Vaccine (#1) 2025 UKY-Breast Cancer Screening [...] Patient has decision-making capacity? Yes Care Teams Atomic Physics Teacher Relationship Specialty Start Date End Date Ricardo Rodriguez MD [address] [place] [address] [facility] - General 10/03/21
--- OUTSIDE RECORDS SUMMARY | 2025-05-04 16:28 | XMS_ITS | Data Portability ---
Author Organization [place] - [place] [facility] [place] Address [address] [place] [address] Care Team Providers Care Parts Sales Associate Name Role Phone CASEY MEDEL Primary Care Provider [phone] Assessment No assessment recorded. Plan of Treatment Reminders Order Date Submit Date Provider Last Modified By Organization Details Last Modified Time Details Appointments None recorded. Lab None recorded. Referral None recorded. Procedures None recorded. Surgeries None recorded. Imaging None recorded. Medication Orders hydrocodone 5 mg-acetamin ophen 325 mg tablet 2022 023 [facility] 591, [address], [place], [address], 3 16:01:43 Patient TargetsNo targets recorded. Patient InstructionsNo instructions recorded. Reason for Referral None Reported. Results Created Date Observation Date Name Description Value Unit Range Abnormal Flag Note LastModifiedBy Organization Detail LastModifiedTime 08/04/19 23 08/04/2022 STONE JAJA SIS(R ENAL CALCU SHARIF) note Unles s other sanon noted testi ng [facility] [address] [place] [address] Mati gaines MD Not Available [facility] (Pre-Op Clinic) [address] [place] [address] [place], [address], 08/08/2022 21:08:42 08/04/19 23 08/08/2022 STONE JAJA SIS(R ENAL CALCU SHARIF) source Commclaude Patiño Urete r Not Available [facility] (Pre-Op Clinic) [address] [place] [address] [place], [address], 08/08/2022 21:08:42 08/04/19 23 08/08/2022 STONE JAJA SIS(R ENAL CALCU SHARIF) color Brown Not Available [facility] (Pre-Op Clinic) [address] [place] [address] [place], [address], 08/08/2022 21:08:42 08/04/19 23 08/08/2022 STONE JAJA SIS(R ENAL CALCU SHARIF) size 2x3 mm Multi ple piece s recei chelsey. Dimen sions of the large st piece repor meghan. Not Available [facility] (Pre-Op Clinic) [address] [place] [address] [place], [address], 08/08/2022 21:08:42 08/04/19 23 08/08/2022 STONE JAJA SIS(R ENAL CALCU SHARIF) weight 21 mg Not Available [facility] (Pre-Op Clinic) [address] [place] [address] [place], [address], 08/08/2022 21:08:42 08/04/19 23 08/08/2022 STONE JAJA SIS(R ENAL CALCU SHARIF) composition Commen t . Perce ntage (Repr esent s the % compo sitio n) Not Available [facility] (Pre-Op Clinic) [address] [place] [address] [place], [address], 08/08/2022 21:08:42 08/04/19 23 08/08/2022 STONE JAJA SIS(R ENAL CALCU SHARIF) Ca oxalate monohydrate 60 % Not Available [facility] (Pre-Op Clinic) [address] [place] [address] [place], [address], 08/08/2022 21:08:42 08/04/19 23 08/08/2022 STONE JAJA SIS(R ENAL CALCU SHARIF) uric acid 40 % Not Available [facility] (Pre-Op Clinic) [address] [place] [address] [place], [address], 08/08/2022 21:08:42 08/04/19 23 08/08/2022 STONE JAJA SIS(R ENAL CALCU SHARIF) photo Joya Sheppard Photo graph will follo w under a separ ate cover Not Available [facility] (Pre-Op Clinic) [address] [place] [address] [place], [address], 08/08/2022 21:08:42 08/04/19 23 08/08/2022 STONE JAJA SIS(R ENAL CALCU SHARIF) comment: Joya Sheppard Physi jess quest ions regar ding Calcu li Jaja sis conta ct [facility] r[facility] at: [phone]. Not Available [facility] (Pre-Op Clinic) [address] [place] [address] [place], [address], 08/08/2022 21:08:42 08/04/19 23 08/08/2022 STONE JAJA SIS(R ENAL CALCU SHARIF) please note: Joya Sheppard Calcu li repor t will follo w via compu ter, mail or couri er dariela meri. Not Available [facility] (Pre-Op Clinic) [address] [place] [address] [place], [address], 08/08/2022 21:08:42 08/04/19 23 08/08/2022 STONE JAJA SIS(R ENAL CALCU SHARIF) disclaimer: Joya Sheppard This test was devel oped and its perfo rmanc e pia cteri stics deter mined by [facility] rp. It has not been clear ed or appro chelsey by the Food and Drug Admin istra tion. Not Available [facility] (Pre-Op Clinic) [address] [place] [address] [place], [address], 08/08/2022 21:08:42 08/04/19 23 08/08/2022 STONE JAJA SIS(R ENAL CALCU SHARIF) pdf . Perfo rmed at: [facility] Stone Jaja sis [address], [place] [address] Lab Direc tor: Chandrakant Soto PhD, Phone : [phone] Not Available [facility] (Pre-Op Clinic) [address] [place] [address] [place], [address], 08/08/2022 21:08:42 Result Notes None recorded. Problems Name Problem SNOMED Code Status Onset Date Resolution Date Notes Provider Name and Address Organization Details Recorded Time Hydronephrosi s due to calculus of kidney and ureter 107428831 Active Sarah self, [place] - [facility] - [place] & [place] 3 13:56:32 Hypertensive disorder 82692971 Active 2022 Sarah Piercejames clair, [place] - [facility] - [facility] & [place] 3 13:56:32 Diabetes mellitus 72658457 Active 2022 Sarah self, [place] - [facility] - & [place] 3 13:56:32 Environmental allergy 945434863 Active 2022 Sarah self, [place] - [facility] - & [place] 3 13:56:32 Acute hepatitis 31799156 Active 2022 Sarah self, [place] - [facility] - [facility] & [place] 3 13:56:32 Sleep apnea 45656410 Active 2022 Sarah self, [place] - [facility] - & [place] 3 13:56:32 Disease of liver 969577581 Active 2022 Sarah self, [place] - [facility] - [facility] & [place] 3 13:56:32 Kidney stone 89915584 Active 2022 Priti self [place] - [facility] - [facility] & [place] 3 13:53:15 Radiation therapy care Active 2022 Sarah Piercejames clair, [place] - [facility] - [place] & [place] 3 13:56:32 Problem Notes None recorded. Procedures Surgical History Date Name Laterality Status Provider Name and Address Organization Details Recorded Time Tubal Ligation completed Priti Magana [place] - [facility] - [facility] & [place] 08/10/2022 13:55:27 section completed Adalid ALLAN [facility] & [place] 08/10/2022 13:56:06 Total Hysterectomy completed Priti ALLAN [facility] & [place] 08/10/2022 13:56:18 Plastic surgery ss completed Priti ALLAN [facility] & [place] 08/10/2022 13:56:55 Imaging Results None recorded. Procedure Notes None recorded. Medical Equipment None Reported. Allergies Allergen ID Allergen Name Allergen Category Reaction Reaction Severity Criticality Documentation Date Start Date Code Code System Note Provider Name and Address Organization Details Recorded Time 30307 penicilli n G Not available anaphylax is Not available Not available 08/10/2022 7980 RxNorm [place] Marie [facility] & [place] 13:46:30 68195 cephalexi n medicatio n hives Not available Not available 08/10/2022 2231 RxNorm [place] [facility] & [place] 13:47:15 Medications Name Sig Start Date Stop [...] Updated DateTime 08/10/2022 165.1 cm 28.3 kg/m2 84458.7 g 97.6 [degF] Priti Magana [facility] & [place] 08/10/2022 13:45:53 Social History Question Answer Notes LastModified by Triond Details LastModified Time Tobacco Smoking Status Never Smoker Priti Magana [facility], [facility] & [place] 08/10/2022 13:55:05 What Is Your Level Of Caffeine Consumption? None Information not available 08/10/2022 Sex: Unknown Functional Status Question Answer Note LastModified by Organizat ion Details LastModified Time What is your level of alcohol consumption? 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 Family History Relationship Description Onset Age of this Age Resolved Age Notes LastModified by Organization Details LastModified Time Mother Diabetes mellitus [email or web address] Not available 08/10 13:54:45 Medical History No medical history recorded. Gynecological HistoryNo gynecological history recorded. Obstetrics History GPAL:G 0 P 0 0 0 0 Past Encounters Encounter ID Performer Location Encounter Start Date Encounter Closed Date Diagnosis/Indication Diagnosis SNOMED-CT Code Diagnosis ICD10 Code Diagnosis IMO Codes Diagnosis Note [id number] Johnathon Rich Jr, MD [facility] [address] [place] [address] [phone] 08/10/2022 13:05:36 08/10/2022 14:38:31 Ureteric stone 69895056 N20.1 patient status post right ureterosco py, [...] due to calculus of kidney and ureter 756517093 N13.2 Health Concerns Section Related Observation LastModified by Organization Detai ls LastModified Time None Recorded Concern Status LastModified by Organization Details LastModified Time None Recorded Advance Directives Directive None Recorded Payers Insurance Date Sequence Insurance Name Policy Number Policy Weiss Covered Member ID Weiss Member ID Guarantor Name 08/10/2022 1 [id number] ([id number]) [id number] Jewell Salmeron [id number] Jewell Salmeron Notes Date Note Type Note Provider Name and Address Organization Details Recorded Time 08/10/2022 text/html ROS as noted in the HPI patient is a 57-year-old white female status [...] her 1st stone. Johnathon Rich Jr, MD [address] [place] [address], [address], [place], [address], [facility] - [place] & [place] 08/10/2022 16:01:49 OBGyn Episode No OBEpisode recorded.
--- OUTSIDE RECORDS SUMMARY | 2025-05-04 16:28 | XMS_ITS | Clinical Summary ---
Author Organization [facility] Address [address] [place] [address] Phone Care Team Providers Care Biological Lab Technician Name Role Phone Ricardo Rodriguez MD Primary Care Provider [phone] Social History Tobacco Use Types Packs/Day Years [...] 2) 2017 COVID-19 Vaccine (2023-2 5 season) 2025 Influenza Vaccine (#1) 2025 Meningococcal B Vaccine [...] AM EST : Incomplete-need additional imaging evaluation (GBQ-Qztezqaq-7) ~ RECOMMENDATION: Special view mammogram of the [...] calcifications. ~ IMPRESSION: Incomplete-need additional imaging evaluation (MDK-Rtvymtzx-3) ~ RECOMMENDATION: Special view mammogram of the [...] Health Maintenance Insurance ANTH PPO Care Teams Biological Lab Technician Relationship Specialty Start Date End Date Ricardo oRdriguez MD [address] [place] [address] [facility] [address] PCP - General Internal Medicine 09/16/12
== END 2025-05-04 23:59 | disposition home or self-care (01) ==
LOC: RAD 16:25
PROVIDERS: PCP Internal Medicine; Visit Provider Internal Medicine
DX: R91.8 Other nonspecific abnormal finding of lung field (principal); R05.9 Cough, unspecified; J98.8 Other specified respiratory disorders
CPT/HCPCS: 71046

== ENCOUNTER 2025-06-09 17:08 | Outpatient (CLI) | payer BC, SELFPAY ==
[2025-06-09 15:17] LABS: Hematocrit 42.8 % (37.0-47.0); Hemoglobin 14.0 g/dL (12.2-16.2); Immature Granulocytes % 0.3 %; Mean Corpuscular HGB Conc 32.7 g/dL (31.8-35.4); Mean Corpuscular Hemoglobin 31.2 pg (27.0-31.2); Mean Corpuscular Volume 95.3 fl (81-99); Nucleated Red Blood Cells % 0 %; Platelet Count 257 K/mm3 (142-424); Red Blood Count 4.49 M/mm3 (4.20-5.40); Red Cell Distribution Width-SD 44.4 fL; White Blood Count 6.6 K/mm3 (4.8-10.8)
[2025-06-09 15:57] LABS: Alanine Aminotransferase 27 U/L (12-78); Albumin Level 4.4 g/dl (3.5-5.0); Albumin/Globulin Ratio 1.4 (1.1-1.8); Alkaline Phosphatase 81 U/L (38-126); Anion Gap 13.6 mEq/L (5-15); Aspartate Amino Transferase 27 U/L (14-36); Bilirubin,Total 0.6 mg/dl (0.2-1.3); Blood Urea Nitrogen 15 mg/dl (7-17); Calcium 9.7 mg/dl (8.4-10.2); Carbon Dioxide 29 mmol/L (22.0-30.0); Chloride 99 mmol/L (98-107); Cholesterol 200 mg/dl (140-200); Creatinine,Serum 0.60 mg/dl (0.52-1.04); Estimated Glomerular Filt Rate 103 ml/min (>60); GFR (African American) 124 ML/MIN (>60); Globulin 3.1 g/dL (1.3-3.2); Glucose 114 mg/dl (74-100); HDL Cholesterol 63 mg/dl (40-60); Potassium 4.6 mmoL/L (3.5-5.1); Sodium 137 mmol/L (136-145); Total Protein,Serum 7.5 g/dl (6.3-8.2); Triglycerides 162 mg/dl (30-150)
[2025-06-09 16:24] LABS: Hemoglobin A1C 8.0 % (4.0-6.0)
--- OUTSIDE RECORDS SUMMARY | 2025-06-09 17:09 | XMS_ITS | Clinical Summary ---
Author Organization [facility] Address [address] [place] [address] Phone Care Team Providers Care Glove Turner Name Role Phone Ricardo Rodriguez MD Primary Care Provider [phone] Social History Tobacco Use Types Packs/Day Years [...] Zoster (1 of 2) 2017 COVID-19 Vaccine (2024-2 6 season) 2025 Influenza Vaccine (#1) 2025 Meningococcal [...] AM EST : Incomplete-need additional imaging evaluation (LKG-Fpygfcyc-0) ~ RECOMMENDATION: Special view mammogram of the [...] calcifications. ~ IMPRESSION: Incomplete-need additional imaging evaluation (CIY-Bplfmdue-2) ~ RECOMMENDATION: Special view mammogram of the [...] Health Maintenance Insurance ANTH PPO Care Teams Glove Turner Relationship Specialty Start Date End Date Ricardo Rodriguez MD [address] [place] [address] [facility] [address] PCP - General Internal Medicine 09/16/12
--- OUTSIDE RECORDS SUMMARY | 2025-06-09 17:09 | XMS_ITS | Clinical Summary ---
Author Organization Healthcare Address [address] [place] [address] Care Team Providers Care Seed District Sales Manager Name Role Phone Ricardo Rodriguez MD Primary Care Provider [phone] Allergies Active Allergy Reactions Criticality Noted Date [...] (08/09/2022): Added automatically from request for surgery [id number] Encounter for attention to ileostomy 08/09/2022 09/05/2022 [...] drink first t manuel in the morning (EYE-ACCOUNT MANAGER TRAINEE) to steady your nerves or to get [...] of 2) 2017 [facility]-Depression Screening 10/06/2023 10/05/2022 [id number] Vaccine (1 - season) 2025 [facility]-Influenza Vaccine [...] Patient has decision-making capacity? Yes Care Teams Seed District Sales Manager Relationship Specialty Start Date End Date Ricardo Rodriguez MD [address] [place] [address] [facility] - General 10/03/21
--- OUTSIDE RECORDS SUMMARY | 2025-06-09 17:09 | XMS_ITS | Data Portability ---
Author Organization [place] - [place] [facility] Medicine and Peds [place] Address [address] [place] [address] Care Team Providers Care Emergency Department Physician Name Role Phone CASEY MEDEL Primary Care Provider Assessment No assessment recorded. Plan of Treatment Reminders Order Date Submit Date Provider Last Modified By Organization Details Last Modified Time Details Appointments None recorded. Lab None recorded. Referral None recorded. Procedures None recorded. Surgeries None recorded. Imaging None recorded. Medication Orders hydrocodone 5 mg-acetamin ophen 325 mg tablet 2022 023 [facility] 591, [address], [place], [address], 3 16:01:43 Patient TargetsNo targets recorded. Patient InstructionsNo instructions recorded. Reason for Referral None Reported. Results Created Date Observation Date Name Description Value Unit Range Abnormal Flag Note LastModifiedBy Organization Detail LastModifiedTime 08/04/19 23 08/04/2022 STONE JAJA SIS(R ENAL CALCU SHARIF) note Unles s other sanon noted testi ng [facility]: [facility] [address] [place] [address] Mati gaines MD Not Available [facility] (Pre-Op Clinic) [address] [place] [address] [place], [address], 08/08/2022 21:08:42 08/04/19 23 08/08/2022 STONE JAJA SIS(R ENAL CALCU SHARIF) source Commclaude Patiño Urete r Not Available [facility] (Pre-Op Clinic) [address] [place] [address] [place], [address], 08/08/2022 21:08:42 08/04/19 23 08/08/2022 STONE JAJA SIS(R ENAL CALCU SHARIF) color Brown Not Available [facility] (Pre-Op Clinic) [address] [place] [address] [place], [address], 08/08/2022 21:08:42 08/04/19 23 08/08/2022 STONE JAJA SIS(R ENAL CALCU SHARIF) size 2x3 mm Multi ple piece s recei chelsey. Dimen sions of the large st piece repor meghan. Not Available [facility] (Pre-Op Clinic) [address] [place] [address] [place], [address], 08/08/2022 21:08:42 08/04/19 23 08/08/2022 STONE JAJA SIS(R ENAL CALCU SHARIF) weight 21 mg Not Available [facility] (Pre-Op Clinic) [address] [place] [address] [place], [address], 08/08/2022 21:08:42 08/04/19 23 08/08/2022 STONE JAJA SIS(R ENAL CALCU SHARIF) composition Commen t . Perce ntage (Repr esent s the % compo sitio n) Not Available [facility] (Pre-Op Clinic) [address] [place] [address] [place], [address], 08/08/2022 21:08:42 08/04/19 23 08/08/2022 STONE JAJA SIS(R ENAL CALCU SHARIF) Ca oxalate monohydrate 60 % Not Available [facility] (Pre-Op Clinic) [address] [place] [address] [place], [address], 08/08/2022 21:08:42 08/04/19 23 08/08/2022 STONE JAJA SIS(R ENAL CALCU SHARIF) uric acid 40 % Not Available [facility] (Pre-Op Clinic) [address] [place] [address] [place], [address], 08/08/2022 21:08:42 08/04/19 23 08/08/2022 STONE JAJA SIS(R ENAL CALCU SHARIF) photo Joya Sheppard Photo graph will follo w under a separ ate cover Not Available [facility] (Pre-Op Clinic) [address] [place] [address] [place], [address], 08/08/2022 21:08:42 08/04/19 23 08/08/2022 STONE JAJA SIS(R ENAL CALCU SHARIF) comment: Joya Sheppard Physi jess quest ions regar ding Calcu li Jaja sis conta ct [facility] at: [phone]. Not Available [facility] (Pre-Op Clinic) [address] [place] [address] [place], [address], 08/08/2022 21:08:42 08/04/19 23 08/08/2022 STONE JAJA SIS(R ENAL CALCU SHARIF) please note: Joya Sheppard Calcu li repor t will follo w via compu ter, mail or couri er dariela meri. Not Available [facility] (Pre-Op Clinic) [address] [place] [address] [place], [address], 08/08/2022 21:08:42 08/04/19 23 08/08/2022 STONE JAJA SIS(R ENAL CALCU SHARIF) disclaimer: Joya Sheppard This test was devel oped and its perfo rmanc e pia cteri stics deter mined by [facility]. It has not been clear ed or appro chelsey by the Food and Drug Admin istra tion. Not Available [facility] (Pre-Op Clinic) [address] [place] [address] [place], [address], 08/08/2022 21:08:42 08/04/19 23 08/08/2022 STONE JAJA SIS(R ENAL CALCU SHARIF) pdf . Perfo rmed at: [facility] Stone Jaja sis [address], [place] [address] Lab Direc tor: Chandrakant Soto PhD, Phone : [phone] Not Available [facility] (Pre-Op Clinic) [address] [place] [address] [place], [address], 08/08/2022 21:08:42 Result Notes None recorded. Problems Name Problem SNOMED Code Status Onset Date Resolution Date Notes Provider Name and Address Organization Details Recorded Time Hydronephrosi s due to calculus of kidney and ureter 821046734 Active Sarah self, [place] - [facility] - [place] & [place] 3 13:56:32 Hypertensive disorder 72802969 Active 2022 Sarah Piercejames clair, [place] - [facility] - [facility] & [place] 3 13:56:32 Diabetes mellitus 76031274 Active 2022 Sarah self, [place] - [facility] - & [place] 3 13:56:32 Environmental allergy 195104481 Active 2022 Sarah self, [place] - [facility] - & [place] 3 13:56:32 Acute hepatitis 81631271 Active 2022 Sarah self, [place] - [facility] - [facility] & [place] 3 13:56:32 Sleep apnea 52474670 Active 2022 Sarah self, [place] - [facility] - & [place] 3 13:56:32 Disease of liver 032468088 Active 2022 Sarah self, [place] - [facility] - [facility] & [place] 3 13:56:32 Kidney stone 89035455 Active 2022 Priti self [place] - [facility] - [facility] & [place] 3 13:53:15 Radiation therapy care Active 2022 Sarah Piercejames clair, [place] - [facility] - [place] & [place] 3 13:56:32 Problem Notes None recorded. Procedures Surgical History Date Name Laterality Status Provider Name and Address Organization Details Recorded Time Tubal Ligation completed Priti Magana [place] - [facility] - [facility] & [place] 08/10/2022 13:55:27 section completed Adalid [facility] & [place] 08/10/2022 13:56:06 Total Hysterectomy completed Priti [facility] & [place] 08/10/2022 13:56:18 Plastic surgery ss completed Priti [facility] & [place] 08/10/2022 13:56:55 Imaging Results None recorded. Procedure Notes None recorded. Medical Equipment None Reported. Allergies Allergen ID Allergen Name Allergen Category Reaction Reaction Severity Criticality Documentation Date Start Date Code Code System Note Provider Name and Address Organization Details Recorded Time 86233 penicilli n G Not available anaphylax is Not available Not available 08/10/2022 7980 RxNorm [place] [facility] & [place] 13:46:30 55025 cephalexi n medicatio n hives Not available Not available 08/10/2022 2231 RxNorm [place] [facility] & [place] 13:47:15 Medications Name Sig Start Date Stop [...] Updated DateTime 08/10/2022 165.1 cm 28.3 kg/m2 50754.7 g 97.6 [degF] Priti Magana [facility] & [place] 08/10/2022 13:45:53 Social History Question Answer Notes LastModified by i.Sec Details LastModified Time Tobacco Smoking Status Never Smoker Priti Magana [facility], [facility] & [place] 08/10/2022 13:55:05 What Is Your Level Of Caffeine Consumption? None [email or web address] Information not available 08/10/2022 Sex: Unknown Functional Status Question Answer Note LastModified by Organizat ion Details LastModified Time What is your level of alcohol consumption? 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 Family History Relationship Description Onset Age of this Age Resolved Age Notes LastModified by Organization Details LastModified Time Mother Diabetes mellitus [email or web address] Not available 08/10 13:54:45 Medical History No medical history recorded. Gynecological HistoryNo gynecological history recorded. Obstetrics History GPAL:G 0 P 0 0 0 0 Past Encounters Encounter ID Performer Location Encounter Start Date Encounter Closed Date Diagnosis/Indication Diagnosis SNOMED-CT Code Diagnosis ICD10 Code Diagnosis IMO Codes Diagnosis Note [id number] Johnathon Rich Jr, MD [facility] [address] [place] [id number] 08/10/2022 13:05:36 08/10/2022 14:38:31 Ureteric stone 11825213 N20.1 patient status post right ureterosco py, [...] due to calculus of kidney and ureter 883203592 N13.2 Health Concerns Section Related Observation LastModified by Organization Detai ls LastModified Time None Recorded Concern Status LastModified by Organization Details LastModified Time None Recorded Advance Directives Directive None Recorded Payers Insurance Date Sequence Insurance Name Policy Number Policy Weiss Covered Member ID Weiss Member ID Guarantor Name 08/10/2022 1 [id number] Jewell Salmeron [id number] Jewell Salmeron Notes Date Note Type [...] her 1st stone. Johnathon Rich Jr, MD [address] [place] [address], [address], [place], [address], [facility] - [place] & [place] 08/10/2022 16:01:49 OBGyn Episode No OBEpisode recorded.
--- OUTSIDE RECORDS SUMMARY | 2025-06-09 17:09 | XMS_ITS | Clinical Summary ---
Author Organization [facility] Address [address] [place] [address] Care Team Providers Care Director Institution Name Role Phone Ricardo Rodriguez MD Primary Care Provider [phone] Allergies Active Allergy Reactions Criticality Noted Date [...] stage from 09/16/2019: cT1c, cN1, cM0, ER+, MI+, HER2- - Unsigned Pathologic stage from 07/14/2020:No Stage Recommended(ypT0, pN1, cM0, ER+, MI+, HER2-) - Unsigned Family History Medical History [...] Relevant to Health Maintenance Insurance [place] [id number] [facility] Subscriber Plan / Payer (Ef fective 2019-Present) Name:Jewell Salmeron Relation to Subscriber:Self Name:Jewell Salmeron Payer ID:[id number] (NAIC) Type:Not on file Address: [address] [facility] Care Teams Director Institution Relationship Specialty Start Date End Date Ricardo Rodriguez MD [address] [facility] [address] [place] [address] PCP - General Internal Medicine 01/15/20
== END 2025-06-09 23:59 | disposition home or self-care (01) ==
LOC: LAB.DROPOF 17:08
PROVIDERS: PCP Internal Medicine; Visit Provider Internal Medicine
DX: E11.42 Type 2 diabetes mellitus with diabetic polyneuropathy (principal); I10 Essential (primary) hypertension; K75.4 Autoimmune hepatitis; K76.0 Fatty (change of) liver, not elsewhere classified; E78.5 Hyperlipidemia, unspecified
CPT/HCPCS: 80053; 80061; 83036; 85025

== ENCOUNTER 2025-06-17 10:40 | Outpatient (CLI) | payer BC, SELFPAY ==
--- NOTE | 2025-06-17 11:42 | XR_ITS ---
FINAL REPORT TECHNIQUE: Left shoulder 3 views CLINICAL HISTORY: left shoulder pain COMPARISON: None FINDINGS: 3 views of the left shoulder were obtained. There is no fracture or dislocation. Degenerative joint disease is present. Soft tissues are unremarkable. IMPRESSION: Degenerative change, with no acute osseous abnormality of the left shoulder. Reviewed, Interpreted and Dictated by Shanelle Nava MD Transcribed by Parvin Pedro Authenticated and . [facility]
--- NOTE | 2025-06-17 11:42 | XR_ITS ---
FINAL REPORT CLINICAL HISTORY: Follow-up post treatment of pneumonia COMPARISON: 05/04/2025 FINDINGS: PA and lateral views of the chest are obtained. The previously seen right lung opacity on the prior exam of 05/04/2025 has resolved. No new lung opacity is identified. There is no pleural effusion, pneumothorax, or acute osseous abnormality. Surgical clips are noted overlying the left chest. IMPRESSION: Previously seen right lung opacity has resolved, without new infiltrate identified. Reviewed, Interpreted and Dictated by Shanelle Nava MD Transcribed by Parvin Pedro Authenticated and [facility]
== END 2025-06-17 23:59 | disposition home or self-care (01) ==
LOC: INF 10:41
PROVIDERS: PCP Internal Medicine; Visit Provider Internal Medicine Medical Oncology
DX: J18.9 Pneumonia, unspecified organism (principal); C50.919 Malignant neoplasm of unspecified site of unspecified female breast; M25.512 Pain in left shoulder
CPT/HCPCS: 71046; 73030

== ENCOUNTER 2025-07-14 16:00 | Outpatient (RCR) | payer BC, SELFPAY ==
--- NOTE | 2025-07-03 15:47 | HMH.OPLYMPH ---
Rehab Lymphedema Evaluation Rehab Lymphedema Evaluation Start: 07/03/25 15:34 Freq: Status: Active Protocol: Document 07/03/25 15:34 RENETTA (Rec: 07/03/25 15:47 PHORDYLAN [id number]) E-signed By Tani Downey, PT Subjective/History History History This is the initial PT eval for Jewell Salmeron, 60 yowf who presents with c/o increased L UE edema and increased pain in the L axilla and upper arm x 1 yr overall, but worse x 1 mo. She has hx of l side breast cancer with mastectomy and multiple lymph nodes removed ~ 4 yrs ago. She then underwent L breast reconstruction using the latissimus dorsi. She reports decreased L shoulder ROM since that surgery and her recovery was slowed due to bowel perforation requiring short term ileostomy. She does have a home lymphedema pump which she uses somewhat regularly. She has further PMH of DM. Subjective Subjective Currently she reports no pain, but at worst pain is sharp and rated 8/10 in the L UE. She presents with 1/4 TTP to the L upper arm. No pitting edema noted, but MILD fibrotic edema present from forearm proximally on the L side. LLIS: 43 Lymphedema Eval Classification of Lymphedema Secondary Lymphedema Yes Stemmer's sign Stemmer's Sign no Stage of Lymphedema Lymphedema stages Stage II (Pitting edema, increased fibrosis w/ decreased pitting) Skin Changes Discoloration of Yes Skin Other Changes Yes Pain Scale Pain Scale (0-10) 8 Radiation Therapy Has received yes radiation therapy Chemo Therapy Has received chemo yes therapy Upper Extremity Measurements Left MCP Measurement (cm) 19.2 Web Space 21.2 Measurement (cm) Ulnar Styloid 17.1 Process Measurement (cm) 10 cm Proximal to 23.2 Ulnar Styloid Measurement (cm) 20 cm Proximal to 28.3 Ulnar Styloid Measurement (cm) 30 cm Proximal to 34.3 Ulnar Styloid Measurement (cm) 40 cm Proximal to 38.8 Ulnar Styloid Measurement (cm) 50 cm Proximal to 43.5 Ulnar Styloid Measurement (cm) Upper Extremity 225.6 Measurement Total ( cm) Manual Lymphatic Drainage Treatment Area MLD Treatment Area Left Lower Extremity,Left Breast,Left Axilla Wound Problems/Impairments Impairments Problems/ Palpation Tenderness,Impaired Range of Motion,Impaired Impairmments Strength,Impaired Endurance,Impaired Lifting,Impaired Dressing,Impaired Household Care,Impaired Recreational Activities,Increased Edema,Lymphedema Present, Subjective C/O Pain,Impaired Self Care/Self Management Prognosis Rehab Potential Good Comment Skilled therapy is indicated to reduce overall L UE lymphedema, improve L shoulder ROM, increase ability to perform ADLs with L UE, and decrease pain in order to return pt to PLOF. Clinical Impression Consistent with Yes Diagnosis Lymphedema Patient Goals Lymphedema Patient Goals Lymphedema Short In 4 wks pt will complete these goals in order to aid Term Patient Goals improvement in function specifically with all ADLs: 1) Decrease circumferential measurements in L UE by 5 cm total. Lymphedema Fdc In 8 wks pt will complete these goals in order to aid Patient Goals improvement in function specifically with all ADLs: 1) Decrease circumferential measurements in L UE by 10 cm total. 2) Decrease pain to 4/10 at worst in L UE 3) be able to reach objects from a shelf above shoulder level without difficulty. Outpatient Therapy Plan of Care Treatment Plan May Include Therapeutic Exercise Yes Including Home Exercise Program Manual Therapy Yes Techniques Neuromuscular Re- Yes education Therapeutic Yes Activities to Return to Previous Functional/Work Level ADL/Self Care Yes Education Orthotics/Bracing/ Yes Splinting Manual Lymphatic Yes Drainage Eval/Re-Eval Yes Frequency Times per week 2 Duration Number of Weeks 8 Addendums This patient is a No candidate for social or vocational rehab ? Patient/Guardian Yes verbally acknowledges understanding of treatment program and consents to further treatment? Patient/Guardian Yes verbally acknowledges understanding of diagnosis, prognosis and goals for treatment? Eval Complexity PT Charges 19778 - Moderate Complexity PHYSICIAN CERTIFICATION: I certify the specified therapy services for Jewell Salmeron are required, authorized, and reviewed every 30 days.
== END 2025-07-14 23:59 | disposition home or self-care (01) ==
LOC: PT 16:00
PROVIDERS: PCP Internal Medicine; Visit Provider Internal Medicine Medical Oncology
DX: I97.2 Postmastectomy lymphedema syndrome (principal); G62.9 Polyneuropathy, unspecified; Z91.89 Other specified personal risk factors, not elsewhere classified
CPT/HCPCS: 97162

== ENCOUNTER 2025-07-29 09:00 | Outpatient (CLI) | payer BC, SELFPAY ==
--- NOTE | 2025-07-29 09:00 | XR_ITS ---
FINAL REPORT TECHNIQUE: Bone densitometry calculations of the lumbar spine and left hip were obtained. CLINICAL HISTORY: breast cancer COMPARISON: 05/08/2023 FINDINGS: Using L1-4, the bone mineral density of the spine is 0.978 g/cm2, corresponding to T-score of -0.6 and a Z score of 0.7. This is within the range of normal limits. Using the right hip, the bone mineral density of the femoral neck is 0.700 g/cm2, corresponding to a T-score of -1.3 and a Z-score of -0.1. This is within the range of osteopenia. FRAX 10 year fracture risk is 0.9% for a hip fracture and 12% for a major osteoporotic fracture. NOTE: T-score: Standard deviation compared with peak bone mass of young adult mean. *Following the recommendations of the International Society of Bone densitometry, classification of hip BMD is based on the lower of two T-scores; total hip or femoral neck. IMPRESSION: 1. Bone mineral density of the lumbar spine within the range of normal limits. 2. Bone mineral density of the right femoral neck within the range of osteopenia. Reviewed, Interpreted and Dictated by Shanelle Nava MD Transcribed by Adrianne Hook Authenticated and [facility]
--- OUTSIDE RECORDS SUMMARY | 2025-07-29 09:02 | XMS_ITS | Clinical Summary ---
Author Organization [facility] Address [address] [place] [address] Care Team Providers Care Stem Maker Name Role Phone Ricardo Rodriguez MD Primary Care Provider [phone] Allergies Active Allergy Reactions Criticality Noted Date [...] stage from 09/16/2019: cT1c, cN1, cM0, ER+, [place]+, HER2- - Unsigned Pathologic stage from 07/14/2020:No Stage Recommended(ypT0, pN1, cM0, ER+, [place]+, HER2-) - Unsigned Family History Medical History [...] Relevant to Health Maintenance Insurance [place] [id number] [facility] Member Subscriber Plan / Payer (Ef fective 2019-Present) Name:Jewell Salmeron Relation to Subscriber:Self Name:Jewell Salmeron Payer ID:[id number] (NAIC) Type:Not on file Address: [id number] [facility] Care Teams Stem Maker Relationship Specialty Start Date End Date Ricardo Rodriguez MD [address] [facility] [address] [place] [address] PCP - General Internal Medicine 01/15/20
--- OUTSIDE RECORDS SUMMARY | 2025-07-29 09:02 | XMS_ITS | Clinical Summary ---
Author Organization [facility] Address [address] [place] [address] Care Team Providers Care Site Safety Representative Name Role Phone Ricardo Rodriguez MD Primary Care Provider [phone] Allergies Active Allergy Reactions Criticality Noted Date [...] (08/09/2022): Added automatically from request for surgery [id number] Encounter for attention to ileostomy 08/09/2022 09/05/2022 [...] drink first t manuel in the morning (EYE-EPIC MANAGER) to steady your nerves or to get [...] of 2) 2017 [facility]-Depression Screening 10/06/2023 10/05/2022 [id number] Vaccine (1 - 2024- season) 2025 [facility]-Influenza Vaccine (#1) 2025 [facility]-Breast Cancer Screening Discontinued 09/18/2012 [facility]-Obesity Intervention Completed 023, 09/15/2022, 07/18/2022, Additional history exists HPV Vaccines (No Doses Required) Completed [facility]-HIB Vaccines Aged Out No longer e [...] patient's age to complete this topic Insurance [place] [id number] [place] Advance Directives * Full Code (Latest Code [...] Patient has decision-making capacity? Yes Care Teams Site Safety Representative Relationship Specialty Start Date End Date Ricardo Rodriguez MD [address] [facility] [address] [place] [address] PCP - General 10/03/21
== END 2025-07-29 23:59 | disposition home or self-care (01) ==
LOC: RAD 09:00
PROVIDERS: PCP Internal Medicine; Visit Provider Internal Medicine Medical Oncology
DX: C50.919 Malignant neoplasm of unspecified site of unspecified female breast (principal); Z78.0 Asymptomatic menopausal state; M85.88 Other specified disorders of bone density and structure, other site
CPT/HCPCS: 77080